=== PATIENT | female | born 1960 | race Caucasian/White ===

== ENCOUNTER 2017-02-04 12:30 | Emergency (ER) | payer MEDICARE, OTHER ==
[~2017-02-04] VITALS: Ht 177.8 cm; Wt 150.0 kg
[~2017-02-04 12:30] MED LIST: ACIDCAP PO; ALBU0.08 NEB; ALLO300T2 PO; ASPI81TA11 PO; ATOR40TA16 PO; CLON.1 PO; DEPO400I IM; DOXE100C4 PO; FIORINAL2 PO; FLUO40CA PO; GLUC4CHW CHEW; INSU1SOL SQ; LYRI150C PO; NITR1SUB3 SL; NORC5TAB PO; PANT40TA3 PO; PROM25TA5 PO; RANI150T PO; SERO300T PO; SYMB160A INH; THYR1TAB21 PO; TOPR100T PO; [UNRECOGNIZED DRUG - OTHER] EACH EYE
[2017-02-04 12:32] VITALS: BP 146/82; PULSE 103; RESP 17; TEMP 97.9; O2SAT 98
--- NOTE | 2017-02-04 12:53 | PD ---
Physical Exam Time Seen by Provider: 12:50 Narrative 56yo F c/o fall last night w/ pain in R hand, L leg and knee pain, lower back pain, and feeling nauseated. Denies vomiting. Hit head w/o LOC. Denies anticoagulants. R sided ear ache also, all of a sudden. Patient stable. Patient seen in triage. Awaiting bed placement. Data Data Last Documented VS Vital Signs Date Time Temp Pulse Resp B/P Pulse Ox O2 Delivery O2 Flow Rate FiO2 02/04/17 12:32 97.9 103 17 146/82 98 MDM Supervised Visit with COLLEEN: Barbara Mixon Feb 04, 2017 12:53
[2017-02-04 14:10] VITALS: RESP 18; O2SAT 98
[2017-02-04] MEDS ORDERED: SODIUM CHLORIDE 0.9% FLUSH 10 ML FLUSH IVF PRN (14:15)
--- NOTE | 2017-02-04 14:41 | PD ---
HPI Chief Complaint: Fall Time Seen by Provider: 13:50 Travel History International Travel<30 days: No Contact w/Intl Traveler<30days: No Traveled to known affect area: No History of Present Illness HPI Patient is a 56-year-old female presenting to the emergency room for evaluation her a fall. Patient fell approximately 5 PM yesterday evening, she reports that she had her electric wheelchair too far away from the bathroom because she was trying to increase her steps when she lost her balance, falling backwards and hitting her head on the doorway she also states that she had her right hand when she fell. She fell on her butt on linoleum floor. Patient denies any loss of consciousness, she was helped up by friends. Patient states she woke up this morning and her blood glucose was 58 so she proceeded to eat to pain about her jelly sandwiches to get her sugar up. She denies any shortness of breath, chest pain, headache, abdominal pain. PFSH Past Medical History Hx Anticoagulant Therapy: Yes (ASA) Arthritis: Yes Asthma: No Autoimmune Disease: No Blood Disorders: No Anxiety: Yes (PTSD, BORDERLINE PERSONALITY DISORDER; DEPRESSION & ANXIETY) Depression: Yes Heart Rhythm Problems: No Cancer: No Cardiac Catheterization: Yes ( X 4 PER PT, NO STENTS) High Cholesterol: No Chemotherapy: No Chest Pain: Yes Congestive Heart Failure: Yes COPD: Yes Cerebrovascular Accident: Yes Diabetes: Yes Patient Takes Glucophage: Yes Diminished Hearing: No Gastrointestinal Disorders: Yes GERD: Yes Genitourinary: Yes Hiatal Hernia: Yes Hypertension: Yes Immune Disorder: No Implanted Vascular Access Dvce: Yes Kidney Stones: No Neurologic: Yes (peripheral neuropathy) Psychiatric: Yes Reproductive: No Immunizations Current: Yes Migraines: Yes Radiation Therapy: No Renal Failure: Yes (DECREASED RENAL FUNCTION) Seizures: No Sickle Cell Disease: No Sleep Apnea: Yes Thyroid Disease: Yes Triglycerides - High: Yes Ulcer: No Influenza Vaccination: Yes ?: Not Menopausal: Yes Past Surgical History Abdominal Surgery: No AICD: No Arteriovenous Shunt: No Cardiac Surgery: No Coronary Artery Bypass Graft: No Ear Surgery: No Endocrine Surgery: No Eye Surgery: No Genitourinary Surgery: Yes (1999 sphincterotomy/hemerrhoidectomy) Gynecologic Surgery: No Joint Replacement: No Neurologic Surgery: No Pacemaker: No Thoracic Surgery: No Tonsillectomy: Yes Other Surgery: Yes (Spinal Decompression w Caio Nov 24;ANAL FISSURE/SPHINCTER/ HEMORRHOID REPAIR-) Family History Family Myocardial Infarction: Yes (FATHER [place] X 7, BYPASS AND STENTS, MOM PASSED FROM [place]) Social History Alcohol Use: Yes (rare) Tobacco Use: Yes (1/2 PPD) Substance Use: No Allergies-Medications (Allergen,Severity, Reaction): Coded Allergies: Baclofen (Verified Allergy, Severe, rash, 02/04/17) Niacin (Verified Allergy, Severe, Edema, 02/04/17) Synthroid (Verified Allergy, Severe, Edema, 02/04/17) *MDRO Multi-Drug Resistant Organism (Verified Adverse Reaction, Unknown, ) 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 ESBL+E.Coli (urine-01/14/11) Reported Meds & Prescriptions Reported Meds & Active Scripts Active Fiorinal (Butalbital/Aspirin/Caffeine) 50-325-40 Mg Cap 1 Cap PO TID PRN Do not exceed 6 capsules/day. Catapres (Clonidine) 0.1 Mg Tab 0.1 Mg PO TID Reported Humulin R U-500 (Concentrate) Kwikpen Inj (Insulin Regular (Human) Concentrate Inj) 1,500 Units/3 Ml Pen 3 Units SQ AC DINNER Humulin R U-500 (Concentrate) Kwikpen Inj (Insulin Regular (Human) Concentrate Inj) 1,500 Units/3 Ml Pen 4 Units SQ AC LUNCH Humulin R U-500 (Concentrate) Kwikpen Inj (Insulin Regular (Human) Concentrate Inj) 1,500 Units/3 Ml Pen 6 Units SQ AC BREAKFAST Atorvastatin (Atorvastatin Calcium) Unknown Strength Tab 20 PO HS Nature-Throid (Thyroid) 65 Mg Tab 65 Mg PO DAILY Seroquel (Quetiapine Fumarate) 300 Mg Tab 300 Mg PO TID Ranitidine (Ranitidine HCl) 150 Mg Tab 150 Mg PO BID Phenergan (Promethazine HCl) 25 Mg Tab 25 Mg PO BID PRN Lyrica (Pregabalin) 150 Mg Cap 150 Mg PO BID Pantoprazole (Pantoprazole Sodium) 40 Mg Tab 40 Mg PO BID Nitroglycerin SL (Nitroglycerin) 0.4 Mg Subl 0.4 Mg SL DIRECTED PRN ONE TABLET UNDER THE TONGUE NEEDED FOR CHEST PAIN, MAY REPEAT EVERY FIVE MINUTES FOR A TOTAL OF 3 DOSES OR CALL 911 IF NO RELIEF Toprol XL (Metoprolol Succinate) 100 Mg Tab 100 Mg PO AC LUNCH Glucose (Dextrose) 4 Gm Chew 16 Gm CHEW DIRECTED Fluoxetine (Fluoxetine HCl) 40 Mg Cap 80 Mg PO DAILY Doxepin (Doxepin HCl) 100 Mg Cap 100 Mg PO HS Aspirin EC (Aspirin) 81 Mg Tabdr 81 Mg PO HS Sm Artificial Tears Opth Drops (Artificial Tear Solution Opth Drops) 1 Drops 1 Drop EACH EYE QID PRN Allopurinol 300 Mg Tab 300 Mg PO DAILY Symbicort Inh (Budesonide/Formoterol Fumarate) 160-4.5 Mcg/Act Aero 2 Puff INH Q12HR Albuterol Neb (Albuterol Sulfate) 2.5 Mg/3 Ml Neb 2.5 Mg NEB Q6HR NEB PRN Acidophilus (Lactobacillus Acidophilus) 1 Cap Cap 1 Cap PO BID Review of Systems Except as stated in HPI: all other systems reviewed are Neg Eyes: No: Blurred Vision HENT: No: Headaches, Neck Pain Cardiovascular: No: Chest Pain or Discomfort Respiratory: No: Shortness of Breath Gastrointestinal: Positive: Nausea, No: Vomiting, Abdominal Pain Genitourinary: Positive: Decreased Urinary Output Musculoskeletal: Positive: Myalgias, Edema Neurologic: Positive: Slurred Speech, Paresthesia, No: Weakness, Dizziness Physical Exam Narrative GENERAL: Morbidly obese, disheveled female. Resting comfortably in no acute distress. Friend at bedside. SKIN: Focused skin assessment warm/dry. Chronic changes to bilateral lower extremities HEAD: Atraumatic. Normocephalic. EYES: Pupils equal and round. No scleral icterus. No injection or drainage. ENT: No nasal bleeding or discharge. Mucous membranes pink and moist. NECK: Trachea midline. No JVD. CARDIOVASCULAR: Regular rate and rhythm. No murmur appreciated. RESPIRATORY: No accessory muscle use. Diminished GASTROINTESTINAL: Abdomen obese, firm, non-tender, nondistended. Hepatic and splenic margins not palpable. MUSCULOSKELETAL: No obvious deformities. No clubbing. No cyanosis. + edema BLE NEUROLOGICAL: Drowsy and alert, oriented 3. No obvious cranial nerve deficits. Motor grossly within normal limits. Slurred speech. PSYCHIATRIC: Appropriate mood and affect; insight and judgment normal. Data Data Last Documented VS Vital Signs Date Time Temp Pulse Resp B/P Pulse Ox O2 Delivery O2 Flow Rate FiO2 02/04/17 15:40 98 18 148/86 98 Room Air 02/04/17 12:32 97.9 Orders Complete Blood Count With Diff (02/04/17 14:09) Comprehensive Metabolic Panel (02/04/17 14:09) Ct Brain W/O Iv Contrast(Rout) (02/04/17 14:09) Blood Glucose (02/04/17 14:09) Ecg Monitoring (02/04/17 14:09) Iv Access Insert/Monitor (02/04/17 14:09) Oximetry (02/04/17 14:09) Sodium Chloride 0.9% Flush (Ns Flush) (02/04/17 14:15) Cath For Specimen (02/04/17 14:09) Lactic Acid (02/04/17 14:09) Labs Laboratory Tests Test 02/04/17 02/04/17 14:20 14:45 White Blood Count 8.6 TH/MM3 Red Blood Count 4.03 MIL/MM3 Hemoglobin 12.2 GM/DL Hematocrit 35.1 % Mean Corpuscular Volume 87.1 FL Mean Corpuscular Hemoglobin 30.2 PG Mean Corpuscular Hemoglobin 34.6 % Concent Red Cell Distribution Width 15.5 % Platelet Count 200 TH/MM3 Mean Platelet Volume 8.8 FL Neutrophils (%) (Auto) 71.3 % Lymphocytes (%) (Auto) 17.3 % Monocytes (%) (Auto) 6.7 % Eosinophils (%) (Auto) 4.2 % Basophils (%) (Auto) 0.5 % Neutrophils # (Auto) 6.1 TH/MM3 Lymphocytes # (Auto) 1.5 TH/MM3 Monocytes # (Auto) 0.6 TH/MM3 Eosinophils # (Auto) 0.4 TH/MM3 Basophils # (Auto) 0.0 TH/MM3 CBC Comment DIFF FINAL Differential Comment Sodium Level 142 MEQ/L Potassium Level 4.2 MEQ/L Chloride Level 108 MEQ/L Carbon Dioxide Level 29.0 MEQ/L Anion Gap 5 MEQ/L Blood Urea Nitrogen 18 MG/DL Creatinine 1.67 MG/DL Estimat Glomerular Filtration 32 ML/MIN Rate Random Glucose 209 MG/DL Calcium Level 8.8 MG/DL Total Bilirubin 0.2 MG/DL Aspartate Amino Transf 25 U/L (AST/SGOT) Alanine Aminotransferase 29 U/L (ALT/SGPT) Alkaline Phosphatase 91 U/L Total Protein 6.7 GM/DL Albumin 3.1 GM/DL Lactic Acid Level 1.6 mmol/L MDM Medical Decision Making Medical Screen Exam Complete: Yes Emergency Medical Condition: Yes Interpretation(s) Vital Signs Date Time Temp Pulse Resp B/P Pulse Ox O2 Delivery O2 Flow Rate FiO2 02/04/17 13:15 16 99 Room Air 02/04/17 12:32 97.9 103 17 146/82 98 Differential Diagnosis Hyperglycemia versus CVA versus uncontrolled diabetes versus Narrative Course Patient is 56-year-old morbidly obese female presenting to the emergency department for evaluation after a mechanical fall last night. Patient appeared to be slurring her speech on initial exam, she states that that happens to her when her sugar gets high. Labs ordered and pending, vital signs are stable. Patient is neurologically intact upon reassessment. CT of the brain shows no acute abnormality CBC is unremarkable. Chemistry is unremarkable She is encouraged to follow up with her primary doctor, monitor blood sugar, avoid overeating. She is encouraged take [id number] acetaminophen or ibuprofen as needed and as directed for pain. She is currently return to emergency department for any new or worsening symptoms. Patient is stable for discharge. Diagnosis Primary Impression: Fall Qualified Code: W19.XXXA - Fall, initial encounter Additional Impressions: Contusion Qualified Code: S00.03XA - Contusion of scalp, initial encounter Muscle ache Referrals: Primary Care Physician 3 days Patient Instructions: Contusion in Adults (ED), Fall Prevention for Older Adults (ED), General Instructions Additional Instructions: Follow-up with her primary doctor [id number] acetaminophen or ibuprofen as needed and as directed for pain Maintain adequate fluid intake Return to emergency department for any new or worsening symptoms Med/Other Pt SpecificInfo: No Change to Meds Disposition: 01 DISCHARGE HOME Condition: Stable Lucille Durant Feb 04, 2017 14:41
[2017-02-04 15:02] LABS: AUTOMATED NEUTROPHIL # 6.1 TH/MM3 (1.8-7.7); BASOPHIL % 0.5 % (0.0-2.0); EOSINOPHIL # 0.4 TH/MM3 (0-0.4); EOSINOPHIL % 4.2 % (0.0-4.0); HEMATOCRIT 35.1 % (35.0-46.0); HEMO FLAGS DIFF FINAL; LYMPH % 17.3 % (9.0-44.0); LYMPHOCYTE # 1.5 TH/MM3 (1.0-4.8); MEAN CELL VOLUME 87.1 FL (80.0-100.0); MEAN CORPUSCULAR HEMOGLOBIN 30.2 PG (27.0-34.0); MEAN CORPUSCULAR HGB CONC 34.6 % (32.0-36.0); MONO % 6.7 % (0.0-8.0); NEUT % 71.3 % (16.0-70.0); PLATELET COUNT 200 TH/MM3 (150-450); RED BLOOD COUNT 4.03 MIL/MM3 (4.00-5.30); RED CELL DISTRIBUTION WIDTH 15.5 % (11.6-17.2); WHITE BLOOD COUNT 8.6 TH/MM3 (4.0-11.0)
[2017-02-04 15:30] LABS: ALKALINE PHOSPHATASE 91 U/L (45-117); TOTAL BILIRUBIN ADULT 0.2 MG/DL (0.2-1.0)
[2017-02-04 15:38] LABS: ALT (GPT) 29 U/L (10-53); ANION GAP 5 MEQ/L (5-15); AST (GOT) 25 U/L (15-37); BLOOD UREA NITROGEN 18 MG/DL (7-18); CHLORIDE 108 MEQ/L (98-107); GLOMERULAR FILTRATION RATE 32 ML/MIN (>89); POTASSIUM 4.2 MEQ/L (3.5-5.1); SODIUM (NA) 142 MEQ/L (136-145)
[2017-02-04 15:40] VITALS: BP 148/86; PULSE 98; RESP 18; O2SAT 98
--- NOTE | 2017-02-04 16:21 | RADRPT ---
EXAM DATE/TIME: 02/04/2017 14:40 [facility] COMPARISON: CT BRAIN W/O CONTRAST, April 08, 2015, 17:03. INDICATIONS : Patient fell, hit back of head RADIATION DOSE: 55.97 CTDIvol (mGy) MEDICAL HISTORY : Cardiovascular disease. Hypertension. Congestive heart failure. SURGICAL HISTORY : None. ENCOUNTER: Initial ACUITY: 1 day PAIN SCALE: 5/10 LOCATION: occipital TECHNIQUE: Multiple contiguous axial images were obtained of the head. Using automated exposure control and adj ustment of the mA and/or kV according to patient size, radiation dose was kept as low as reasonably a chievable to obtain optimal diagnostic quality images. FINDINGS: CEREBRUM: The ventricles are normal for age. No evidence of midline shift, mass lesion, hemorrhage or acute in farction. No extra-axial fluid collections are seen. POSTERIOR FOSSA: The cerebellum and brainstem are intact. The 4th ventricle is midline. The cerebellopontine angle i s unremarkable. EXTRACRANIAL: The visualized portion of the orbits is intact. SKULL: The calvaria is intact. No evidence of skull fracture. CONCLUSION: Negative trauma study. Arya Santos MD on February 04, 2017 at 16:18 Board Certified Radiologist. This report was verified electronically.
[2017-02-04 16:47] VITALS: BP 148/76; TEMP 97.8
--- NOTE | 2017-02-04 16:50 | PD ---
Data Data Last Documented VS Vital Signs Date Time Temp Pulse Resp B/P Pulse Ox O2 Delivery O2 Flow Rate FiO2 02/04/17 15:40 98 18 148/86 98 Room Air 02/04/17 12:32 97.9 Orders Complete Blood Count With Diff (02/04/17 14:09) Comprehensive Metabolic Panel (02/04/17 14:09) Ct Brain W/O Iv Contrast(Rout) (02/04/17 14:09) Blood Glucose (02/04/17 14:09) Ecg Monitoring (02/04/17 14:09) Iv Access Insert/Monitor (02/04/17 14:09) Oximetry (02/04/17 14:09) Sodium Chloride 0.9% Flush (Ns Flush) (02/04/17 14:15) Cath For Specimen (02/04/17 14:09) Lactic Acid (02/04/17 14:09) Labs Laboratory Tests Test 02/04/17 02/04/17 14:20 14:45 White Blood Count 8.6 TH/MM3 Red Blood Count 4.03 MIL/MM3 Hemoglobin 12.2 GM/DL Hematocrit 35.1 % Mean Corpuscular Volume 87.1 FL Mean Corpuscular Hemoglobin 30.2 PG Mean Corpuscular Hemoglobin 34.6 % Concent Red Cell Distribution Width 15.5 % Platelet Count 200 TH/MM3 Mean Platelet Volume 8.8 FL Neutrophils (%) (Auto) 71.3 % Lymphocytes (%) (Auto) 17.3 % Monocytes (%) (Auto) 6.7 % Eosinophils (%) (Auto) 4.2 % Basophils (%) (Auto) 0.5 % Neutrophils # (Auto) 6.1 TH/MM3 Lymphocytes # (Auto) 1.5 TH/MM3 Monocytes # (Auto) 0.6 TH/MM3 Eosinophils # (Auto) 0.4 TH/MM3 Basophils # (Auto) 0.0 TH/MM3 CBC Comment DIFF FINAL Differential Comment Sodium Level 142 MEQ/L Potassium Level 4.2 MEQ/L Chloride Level 108 MEQ/L Carbon Dioxide Level 29.0 MEQ/L Anion Gap 5 MEQ/L Blood Urea Nitrogen 18 MG/DL Creatinine 1.67 MG/DL Estimat Glomerular Filtration 32 ML/MIN Rate Random Glucose 209 MG/DL Calcium Level 8.8 MG/DL Total Bilirubin 0.2 MG/DL Aspartate Amino Transf 25 U/L (AST/SGOT) Alanine Aminotransferase 29 U/L (ALT/SGPT) Alkaline Phosphatase 91 U/L Total Protein 6.7 GM/DL Albumin 3.1 GM/DL Lactic Acid Level 1.6 mmol/L MDM Supervised Visit with COLLEEN: Yes Narrative Course The history, exam, and medical decision-making in the associated mid-level provider note were completed with my assistance. I reviewed and agree with the findings presented. I attest that I had a [id number] encounter with the patient on the same day, and personally performed and documented my assessment and findings in the medical record. *My assessment and Findings: 56-year-old woman, obese, presents after a fall. She initially was a little bit sluggish, with some slurred speech. She is on many many medications. She does on large doses of Seroquel. She states she gets incredibly sleepy every morning around 10 AM. Initial evaluation otherwise looks okay. No other evidence of acute stroke. I recommend that she follow-up for titration all sedating medications. She otherwise looks generally well. Recommend outpatient follow-up. Diagnosis Primary Impression: Fall Qualified Code: W19.XXXA - Fall, initial encounter Additional Impressions: Muscle ache Contusion Qualified Code: S00.03XA - Contusion of scalp, initial encounter Referrals: Primary Care Physician 3 days Patient Instructions: General Instructions, Fall Prevention for Older Adults ( ED), Contusion in Adults (ED) Departure Forms: Tests/Procedures Additional Instruction: Follow-up with her primary doctor [id number] acetaminophen or ibuprofen as needed and as directed for pain Maintain adequate fluid intake Return to emergency department for any new or worsening symptoms Disposition: 01 DISCHARGE HOME Condition: Stable Reese Carreon MD Feb 04, 2017 16:49
== END 2017-02-04 16:47 | disposition home or self-care (01) ==
LOC: NEPD 12:30
DX: S00.03XA Contusion of scalp, initial encounter (principal); W19.XXXA Unspecified fall, initial encounter; Y92.019 Unspecified place in single-family (private) house as the place of occurrence of the external cause
CPT/HCPCS: 70450; 80053; 83605; 85025

== ENCOUNTER 2017-03-18 14:11 | Inpatient (IN) | payer MEDICARE ==
[2017-03-18] VITALS (14 sets, daily range): BP systolic 99–138; BP diastolic 55–73; PULSE 72–88; RESP 18–24; TEMP 100.1–101.6; O2SAT 92–100
[~2017-03-18] VITALS: Ht 170.2 cm; Wt 152.0 kg
[~2017-03-18 14:11] MED LIST changes: -DEPO400I IM; -NORC5TAB PO
--- NOTE | 2017-03-18 14:23 | PD ---
HPI Chief Complaint: COUGH,SOB AND WEAKNESS Time Seen by Provider: 14:19 Travel History International Travel<30 days: No Contact w/Intl Traveler<30days: No History of Present Illness [place] reason when [place] noted that patient had fever and pulse ox 70's , pt states sob and cough PFSH Past Medical History Hx Anticoagulant Therapy: Yes (ASA) Arthritis: Yes Asthma: No Autoimmune Disease: No Blood Disorders: No Anxiety: Yes (PTSD, BORDERLINE PERSONALITY DISORDER; DEPRESSION & ANXIETY) Depression: Yes Heart Rhythm Problems: No Cancer: No Cardiac Catheterization: Yes ( X 4 PER PT, NO STENTS) High Cholesterol: No Chemotherapy: No Chest Pain: Yes Congestive Heart Failure: Yes COPD: Yes Cerebrovascular Accident: Yes Diabetes: Yes Diminished Hearing: No Gastrointestinal Disorders: Yes GERD: Yes Genitourinary: Yes Hiatal Hernia: Yes Hypertension: Yes Immune Disorder: No Implanted Vascular Access Dvce: Yes Kidney Stones: No Neurologic: Yes (peripheral neuropathy) Psychiatric: Yes Reproductive: No Immunizations Current: Yes Migraines: Yes Radiation Therapy: No Renal Failure: Yes (DECREASED RENAL FUNCTION) Seizures: No Sickle Cell Disease: No Sleep Apnea: Yes Thyroid Disease: Yes Triglycerides - High: Yes Ulcer: No Menopausal: Yes Past Surgical History Abdominal Surgery: No AICD: No Arteriovenous Shunt: No Cardiac Surgery: No Coronary Artery Bypass Graft: No Ear Surgery: No Endocrine Surgery: No Eye Surgery: No Genitourinary Surgery: Yes (1998 sphincterotomy/hemerrhoidectomy) Gynecologic Surgery: No Joint Replacement: No Neurologic Surgery: No Pacemaker: No Thoracic Surgery: No Tonsillectomy: Yes Other Surgery: Yes (Spinal Decompression w Nov 24;ANAL FISSURE/SPHINCTER/ HEMORRHOID REPAIR-) Social History Alcohol Use: Yes (rare) Tobacco Use: Yes (1/2 PPD) Substance Use: No Allergies-Medications (Allergen,Severity, Reaction): Coded Allergies: Baclofen (Verified Allergy, Severe, rash, 02/04/17) Niacin (Verified Allergy, Severe, Edema, 02/04/17) Synthroid (Verified Allergy, Severe, Edema, 02/04/17) *MDRO Multi-Drug Resistant Organism (Verified Adverse Reaction, Unknown, ) 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 ESBL+E.Coli (urine-01/14/11) Reported Meds & Prescriptions Reported Meds & Active Scripts Active Catapres (Clonidine) 0.1 Mg Tab 0.1 Mg PO TID Reported Tucks Medicated Topical (Witch Nyasia Topical) 50 % Pad 1 Pad TOPICAL DIRECTED PRN Aqua Care (Urea) 10 % Cre 1 Applic TOPICAL BID Nasacort Allergy 24Hr Nasal [place] (Triamcinolone Acetonide Nasal [place]) 55 Mcg/ Act Spr 2 [place] EACH NARE DAILY Tobramycin Opth Drops 0.3 % Soln 1 Drop EACH EYE QID Spiriva Respimat Inh (Tiotropium Inh) 2.5 Mcg/Act Aero 2 Puff INH DAILY 2.5 mcg = 1 inhalation Seroquel (Quetiapine Fumarate) 300 Mg Tab 150 Mg PO BID Phenergan (Promethazine HCl) 25 Mg Tablet 25 Mg PO BID PRN Prochlorperazine Supp (Prochlorperazine) 25 Mg Supp 25 Mg RECTAL Q6H PRN Miralax Powder (Polyethylene Glycol 3350 Powder) 17 Gm Powd 17 Gm PO BID Mix and dissolve one measuring cap-ful (17 grams) in water or juice. Lotrimin AF Deodorant Powder (Miconazole Nitrate Powder) 2 % Aerp 1 Applic TOPICAL BID PRN Robaxin (Methocarbamol) 500 Mg Tab 1,000 Mg PO TID PRN Arthritis Hot 10-15 % (Menthol-Methyl Salicylate (Francoise) 1 Cre Cre 1 Applic TOPICAL QID PRN Losartan (Losartan Potassium) 25 Mg Tab 25 Mg PO DAILY Lidocaine Patch 12 HR (Lidocaine) 5 % Patch 1 Patch TOPICAL DAILY Remove patch after 12 hours Acidophilus Capsule (L. Acidophilus/Pectin, [place]) 1 Each Capsule 1 Cap PO BID Tanzeum 4-Pack Inj (Albiglutide) 50 Mg Pfpen 50 Mg SQ SATURDAY Diphenhydramine Liq (Diphenhydramine HCl) 12.5 Mg/5 Ml Elix 25 Mg PO QID PRN Hibiclens Topical (Chlorhexidine Gluconate) 4% Liq 1 Applic TOPICAL WEEKLY Theratears Unit-Dose Opth Gel (Carboxymethylcellulose Sodium Opth Gel) 1% Gel 1 Drop EACH EYE HS Brimonidine Opth Drops (Brimonidine Tartrate) 0.2% Soln 1 Drop EACH EYE TID Fioricet (Oxbgznnyxu-Advvaldooyjbl-Itcoplau) 50-300-40 Mg Cap 1-2 Cap PO TID PRN Atorvastatin (Atorvastatin Calcium) 20 Mg Tab 20 Mg PO HS Humulin R U-500 (Concentrate) Kwikpen Inj (Insulin Regular (Human) Concentrate Inj) 1,500 Units/3 Ml Pen 75 Units SQ AC DINNER Humulin R U-500 (Concentrate) Kwikpen Inj (Insulin Regular (Human) Concentrate Inj) 1,500 Units/3 Ml Pen 75 Units SQ AC LUNCH Humulin R U-500 (Concentrate) Kwikpen Inj (Insulin Regular (Human) Concentrate Inj) 1,500 Units/3 Ml Pen 300 Units SQ AC BREAKFAST Nature-Throid (Thyroid) 65 Mg Tab 65 Mg PO DAILY Seroquel (Quetiapine Fumarate) 300 Mg Tab 600 Mg PO HS Ranitidine (Ranitidine HCl) 150 Mg Tab 150 Mg PO BID Lyrica (Pregabalin) 150 Mg Cap 150 Mg PO BID Pantoprazole (Pantoprazole Sodium) 40 Mg Tab 40 Mg PO BID Nitroglycerin SL (Nitroglycerin) 0.4 Mg Subl 0.4 Mg SL DIRECTED PRN ONE TABLET UNDER THE TONGUE NEEDED FOR CHEST PAIN, MAY REPEAT EVERY FIVE MINUTES FOR A TOTAL OF 3 DOSES OR CALL 911 IF NO RELIEF Toprol XL (Metoprolol Succinate) 100 Mg Tab 100 Mg PO AC LUNCH Glucose (Dextrose) 4 Gm Chew 16 Gm CHEW DIRECTED Fluoxetine (Fluoxetine HCl) 40 Mg Cap 80 Mg PO DAILY Doxepin (Doxepin HCl) 100 Mg Cap 100 Mg PO HS Aspirin EC (Aspirin) 81 Mg Tabdr 81 Mg PO HS Sm Artificial Tears Opth Drops (Artificial Tear Solution Opth Drops) 1 Drops 1 Drop EACH EYE QID PRN Allopurinol 300 Mg Tab 300 Mg PO DAILY Review of Systems Except as stated in HPI: all other systems reviewed are Neg General / Constitutional: Positive: Fever Respiratory: Positive: Cough, Shortness of Breath Physical Exam Exam Limitations: Clinical Condition Narrative GENERAL: SKIN: Warm and dry. HEAD: Atraumatic. Normocephalic. EYES: Pupils equal and round. No scleral icterus. No injection or drainage. ENT: No nasal bleeding or discharge. Mucous membranes pink and moist. NECK: Trachea midline. No JVD. CARDIOVASCULAR: Regular rate and rhythm. ble edema 2+ with erythema as well RESPIRATORY: tachypneic, wheezing, some retractions noted GASTROINTESTINAL: Abdomen soft, non-tender, nondistended. Hepatic and splenic margins not palpable. morbidly obese MUSCULOSKELETAL: Extremities without clubbing, cyanosis, or edema. No obvious deformities. NEUROLOGICAL: Awake and alert. No obvious cranial nerve deficits. Motor grossly within normal limits. Five out of 5 muscle strength in the arms and legs. Normal speech. PSYCHIATRIC: Appropriate mood and affect; insight and judgment normal. Data Data Last Documented VS Vital Signs Date Time Temp Pulse Resp B/P Pulse Ox O2 Delivery O2 Flow Rate FiO2 03/18/17 15:30 101.6 86 22 105/73 100 BiPAP 03/18/17 14:50 60 03/18/17 14:30 15 Orders Complete Blood Count With Diff (03/18/17 14:26) Comprehensive Metabolic Panel (03/18/17 14:) B-Type Natriuretic Peptide (03/18/17 14:) Act Partial Throm Time (Ptt) (03/18/17 14:) Prothrombin Time / Inr (Pt) (03/18/17 14:26) Ckmb (Isoenzyme) Profile (03/18/17 14:) Troponin I (03/18/17 14:26) Arterial Blood Gas (Abg) (03/18/17 14:26) Urinalysis - C+S If Indicated (03/18/17 14:) Influenzae A/B Antigen (03/18/17 14:) Blood Culture (03/18/17 14:26) Iv Access Insert/Monitor (03/18/17 14:26) Electrocardiogram (03/18/17 14:26) Ecg Monitoring (03/18/17 14:) Oximetry (03/18/17:) Oxygen Administration (03/18/17 14:26) Chest, Single Ap (03/18/17 14:26) Sodium Chloride 0.9% Flush (Ns Flush) (03/18/17 14:30) Methylprednisolone So Succ Inj (Solumedr (03/18/17 14:30) Albuterol Neb (Albuterol Neb) (03/18/17 14:30) Resp Bipap / Cpap Non Invas Vt (03/18/17 14:26) Lactic Acid Sepsis Protocol (03/18/17 14:36) CKMB (03/18/17 14:25) CKMB% (03/18/17 14:25) Aztreonam Inj (Azactam Inj) (03/18/17 15:45) Sodium Chloride 0.9% Flush (Ns Flush) (03/18/17 16:00) Azithromycin Inj (Zithromax Inj) (03/18/17 16:00) Albuterol Neb (Albuterol Neb) (03/18/17 16:00) Admit Order (Ed Use Only) (03/18/17 16:13) Labs Laboratory Tests Test 03/18/17 03/18/17 14:25 14:45 White Blood Count 16.2 TH/MM3 Red Blood Count 4.31 MIL/MM3 Hemoglobin 12.1 GM/DL Hematocrit 37.7 % Mean Corpuscular Volume 87.6 FL Mean Corpuscular Hemoglobin 28.2 PG Mean Corpuscular Hemoglobin 32.2 % Concent Red Cell Distribution Width 14.8 % Platelet Count 264 TH/MM3 Mean Platelet Volume 8.4 FL Neutrophils (%) (Auto) 88.9 % Lymphocytes (%) (Auto) 5.3 % Monocytes (%) (Auto) 4.6 % Eosinophils (%) (Auto) 0.7 % Basophils (%) (Auto) 0.5 % Neutrophils # (Auto) 14.4 TH/MM3 Lymphocytes # (Auto) 0.9 TH/MM3 Monocytes # (Auto) 0.7 TH/MM3 Eosinophils # (Auto) 0.1 TH/MM3 Basophils # (Auto) 0.1 TH/MM3 CBC Comment DIFF FINAL Differential Comment Prothrombin Time 10.5 SEC Prothromb Time International 1.0 RATIO Ratio Activated Partial 25.0 SEC Thromboplast Time Sodium Level 141 MEQ/L Potassium Level 3.8 MEQ/L Chloride Level 103 MEQ/L Carbon Dioxide Level 32.9 MEQ/L Anion Gap 5 MEQ/L Blood Urea Nitrogen 20 MG/DL Creatinine 2.07 MG/DL Estimat Glomerular Filtration 25 ML/MIN Rate Random Glucose 63 MG/DL Calcium Level 8.5 MG/DL Total Bilirubin 0.3 MG/DL Aspartate Amino Transf 16 U/L (AST/SGOT) Alanine Aminotransferase 23 U/L (ALT/SGPT) Alkaline Phosphatase 79 U/L Total Creatine Kinase 153 U/L Creatine Kinase MB 2.1 NG/ML Troponin I 0.02 NG/ML B-Type Natriuretic Peptide 52 PG/ML Total Protein 7.3 GM/DL Albumin 3.2 GM/DL Lactic Acid Level 1.6 mmol/L MDM Medical Decision Making Medical Screen Exam Complete: Yes Emergency Medical Condition: Yes Medical Record Reviewed: Yes Differential Diagnosis chf, copd, pna, uti, flu, eval for sob as well as possible infectious source Narrative Course arrived hypoxemic from [facility], currently awaiting fax dnr which apparently was not sent to us but her bedside friend believes she has in place. rll pna noted on cxr, will give abx iv and continue her bipap care Critical Care Narrative CRITICAL CARE NOTE: With evaluation of the patient, labs, EKG, receipt of radiologic studies, administration of medications, reevaluation the patient and discussion of the patient with the admitting physicians, the total critical care time was [60] minutes. Time to perform other separately billable procedures was not included in the critical care time. Procedures Procedure Narrative The patient was put in optimal position for the procedure. Rapid sequence intubation was initiated by me using [20] milligrams of etomidate IV and [100] milligrams of [SUCCINYLCHOLINE] IV. The patient was intubated with a [8-0] cuffed endotracheal tube, 24 AT THE LIP LINE. Tube placement was confirmed by visualization of the tube and balloon passing through the cords, capnometry and subsequent chest x-ray. Breath sounds were equal and well aerated bilaterally postintubation. No breath sounds over stomach. Patient tolerated procedure well. Physician Communication Physician Communication SPOKE WITH DR DICKERSON WHO FOUND THAT PATIENT RESCINDED HER DNR AND WOULD LIKE TO BE INTUBATED, SHE FEELS VERY TIRED, CASE D/W DR BULLOCK (INTENSIVIIST) Diagnosis Primary Impression: Pneumonia Qualified Code: J18.1 - Pneumonia of right lower lobe due to infectious organism Additional Impressions: COPD exacerbation Acute hypoxemic respiratory failure Admitting Information Admitting Physician Requests: Admit Linden Avila MD Mar 18, 2017 14:23
[2017-03-18] MEDS ORDERED: methylPREDNISolone SOD SUCC 125 MG/2 ML VIAL IVP ONE (14:30)
[2017-03-18] MEDS: RESP: ALBUTEROL 2.5 MG/3 ML NEB (SCH) INH ×4 (14:30→16:20)
[2017-03-18] MEDS ORDERED: SODIUM CHLORIDE 0.9% FLUSH 10 ML FLUSH IVF PRN ×3 (14:30→18:15)
[2017-03-18 14:59] LABS: AUTOMATED NEUTROPHIL # 14.4 TH/MM3 (1.8-7.7); BASOPHIL # 0.1 TH/MM3 (0-0.2); BASOPHIL % 0.5 % (0.0-2.0); EOSINOPHIL # 0.1 TH/MM3 (0-0.4); EOSINOPHIL % 0.7 % (0.0-4.0); HEMATOCRIT 37.7 % (35.0-46.0); HEMO FLAGS DIFF FINAL; LYMPH % 5.3 % (9.0-44.0); LYMPHOCYTE # 0.9 TH/MM3 (1.0-4.8); MEAN CELL VOLUME 87.6 FL (80.0-100.0); MEAN CORPUSCULAR HEMOGLOBIN 28.2 PG (27.0-34.0); MEAN CORPUSCULAR HGB CONC 32.2 % (32.0-36.0); MONO % 4.6 % (0.0-8.0); NEUT % 88.9 % (16.0-70.0); PLATELET COUNT 264 TH/MM3 (150-450); RED BLOOD COUNT 4.31 MIL/MM3 (4.00-5.30); RED CELL DISTRIBUTION WIDTH 14.8 % (11.6-17.2); WHITE BLOOD COUNT 16.2 TH/MM3 (4.0-11.0)
[2017-03-18 15:13] LABS: PROTHROMBIN TIME - PATIENT 10.5 SEC (9.8-11.6)
--- NOTE | 2017-03-18 15:14 | RADRPT ---
EXAM DATE/TIME: 03/18/2017 14:38 [facility] COMPARISON: CHEST SINGLE AP, September 24, 2016, 12:19. INDICATIONS : Shortness of breath. MEDICAL HISTORY : Chronic obstructive pulmonary disease. Emphysema. Congestive heart failure. CVA. Diabetes. SURGICAL HISTORY : Cardiac cath. ENCOUNTER: Initial ACUITY: 2 days PAIN SCORE: 0/10 LOCATION: Bilateral chest FINDINGS: 2 frontal views of the chest show a right lower lobe intra-alveolar infiltrate. Left lung is clear. N o effusions. Heart is mildly enlarged. Bony structures are grossly unremarkable. CONCLUSION: Right lower lobe infiltrate. Anselmo Louise Jr., MD on March 18, 2017 at 15:11 Board Certified Radiologist. This report was verified electronically.
[2017-03-18 15:18] LABS: ALT (GPT) 23 U/L (10-53); ANION GAP 5 MEQ/L (5-15); AST (GOT) 16 U/L (15-37); BICARBONATE 32.9 MEQ/L (21.0-32.0); BLOOD UREA NITROGEN 20 MG/DL (7-18); CHLORIDE 103 MEQ/L (98-107); GLOMERULAR FILTRATION RATE 25 ML/MIN (>89); POTASSIUM 3.8 MEQ/L (3.5-5.1); SODIUM (NA) 141 MEQ/L (136-145)
[2017-03-18 15:20] LABS: ALKALINE PHOSPHATASE 79 U/L (45-117); CREATINE KINASE 153 U/L (26-192); TOTAL BILIRUBIN ADULT 0.3 MG/DL (0.2-1.0)
[2017-03-18 15:33] LABS: CKMB 2.1 NG/ML (0.5-3.6)
[2017-03-18] MEDS ORDERED: AZITHROMYCIN 250 MG TAB PO ONE (15:45)
[2017-03-18] MEDS ORDERED: AZTREONAM INJ 2,000 MG in SODIUM CHLORIDE 0.9% INJ 100 ML IV ONE (15:45)
[2017-03-18] MEDS ORDERED: AZITHROMYCIN INJ 500 MG in SODIUM CHLOR 0.9% 250 ML INJ 250 ML IV ONE (16:00)
[2017-03-18] MEDS ORDERED: SODIUM CHLORIDE 0.9% FLUSH 10 ML FLUSH IV FLUSH PRN (16:45)
[2017-03-18] MEDS ORDERED: NALOXONE HCL 0.4 MG/ML AMP IV PRN (16:45)
[2017-03-18] MEDS ORDERED: ONDANSETRON HCL 4 MG/2 ML VIAL IVP PRN (16:45)
[2017-03-18] MEDS ORDERED: RESP: ALBUTEROL 2.5 MG/IPRATROPIUM 0.5 MG NEB (PRN) NEB (16:45)
[2017-03-18] MEDS ORDERED: ACETAMINOPHEN/HYDROcodone 325 MG/5 MG TAB PO PRN (16:45)
[2017-03-18] MEDS ORDERED: ACETAMINOPHEN 325 MG TAB PO PRN ×2 (16:45)
[2017-03-18] MEDS ORDERED: MAGNESIUM HYDROXIDE SUSP 30 ML CUP PO PRN ×2 (16:45→19:30)
[2017-03-18] MEDS ORDERED: DEXTROSE 50% IN WATER 50 ML VIAL(D50) IV PRN (17:15)
[2017-03-18] MEDS ORDERED: GLUCAGON 1 MG/ML VIAL OTHER PRN (17:15)
[2017-03-18] MEDS ORDERED: D5-1/2 NS + KCL 20 MEQ INJ 1,000 ML IV SCH (17:17)
--- NOTE | 2017-03-18 17:22 | HHI.HP ---
HPI Service [facility] Primary Care Physician Non-Staff Admission Diagnosis HYPOXEMIC RESP FAILURE ON BIPAP, RLL PNEUMONIA Diagnoses: Chief Complaint: fever, hypoxia Travel History International Travel<30 Days: No Contact w/Intl Traveler <30 Da: No Traveled to Known Affected Are: No History of Present Illness Written by Nitza Rosa, acting as scribe for Dr. Suazo on 03/18/17 at 18:00. 56-year-old female with history of PTSD, borderline personality disorder, depression, anxiety, COPD, CHF, Diabetes, neuropathy, GERD, HTN, HLD, migraines , hypothyroidism, presents to the ED after being sent by the [facility] for fever and hypoxia with O2 sat in the 70s. The patient was transported via EV[facility], placed on NRB, O2 sat improved however patient's breathing very labored with tachypnea therefore put on Bipap in the ER. The patient is now seen in the ER after several minutes of being on Bipap, she reports feeling very fatigued and short of breath. She informs medical team she now wants to revoke her DNR and agrees to intubation if recommended (family member also at bedside agrees to this). Discussed with ER MD who will now intubate and admit to training professional service. The patient does report 2 week history of shortness of breath and dry nonproductive cough. She has also noticed occasional wheezing. Denies any chest pain. She reports subjective fevers over the past day and had a fever at the [facility] office today. Further history is limited as the patient is very fatigued, tachypneic, and difficult to understand on bipap. The rest of the patient's medical history is obtained from the EMR. Review of Systems ROS Limitations: Clinical Condition Except as stated in HPI: all other systems reviewed are Neg Past Family Social History Past Medical History PTSD borderline personality disorder depression anxiety COPD CHF Diabetes neuropathy GERD HTN HLD migraines hypothyroidism Past Surgical History Sphincterectomy/Hemorrhoidectomy in 1998 Cardiac Catheterizations with normal coronary arteries Cervical and lumbar spine surgeries Tonsillectomy Bilateral carpal tunnel release Reported Medications Humulin R U-500 (Concentrate) Kwikpen Inj (Insulin Regular (Human) Concentrate Inj) 1,500 Units/3 Ml Pen 3 Units SQ AC DINNER Humulin R U-500 (Concentrate) Kwikpen Inj (Insulin Regular (Human) Concentrate Inj) 1,500 Units/3 Ml Pen 4 Units SQ AC LUNCH Humulin R U-500 (Concentrate) Kwikpen Inj (Insulin Regular (Human) Concentrate Inj) 1,500 Units/3 Ml Pen 6 Units SQ AC BREAKFAST Atorvastatin (Atorvastatin Calcium) Unknown Strength Tab 20 PO HS Nature-Throid (Thyroid) 65 Mg Tab 65 Mg PO DAILY Seroquel (Quetiapine Fumarate) 300 Mg Tab 300 Mg PO TID Ranitidine (Ranitidine HCl) 150 Mg Tab 150 Mg PO BID Phenergan (Promethazine HCl) 25 Mg Tab 25 Mg PO BID PRN Lyrica (Pregabalin) 150 Mg Cap 150 Mg PO BID Pantoprazole (Pantoprazole Sodium) 40 Mg Tab 40 Mg PO BID Nitroglycerin SL (Nitroglycerin) 0.4 Mg Subl 0.4 Mg SL DIRECTED PRN ONE TABLET UNDER THE TONGUE NEEDED FOR CHEST PAIN, MAY REPEAT EVERY FIVE MINUTES FOR A TOTAL OF 3 DOSES OR CALL 911 IF NO RELIEF Toprol XL (Metoprolol Succinate) 100 Mg Tab 100 Mg PO AC LUNCH Glucose (Dextrose) 4 Gm Chew 16 Gm CHEW DIRECTED Fluoxetine (Fluoxetine HCl) 40 Mg Cap 80 Mg PO DAILY Doxepin (Doxepin HCl) 100 Mg Cap 100 Mg PO HS Aspirin EC (Aspirin) 81 Mg Tabdr 81 Mg PO HS Sm Artificial Tears Opth Drops (Artificial Tear Solution Opth Drops) 1 Drops 1 Drop EACH EYE QID PRN Allopurinol 300 Mg Tab 300 Mg PO DAILY Symbicort Inh (Budesonide/Formoterol Fumarate) 160-4.5 Mcg/Act Aero 2 Puff INH Q12HR Albuterol Neb (Albuterol Sulfate) 2.5 Mg/3 Ml Neb 2.5 Mg NEB Q6HR NEB PRN Acidophilus (Lactobacillus Acidophilus) 1 Cap Cap 1 Cap PO BID Allergies: Coded Allergies: Baclofen (Verified Allergy, Severe, rash, 02/04/17) Niacin (Verified Allergy, Severe, Edema, 02/04/17) Synthroid (Verified Allergy, Severe, Edema, 02/04/17) *MDRO Multi-Drug Resistant Organism (Verified Adverse Reaction, Unknown, ) 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 ESBL+E.Coli (urine-01/14/11) Active Ordered Medications Current Medications Medications (Trade) Dose Ordered Sig/Inez Route Start Time Stop Time Status Last Admin (NS Flush) 2 ml UNSCH PRN IVF 03/18/17 14:30 (NS Flush) 2 ml UNSCH PRN IVF 03/18/17 16:00 (NS Flush) 2 ml UNSCH PRN IV FLUSH 03/18/17 16:45 UNV (NS Flush) 2 ml BID IV FLUSH 03/18/17 21:00 UNV (Tylenol) 650 mg Q4H PRN PO 03/18/17 16:45 UNV (Zofran Inj) 4 mg Q6H PRN IVP 03/18/17 16:45 UNV (Tylenol) 650 mg Q6H PRN PO 03/18/17 16:45 UNV ([place]if[place] 5-325 Mg) 1 tab Q4H PRN PO 03/18/17 16:45 UNV (Narcan Inj) 0.4 mg UNSCH PRN IV 03/18/17 16:45 UNV (Milk Of Magnesia Liq) 30 ml Q12H PRN PO 03/18/17 16:45 UNV Family History Father and Mother both with history of CAD/NH Social History Smokes tobacco 1/2 PPD Occasional alcohol use Denies any illicit drug use Physical Exam Vital Signs Vital Signs Date Time Temp Pulse Resp B/P Pulse Ox O2 Delivery O2 Flow Rate FiO2 03/18/17 15:30 101.6 86 22 105/73 100 BiPAP 03/18/17 14:50 99 60 03/18/17 14:30 101.0 88 24 107/61 98 03/18/17 14:30 80 24 96 Non-Rebreather 15 03/18/17 14:30 101.6 85 24 107/61 96 Non-Rebreather 15 03/18/17 14:30 96 Non-Rebreather 10 Physical Exam GENERAL: Well-nourished, well-developed morbidly obese patient in NAD. Fatigued. Difficult to understand on bipap. SKIN: Warm and dry. No rash. HEAD: Normocephalic. Atraumatic. EYES: Pupils equal and round. No scleral icterus. No injection or drainage. ENT: No nasal bleeding or discharge. Mucous membranes pink and moist. NECK: Supple. Trachea midline. CARDIOVASCULAR: Regular rate and rhythm. S1, S2 noted. No murmur appreciated. RESPIRATORY: Labored breathing, tachypneic, diminished breath sounds at bilateral bases. GASTROINTESTINAL: Abdomen soft, non-tender, nondistended. Normoactive bowel sounds x4. MUSCULOSKELETAL: No obvious deformities. Bilateral lower extremity edema. NEUROLOGICAL: Awake and alert. No obvious cranial nerve deficits. Motor grossly within normal limits. Normal speech. PSYCHIATRIC: Appropriate mood and affect; insight and judgment normal. Laboratory Laboratory Tests Test 03/18/17 03/18/17 14:25 14:45 White Blood Count 16.2 Red Blood Count 4.31 Hemoglobin 12.1 Hematocrit 37.7 Mean Corpuscular Volume 87.6 Mean Corpuscular Hemoglobin 28.2 Mean Corpuscular Hemoglobin 32.2 Concent Red Cell Distribution Width 14.8 Platelet Count 264 Mean Platelet Volume 8.4 Neutrophils (%) (Auto) 88.9 Lymphocytes (%) (Auto) 5.3 Monocytes (%) (Auto) 4.6 Eosinophils (%) (Auto) 0.7 Basophils (%) (Auto) 0.5 Neutrophils # (Auto) 14.4 Lymphocytes # (Auto) 0.9 Monocytes # (Auto) 0.7 Eosinophils # (Auto) 0.1 Basophils # (Auto) 0.1 CBC Comment DIFF FINAL Differential Comment Prothrombin Time 10.5 Prothromb Time International 1.0 Ratio Activated Partial 25.0 Thromboplast Time Sodium Level 141 Potassium Level 3.8 Chloride Level 103 Carbon Dioxide Level 32.9 Anion Gap 5 Blood Urea Nitrogen 20 Creatinine 2.07 Estimat Glomerular Filtration 25 Rate Random Glucose 63 Calcium Level 8.5 Total Bilirubin 0.3 Aspartate Amino Transf 16 (AST/SGOT) Alanine Aminotransferase 23 (ALT/SGPT) Alkaline Phosphatase 79 Total Creatine Kinase 153 Creatine Kinase MB 2.1 Troponin I 0.02 B-Type Natriuretic Peptide 52 Total Protein 7.3 Albumin 3.2 Lactic Acid Level 1.6 Date/Time Procedure Status Source Growth 03/18/17 14:45 Aerobic Blood Culture Received Blood Peripheral Pending 03/18/17 14:45 Anaerobic Blood Culture Received Blood Peripheral Pending Result Diagram: 03/18/17 1425 03/18/17 142 Imaging Last Impressions Chest X-Ray 03/18/17 1426 Signed Impressions: Service Date/Time: Saturday, March 18, 2017 14:38 - CONCLUSION: Right lower lobe infiltrate. Anselmo Louise Jr., MD Assessment and Plan Assessment and Plan 56-year-old female with history of PTSD, borderline personality disorder, depression, anxiety, COPD, CHF, Diabetes, neuropathy, GERD, HTN, HLD, migraines , hypothyroidism, [facility] with O2 sat in the 70s. Sepsis with Community Acquired Pneumonia: RR 24, Tmax 101.6, +leukocytosis with WBC 16K. CXR images reviewed, shows RLL infiltrate. On bipap in ER. S/p IV Azithro and Azactam in the ER and IV Solumedrol 125mg x1. Lactic acid 1.6. -Check influenza antigen -Check urinary legionella/pneumococcal antigens -Continue with IV Antibiotics -Monitor blood cultures -Supportive treatment with Duonebs -Continue bipap, however patient now revoked DNR, wants to be FULL CODE, ER MD plans to intubate and admit to intensivists Acute Respiratory Failure: O2 sat [facility] 70s [facility]. Presented with labored breathing and tachypnea on Nonrebreather via EVAC, now on Bipap in ER. Secondary to pneumonia as above. -On bipap, patient fatigued, agrees to intubation -Supportive treatment with duonebs prn Diabetes Mellitus with Hypoglycemia: BG 63 upon arrival. HgbA1c 8.4 in . -Hold patient's diabetic medications. -Monitor Accucheks -hypoglycemia protocol -Give IVF with D5-1/2 NS +KCl x1bag Acute on Chronic Kidney Disease: Cr 2.07, previously 1.6 in January2017. -avoid nephrotoxins -give gentle IVF -repeat BMP in am All other medical conditions stable, continue home meds once med rec updated, discussed with pharmacy scheduler. DVT Prophylaxis: teds/SCDs This note was transcribed by melia Rosa. I, Dr. Fazal Suazo personally performed the history, physical exam, and medical decision making; and confirmed the accuracy of the information in the transcribed note. Authenticated by Dr. Fazal Suazo on 03/18/17 at 18:36. Code Status FULL CODE Discussed Condition With Patient, family member at bedside, ER MD Physician Certification 2 Midnight Certification Type: Admission for Inpatient Services Order for Inpatient Services The services are ordered in accordance with Medicare regulations or non- Medicare payer requirements, as applicable. In the case of services not specified as inpatient-only, they are appropriately provided as inpatient services in accordance with the 2-midnight benchmark. Estimated LOS (days): 3 days is the estimated time the patient will need to remain in the hospital, assuming treatment plan goals are met and no additional complications. Post-Hospital Plan: Home Nitza Rosa PA-C Mar 18, 2017 17:22 Fazal Suazo MD Mar 18, 2017 18:36
[2017-03-18] MEDS ORDERED: BUTA1CAP PO (17:33)
[2017-03-18] MEDS ORDERED: ATOR20TA15 PO (17:33)
[2017-03-18] MEDS ORDERED: BRIM0.2S4 EACH EYE (17:37)
[2017-03-18] MEDS ORDERED: THER1GEL EACH EYE (17:40)
[2017-03-18] MEDS ORDERED: HIBI4LIQ TOPICAL (17:40)
[2017-03-18] MEDS ORDERED: DIPH12.5S PO (17:49)
[2017-03-18] MEDS ORDERED: ALBI1INJ2 SQ (18:02)
[2017-03-18] MEDS ORDERED: L. A1CAP PO (18:02)
[2017-03-18] MEDS ORDERED: ARTHCRE TOPICAL (18:09)
[2017-03-18] MEDS ORDERED: ROBA500T PO (18:09)
[2017-03-18] MEDS ORDERED: LOSA25TA PO (18:09)
[2017-03-18] MEDS ORDERED: LOTR2AER2 TOPICAL (18:09)
[2017-03-18] MEDS ORDERED: LIDO1PAD52 TOPICAL (18:09)
[2017-03-18] MEDS ORDERED: PROPOFOL 1000 MG/100 ML INJ 100 ML ONE (18:13)
[2017-03-18] MEDS ORDERED: ETOMIDATE 20 MG/10 ML VIAL ONE (18:14)
[2017-03-18] MEDS ORDERED: SUCCINYLCHOLINE CHLORIDE 200 MG/10 ML VIAL IVP ONE (18:15)
[2017-03-18] MEDS ORDERED: MIRA3350 PO (18:15)
[2017-03-18] MEDS ORDERED: PROM25TA10 PO (18:15)
[2017-03-18] MEDS ORDERED: PROC25SU22 RECTAL (18:15)
[2017-03-18] MEDS ORDERED: ETOMIDATE 20 MG/10 ML VIAL IVP ONE (18:15)
[2017-03-18] MEDS ORDERED: RESP: ALBUTEROL 2.5 MG/3 ML NEB (SCH) INH (18:15)
[2017-03-18] MEDS ORDERED: ROCURONIUM INJ 50 MG/5 ML VIAL ONE (18:15)
[2017-03-18] MEDS ORDERED: SUCCINYLCHOLINE CHLORIDE 200 MG/10 ML VIAL ONE (18:15)
[2017-03-18] MEDS ORDERED: SERO300T PO (18:15)
[2017-03-18] MEDS ORDERED: [UNRECOGNIZED DRUG - CODE] (18:21)
[2017-03-18] MEDS ORDERED: AK-T0.3S EACH EYE (18:21)
[2017-03-18] MEDS ORDERED: TRIA1SPR5 EACH NARE (18:21)
[2017-03-18] MEDS ORDERED: TIOT12.9 INH (18:21)
[2017-03-18] MEDS ORDERED: AQUA10CR TOPICAL (18:21)
[2017-03-18] MEDS ORDERED: TUCKPAD5 TOPICAL (18:22)
[2017-03-18] MEDS ORDERED: PROPOFOL 1000 MG/100 ML INJ 100 ML IV SCH ×2 (18:45→19:30)
[2017-03-18] MEDS ORDERED: MIDAZOLAM HCL 5 MG/ML VIAL (1 ML) IVP ONE (19:00)
[2017-03-18] MEDS ORDERED: MIDAZOLAM 100 MG/ML INJ 100 ML IV SCH (19:00)
[2017-03-18] MEDS ORDERED: PROMETHAZINE HCL 25 MG TAB PO PRN (19:30)
[2017-03-18] MEDS ORDERED: ARTIFICIAL TEAR OPTH EACH EYE PRN (19:30)
[2017-03-18] MEDS ORDERED: MENTHOL METHYL SALICYLATE TOPICAL PRN (19:30)
[2017-03-18] MEDS ORDERED: RESP: ALBUTEROL 2.5 MG/IPRATROPIUM 0.5 MG NEB (PRN) INH (19:30)
[2017-03-18] MEDS ORDERED: LACTULOSE SYRUP 20 GM/30 ML CUP PO PRN (19:30)
[2017-03-18] MEDS ORDERED: diphenhydrAMINE HCL ELIXIR 12.5 MG/5 ML CUP PO PRN (19:30)
[2017-03-18] MEDS ORDERED: MORPHINE SULFATE 4 MG/ML INJ IV PRN (19:30)
[2017-03-18] MEDS ORDERED: PROCHLORPERAZINE 25 MG SUPP RECTAL PRN (19:30)
[2017-03-18] MEDS ORDERED: MISCELLANEOUS NURSING INFORMATION XX SCH (19:30)
[2017-03-18] MEDS ORDERED: MICONAZOLE NITRATE TOPICAL PRN (19:30)
[2017-03-18] MEDS ORDERED: CHLORHEXIDINE GLUCONATE 2 % 1 PACK (2 CLOTHS) TOP PRN (19:30)
[2017-03-18] MEDS ORDERED: SENNOSIDES 8.6 MG TAB PO PRN (19:30)
[2017-03-18] MEDS ORDERED: BISACODYL 10 MG SUPP RECTAL PRN (19:30)
[2017-03-18] MEDS ORDERED: METOCLOPRAMIDE HCL 10 MG/2 ML VIAL IV PRN (19:30)
[2017-03-18] MEDS ORDERED: ONDANSETRON HCL 4 MG/2 ML VIAL IV PRN (19:30)
[2017-03-18] MEDS ORDERED: MIDAZOLAM HCL 2 MG/2 ML VIAL IV PRN (19:30)
[2017-03-18] MEDS ORDERED: Vancomycin Consult Pharmacy 1 EA OTHER SCH (19:45)
[2017-03-18] MEDS ORDERED: PIPERACIL-TAZO 4.5 GM PREMIX 100 ML IV SCH (19:45)
[2017-03-18] MEDS ORDERED: SODIUM CHLOR 0.9% 1000 ML INJ 1,000 ML IV SCH (20:00)
[2017-03-18] MEDS ORDERED: ARTIFICIAL TEARS OPTH SOLN 15 ML BTL EACH EYE PRN ×2 (20:01→20:15)
[2017-03-18] MEDS ORDERED: [UNRECOGNIZED DRUG - OTHER] TOPICAL PRN (20:30)
[2017-03-18] MEDS ORDERED: MICONAZOLE TOPICAL PRN (20:45)
[2017-03-18] MEDS ORDERED: PANTOPRAZOLE SOD 40 MG DELAYED RELEASE TAB PO SCH (21:00)
[2017-03-18] MEDS ORDERED: PECTIN CITRUS PO SCH (21:00)
[2017-03-18] MEDS: SODIUM CHLORIDE 0.9% FLUSH 10 ML FLUSH SCH (21:00)
[2017-03-18] MEDS ORDERED: SODIUM CHLORIDE 0.9% FLUSH 10 ML FLUSH IV FLUSH SCH (21:00)
[2017-03-18] MEDS ORDERED: NON-FORMULARY DRUG (Ranitidine 150 MG) PO SCH (21:00)
[2017-03-18] MEDS ORDERED: VANCOMYCIN INJ 2,000 MG in SODIUM CHLORID 0.9% 500 ML INJ 500 ML IV SCH (21:00)
[2017-03-18] MEDS ORDERED: ACIDOPHILUS PO SCH (21:00)
[2017-03-18] MEDS ORDERED: [UNRECOGNIZED DRUG - OTHER] EACH EYE SCH (21:00)
[2017-03-18] MEDS: HEPARIN SODIUM - SQ 10,000 UNITS/ML VIAL SQ SCH (21:28)
[2017-03-18] MEDS: PIPERACIL-TAZO 3.375 GM PREMIX 50 ML IV SCH (21:29)
[2017-03-18] MEDS: LACTOBACILLUS ACIDOPHILUS TAB PO SCH (21:29)
[2017-03-18] MEDS: DOCUSATE SODIUM 50 MG/SENNA 8.6 MG TAB PO SCH (21:29)
[2017-03-18] MEDS: ATORVASTATIN 20 MG TAB PO SCH (21:29)
[2017-03-18] MEDS: ASPIRIN EC 81 MG TABEC PO SCH (21:29)
[2017-03-18] MEDS: ACETAMINOPHEN 325 MG TAB PO PRN (21:29)
[2017-03-18] MEDS: RESP: ALBUTEROL 2.5 MG/IPRATROPIUM 0.5 MG NEB (SCH) INH (21:49)
[2017-03-18] MEDS: QUEtiapine FUMARATE 300 MG TAB PO SCH (21:52)
[2017-03-18] MEDS: DOXEPIN HCL 50 MG CAP PO SCH (21:52)
[2017-03-18] MEDS: CARBOXYMETHYLCELL SOD 0.5% OPTH SOLN 15 ML BTL EACH EYE SCH (21:52)
[2017-03-18] MEDS: TOBRAMYCIN SULF 0.3% OPHT SOLN 5 ML BTL EACH EYE SCH (21:52)
--- NOTE | 2017-03-18 22:35 | PD.CONS ---
HPI Service Critical Care Medicine Consult Requested By Primary Care Physician Non-Staff History of Present Illness 56-year-old morbidly obese female with history of posttraumatic stress disorder , borderline personality disorder, depression, anxiety, chronic obstructive pulmonary disease, congestive heart failure, Diabetes, neuropathy, gastroesophageal reflux disease, hypertension, dyslipidemia, migraines, hypothyroidism, [facility] with O2 sat in the 70s. The patient was transported via EVAC, placed on NRB, O2 sat improved however patient's breathing very labored with tachypnea therefore put on Bipap in the ER. In the ER after several minutes of being on Bipap, she still complaining feeling very fatigued and short of breath. She informs medical team she now wants to revoke her DNR and agrees to intubation if recommended (family member also at bedside agrees to this). Her oxygenation remained borderline, her breathing still remains labored and she was intubated by ER attending. 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 ESBL+E.Coli (urine-01/14/11) Past Medical History Posttraumatic stress disorder Borderline personality disorder Depressions Anxiety Chronic obstructive pulmonary disease Congestive heart failure Diabetes mellitus Neuropathy Gastroesophageal reflux disease Hypertension Dyslipidemia Migraines Hypothyroidism Past Surgical History Sphincterectomy/Hemorrhoidectomy in 1998 Cardiac Catheterizations with normal coronary arteries Cervical and lumbar spine surgeries Tonsillectomy Bilateral carpal tunnel release Reported Medications Reported Meds & Active Scripts Active Catapres (Clonidine) 0.1 Mg Tab 0.1 Mg PO TID Reported Tucks Medicated Topical (Witch Nyasia Topical) 50 % Pad 1 Pad TOPICAL DIRECTED PRN Aqua Care (Urea) 10 % Cre 1 Applic TOPICAL BID Nasacort Allergy 24Hr Nasal [place] (Triamcinolone Acetonide Nasal [place]) 55 Mcg/ Act Spr 2 [place] EACH NARE DAILY Tobramycin Opth Drops 0.3 % Soln 1 Drop EACH EYE QID Spiriva Respimat Inh (Tiotropium Inh) 2.5 Mcg/Act Aero 2 Puff INH DAILY 2.5 mcg = 1 inhalation Seroquel (Quetiapine Fumarate) 300 Mg Tab 150 Mg PO BID Phenergan (Promethazine HCl) 25 Mg Tablet 25 Mg PO BID PRN Prochlorperazine Supp (Prochlorperazine) 25 Mg Supp 25 Mg RECTAL Q6H PRN Miralax Powder (Polyethylene Glycol 3350 Powder) 17 Gm Powd 17 Gm PO BID Mix and dissolve one measuring cap-ful (17 grams) in water or juice. Lotrimin AF Deodorant Powder (Miconazole Nitrate Powder) 2 % Aerp 1 Applic TOPICAL BID PRN Robaxin (Methocarbamol) 500 Mg Tab 1,000 Mg PO TID PRN Arthritis Hot 10-15 % (Menthol-Methyl Salicylate (Francoise) 1 Cre Cre 1 Applic TOPICAL QID PRN Losartan (Losartan Potassium) 25 Mg Tab 25 Mg PO DAILY Lidocaine Patch 12 HR (Lidocaine) 5 % Patch 1 Patch TOPICAL DAILY Remove patch after 12 hours Acidophilus Capsule (L. Acidophilus/Pectin, [place]) 1 Each Capsule 1 Cap PO BID Tanzeum 4-Pack Inj (Albiglutide) 50 Mg Pfpen 50 Mg SQ SATURDAY Diphenhydramine Liq (Diphenhydramine HCl) 12.5 Mg/5 Ml Elix 25 Mg PO QID PRN Hibiclens Topical (Chlorhexidine Gluconate) 4% Liq 1 Applic TOPICAL WEEKLY Theratears Unit-Dose Opth Gel (Carboxymethylcellulose Sodium Opth Gel) 1% Gel 1 Drop EACH EYE HS Brimonidine Opth Drops (Brimonidine Tartrate) 0.2% Soln 1 Drop EACH EYE TID Fioricet (Fnwhewbahn-Bdqpoxrxzsqsl-Jnwmmver) 50-300-40 Mg Cap 1-2 Cap PO TID PRN Atorvastatin (Atorvastatin Calcium) 20 Mg Tab 20 Mg PO HS Humulin R U-500 (Concentrate) Kwikpen Inj (Insulin Regular (Human) Concentrate Inj) 1,500 Units/3 Ml Pen 75 Units SQ AC DINNER Humulin R U-500 (Concentrate) Kwikpen Inj (Insulin Regular (Human) Concentrate Inj) 1,500 Units/3 Ml Pen 75 Units SQ AC LUNCH Humulin R U-500 (Concentrate) Kwikpen Inj (Insulin Regular (Human) Concentrate Inj) 1,500 Units/3 Ml Pen 300 Units SQ AC BREAKFAST Nature-Throid (Thyroid) 65 Mg Tab 65 Mg PO DAILY Seroquel (Quetiapine Fumarate) 300 Mg Tab 600 Mg PO HS Ranitidine (Ranitidine HCl) 150 Mg Tab 150 Mg PO BID Lyrica (Pregabalin) 150 Mg Cap 150 Mg PO BID Pantoprazole (Pantoprazole Sodium) 40 Mg Tab 40 Mg PO BID Nitroglycerin SL (Nitroglycerin) 0.4 Mg Subl 0.4 Mg SL DIRECTED PRN ONE TABLET UNDER THE TONGUE NEEDED FOR CHEST PAIN, MAY REPEAT EVERY FIVE MINUTES FOR A TOTAL OF 3 DOSES OR CALL 911 IF NO RELIEF Toprol XL (Metoprolol Succinate) 100 Mg Tab 100 Mg PO AC LUNCH Glucose (Dextrose) 4 Gm Chew 16 Gm CHEW DIRECTED Fluoxetine (Fluoxetine HCl) 40 Mg Cap 80 Mg PO DAILY Doxepin (Doxepin HCl) 100 Mg Cap 100 Mg PO HS Aspirin EC (Aspirin) 81 Mg Tabdr 81 Mg PO HS Sm Artificial Tears Opth Drops (Artificial Tear Solution Opth Drops) 1 Drops 1 Drop EACH EYE QID PRN Allopurinol 300 Mg Tab 300 Mg PO DAILY Active Ordered Medications Current Medications Medications (Trade) Dose Ordered Sig/Inez Route PRN Reason Start Time Stop Time Status Last Admin Dose Admin Naloxone HCl (Narcan Inj) 0.4 mg UNSCH PRN IV SEE LABEL COMMENTS 03/18/17 16:45 Dextrose (D50w (Vial) Inj) 50 ml UNSCH PRN IV HYPOGLYCEMIA-SEE COMMENTS 03/18/17 17:15 Glucagon 1 mg 1 mg UNSCH PRN OTHER HYPOGLYCEMIA-SEE COMMENTS 03/18/17 17:15 Midazolam HCl (Versed Inj) 100 ml @ 0 mls/hr CONTINUOUS IV 03/18/17 19:00 Aspirin (Ecotrin Ec) 81 mg HS PO 03/18/17 21:00 03/18/17 21:29 Atorvastatin Calcium (Lipitor) 20 mg HS PO 03/18/17 21:00 03/18/17 21:29 Brimonidine Tartrate (Alphagan 0.2% Opth Soln) 1 drop TID EACH EYE 03/19/17 09:00 Clonidine (Catapres) 0.1 mg TID PO 03/19/17 09:00 Diphenhydramine HCl (Benadryl Liq) 25 mg QID PRN PO ALLERGIES 03/18/17 19:30 Doxepin HCl (SINEquan) 100 mg HS PO 03/18/17 21:00 03/18/17 21:52 Fluoxetine HCl (PROzac) 80 mg DAILY PO 03/19/17 09:00 Pantoprazole Sodium (Protonix) 40 mg BID PO 03/18/17 21:00 03/18/17 21:29 Pregabalin (Lyrica) 150 mg DAILY PO 03/19/17 09:00 Prochlorperazine (Compazine Supp) 25 mg Q6H PRN RECTAL NAUSEA 03/18/17 19:30 Promethazine HCl (Phenergan) 25 mg BID PRN PO NAUSEA 03/18/17 19:30 Quetiapine Fumarate (SEROquel) 150 mg BID@09,15 PO 03/19/17 09:00 Quetiapine Fumarate (SEROquel) 600 mg HS PO 03/18/17 21:00 03/18/17 21:52 Tobramycin Sulfate (Tobrex 0.3% Opth Soln) 1 drop QID EACH EYE 03/18/17 21:00 03/18/17 21:52 Triamcinolone Acetonide 2 spray 2 spray DAILY EACH NARE 03/19/17 09:00 Sodium Chloride (NS 1000 ml Inj) 1,000 ml @ 84 mls/hr [id number] IV 03/18/17 20:00 03/18/17 21:30 Sodium Chloride (NS Flush) 2 ml UNSCH PRN .XX FLUSH AFTER USING IV ACCESS 03/18/17 19:30 Sodium Chloride (NS Flush) 2 ml BID .XX 03/18/17 21:00 Acetaminophen (Tylenol) 650 mg Q6H PRN PO PAIN 1-10 AND/OR FEVER >101F 03/18/17 19:30 03/18/17 21:29 Morphine Sulfate (Morphine Inj) 2 mg Q2H PRN IV PAIN SCALE 6 TO 10 03/18/17 19:30 Midazolam HCl (Versed Inj) 2 mg Q1H PRN IV SEDATION 03/18/17 19:30 Artificial Tears (Tears Naturale Opth Soln) 1 drop TID EACH EYE 03/19/17 09:00 Ondansetron HCl (Zofran Inj) 4 mg Q6H PRN IV NAUSEA OR VOMITING 03/18/17 19:30 Metoclopramide HCl (Reglan Inj) 5 mg Q6H PRN IV NAUSEA OR VOMITING 03/18/17 19:30 Heparin Sodium (Porcine) (Heparin Inj) 5,000 units Q8H SQ 03/18/17 22:00 03/18/17 21:28 Miscellaneous Information 1 [id number] XX 03/18/17 19:30 Chlorhexidine Gluconate (Chlorhexidine 2% Cloth) 3 pack Taper DAILY@04 TOP 03/19/17 04:00 03/15/18 03:59 Chlorhexidine Gluconate (Chlorhexidine 2% Cloth) 3 pack UNSCH PRN TOP HYGIENIC CARE 03/18/17 19:30 Senna/Docusate Sodium (Mariam-Colace) 1 tab BID PO 03/18/17 21:00 03/18/17 21:29 Magnesium Hydroxide (Milk Of Magndenny Liq) 30 ml Q12H PRN PO MILD - MODERATE CONSTIPATION 03/18/17 19:30 Sennosides (Senokot) 17.2 mg Q12H PRN PO MODERATE - SEVERE CONSTIPATION 03/18/17 19:30 Bisacodyl (Dulcolax Supp) 10 mg DAILY PRN RECTAL SEVERE CONSITIPATION 03/18/17 19:30 Lactulose 30 ml 30 ml DAILY PRN PO SEVERE CONSITIPATION 03/18/17 19:30 Propofol (Diprivan 1000 Mg/100ml Inj) 100 ml @ 0 mls/hr TITRATE IV 03/18/17 19:30 03/18/17 20:56 Methylprednisolone Sodium Succinate 40 mg 40 mg Q6HR IV PUSH 03/19/17 00:00 Azithromycin 500 mg/Sodium Chloride 250 ml @ 250 mls/hr Q24H IV 03/19/17 16:00 Pharmacy Profile Note (Vancomycin Consult Pharmacy) 0 ml @ 0 mls/hr UNSCH OTHER 03/18/17 19:45 Artificial Tears (Tears Naturale Opth Soln) 1 drop QID PRN EACH EYE DRY EYES 03/18/17 20:01 Carboxymethylcellulose Sodium 1 drop 1 drop HS EACH EYE 03/18/17 21:00 03/18/17 21:52 Piperacillin Sod/ Tazobactam Sod (Zosyn 3.375 Gm Premix) 50 ml @ 100 mls/hr Q6H IV 03/18/17 21:00 03/18/17 21:29 Lactobacillus Acidophilus (Lactinex) 1 tab BID PO 03/18/17 21:00 03/18/17 21:29 Patient Own Medication PT OWN MED: ARTHRI... QID PRN TOPICAL MUSCLE PAIN 03/18/17 20:30 Hold Famotidine (Pepcid) 20 mg DAILY PO 03/19/17 09:00 Patient Own Medication PT OWN MED: THYROID... DAILY PO 03/19/17 09:00 Future Hold Patient Own Medication PT OWN MED: MICONAZOLE NITR... BID PRN TOPICAL FUNGAL INFECTION 03/18/17 20:45 Hold Vancomycin HCl/ Sodium Chloride (Vancomycin Inj/ NS 500 ml Inj) 520 ml @ 250 mls/hr Q24H IV 03/18/17 21:00 03/18/17 21:28 Miscellaneous Information SPECIFIC LAB TO BE DRAWN:VANCO TROUGH DATE TO BE DREvette ONCE ONCE .XX 03/21/17 20:45 03/21/17 20:46 Family History Noncontributory Social History Smokes half pack per day No illicit drug or alcohol abuse Physical Exam Vital Signs Vital Signs Date Time Temp Pulse Resp B/P Pulse Ox O2 Delivery O2 Flow Rate FiO2 03/18/17 21:39 96 100 03/18/17 19:52 100.1 88 18 131/63 95 03/18/17 19:45 94 100 03/18/17 19:38 101.0 86 20 138/62 100 Ventilator 03/18/17 19:35 98 03/18/17 19:00 87 20 138/68 97 Ventilator 03/18/17 18:40 92 100 03/18/17 18:15 101.0 80 20 99/62 100 BiPAP 03/18/17 17:00 100.8 72 20 100/68 100 BiPAP 03/18/17 15:30 101.6 86 22 105/73 100 BiPAP 03/18/17 14:50 99 60 03/18/17 14:30 101.0 88 24 107/61 98 03/18/17 14:30 80 24 96 Non-Rebreather 15 03/18/17 14:30 101.6 85 24 107/61 96 Non-Rebreather 15 03/18/17 14:30 96 Non-Rebreather 10 Physical Exam GENERAL: Morbidly obese female on the ventilator support SKIN: Warm and dry. HEAD: Normocephalic. EYES: No scleral icterus. No injection or drainage. NECK: Supple, trachea midline. No JVD or lymphadenopathy. CARDIOVASCULAR: Regular rate and rhythm without murmurs, gallops, or rubs. RESPIRATORY: Breath sounds equal bilaterally. No accessory muscle use. GASTROINTESTINAL: Abdomen soft, non-tender, nondistended. MUSCULOSKELETAL: No cyanosis, or edema. BACK: Nontender without obvious deformity. No CVA tenderness. EXTREMITIES: No clubbing or cyanosis Laboratory Laboratory Tests Test 03/18/17 03/18/17 14:25 14:45 White Blood Count 16.2 Red Blood Count 4.31 Hemoglobin 12.1 Hematocrit 37.7 Mean Corpuscular Volume 87.6 Mean Corpuscular Hemoglobin 28.2 Mean Corpuscular Hemoglobin 32.2 Concent Red Cell Distribution Width 14.8 Platelet Count 264 Mean Platelet Volume 8.4 Neutrophils (%) (Auto) 88.9 Lymphocytes (%) (Auto) 5.3 Monocytes (%) (Auto) 4.6 Eosinophils (%) (Auto) 0.7 Basophils (%) (Auto) 0.5 Neutrophils # (Auto) 14.4 Lymphocytes # (Auto) 0.9 Monocytes # (Auto) 0.7 Eosinophils # (Auto) 0.1 Basophils # (Auto) 0.1 CBC Comment DIFF FINAL Differential Comment Prothrombin Time 10.5 Prothromb Time International 1.0 Ratio Activated Partial 25.0 Thromboplast Time Sodium Level 141 Potassium Level 3.8 Chloride Level 103 Carbon Dioxide Level 32.9 Anion Gap 5 Blood Urea Nitrogen 20 Creatinine 2.07 Estimat Glomerular Filtration 25 Rate Random Glucose 63 Calcium Level 8.5 Total Bilirubin 0.3 Aspartate Amino Transf 16 (AST/SGOT) Alanine Aminotransferase 23 (ALT/SGPT) Alkaline Phosphatase 79 Total Creatine Kinase 153 Creatine Kinase MB 2.1 Troponin I 0.02 B-Type Natriuretic Peptide 52 Total Protein 7.3 Albumin 3.2 Lactic Acid Level 1.6 Date/Time Procedure Status Source Growth 03/18/17 14:45 Aerobic Blood Culture Received Blood Peripheral Pending 03/18/17 14:45 Anaerobic Blood Culture Received Blood Peripheral Pending Result Diagram: 03/18/17 1425 03/18/17 142 Imaging Last 24 hours Impressions Chest X-Ray 03/18/17 142 Signed Impressions: Service Date/Time: Saturday, March 18, 2017 14:38 - CONCLUSION: Right lower lobe infiltrate. Anselmo Louise Jr., MD Assessment and Plan Assessment and Plan Respiratory failure - Underlying COPD - Pneumonia - Sepsis - Mechanical ventilation - DuoNeb scheduled and when necessary - Empiric antibiotics Community-acquired pneumonia - Right lower lobe infiltrate on the chest x-ray - Urinary legionella/pneumococcal antigens - Empiric IV Antibiotics - Follow-up blood cultures COPD - Empiric antibiotics - DuoNeb scheduled and when necessary - Repeat ABGs in a.m. and CXR - IV steroids Diabetes Mellitus with Hypoglycemia - Insulin sliding scale - Hold long acting insulin - Glucerna tube feeds Acute on Chronic Kidney Disease - Cr 2.07, previously 1.6 in January2017 - Aggressive IV fluid hydration - Avoid nephrotoxins - Strict I's and O's - Monitor creatinine and electrolytes level DVT GI prophylaxis - Subcutaneous heparin and omeprazole Critical Care: The total critical care time was 35 minutes. Time to perform other separately billable procedures was not included in the critical care time. Tez Machado MD Mar 18, 2017 22:35
[2017-03-18 22:44] LABS: BLOOD GAS BASE EXCESS -0.7 mmol/L (-2-2); BLOOD GAS CARBOXYHEMOGLOBIN 1.5 % (0-4); BLOOD GAS HCO3 25 mmol/L (22-26); BLOOD GAS O2 HGB SATURATION 92 % (90-100); BLOOD GAS OXYGEN CONTENT 13.5 Vol % (12.0-20.0); BLOOD GAS PCO2 57 mmHg (38-42); BLOOD GAS PO2 96 mmHg (61-120); BLOOD GAS TOTAL HGB 10.3 G/DL (12.0-16.0); TEMP CORR TO 98.6
[2017-03-18 22:46] LABS: CRITICAL VALUE YES
[2017-03-18 22:47] LABS: OXYGEN DEVICE VENTILATOR
[2017-03-18 22:48] LABS: VENT SETTINGS SEE COMMENTS
[2017-03-18 22:49] LABS: DRAW SITE BR; FIO2 100 %; NUMBER OF ARTERIAL PUNCTURES 1; STAT NO; ULNAR PULSE PRESENT
[2017-03-18 23:54] LABS: BACTERIA, URINE MANY /hpf; BLOOD, URINE SMALL (NEG); GLUCOSE,URINE 70 mg/dL (NEG); KETONE, URINE NEG (NEG); MUCUS URINE MANY /lpf (OCC); NITRITE,URINE NEG (NEG); PH, URINE 5.5 (5.0-8.5); TRANSITIONAL EPI CELLS, URINE 3 /hpf; URINE COLOR DARK-YELLOW (YELLW/STRAW); WAXY CAST, URINE 16 /lpf
[2017-03-19] VITALS (43 sets, daily range): BP systolic 82–305; BP diastolic 41–305; PULSE 66–87; RESP 16–20; TEMP 97.9–99.4; O2SAT 88–100
[2017-03-19 00:04] LABS: COMMENT (UR) CULTURE INDICATED; CULTURE IF INDICATED CULTURE INDICATED
[2017-03-19] MEDS: methylPREDNISolone SOD SUCC 40 MG/1 ML VIAL IV PUSH SCH ×3 (00:11→18:51)
[2017-03-19] MEDS ORDERED: GLUCAGON 1 MG/ML VIAL OTHER PRN (01:00)
[2017-03-19] MEDS ORDERED: DEXTROSE 50% IN WATER 50 ML VIAL(D50) IV PUSH PRN ×3 (01:00→16:45)
[2017-03-19] MEDS: SODIUM CHLOR 0.9% 1000 ML INJ 1,000 ML IV SCH ×4 (01:07→03:55)
--- NOTE | 2017-03-19 02:29 | RADRPT ---
EXAM DATE/TIME: 03/19/2017 02:00 [facility] COMPARISON: CHEST SINGLE AP, March 18, 2017, 14:38. INDICATIONS : Central line placement. MEDICAL HISTORY : Chronic obstructive pulmonary disease. Emphysema. Congestive heart failure. CVA. Diabetes. SURGICAL HISTORY : Cardiac cath. ENCOUNTER: Subsequent ACUITY: 3 days PAIN SCORE: Non-responsive. LOCATION: Bilateral chest FINDINGS: A single view of the chest demonstrates the endotracheal, nasogastric tube and right subclavian centr al line are all in good position. Persistent consolidation right lower lobe. The cardiomediastinal c ontours are unremarkable. Osseous structures are intact. CONCLUSION: Tubes and catheters in good position. Stable infiltrate right lower lobe. Reese Pacheco MD on March 19, 2017 at 2:26 Board Certified Radiologist. This report was verified electronically.
[2017-03-19] MEDS ORDERED: NOREPINEPHRINE 4 MG/D5W 250 ML IV SCH (02:30)
--- NOTE | 2017-03-19 03:31 | PD.PROCEDR ---
Procedure Note Procedure Centerline placement A time-out was completed verifying correct patient, procedure, site, positioning , and special equipment if applicable. The patient was placed in a dependent position appropriate for central line placement based on the vein to be cannulated. The patients right shoulder was prepped and draped in sterile fashion. 1% Lidocaine was used to anesthetize the surrounding skin area. A triple lumen 9-Ivorian Cordis catheter was introduced into the the right subclavian vein using the Seldinger technique. The catheter was threaded smoothly over the guide wire and appropriate blood return was obtained. Each lumen of the catheter was evacuated of air and flushed with sterile saline. The catheter was then sutured in place to the skin and a sterile dressing applied. Perfusion to the extremity distal to the point of catheter insertion was checked and found to be adequate. Estimated Blood Loss: 1ml The patient tolerated the procedure well and there were no complications. Tez Machado MD Mar 19, 2017 03:31
--- NOTE | 2017-03-19 03:31 | PD.PROCEDR ---
Procedure Note Procedure Arterial line placement A time-out was completed verifying correct patient, procedure, site, positioning , and special equipment if applicable. Allens test was performed to ensure adequate perfusion. The patients right wrist was prepped and draped in sterile fashion. 1% Lidocaine was used to anesthetize the area. A 18G Arrow arterial line was introduced into the radial artery. The catheter was threaded over the guide wire and the needle was removed with appropriate pulsatile blood return. The catheter was then sutured in place to the skin and a sterile dressing applied. Perfusion to the extremity distal to the point of catheter insertion was checked and found to be adequate. Estimated Blood Loss: 1ml The patient tolerated the procedure well and there were no complications. Tez Machado MD Mar 19, 2017 03:31
[2017-03-19] MEDS: RESP: ALBUTEROL 2.5 MG/IPRATROPIUM 0.5 MG NEB (SCH) INH ×4 (03:39→21:29)
[2017-03-19] MEDS: PIPERACIL-TAZO 3.375 GM PREMIX 50 ML IV SCH ×4 (03:44→21:10)
[2017-03-19] MEDS: CHLORHEXIDINE GLUCONATE 2 % 1 PACK (2 CLOTHS) TOP SCH (04:00)
[2017-03-19 04:21] LABS: AUTOMATED NEUTROPHIL # 19.8 TH/MM3 (1.8-7.7); BASOPHIL # 0.2 TH/MM3 (0-0.2); BASOPHIL % 0.9 % (0.0-2.0); EOSINOPHIL % 0.1 % (0.0-4.0); HEMATOCRIT 29.9 % (35.0-46.0); LYMPH % 1.4 % (9.0-44.0); LYMPHOCYTE # 0.3 TH/MM3 (1.0-4.8); MEAN CELL VOLUME 88.6 FL (80.0-100.0); MEAN CORPUSCULAR HEMOGLOBIN 27.9 PG (27.0-34.0); MEAN CORPUSCULAR HGB CONC 31.5 % (32.0-36.0); MONO % 7.4 % (0.0-8.0); NEUT % 90.2 % (16.0-70.0); PLATELET COUNT 214 TH/MM3 (150-450); RED BLOOD COUNT 3.37 MIL/MM3 (4.00-5.30); RED CELL DISTRIBUTION WIDTH 14.6 % (11.6-17.2)
[2017-03-19 04:22] LABS: HEMO FLAGS AUTO DIFF
[2017-03-19 05:04] LABS: ALKALINE PHOSPHATASE 59 U/L (45-117); ALT (GPT) 17 U/L (10-53); ANION GAP 11 MEQ/L (5-15); AST (GOT) 10 U/L (15-37); BICARBONATE 25.1 MEQ/L (21.0-32.0); BLOOD UREA NITROGEN 26 MG/DL (7-18); CHLORIDE 101 MEQ/L (98-107); GLOMERULAR FILTRATION RATE 19 ML/MIN (>89); MAGNESIUM 2.2 MG/DL (1.5-2.5); POTASSIUM 4.7 MEQ/L (3.5-5.1); SODIUM (NA) 137 MEQ/L (136-145); TOTAL BILIRUBIN ADULT 0.4 MG/DL (0.2-1.0)
[2017-03-19] MEDS: HEPARIN SODIUM - SQ 10,000 UNITS/ML VIAL SQ SCH ×3 (05:36→21:09)
[2017-03-19] MEDS: HIGH DOSE INSULIN NOVOLIN REGULAR SUPPLEMENTAL SCALE SQ SCH ×2 (05:38→08:00)
[2017-03-19 06:08] LABS: BANDS 8 % (0-6); NEUTROPHIL # MANUAL DIFF 21.1 TH/MM3 (1.8-7.7); POLYS (SEG NEUTROPHILS) 88 % (16-70); SCAN/DIFF FINAL DIFF MANUAL; WBC DIFF SAMPLE 100
[2017-03-19 06:09] LABS: PLATELET ESTIMATE SMEAR NORMAL (NORMAL); PLATELET MORPHOLOGY NORMAL (NORMAL)
[2017-03-19] MEDS ORDERED: VANCOMYCIN INJ 1,000 MG in SODIUM CHLOR 0.9% 250 ML INJ 250 ML IV ONE (08:00)
[2017-03-19] MEDS: PANTOPRAZOLE SODIUM 40 MG VIAL IV PUSH SCH (08:00)
--- NOTE | 2017-03-19 08:07 | HHI.CCPN ---
Subjective Remarks/Hospital Course 56-year-old morbidly obese female with history of posttraumatic stress disorder , borderline personality disorder, depression, anxiety, chronic obstructive pulmonary disease, congestive heart failure, Diabetes, neuropathy, gastroesophageal reflux disease, hypertension, dyslipidemia, migraines, hypothyroidism, [facility] with O2 sat in the 70s. The patient was transported via EVAC, placed on NRB, O2 sat improved however patient's breathing very labored with tachypnea therefore put on Bipap in the ER. In the ER after several minutes of being on Bipap, she still complaining feeling very fatigued and short of breath. She informs medical team she now wants to revoke her DNR and agrees to intubation if recommended (family member also at bedside agrees to this). Her oxygenation remained borderline, her breathing still remains labored and she was intubated by ER attending. 03/19 Patient is intubated sedated with versed. Afebrile. Given 4L NS boluses overnight. Objective Vital Signs Date Time Temp Pulse Resp B/P Pulse Ox O2 Delivery O2 Flow Rate FiO2 03/19/17 06:00 79 03/19/17 04:25 95 80 03/19/17 04:00 97.9 16 91/48 85/41 03/18/17 19:38 Ventilator 03/18/17 14:30 15 Intake and Output 03/18/17 03/18/17 03/18/17 07:59 15:59 23:59 Intake Total 455 ml Output Total 100 ml Balance 355 ml Result Diagram: 03/19/17 0350 03/19/17 0350 Other Results Laboratory Tests Test 03/18/17 03/18/17 03/18/17 03/18/17 14:25 14:45 19:45 21:55 Prothrombin Time 10.5 SEC Prothromb Time International 1.0 RATIO Ratio Activated Partial 25.0 SEC Thromboplast Time Sodium Level 141 MEQ/L Potassium Level 3.8 MEQ/L Chloride Level 103 MEQ/L Carbon Dioxide Level 32.9 MEQ/L Anion Gap 5 MEQ/L Blood Urea Nitrogen 20 MG/DL Creatinine 2.07 MG/DL Estimat Glomerular Filtration 25 ML/MIN Rate Random Glucose 63 MG/DL Calcium Level 8.5 MG/DL Total Bilirubin 0.3 MG/DL Aspartate Amino Transf 16 U/L (AST/SGOT) Alanine Aminotransferase 23 U/L (ALT/SGPT) Alkaline Phosphatase 79 U/L Total Creatine Kinase 153 U/L Creatine Kinase MB 2.1 NG/ML Troponin I 0.02 NG/ML LESS THAN 0.02 NG/ML B-Type Natriuretic Peptide 52 PG/ML Total Protein 7.3 GM/DL Albumin 3.2 GM/DL White Blood Count 16.2 TH/MM3 Red Blood Count 4.31 MIL/MM3 Hemoglobin 12.1 GM/DL Hematocrit 37.7 % Mean Corpuscular Volume 87.6 FL Mean Corpuscular Hemoglobin 28.2 PG Mean Corpuscular Hemoglobin 32.2 % Concent Red Cell Distribution Width 14.8 % Platelet Count 264 TH/MM3 Mean Platelet Volume 8.4 FL Neutrophils (%) (Auto) 88.9 % Lymphocytes (%) (Auto) 5.3 % Monocytes (%) (Auto) 4.6 % Eosinophils (%) (Auto) 0.7 % Basophils (%) (Auto) 0.5 % Neutrophils # (Auto) 14.4 TH/MM3 Lymphocytes # (Auto) 0.9 TH/MM3 Monocytes # (Auto) 0.7 TH/MM3 Eosinophils # (Auto) 0.1 TH/MM3 Basophils # (Auto) 0.1 TH/MM3 CBC Comment DIFF FINAL Differential Comment Lactic Acid Level 1.6 mmol/L Nasal Screen MRSA (PCR) MRSA NOT DETECTED Ammonia 22 MCMOL/L Test 03/18/17 03/18/17 03/19/17 22:30 22:37 03:50 Urine Color DARK-YELLOW Urine Turbidity CLOUDY Urine pH 5.5 Urine Specific [place] 1.022 Urine Protein 300 mg/dL Urine Glucose (UA) 70 mg/dL Urine Ketones NEG mg/dL Urine Occult Blood SMALL Urine Nitrite NEG Urine Bilirubin NEG Urine Urobilinogen 2.0 MG/DL Urine Leukocyte Esterase LARGE Urine RBC 67 /hpf Urine WBC /hpf Urine WBC Clumps MANY Urine Transitional Epithelial 3 /hpf Cells Urine Amorphous Sediment RARE Urine Bacteria MANY /hpf Urine Waxy Casts 16 /lpf Urine Mucus MANY /lpf Microscopic Urinalysis Comment CULTURE INDICATED Blood Gas Puncture Site BR Blood Gas Patient Temperature 98.6 Blood Gas HCO3 25 mmol/L Blood Gas Base Excess -0.7 mmol/L Blood Gas Oxygen Saturation 92 % Arterial Blood pH 7.27 Arterial Blood Partial 57 mmHg Pressure CO2 Arterial Blood Partial 96 mmHg Pressure O2 Arterial Blood Oxygen Content 13.5 Vol % Arterial Blood 1.5 % Carboxyhemoglobin Arterial Blood Methemoglobin 2.0 % Blood Gas Hemoglobin 10.3 G/DL Oxygen Delivery Device VENTILATOR Blood Gas Ventilator Setting SEE COMMENTS Blood Gas Inspired Oxygen 100 % White Blood Count 22.0 TH/MM3 Red Blood Count 3.37 MIL/MM3 Hemoglobin 9.4 GM/DL Hematocrit 29.9 % Mean Corpuscular Volume 88.6 FL Mean Corpuscular Hemoglobin 27.9 PG Mean Corpuscular Hemoglobin 31.5 % Concent Red Cell Distribution Width 14.6 % Platelet Count 214 TH/MM3 Mean Platelet Volume 8.6 FL Neutrophils (%) (Auto) 90.2 % Lymphocytes (%) (Auto) 1.4 % Monocytes (%) (Auto) 7.4 % Eosinophils (%) (Auto) 0.1 % Basophils (%) (Auto) 0.9 % Neutrophils # (Auto) 19.8 TH/MM3 Lymphocytes # (Auto) 0.3 TH/MM3 Monocytes # (Auto) 1.6 TH/MM3 Eosinophils # (Auto) 0.0 TH/MM3 Basophils # (Auto) 0.2 TH/MM3 CBC Comment AUTO DIFF Differential Total Cells 100 Counted Neutrophils % (Manual) 88 % Band Neutrophils % 8 % Lymphocytes % 2 % Monocytes % 2 % Neutrophils # (Manual) 21.1 TH/MM3 Differential Comment FINAL DIFF MANUAL Platelet Estimate NORMAL Platelet Morphology Comment NORMAL Red Cell Morphology Comment NORMAL Sodium Level 137 MEQ/L Potassium Level 4.7 MEQ/L Chloride Level 101 MEQ/L Carbon Dioxide Level 25.1 MEQ/L Anion Gap 11 MEQ/L Blood Urea Nitrogen 26 MG/DL Creatinine 2.60 MG/DL Estimat Glomerular Filtration 19 ML/MIN Rate Random Glucose 369 MG/DL Calcium Level 7.8 MG/DL Phosphorus Level 6.1 MG/DL Magnesium Level 2.2 MG/DL Total Bilirubin 0.4 MG/DL Aspartate Amino Transf 10 U/L (AST/SGOT) Alanine Aminotransferase 17 U/L (ALT/SGPT) Alkaline Phosphatase 59 U/L Troponin I 0.03 NG/ML Total Protein 5.7 GM/DL Albumin 2.4 GM/DL Imaging Last Impressions Chest X-Ray 03/19/17 0000 Signed Impressions: Service Date/Time: Sunday, March 19, 2017 02:00 - CONCLUSION: Tubes and catheters in good position. Stable infiltrate right lower lobe. Reese Pacheco MD Objective Remarks GENERAL: Morbidly obese female on the ventilator support SKIN: Warm and dry. HEAD: Normocephalic. EYES: No scleral icterus. No injection or drainage. NECK: Supple, trachea midline. No JVD or lymphadenopathy. CARDIOVASCULAR: Regular rate and rhythm without murmurs, gallops, or rubs. RESPIRATORY: Breath sounds equal bilaterally. No accessory muscle use. GASTROINTESTINAL: Abdomen soft, non-tender, nondistended. MUSCULOSKELETAL: No cyanosis, or edema. BACK: Nontender without obvious deformity. No CVA tenderness. EXTREMITIES: No clubbing or cyanosis A/P Assessment and Plan 1)VDRF 2) COPD 3)Community-acquired pneumonia 4)Diabetes Mellitus 5)Acute on Chronic Kidney Disease 6)Leukocytosis 7)Anemia 8)Morbid obesity Plan Neuro-Will Switch Versed to Fentanyl infusion for sedation given her renal dysfunction. Monitor neuro status and sedation vacation when appropriate On Seroquel, Lyrica, Prozac Pulm: On PRVC/AC RR 16, TV 550, IT:1.0, PEEP:8, FIO2 80%. Decrease FIO2 as viktor. Continue with vent support keep sat >92% Bronchodilators, ICU vent bundle, check ABG Decrease Solumederol 40mg Q12 CV: Monitor HR and BP keep MAP>65mmHg. On ASA and Lipitor. Given 4LNS boluses overnight. Lactic acid 1.6 on 03/18 Check 2D echo to eval Lv function : Monitor renal function, I/O;s, avoid nephrotoxins Cr: 2.6 from 2.0 with UOP:500ml since last night. Will check renal US and consult nephrology service, Patient was given 4L NS boluses overnight , on NS@84ml/hr GI: Change tube feeds to Nepro with goal rate 40ml/hr Continue with Protonix 40mg IV daily, d/c Pepcid ID: Continue with abx (Azithromycin, Zosyn, Vanco). Monitor for signs of infections ( Fever, WBC) Follow up on sputum cx, BC. Strep pneumonia and Legionella urinary Ag pending. Endo: Will place on insulin drip for glycemic control and taper IV steroids. Heme: Monitor CBC GI Prophylaxis- On Protonix 40mg daily DVT prophylaxis- SCD, Heparin SQ Lines: Right subclavian CVP, Right Rad A line placed 03/19 CCT 30 mins Bharathi Hughes MD Mar 19, 2017 08:07
[2017-03-19 08:39] LABS: BLOOD GAS BASE EXCESS -2.4 mmol/L (-2-2); BLOOD GAS CARBOXYHEMOGLOBIN 1.2 % (0-4); BLOOD GAS HCO3 24 mmol/L (22-26); BLOOD GAS METHEMOGLOBIN 2.1 % (0-2); BLOOD GAS O2 HGB SATURATION 89 % (90-100); BLOOD GAS OXYGEN CONTENT 12.5 Vol % (12.0-20.0); BLOOD GAS PCO2 53 mmHg (38-42); BLOOD GAS PO2 74 mmHg (61-120); BLOOD GAS TOTAL HGB 9.9 G/DL (12.0-16.0); CRITICAL VALUE YES; OXYGEN DEVICE VENTILATOR; TEMP CORR TO 98.6
[2017-03-19 08:40] LABS: DRAW SITE ART LINE; FIO2 60 %; STAT YES; VENT SETTINGS PRVC/AC 550
[2017-03-19] MEDS ORDERED: FAMOTIDINE 20 MG TAB PO SCH (09:00)
[2017-03-19] MEDS: PREGABALIN 75 MG CAP PO SCH (09:00)
[2017-03-19] MEDS: BRIMONIDINE TARTRATE 0.2% OPHT SOLN 5 ML BTL EACH EYE SCH ×3 (09:00→18:00)
[2017-03-19] MEDS: QUEtiapine FUMARATE 300 MG TAB PO SCH ×3 (09:00→21:16)
[2017-03-19] MEDS: SODIUM CHLORIDE 0.9% FLUSH 10 ML FLUSH SCH ×2 (09:00→21:00)
[2017-03-19] MEDS: ARTIFICIAL TEARS OPTH SOLN 15 ML BTL EACH EYE SCH ×3 (09:00→18:00)
[2017-03-19] MEDS: TOBRAMYCIN SULF 0.3% OPHT SOLN 5 ML BTL EACH EYE SCH ×4 (09:00→21:09)
[2017-03-19] MEDS: LACTOBACILLUS ACIDOPHILUS TAB PO SCH ×2 (09:00→21:09)
[2017-03-19] MEDS ORDERED: INSULIN DETEMIR 100 UNITS/ML VIAL SQ SCH (09:00)
[2017-03-19] MEDS ORDERED: THYROID 65 MG PO SCH ×2 (09:00)
[2017-03-19] MEDS: cloNIDine HCL 0.1 MG TAB PO SCH (09:00)
[2017-03-19] MEDS: TRIAMCINOLONE ACETONIDE 55 MCG/ACT NASAL SPRAY 16.5 GM BTL EACH NARE SCH (09:00)
[2017-03-19] MEDS: DOCUSATE SODIUM 50 MG/SENNA 8.6 MG TAB PO SCH ×2 (09:00→21:09)
[2017-03-19] MEDS: FLUoxetine HCL 20 MG CAP PO SCH ×2 (09:00→18:50)
[2017-03-19 10:17] LABS: BLOOD GAS BASE EXCESS -1.7 mmol/L (-2-2); BLOOD GAS CARBOXYHEMOGLOBIN 1.2 % (0-4); BLOOD GAS HCO3 24 mmol/L (22-26); BLOOD GAS O2 HGB SATURATION 91 % (90-100); BLOOD GAS OXYGEN CONTENT 18.9 Vol % (12.0-20.0); BLOOD GAS PCO2 47 mmHg (38-42); BLOOD GAS PO2 76 mmHg (61-120); BLOOD GAS TOTAL HGB 14.8 G/DL (12.0-16.0); TEMP CORR TO 98.6
[2017-03-19 10:18] LABS: CRITICAL VALUE NO; OXYGEN DEVICE VENTILATOR
[2017-03-19 10:19] LABS: DRAW SITE ART LINE; FIO2 60 %; STAT NO; VENT SETTINGS 20/550/PEEP8
--- NOTE | 2017-03-19 11:09 | RADRPT ---
EXAM DATE/TIME: 03/19/2017 08:38 [facility] COMPARISON: CT ABDOMEN & PELVIS W CONTRAST, September 07, 2010, 23:32. US KIDNEY/RENAL/BLADDER, January 05, 2011, 1 9:46. CT ABDOMEN & PELVIS W/O CONTRAST, June 12, 2016, 20:06. INDICATIONS : Acute renal failure. MEDICAL HISTORY : Congestive heart failure. Hypercholesterolemia. Hypertension. Thyroid disease. Peripheral neuropathy. CVA. Concussion. Hyperlipidemia. Chest pain. COPD. Emphysema. Sleep apnea. Dyspnea. Hiatal hernia. G ERD. Renal disease.Arthrtis. PTSD. SURGICAL HISTORY : Tonsillectomy. Heart catheterization. Explor laparascopy. Sphincterotomy. Hemerrhoidectomy. Ortho pedic surgery.Spinal decompression. ENCOUNTER: Initial ACUITY: 2 days PAIN SCORE: Nonresponsive. LOCATION: Bilateral Renal. MEASUREMENTS: RIGHT KIDNEY: 10.8 x 4.7 x 5.6 cm LEFT KIDNEY: 11.1 x 4.1 x 6.9 cm FINDINGS: RIGHT KIDNEY: Renal cortex is normal in thickness and echotexture. No hydronephrosis, stone, or mass. LEFT KIDNEY: Renal cortex is normal in thickness and echotexture. No hydronephrosis, stone, or mass. There is a smooth margin complicated cyst with uniform low level internal echoes and good through transmission m easuring 3.0 x 3.3 x 2.6 cm, located in the upper pole. This is similar in size to prior CT and ultr asounds dating back to 2009. BLADDER: Within normal limits given the degree of distension. CONCLUSION: Symmetric renal size. Stable complicated cyst upper pole left kidney. Anselmo Palmer MD on March 19, 2017 at 10:59 Board Certified Radiologist. This report was verified electronically.
--- NOTE | 2017-03-19 11:18 | PD.CONS ---
HPI Service Nephrology Consult Requested By Reason for Consult Acute renal failure Primary Care Physician Non-Staff History of Present Illness This is a 56 y/o morbidly obese female patient who [facility] with hypoxia. PMH of PTSD, borderline personality disorder, depression, anxiety, COPD, CHF, Diabetes, neuropathy, GERD , HTN, HLD, migraines, hypothyroidism. She revoked her DNR in the ER and was intubated. She is admitted with sepsis from CAP, has been hypotensive overnight. This morning her blood pressure is better, the Levophed has been turned off. She received multiple liters of normal saline since arrival. Her creatinine was 2.07 that has increased to 2.6 today. Looking back her baseline creatinine is 1.6, GFR 33. I am unable to confirm if she follows with nephrology outpatient. She is making a good amount of urine. We were consulted for renal management. 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 ESBL+E.Coli (urine-01/14/11) Past Medical History PTSD borderline personality disorder depression anxiety COPD CHF Diabetes neuropathy GERD HTN HLD migraines hypothyroidism Past Surgical History Sphincterectomy/Hemorrhoidectomy in 1998 Cardiac Catheterizations with normal coronary arteries Cervical and lumbar spine surgeries Tonsillectomy Bilateral carpal tunnel release Reported Medications Humulin R U-500 (Concentrate) Kwikpen Inj (Insulin Regular (Human) Concentrate Inj) 1,500 Units/3 Ml Pen 3 Units SQ AC DINNER Humulin R U-500 (Concentrate) Kwikpen Inj (Insulin Regular (Human) Concentrate Inj) 1,500 Units/3 Ml Pen 4 Units SQ AC LUNCH Humulin R U-500 (Concentrate) Kwikpen Inj (Insulin Regular (Human) Concentrate Inj) 1,500 Units/3 Ml Pen 6 Units SQ AC BREAKFAST Atorvastatin (Atorvastatin Calcium) Unknown Strength Tab 20 PO HS Nature-Throid (Thyroid) 65 Mg Tab 65 Mg PO DAILY Seroquel (Quetiapine Fumarate) 300 Mg Tab 300 Mg PO TID Ranitidine (Ranitidine HCl) 150 Mg Tab 150 Mg PO BID Phenergan (Promethazine HCl) 25 Mg Tab 25 Mg PO BID PRN Lyrica (Pregabalin) 150 Mg Cap 150 Mg PO BID Pantoprazole (Pantoprazole Sodium) 40 Mg Tab 40 Mg PO BID Nitroglycerin SL (Nitroglycerin) 0.4 Mg Subl 0.4 Mg SL DIRECTED PRN ONE TABLET UNDER THE TONGUE NEEDED FOR CHEST PAIN, MAY REPEAT EVERY FIVE MINUTES FOR A TOTAL OF 3 DOSES OR CALL 911 IF NO RELIEF Toprol XL (Metoprolol Succinate) 100 Mg Tab 100 Mg PO AC LUNCH Glucose (Dextrose) 4 Gm Chew 16 Gm CHEW DIRECTED Fluoxetine (Fluoxetine HCl) 40 Mg Cap 80 Mg PO DAILY Doxepin (Doxepin HCl) 100 Mg Cap 100 Mg PO HS Aspirin EC (Aspirin) 81 Mg Tabdr 81 Mg PO HS Sm Artificial Tears Opth Drops (Artificial Tear Solution Opth Drops) 1 Drops 1 Drop EACH EYE QID PRN Allopurinol 300 Mg Tab 300 Mg PO DAILY Symbicort Inh (Budesonide/Formoterol Fumarate) 160-4.5 Mcg/Act Aero 2 Puff INH Q12HR Albuterol Neb (Albuterol Sulfate) 2.5 Mg/3 Ml Neb 2.5 Mg NEB Q6HR NEB PRN Acidophilus (Lactobacillus Acidophilus) 1 Cap Cap 1 Cap PO BID Active Ordered Medications Current Medications Medications (Trade) Dose Ordered Sig/Inez Route Start Time Stop Time Status Last Admin (Narcan Inj) 0.4 mg UNSCH PRN IV 03/18/17 16:45 (Ecotrin Ec) 81 mg HS PO 03/18/17 21:00 03/18/17 21:29 (Lipitor) 20 mg HS PO 03/18/17 21:00 03/18/17 21:29 (Alphagan 0.2% Opth Soln) 1 drop TID EACH EYE 03/19/17 09:00 03/19/17 09:00 (Catapres) 0.1 mg TID PO 03/19/17 09:00 (Benadryl Liq) 25 mg QID PRN PO 03/18/17 19:30 (SINEquan) 100 mg HS PO 03/18/17 21:00 03/18/17 21:52 (PROzac) 80 mg DAILY PO 03/19/17 09:00 (Lyrica) 150 mg DAILY PO 03/19/17 09:00 (Compazine Supp) 25 mg Q6H PRN RECTAL 03/18/17 19:30 (Phenergan) 25 mg BID PRN PO 03/18/17 19:30 (SEROquel) 150 mg BID@09,15 PO 03/19/17 09:00 (SEROquel) 600 mg HS PO 03/18/17 21:00 03/18/17 21:52 (Tobrex 0.3% Opth Soln) 1 drop QID EACH EYE 03/18/17 21:00 03/19/17 09:00 Triamcinolone Acetonide 2 spray 2 spray DAILY EACH NARE 03/19/17 09:00 (NS 1000 ml Inj) 1,000 ml @ 84 mls/hr [id number] IV 03/18/17 20:00 03/18/17 21:30 (NS Flush) 2 ml UNSCH PRN .XX 03/18/17 19:30 (NS Flush) 2 ml BID .XX 03/18/17 21:00 (Tylenol) 650 mg Q6H PRN PO 03/18/17 19:30 03/18/17 21:29 (Morphine Inj) 2 mg Q2H PRN IV 03/18/17 19:30 (Tears Naturale Opth Soln) 1 drop TID EACH EYE 03/19/17 09:00 03/19/17 09:00 (Zofran Inj) 4 mg Q6H PRN IV 03/18/17 19:30 (Reglan Inj) 5 mg Q6H PRN IV 03/18/17 19:30 (Heparin Inj) 5,000 units Q8H SQ 03/18/17 22:00 03/19/17 05:36 Miscellaneous Information 1 Q361D XX 03/18/17 19:30 (Chlorhexidine 2% Cloth) 3 pack Taper DAILY@04 TOP 03/19/17 04:00 03/15/18 03:59 03/19/17 04:00 (Chlorhexidine 2% Cloth) 3 pack UNSCH PRN TOP 03/18/17 19:30 (Mariam-Colace) 1 tab BID PO 03/18/17 21:00 03/18/17 21:29 (Milk Of [place]denny Liq) 30 ml Q12H PRN PO 03/18/17 19:30 (Senokot) 17.2 mg Q12H PRN PO 03/18/17 19:30 (Dulcolax Supp) 10 mg DAILY PRN RECTAL 03/18/17 19:30 Lactulose 30 ml 30 ml DAILY PRN PO 03/18/17 19:30 Propofol 100 ml @ 0 mls/hr TITRATE IV 03/18/17 19:30 03/18/17 20:56 Azithromycin 500 mg/Sodium Chloride 250 ml @ 250 mls/hr Q24H IV 03/19/17 16:00 (Vancomycin Consult Pharmacy) 0 ml @ 0 mls/hr UNSCH OTHER 03/18/17 19:45 (Tears Naturale Opth Soln) 1 drop QID PRN EACH EYE 03/18/17 20:01 Carboxymethylcellulose Sodium 1 drop 1 drop HS EACH EYE 03/18/17 21:00 03/18/17 21:52 (Zosyn 3.375 Gm Premix) 50 ml @ 100 mls/hr Q6H IV 03/18/17 21:00 03/19/17 09:00 (Lactinex) 1 tab BID PO 03/18/17 21:00 03/18/17 21:29 Patient Own Medication PT OWN MED: ARTHRI... QID PRN TOPICAL 03/18/17 20:30 Hold Patient Own Medication PT OWN MED: THYROID... DAILY PO 03/19/17 09:00 Hold Patient Own Medication PT OWN MED: MICONAZOLE NITR... BID PRN TOPICAL 03/18/17 20:45 Hold (Vancomycin Inj/ NS 500 ml Inj) 520 ml @ 250 mls/hr Q24H IV 03/18/17 21:00 03/18/17 21:28 Miscellaneous Information SPECIFIC LAB TO BE DRAWN:VANCO TROUGH DATE TO BE DR... ONCE ONCE .XX 03/21/17 20:45 03/21/17 20:46 (D50w (Vial) Inj) 25 ml UNSCH PRN IV PUSH 03/19/17 01:00 (Glucagon Inj) 1 mg UNSCH PRN OTHER 03/19/17 01:00 Insulin Human Regular 1 1 Q4HR SQ 03/19/17 04:00 03/19/17 08:00 (Levophed-Dextrose Drip) 250 ml @ 0 mls/hr TITRATE IV 03/19/17 02:30 03/19/17 03:59 Methylprednisolone Sodium Succinate 40 mg 40 mg Q12H IV PUSH 03/19/17 18:00 (fentaNYL DRIP) 250 ml @ 0 mls/hr TITRATE IV 03/19/17 08:00 (Protonix Inj) 40 mg Q24H IV PUSH 03/19/17 08:00 03/19/17 08:00 (Levemir Inj) 7 units Q12HR SQ 03/19/17 09:00 Family History unable to obtain Social History per admission notes Smokes tobacco 1/2 PPD Occasional alcohol use Denies any illicit drug use (Sheri Oliveira) Physical Exam Vital Signs Vital Signs Date Time Temp Pulse Resp B/P Pulse Ox O2 Delivery O2 Flow Rate FiO2 03/19/17 08:49 100 60 03/19/17 06:00 79 03/19/17 04:25 95 80 03/19/17 04:00 79 03/19/17 04:00 97.9 79 16 91/48 95 85/41 03/19/17 04:00 79 91/48 85/41 03/19/17 04:00 80 03/19/17 02:00 82 03/19/17 01:55 95 90 03/19/17 00:00 80 03/19/17 00:00 90 03/19/17 00:00 98.4 80 18 82/43 94 03/18/17 22:00 78 03/18/17 21:39 96 100 03/18/17 20:00 100 03/18/17 20:00 100.1 86 18 101/55 95 03/18/17 20:00 86 03/18/17 19:52 100.1 88 18 131/63 95 03/18/17 19:45 94 100 03/18/17 19:38 101.0 86 20 138/62 100 Ventilator 03/18/17 19:35 98 03/18/17 19:00 87 20 138/68 97 Ventilator 03/18/17 18:40 92 100 03/18/17 18:15 101.0 80 20 99/62 100 BiPAP 03/18/17 17:00 100.8 72 20 100/68 100 BiPAP 03/18/17 15:30 101.6 86 22 105/73 100 BiPAP 03/18/17 14:50 99 60 03/18/17 14:30 101.0 88 24 107/61 98 03/18/17 14:30 80 24 96 Non-Rebreather 15 03/18/17 14:30 101.6 85 24 107/61 96 Non-Rebreather 15 03/18/17 14:30 96 Non-Rebreather 10 Physical Exam Morbidly obese female, intubated/sedated S1/S2, regular rate, no murmurs lungs: diminished in bases abdomen: morbidly obese, soft, she has pannus with thick skin : porter draining clear shereen urine Ext; trace edema Laboratory Laboratory Tests Test 03/18/17 03/18/17 03/18/17 03/18/17 14:25 14:45 19:45 21:55 Prothrombin Time 10.5 Prothromb Time International 1.0 Ratio Activated Partial 25.0 Thromboplast Time Sodium Level 141 Potassium Level 3.8 Chloride Level 103 Carbon Dioxide Level 32.9 Anion Gap 5 Blood Urea Nitrogen 20 Creatinine 2.07 Estimat Glomerular Filtration 25 Rate Random Glucose 63 Calcium Level 8.5 Total Bilirubin 0.3 Aspartate Amino Transf 16 (AST/SGOT) Alanine Aminotransferase 23 (ALT/SGPT) Alkaline Phosphatase 79 Total Creatine Kinase 153 Creatine Kinase MB 2.1 Troponin I 0.02 LESS THAN 0.02 B-Type Natriuretic Peptide 52 Total Protein 7.3 Albumin 3.2 White Blood Count 16.2 Red Blood Count 4.31 Hemoglobin 12.1 Hematocrit 37.7 Mean Corpuscular Volume 87.6 Mean Corpuscular Hemoglobin 28.2 Mean Corpuscular Hemoglobin 32.2 Concent Red Cell Distribution Width 14.8 Platelet Count 264 Mean Platelet Volume 8.4 Neutrophils (%) (Auto) 88.9 Lymphocytes (%) (Auto) 5.3 Monocytes (%) (Auto) 4.6 Eosinophils (%) (Auto) 0.7 Basophils (%) (Auto) 0.5 Neutrophils # (Auto) 14.4 Lymphocytes # (Auto) 0.9 Monocytes # (Auto) 0.7 Eosinophils # (Auto) 0.1 Basophils # (Auto) 0.1 CBC Comment DIFF FINAL Differential Comment Lactic Acid Level 1.6 Nasal Screen MRSA (PCR) MRSA NOT DETECTED Ammonia 22 Test 03/18/17 03/18/17 03/19/17 03/19/17 22:30 22:37 03:50 08:30 Urine Color DARK-YELLOW Urine Turbidity CLOUDY Urine pH 5.5 Urine Specific [place] 1.022 Urine Protein 300 Urine Glucose (UA) 70 Urine Ketones NEG Urine Occult Blood SMALL Urine Nitrite NEG Urine Bilirubin NEG Urine Urobilinogen 2.0 Urine Leukocyte Esterase LARGE Urine RBC 67 Urine WBC Urine WBC Clumps MANY Urine Transitional Epithelial 3 Cells Urine Amorphous Sediment RARE Urine Bacteria MANY Urine Waxy Casts 16 Urine Mucus MANY Microscopic Urinalysis Comment CULTURE INDICATED Blood Gas Puncture Site BR ART LINE Blood Gas Patient Temperature 98.6 98.6 Blood Gas HCO3 25 24 Blood Gas Base Excess -0.7 -2.4 Blood Gas Oxygen Saturation 92 89 Arterial Blood pH 7.27 7.27 Arterial Blood Partial 57 53 Pressure CO2 Arterial Blood Partial 96 74 Pressure O2 Arterial Blood Oxygen Content 13.5 12.5 Arterial Blood 1.5 1.2 Carboxyhemoglobin Arterial Blood Methemoglobin 2.0 2.1 Blood Gas Hemoglobin 10.3 9.9 Oxygen Delivery Device VENTILATOR VENTILATOR Blood Gas Ventilator Setting SEE COMMENTS PRVC/AC 550 Blood Gas Inspired Oxygen 100 60 White Blood Count 22.0 Red Blood Count 3.37 Hemoglobin 9.4 Hematocrit 29.9 Mean Corpuscular Volume 88.6 Mean Corpuscular Hemoglobin 27.9 Mean Corpuscular Hemoglobin 31.5 Concent Red Cell Distribution Width 14.6 Platelet Count 214 Mean Platelet Volume 8.6 Neutrophils (%) (Auto) 90.2 Lymphocytes (%) (Auto) 1.4 Monocytes (%) (Auto) 7.4 Eosinophils (%) (Auto) 0.1 Basophils (%) (Auto) 0.9 Neutrophils # (Auto) 19.8 Lymphocytes # (Auto) 0.3 Monocytes # (Auto) 1.6 Eosinophils # (Auto) 0.0 Basophils # (Auto) 0.2 CBC Comment AUTO DIFF Differential Total Cells 100 Counted Neutrophils % (Manual) 88 Band Neutrophils % 8 Lymphocytes % 2 Monocytes % 2 Neutrophils # (Manual) 21.1 Differential Comment FINAL DIFF MANUAL Platelet Estimate NORMAL Platelet Morphology Comment NORMAL Red Cell Morphology Comment NORMAL Sodium Level 137 Potassium Level 4.7 Chloride Level 101 Carbon Dioxide Level 25.1 Anion Gap 11 Blood Urea Nitrogen 26 Creatinine 2.60 Estimat Glomerular Filtration 19 Rate Random Glucose 369 Calcium Level 7.8 Phosphorus Level 6.1 Magnesium Level 2.2 Total Bilirubin 0.4 Aspartate Amino Transf 10 (AST/SGOT) Alanine Aminotransferase 17 (ALT/SGPT) Alkaline Phosphatase 59 Troponin I 0.03 Total Protein 5.7 Albumin 2.4 Test 03/19/17 10:00 Blood Gas Puncture Site ART LINE Blood Gas Patient Temperature 98.6 Blood Gas HCO3 24 Blood Gas Base Excess -1.7 Blood Gas Oxygen Saturation 91 Arterial Blood pH 7.32 Arterial Blood Partial 47 Pressure CO2 Arterial Blood Partial 76 Pressure O2 Arterial Blood Oxygen Content 18.9 Arterial Blood 1.2 Carboxyhemoglobin Arterial Blood Methemoglobin 2.0 Blood Gas Hemoglobin 14.8 Oxygen Delivery Device VENTILATOR Blood Gas Ventilator Setting 20/550/PEEP8 Blood Gas Inspired Oxygen 60 Date/Time Procedure Status Source Growth 03/19/17 00:00 Gram Stain - Final Resulted Sputum Endotracheal 03/19/17 00:00 Sputum Culture Resulted Sputum Endotracheal Pending 03/18/17 22:30 Urine Culture Received Urine Clean Catch Pending 03/18/17 22:30 Legionella Antigen Received Urine Catheterized Urine Pending 03/18/17 22:30 Streptococcus pneumoniae Antigen (M Received Urine Catheterized Urine Pending 03/18/17 22:30 Cancelled Urine Catheterized Urine 03/18/17 14:45 Aerobic Blood Culture Received Blood Peripheral Pending 03/18/17 14:45 Anaerobic Blood Culture Received Blood Peripheral Pending (Sheri Oliveira) Result Diagram: 03/19/17 0350 03/19/17 0350 Imaging Last 72 hours Impressions Chest X-Ray 03/19/17 0000 Signed Impressions: Service Date/Time: Sunday, March 19, 2017 02:00 - CONCLUSION: Tubes and catheters in good position. Stable infiltrate right lower lobe. Reese Pacheco MD Chest X-Ray 03/18/17 1426 Signed Impressions: Service Date/Time: Saturday, March 18, 2017 14:38 - CONCLUSION: Right lower lobe infiltrate. Anselmo Louise Jr., MD (Sheri Oliveira) Assessment and Plan Problem List: (1) Acute renal failure superimposed on stage 3 chronic kidney disease Plan: It appears her baseline is CKD 3, she has proteinuria may have underlying diabetic nephropathy her renal function is worse today she is non oliguric renal US ordered SANAM likely from sepsis syndrome with decreased renal perfusion at this time she appears edematous, stop IVF hold antihypertensives until clinically appropriate follow renal function and avoid nephrotoxic medications monitor drug levels when appropriate daily renal panel (2) Sepsis Plan: due to pnuemonia/CAP continue antibiotic therapy pressors if needed monitor clinically (3) DM (diabetes mellitus) Plan: needs better glycemic control continue insulin, goal 140-180 mg/dL (4) Pneumonia Plan: on vancomycin and zosyn (5) HTN (hypertension) Plan: has been hypotensive on pressors monitor BP, restart home antihypertensives when they are required (Sheri Oliveira) Assessment and Plan patient was seen and examined. Agree with above assessment and plan. Flushing the Porter catheter resulted in output of about 350 ml of urine. She is currently non oliguric. Off pressors. Continue TF. Continue supportive care. Monitor urine output and renal function. Likely has stage III CKD as baseline due to diabetic nephropathy. (Jose Olmedo MD) Problem Qualifiers (1) Pneumonia: Qualified Code: J18.1 - Pneumonia of right lower lobe due to infectious organism Sheri Oliveira Mar 19, 2017 11:18 Jose Olmedo MD Mar 19, 2017 15:11
[2017-03-19] MEDS ORDERED: MISC INFORMATION OTHER ONE ×2 (12:30→16:45)
[2017-03-19] MEDS ORDERED: INSULIN REGULAR (IV INFUSION) 100 UNITS in SODIUM CHLORIDE 0.9% INJ 99 ML IV SCH ×2 (13:00→16:45)
[2017-03-19] MEDS ORDERED: NYSTATIN 100,000 U/GM PWD 15 GM BTL TOPICAL PRN (15:00)
[2017-03-19] MEDS ORDERED: SODIUM CHLORID 0.9% 500 ML INJ 500 ML IV ONE (17:45)
[2017-03-19] MEDS: AZITHROMYCIN INJ 500 MG in SODIUM CHLOR 0.9% 250 ML INJ 250 ML IV SCH (18:50)
[2017-03-19] MEDS: CARBOXYMETHYLCELL SOD 0.5% OPTH SOLN 15 ML BTL EACH EYE SCH (18:51)
[2017-03-19] MEDS: ASPIRIN EC 81 MG TABEC PO SCH (21:09)
[2017-03-19] MEDS: DOXEPIN HCL 50 MG CAP PO SCH (21:09)
[2017-03-19] MEDS: ATORVASTATIN 20 MG TAB PO SCH (21:09)
--- NOTE | 2017-03-19 21:45 | EKG ---
Date Performed: 03/18/2017 Time Performed: 15:15:44 PTAGE: 56 years EKG: Sinus rhythm LOW QRS VOLTAGE IN PRECORDIAL LEADS POSSIBLE ANTERIOR MYOCARDIAL INFARCTION Since previous tracing, no significant change noted ABNORMAL ECG PREVIOUS TRACING : 09/24/2016 18.36 DOCTOR: Carmen Rizvi Interpretating Date/Time 03/19/2017 21:43:57
--- NOTE | 2017-03-19 21:46 | EKG ---
Date Performed: 03/18/2017 Time Performed: 21:25:13 PTAGE: 56 years EKG: Sinus rhythm Since previous tracing, no significant change noted NORMAL ECG PREVIOUS TRACING : 03/18/2017 15.15 DOCTOR: Carmen Rizvi Interpretating Date/Time 03/19/2017 21:44:08
--- NOTE | 2017-03-19 21:46 | EKG ---
Date Performed: 03/19/2017 Time Performed: 06:57:44 PTAGE: 56 years EKG: Sinus rhythm LOW QRS VOLTAGE IN PRECORDIAL LEADS Since previous tracing, no significant change noted BORDERLINE E CG PREVIOUS TRACING : 03/18/2017 21.25 DOCTOR: Carmen Rizvi Interpretating Date/Time 03/19/2017 21:44:18
[2017-03-20] VITALS (20 sets, daily range): BP systolic 110–134; BP diastolic 56–73; PULSE 68–78; RESP 20–24; TEMP 98.5–99.2; O2SAT 91–97
[2017-03-20] MEDS: PIPERACIL-TAZO 3.375 GM PREMIX 50 ML IV SCH ×4 (03:15→20:46)
[2017-03-20] MEDS: RESP: ALBUTEROL 2.5 MG/IPRATROPIUM 0.5 MG NEB (SCH) INH ×4 (03:41→20:09)
[2017-03-20] MEDS: CHLORHEXIDINE GLUCONATE 2 % 1 PACK (2 CLOTHS) TOP SCH (04:00)
--- NOTE | 2017-03-20 04:48 | RADRPT ---
EXAM DATE/TIME: 03/20/2017 03:41 [facility] COMPARISON: CHEST SINGLE AP, March 19, 2017, 2:00. INDICATIONS : Shortness of breath. MEDICAL HISTORY : Chronic obstructive pulmonary disease. Emphysema. Congestive heart SURGICAL HISTORY : Cardiac cath. ENCOUNTER: Subsequent ACUITY: 1 week PAIN SCORE: 0/10 LOCATION: Bilateral chest FINDINGS: A single view of the chest demonstrates the endotracheal tube, nasogastric tube, right subclavian elda tral line are all in good position. Small bilateral pleural effusions right greater left. Mild pulmon robbie vascular prominence unchanged. The cardiomediastinal contours are unremarkable. Osseous structu res are intact. CONCLUSION: Small lung volumes with diffuse pulmonary vascular prominence. Tubes and catheters in good position Reese Pacheco MD on March 20, 2017 at 4:45 Board Certified Radiologist. This report was verified electronically.
[2017-03-20] MEDS: HEPARIN SODIUM - SQ 10,000 UNITS/ML VIAL SQ SCH ×3 (05:18→20:47)
[2017-03-20] MEDS: methylPREDNISolone SOD SUCC 40 MG/1 ML VIAL IV PUSH SCH ×2 (05:18→17:38)
[2017-03-20 05:40] LABS: AUTOMATED NEUTROPHIL # 15.2 TH/MM3 (1.8-7.7); EOSINOPHIL % 0.2 % (0.0-4.0); HEMATOCRIT 30.6 % (35.0-46.0); HEMO FLAGS DIFF FINAL; LYMPH % 5.1 % (9.0-44.0); LYMPHOCYTE # 0.9 TH/MM3 (1.0-4.8); MEAN CELL VOLUME 86.7 FL (80.0-100.0); MEAN CORPUSCULAR HEMOGLOBIN 28.4 PG (27.0-34.0); MEAN CORPUSCULAR HGB CONC 32.7 % (32.0-36.0); MONO % 4.8 % (0.0-8.0); NEUT % 89.9 % (16.0-70.0); PLATELET COUNT 209 TH/MM3 (150-450); RED BLOOD COUNT 3.53 MIL/MM3 (4.00-5.30); RED CELL DISTRIBUTION WIDTH 14.5 % (11.6-17.2); WHITE BLOOD COUNT 16.9 TH/MM3 (4.0-11.0)
[2017-03-20] MEDS: fentaNYL DRIP 250 ML IV SCH (06:05)
[2017-03-20 06:07] LABS: BICARBONATE 31.5 MEQ/L (21.0-32.0); POTASSIUM 3.9 MEQ/L (3.5-5.1)
[2017-03-20] MEDS: cloNIDine HCL 0.1 MG TAB PO SCH ×3 (09:00→17:39)
[2017-03-20] MEDS: TRIAMCINOLONE ACETONIDE 55 MCG/ACT NASAL SPRAY 16.5 GM BTL EACH NARE SCH (09:00)
[2017-03-20] MEDS: FLUoxetine HCL 20 MG CAP PO SCH (09:03)
[2017-03-20] MEDS: LACTOBACILLUS ACIDOPHILUS TAB PO SCH ×2 (09:04→20:47)
[2017-03-20] MEDS: TOBRAMYCIN SULF 0.3% OPHT SOLN 5 ML BTL EACH EYE SCH ×4 (09:04→20:46)
[2017-03-20] MEDS: DOCUSATE SODIUM 50 MG/SENNA 8.6 MG TAB PO SCH ×2 (09:04→20:47)
[2017-03-20] MEDS: QUEtiapine FUMARATE 300 MG TAB PO SCH ×3 (09:18→20:47)
[2017-03-20] MEDS: PREGABALIN 75 MG CAP PO SCH (09:18)
[2017-03-20] MEDS ORDERED: VANCOMYCIN INJ 2,250 MG in SODIUM CHLORID 0.9% 500 ML INJ 500 ML IV ONE (11:00)
[2017-03-20] MEDS: SODIUM CHLORIDE 0.9% FLUSH 10 ML FLUSH SCH ×2 (11:03→20:45)
[2017-03-20] MEDS: PANTOPRAZOLE SODIUM 40 MG VIAL IV PUSH SCH (11:03)
[2017-03-20] MEDS: ARTIFICIAL TEARS OPTH SOLN 15 ML BTL EACH EYE SCH ×3 (11:04→17:39)
[2017-03-20] MEDS: BRIMONIDINE TARTRATE 0.2% OPHT SOLN 5 ML BTL EACH EYE SCH ×3 (11:04→17:39)
--- NOTE | 2017-03-20 11:31 | HHI.NPPN ---
Subjective Renal Failure: Acute Interval History Remains intubated, sedated. Demonstrating fluid overload. Renal function is better. (Sheri Oliveira) Review of Systems General General Remarks unable to evaluate due to intubation/sedation (Sheri Oliveira) Objective Data Data 03/19/17 03/20/17 19:00 07:00 Intake Total 1717 ml 1819 ml Output Total 1450 ml 575 ml Balance 267 ml 1244 ml Intake Oral 0 ml IV Total 1247 ml 619 ml Tube Feeding 370 ml 900 ml Other 100 ml 300 ml Output Urine Total 1450 ml 575 ml # Bowel Movements 0 Vital Signs Date Time Temp Pulse Resp B/P Pulse Ox O2 Delivery O2 Flow Rate FiO2 03/20/17 10:00 77 03/20/17 09:00 75 03/20/17 09:00 75 116/62 117/61 03/20/17 08:00 78 03/20/17 08:00 98.9 78 20 121/63 91 124/64 03/20/17 08:00 75 03/20/17 07:53 92 75 03/20/17 06:00 77 03/20/17 05:30 91 75 03/20/17 04:26 92 60 03/20/17 04:00 98.7 76 20 119/65 91 112/56 03/20/17 04:00 76 119/65 112/57 03/20/17 04:00 60 03/20/17 04:00 76 03/20/17 02:00 68 03/20/17 01:32 93 60 03/20/17 00:00 60 03/20/17 00:00 69 03/20/17 00:00 98.6 69 20 116/72 92 110/58 03/20/17 00:00 69 116/72 110/58 03/19/17 22:05 93 60 03/19/17 22:00 76 03/19/17 20:10 95 60 03/19/17 20:00 66 03/19/17 20:00 98.7 66 20 119/68 95 104/51 03/19/17 20:00 60 03/19/17 20:00 66 119/68 104/51 03/19/17 18:00 87 03/19/17 16:21 80 03/19/17 16:16 80 03/19/17 16:10 93 60 03/19/17 16:00 99.4 67 102/51 94 03/19/17 16:00 67 102/51 03/19/17 15:00 67 104/52 03/19/17 15:00 67 104/52 93 03/19/17 14:00 80 03/19/17 14:00 79 03/19/17 14:00 71 107/55 03/19/17 14:00 71 107/55 94 03/19/17 13:30 71 122/60 93 117/53 03/19/17 13:30 71 122/60 117/53 03/19/17 13:00 74 133/67 97 137/60 03/19/17 13:00 74 133/67 137/60 03/19/17 12:30 69 124/61 94 120/55 03/19/17 12:30 69 124/61 120/55 03/19/17 12:06 95 60 03/19/17 12:00 69 129/65 125/57 03/19/17 12:00 82 03/19/17 12:00 69 129/65 94 125/57 03/19/17 11:30 69 131/66 128/58 03/19/17 11:30 69 131/66 128/58 (Sheri Oliveira) -: 03/20/17 0511 03/20/17 0511 Imaging Last Impressions Chest X-Ray 03/20/17 0000 Signed Impressions: Service Date/Time: Monday, March 20, 2017 03:41 - CONCLUSION: Small lung volumes with diffuse pulmonary vascular prominence. Tubes and catheters in good position Reese Pacheco MD Renal Ultrasound 03/19/17 0000 Signed Impressions: Service Date/Time: Sunday, March 19, 2017 08:38 - CONCLUSION: Symmetric renal size. Stable complicated cyst upper pole left kidney. Anselmo Palmer MD Tubes & Lines: Rosa (Sheri Oliveira) Physical Exam General Appearance: Well Developed, Well Nourished, Comfortable (Sheri Oliveira) Throat Throat Exam: Oral Mucosa [place] & Moist (Sheri Oliveira) Pulmonary Resp Exam: Breath Sounds Equal, Crackles, Decreased Bases, Diminished Breath Sounds Resp Remarks vented lung sounds (Sheri Oliveira) Cardiology CV Exam: Regular, Normal Sinus Rhythm, Good Perfusion (Sheri Oliveira) Gastrointestinal/Abdomen GI Exam: Soft, Non-Tender, Bowel Sounds Present (Sheri Oliveira) Musculoskeletal MS Exam: Joints Intact, Normal Tone, Unable to Ambulate (Sheri Oliveira) Integumentary Skin Exam: Warm, Dry (Sheri Oliveira) Extremeties Extremities Exam: Pedal Pulses Palpable, Moderate Edema (Sheri Oliveira) Neurologic Neuro Exam: Unresponsive, Sedated (Sheri Oliveira) VTE Prophylaxis Device: SCDs (Sheri Oliveira) Assessment/Plan Discussed Condition Comment nurse Assessment Summary: SANAM/Acute Renal Failure, Fluid/Volume Overload, Proteinuria , Hypertension, Diabetes Mellitus, CKD Stage III Problem List: (1) Acute renal failure superimposed on stage 3 chronic kidney disease Plan: It appears her baseline is CKD 3, she has proteinuria may have underlying diabetic nephropathy her renal function is stable, slightly better today renal US negative, she is non oliguric SANAM likely from sepsis syndrome with decreased renal perfusion demonstrating fluid overload, begin Bumex and monitor follow renal function and avoid nephrotoxic medications monitor drug levels when appropriate daily renal panel (2) Sepsis Plan: due to pnuemonia/CAP continue antibiotics including Vancomycin and zithromax pressors if needed to maintain adequate MAP monitor clinically (3) Pneumonia Plan: see above vent settings: A/C 20/550/75/8 (4) DM (diabetes mellitus) Plan: she is on insulin infusion continue with glucose goal of 140-180 mg/dL (5) HTN (hypertension) Plan: BP is better today, home medications have been resumed continue with hold parameters (Sheri Oliveira) Plan patient was seen and examined. Agree with above assessment and plan. Renal function is stable. Cautious diuresis from today. (Jose Olmedo MD) Problem Qualifiers (1) Pneumonia: Qualified Code: J18.1 - Pneumonia of right lower lobe due to infectious organism Sheri Oliveira Mar 20, 2017 11:31 Jose Olmedo MD Mar 20, 2017 21:04
[2017-03-20] MEDS: BUMETANIDE INJ 1 MG/4 ML VIAL IV PUSH SCH (12:49)
[2017-03-20] MEDS ORDERED: DEXTROSE 50% IN WATER 50 ML VIAL(D50) IV PUSH PRN (13:45)
[2017-03-20] MEDS: INSULIN REGULAR (IV INFUSION) 100 UNITS in SODIUM CHLORIDE 0.9% INJ 99 ML IV SCH (14:07)
--- NOTE | 2017-03-20 14:51 | EKG ---
Date Performed: 03/20/2017 Time Performed: 08:10:10 PTAGE: 56 years EKG: Sinus rhythm NONSPECIFIC T-WAVE ABNORMALITY ABNORMAL ECG PREVIOUS TRACING : 03/19/2017 20.45 Compared to prior tracing no significant change DOCTOR: Kristian Engel Interpretating Date/Time 03/20/2017 14:51:44
[2017-03-20 15:40] LABS: BLOOD GAS BASE EXCESS 0.9 mmol/L (-2-2); BLOOD GAS CARBOXYHEMOGLOBIN 1.1 % (0-4); BLOOD GAS HCO3 27 mmol/L (22-26); BLOOD GAS O2 HGB SATURATION 94 % (90-100); BLOOD GAS OXYGEN CONTENT 13.1 Vol % (12.0-20.0); BLOOD GAS PCO2 58 mmHg (38-42); BLOOD GAS PO2 116 mmHg (61-120); BLOOD GAS TOTAL HGB 9.8 G/DL (12.0-16.0); TEMP CORR TO 98.6
[2017-03-20 15:41] LABS: CRITICAL VALUE YES
[2017-03-20 15:42] LABS: DRAW SITE ART LINE; STAT NO; ULNAR PULSE PRESENT
[2017-03-20] MEDS: AZITHROMYCIN INJ 500 MG in SODIUM CHLOR 0.9% 250 ML INJ 250 ML IV SCH (16:01)
--- NOTE | 2017-03-20 17:50 | HHI.CCPN ---
Subjective Remarks/Hospital Course 56-year-old morbidly obese female with history of posttraumatic stress disorder , borderline personality disorder, depression, anxiety, chronic obstructive pulmonary disease, congestive heart failure, Diabetes, neuropathy, gastroesophageal reflux disease, hypertension, dyslipidemia, migraines, hypothyroidism, [facility] with O2 sat in the 70s. The patient was transported via EVAC, placed on NRB, O2 sat improved however patient's breathing very labored with tachypnea therefore put on Bipap in the ER. In the ER after several minutes of being on Bipap, she still complaining feeling very fatigued and short of breath. She informs medical team she now wants to revoke her DNR and agrees to intubation if recommended (family member also at bedside agrees to this). Her oxygenation remained borderline, her breathing still remains labored and she was intubated by ER attending. 03/19 Patient is intubated sedated with versed. Afebrile. Given 4L NS boluses overnight. 03/20: remains intubated, sedated, significantly hypoxic. in acute kidney injury and severe volume overload. received bumex x 1 this morning. Also remains hyperglycemic. critically ill, not improving. high fio2 requirements. Objective Vital Signs Date Time Temp Pulse Resp B/P Pulse Ox O2 Delivery O2 Flow Rate FiO2 03/20/17 16:00 77 122/65 115/56 03/20/17 16:00 72 03/20/17 16:00 99.2 24 97 03/18/17 19:38 Ventilator 03/18/17 14:30 15 Intake and Output 03/19/17 03/19/17 03/19/17 07:59 15:59 23:59 Intake Total 4688 ml 877 ml 1978 ml Output Total 400 ml 1000 ml 725 ml Balance 4288 ml -123 ml 1253 ml Result Diagram: 03/20/17 0511 03/20/17 0511 Other Results Microbiology Date/Time Procedure Status Source Growth 03/18/17 22:30 Urine Culture - Final Complete Urine Clean Catch NO GROWTH IN 48 HOURS. Laboratory Tests Test 03/20/17 15:29 Blood Gas Puncture Site ART LINE Blood Gas Patient Temperature 98.6 Blood Gas HCO3 27 mmol/L (22-26) Blood Gas Base Excess 0.9 mmol/L (-2-2) Blood Gas Oxygen Saturation 94 % (90-100) Arterial Blood pH 7.29 (7.380-7.420) Arterial Blood Partial 58 mmHg (38-42) Pressure CO2 Arterial Blood Partial 116 mmHg Pressure O2 (61-120) Arterial Blood Oxygen Content 13.1 Vol % (12.0-20.0) Arterial Blood 1.1 % (0-4) Carboxyhemoglobin Arterial Blood Methemoglobin 2.0 % (0-2) Blood Gas Hemoglobin 9.8 G/DL (12.0-16.0) Oxygen Delivery Device Imaging Last Impressions Chest X-Ray 03/19/17 0000 Signed Impressions: Service Date/Time: Sunday, March 19, 2017 02:00 - CONCLUSION: Tubes and catheters in good position. Stable infiltrate right lower lobe. Reese Pacheco MD Objective Remarks GENERAL: Morbidly obese female on the ventilator support SKIN: Warm and dry. HEAD: Normocephalic. EYES: No scleral icterus. No injection or drainage. NECK: trachea midline. JVD unable to be assessed due to large neck. endotracheally intubated. CARDIOVASCULAR: Regular rate and rhythm . sinus by tele. RESPIRATORY: Breath sounds equal bilaterally. No accessory muscle use. GASTROINTESTINAL: morbidly obese, soft, non-tender, nondistended. MUSCULOSKELETAL: No cyanosis, or edema. EXTREMITIES: No clubbing or cyanosis Neuro: RASS -2. follows commands. sedated. A/P Assessment and Plan Assessment: 56yF with COPD, CHF unknown type, DM and morbid obesity who presents with worsening acute hypoxic and hypercarbic respiratory failure, community acquired pneumonia, pulmonary edema with intravascular volume overload , acute kidney injury on chronic kidney disease. She remains very critically ill. I am not sure long-term we will be able to separate her from mechanical ventilation. for now, we will increase her PEEP support and help with her worsening hypoxia and high fio2 requirements. She appears to be in persistent pulmonary edema and volume overload, and despite her acute kidney injury, to be able to oxygenate her at all, we must increase our forced diuresis. She is very critically ill at this time, off pathway, and may likely not survive this hospital stay. Plan by systems: Neurologic: History of Psychiatric Illness Agitation associated with mechanical ventilation - prop/fent for goal RASS -2 and vent synchrony - continue home Seroquel, Lyrica, Prozac Respiratory: Acute hypoxic and Hypercarbic Respiratory Failure COPD exacerbation Community Acquired Pneumonia Pulmonary Edema -- On PRVC/AC RR 16, TV 550, IT:1.0, PEEP:8, FIO2 80%. Increase PEEP to 14, decrease TV to 380. Increase rate to 22. recheck ABG. -- permissive hypercapnea and low tidal volume ventilation targeting 6cc/kg IBW. -- wean fio2 for goal spo2 > 88%. -- nebs -- vent bundle -- solumedrol 40mg q12h. Cardiovascular: History of Congestive Heart Failure, unknown type (prior echo from 2010 with normal EF) Hyperlipidemia Coronary Artery Disease -- continue home statin, ASA -- f/u 2d echo -- forced diuresis as below. Renal: Acute kidney injury on chronic kidney disease, unknown stage Acute intravascular volume overload -- Strict I/Os -- bumex 2mg iv x 1 this morning, will repeat this dose tonight. -- diamox 500mg iv x 1 -- place urometer on porter for closer monitoring of i/o's. may need bumex drip. FEN/GI: Morbid obesity Acute intravascular volume overload -- TF nepro at goal. -- ICU electrolyte protocol. -- diuresis as above. -- daily bmp Heme/ID: Community-acquired pneumonia -- continue Vancomycin, azithromycin, Zosyn -- f/u cultures. -- daily cbc. Endocrine: Severe hyperglycemia Current algorithm 3 insulin drip not adequate. We'll increase insulin drip algorithm 4. Has used 207 units insulin in the last 24 hours. We will convert 30% (60 units ) to long-acting Levemir 30 SQ BID. Prophylaxis: GI Prophylaxis- On Protonix 40mg daily DVT prophylaxis- SCD, Heparin SQ Lines: TLC art line Porter Dispo: Remain in the ICU. She remains critically ill with worsening oxygen requirements, volume overload, multiorgan system dysfunction. This patient remains critically ill with one or more organ systems which are or may become a threat to life. I have spent in excess of 55 minutes discontinuously in the care and management of this patient. This time is exclusive of procedures, and includes, but is not limited to, evaluation of the patient, review of the medical record, discussions with family, consultants, nursing staff, or respiratory therapy, and documentation in the medical record. Demetri Meadows MD Mar 20, 2017 17:50
--- NOTE | 2017-03-20 18:18 | EKG ---
Date Performed: 03/19/2017 Time Performed: 20:45:28 PTAGE: 56 years EKG: Sinus rhythm NONSPECIFIC T-WAVE ABNORMALITY BORDERLINE ECG PREVIOUS TRACING : 03/19/2017 13.18 Compared to prior tracing no significant change DOCTOR: Kristian Engel Interpretating Date/Time 03/20/2017 18:16:20
[2017-03-20] MEDS ORDERED: BUMETANIDE INJ 1 MG/4 ML VIAL IV PUSH ONE (19:00)
--- NOTE | 2017-03-20 19:54 | EKG ---
Date Performed: 03/19/2017 Time Performed: 13:18:19 PTAGE: 56 years EKG: Sinus rhythm LOW QRS VOLTAGE IN PRECORDIAL LEADS PATTERN CONSISTENT WITH PULMONARY DISEASE ABNORMAL ECG PREVIOUS TRACING : 03/19/2017 06.57 Compared to prior tracing no significant change DOCTOR: Kristian Engel Interpretating Date/Time 03/20/2017 19:52:45
[2017-03-20] MEDS: ASPIRIN EC 81 MG TABEC PO SCH (20:46)
[2017-03-20] MEDS: CARBOXYMETHYLCELL SOD 0.5% OPTH SOLN 15 ML BTL EACH EYE SCH (20:46)
[2017-03-20] MEDS: ATORVASTATIN 20 MG TAB PO SCH (20:47)
[2017-03-20] MEDS: INSULIN DETEMIR 100 UNITS/ML VIAL SQ SCH (20:47)
[2017-03-20] MEDS: DOXEPIN HCL 50 MG CAP PO SCH (20:47)
[2017-03-21] VITALS (22 sets, daily range): BP systolic 119–164; BP diastolic 61–85; PULSE 69–79; RESP 22–23; TEMP 98.1–99.1; O2SAT 93–99
[2017-03-21] MEDS: INSULIN REGULAR (IV INFUSION) 100 UNITS in SODIUM CHLORIDE 0.9% INJ 99 ML IV SCH ×2 (00:40→16:11)
[2017-03-21] MEDS: CHLORHEXIDINE GLUCONATE 2 % 1 PACK (2 CLOTHS) TOP SCH (04:00)
[2017-03-21] MEDS: PIPERACIL-TAZO 3.375 GM PREMIX 50 ML IV SCH ×3 (04:02→14:45)
[2017-03-21] MEDS: RESP: ALBUTEROL 2.5 MG/IPRATROPIUM 0.5 MG NEB (SCH) INH ×4 (04:13→20:25)
[2017-03-21 04:55] LABS: BICARBONATE 32.3 MEQ/L (21.0-32.0); POTASSIUM 4.3 MEQ/L (3.5-5.1)
[2017-03-21] MEDS: methylPREDNISolone SOD SUCC 40 MG/1 ML VIAL IV PUSH SCH ×2 (06:22→18:24)
[2017-03-21] MEDS: HEPARIN SODIUM - SQ 10,000 UNITS/ML VIAL SQ SCH ×3 (06:22→22:13)
[2017-03-21] MEDS: fentaNYL DRIP 250 ML IV SCH (07:23)
[2017-03-21] MEDS: BRIMONIDINE TARTRATE 0.2% OPHT SOLN 5 ML BTL EACH EYE SCH ×3 (07:24→18:20)
[2017-03-21] MEDS: SODIUM CHLORIDE 0.9% FLUSH 10 ML FLUSH SCH ×2 (07:24→20:37)
[2017-03-21] MEDS: QUEtiapine FUMARATE 300 MG TAB PO SCH ×3 (09:00→20:41)
[2017-03-21] MEDS: TRIAMCINOLONE ACETONIDE 55 MCG/ACT NASAL SPRAY 16.5 GM BTL EACH NARE SCH (09:00)
[2017-03-21] MEDS: BUMETANIDE INJ 1 MG/4 ML VIAL IV PUSH SCH ×3 (09:00→22:12)
[2017-03-21] MEDS: cloNIDine HCL 0.1 MG TAB PO SCH ×3 (09:00→18:24)
[2017-03-21] MEDS: PREGABALIN 75 MG CAP PO SCH (09:00)
[2017-03-21] MEDS: DOCUSATE SODIUM 50 MG/SENNA 8.6 MG TAB PO SCH ×2 (09:01→20:38)
[2017-03-21] MEDS: TOBRAMYCIN SULF 0.3% OPHT SOLN 5 ML BTL EACH EYE SCH ×4 (09:01→20:38)
[2017-03-21] MEDS: FLUoxetine HCL 20 MG CAP PO SCH (09:01)
[2017-03-21] MEDS: LACTOBACILLUS ACIDOPHILUS TAB PO SCH ×2 (09:01→20:38)
[2017-03-21] MEDS: ARTIFICIAL TEARS OPTH SOLN 15 ML BTL EACH EYE SCH ×3 (09:01→16:13)
[2017-03-21] MEDS: PANTOPRAZOLE SODIUM 40 MG VIAL IV PUSH SCH (09:01)
[2017-03-21] MEDS: INSULIN DETEMIR 100 UNITS/ML VIAL SQ SCH ×2 (09:02→20:40)
--- NOTE | 2017-03-21 12:04 | HHI.NPPN ---
Subjective Complaints: Obesity General Problems: Edema Renal Failure: Acute Interval History Remains intubated, sedated. Renal function is better. On insulin gtt. She is edematous. (Sheri Oliveira) Review of Systems General General Remarks unable to evaluate due to intubation/sedation (Sheri Oliveira) Objective Data Data 03/20/17 03/21/17 19:00 07:00 Intake Total 1351 ml 1590 ml Output Total 825.0 ml 3175 ml Balance 526.0 ml -1585 ml IV Total 809 ml 870 ml Tube Feeding 302 ml 540 ml Other 240 ml 180 ml Output Urine Total 825 ml 3175 ml Tube Feeding Residual Discard 0 ml # Bowel Movements 0 Vital Signs Date Time Temp Pulse Resp B/P Pulse Ox O2 Delivery O2 Flow Rate FiO2 03/21/17 10:00 71 03/21/17 09:16 94 50 03/21/17 08:00 72 03/21/17 08:00 70 03/21/17 06:00 73 03/21/17 04:15 95 70 03/21/17 04:00 99.1 73 22 148/67 96 145/76 03/21/17 04:00 75 03/21/17 04:00 73 03/21/17 04:00 73 148/67 145/76 03/21/17 02:00 71 03/21/17 00:43 96 70 03/21/17 00:00 98.9 69 23 123/61 99 128/63 03/21/17 00:00 69 03/21/17 00:00 75 03/21/17 00:00 69 123/61 128/63 03/20/17 22:00 76 03/20/17 20:14 95 75 03/20/17 20:00 71 134/73 134/68 03/20/17 20:00 71 03/20/17 20:00 75 03/20/17 20:00 98.5 71 23 134/73 97 134/68 03/20/17 18:00 72 03/20/17 16:00 77 122/65 115/56 03/20/17 16:00 75 03/20/17 16:00 99.2 77 24 122/65 97 115/56 03/20/17 16:00 77 03/20/17 15:26 97 75 03/20/17 14:00 74 03/20/17 13:42 75 03/20/17 12:51 93 75 (Sheri Oliveira) -: 03/20/17 0511 03/21/17 0406 Imaging Last 72 hours Impressions Chest X-Ray 03/20/17 0000 Signed Impressions: Service Date/Time: Monday, March 20, 2017 03:41 - CONCLUSION: Small lung volumes with diffuse pulmonary vascular prominence. Tubes and catheters in good position Reese Pacheco MD Renal Ultrasound 03/19/17 0000 Signed Impressions: Service Date/Time: Sunday, March 19, 2017 08:38 - CONCLUSION: Symmetric renal size. Stable complicated cyst upper pole left kidney. Anselmo Palmer MD Chest X-Ray 03/19/17 0000 Signed Impressions: Service Date/Time: Sunday, March 19, 2017 02:00 - CONCLUSION: Tubes and catheters in good position. Stable infiltrate right lower lobe. Reese Pacheco MD Chest X-Ray 03/18/17 1426 Signed Impressions: Service Date/Time: Saturday, March 18, 2017 14:38 - CONCLUSION: Right lower lobe infiltrate. Anselmo Louise Jr., MD Tubes & Lines: Rosa Drip Comment insulin, fentanyl (Sheri Oliveira) Physical Exam General Appearance: Well Developed, Well Nourished, Comfortable Appearance Remarks intubated, not opening eyes (Sheri Oliveira) Throat Throat Exam: Oral Mucosa [place] & Moist (Sheri Oliveira) Pulmonary Resp Exam: Breath Sounds Equal, Crackles, Decreased Bases, Diminished Breath Sounds Resp Remarks vented lung sounds (Sheri Oliveira) Cardiology CV Exam: Regular, Normal Sinus Rhythm, Good Perfusion (Sheri Oliveira) Gastrointestinal/Abdomen GI Exam: Soft, Non-Tender, Bowel Sounds Present (Sheri Oliveira) Musculoskeletal MS Exam: Joints Intact, Normal Tone, Unable to Ambulate (Sheri Oliveira) Integumentary Skin Exam: Warm, Dry (Sheri Oliveira) Extremeties Extremities Exam: Pedal Pulses Palpable, Moderate Edema (Sheri Oliveira) Neurologic Neuro Exam: Unresponsive, Sedated (Sheri Oliveira) VTE Prophylaxis Device: SCDs (Sheri Oliveira) Assessment/Plan Assessment Summary: SANAM/Acute Renal Failure, Fluid/Volume Overload, Proteinuria , Hypertension, Diabetes Mellitus, CKD Stage III Problem List: (1) Acute renal failure superimposed on stage 3 chronic kidney disease Plan: It appears her baseline is CKD 3, she has proteinuria may have underlying diabetic nephropathy her renal function hs improved she is non oliguric SANAM likely from sepsis syndrome with decreased renal perfusion demonstrating fluid overload, given another dose of Bumex and monitor follow renal function and avoid nephrotoxic medications monitor drug levels when appropriate daily renal panel (2) Sepsis Plan: due to pnuemonia/CAP continue antibiotics including Vancomycin and zithromax sputum with + MRSA and Ecoli pressors if needed to maintain adequate MAP monitor clinically (3) Pneumonia Plan: see above she is on vent with permissive hypercapnia ween when able (4) DM (diabetes mellitus) Plan: she is on insulin infusion continue with glucose goal of 140-180 mg/dL (5) HTN (hypertension) Plan: BP stable, continue current medications continue with hold parameters (Sheri Oliveira) Plan patient was seen and examined. Agree with above assessment and plan. (Jose Olmedo MD) Problem Qualifiers (1) Pneumonia: Qualified Code: J18.1 - Pneumonia of right lower lobe due to infectious organism Sheri Oliveira Mar 21, 2017 12:04 Jose Olmedo MD Mar 22, 2017 16:51
[2017-03-21] MEDS ORDERED: BUMETANIDE INJ 1 MG/4 ML VIAL IV PUSH ONE (12:15)
--- NOTE | 2017-03-21 14:04 | EKG ---
Date Performed: 03/20/2017 Time Performed: 14:25:23 PTAGE: 56 years EKG: Sinus rhythm LOW QRS VOLTAGE IN PRECORDIAL LEADS NONSPECIFIC T-WAVE ABNORMALITY ABNORMAL ECG Compared to prior tr acing no significant change PREVIOUS TRACING : 03/20/2017 08.10 DOCTOR: Pierre Garrett Interpretating Date/Time 03/21/2017 13:57:51
--- NOTE | 2017-03-21 14:04 | EKG ---
Date Performed: 03/20/2017 Time Performed: 20:06:27 PTAGE: 56 years EKG: Sinus rhythm LOW QRS VOLTAGE IN PRECORDIAL LEADS NONSPECIFIC T-WAVE ABNORMALITY BORDERLINE ECG Compared to prior tracing no significant change PREVIOUS TRACING : 03/20/2017 14.25 DOCTOR: Pierre Garrett Interpretating Date/Time 03/21/2017 13:57:59
[2017-03-21] MEDS: AZITHROMYCIN INJ 500 MG in SODIUM CHLOR 0.9% 250 ML INJ 250 ML IV SCH (15:31)
--- NOTE | 2017-03-21 17:05 | ECHRPT ---
Indication: EVAL LV FUNCTION CONCLUSIONS Technically difficult study. The left ventricle is not well visualized. The left ventricular systolic function is grossly normal on limited imaging. The left ventricular systolic function is normal with an estimated ejection fraction in the range of 55-60%. The left atrial size is mildly dilated. There is mild tricuspid valve regurgitation. Doppler parameters are consistent with impaired left ventricular relaxtion ( grade 1 diastolic dysfunction). BP: 91 / 48 HR: 59 Rhythm: Sinus MEASUREMENTS (Male / Female) Normal Values Technical Quality: Technically difficult study 2D ECHO LV Diastolic Diameter PLAX 4.5 cm 4.2 - 5.9 / 3.9 - 5.3 cm LV Systolic Diameter PLAX 3.5 cm IVS Diastolic Thickness 1.2 cm 0.6 - 1.0 / 0.6 - 0.9 cm LVPW Diastolic Thickness 1.2 cm 0.6 - 1.0 / 0.6 - 0.9 cm LV Relative Wall Thickness 0.5 LVOT Diameter 2.1 cm M-MODE Aortic Root Diameter MM 2.8 cm LA Systolic Diameter MM 4.2 cm LA Ao Ratio MM 1.5 AV Cusp Separation MM 2.2 cm DOPPLER AV Peak Velocity 157.0 cm/s AV Peak Gradient 9.9 mmHg LVOT Peak Velocity 108.0 cm/s LVOT Peak Gradient 4.7 mmHg AV Area Cont Eq pk 2.4 cm Mitral E Point Velocity 106.0 cm/s Mitral A Point Velocity 118.0 cm/s Mitral E to A Ratio 0.9 TR Peak Velocity 239.0 cm/s TR Peak Gradient 22.8 mmHg FINDINGS Left Ventricle The left ventricle is not well visualized. The left ventricular systolic function is grossly normal on limited imaging. The left ventricular systolic function is normal with an estimated ejection fraction in the range of 55-60%. Doppler parameters are consistent with impaired left ventricular relaxtion (grade 1 diastolic dysfunction). Right Ventricle Normal right ventricular size and systolic function. Left Atrium The left atrial size is mildly dilated. Right Atrium The right atrial size is normal. Atrial Septum Normal atrial septal thickness without atrial level shunting by limited color doppler interrogation. Aorta The aortic root and proximal ascending aorta are normal in size on limited imaging. Mitral Valve Structurally normal mitral valve. No mitral valve stenosis or regurgitation. Aortic Valve Trileaflet aortic valve. No aortic valve stenosis or regurgitation. Tricuspid Valve There is mild tricuspid valve regurgitation. Pulmonary Valve The pulmonary valve is not well visualized. Vessels The inferior vena cava is normal in size. Pericardium No pericardial effusion. Reese Bustos MD, FACC (Electronically Signed) Final Date:21 March 2017 17:05 MTDD
--- NOTE | 2017-03-21 19:34 | HHI.CCPN ---
Subjective Remarks/Hospital Course 56-year-old morbidly obese female with history of posttraumatic stress disorder , borderline personality disorder, depression, anxiety, chronic obstructive pulmonary disease, congestive heart failure, Diabetes, neuropathy, gastroesophageal reflux disease, hypertension, dyslipidemia, migraines, hypothyroidism, [facility] with O2 sat in the 70s. The patient was transported via EVAC, placed on NRB, O2 sat improved however patient's breathing very labored with tachypnea therefore put on Bipap in the ER. In the ER after several minutes of being on Bipap, she still complaining feeling very fatigued and short of breath. She informs medical team she now wants to revoke her DNR and agrees to intubation if recommended (family member also at bedside agrees to this). Her oxygenation remained borderline, her breathing still remains labored and she was intubated by ER attending. 03/19 Patient is intubated sedated with versed. Afebrile. Given 4L NS boluses overnight. 03/20: remains intubated, sedated, significantly hypoxic. in acute kidney injury and severe volume overload. received bumex x 1 this morning. Also remains hyperglycemic. critically ill, not improving. high fio2 requirements. 03/21: oxygenation slightly improved, but continues with significant volume overload. SANAM stable. hyperglycemia slightly better, but remains on very high doses of insulin drip along with high dose long-acting insulin. vent requirements still very high and unable to even start SBT given hypoxia. Objective Vital Signs Date Time Temp Pulse Resp B/P Pulse Ox O2 Delivery O2 Flow Rate FiO2 03/21/17 18:00 74 03/21/17 16:50 94 50 03/21/17 16:00 98.1 22 120/63 119/66 03/21/17 15:58 Nasal Cannula 4 Intake and Output 03/20/17 03/20/17 03/21/17 08:00 16:00 00:00 Intake Total 681 ml 1351 ml 1016 ml Output Total 300.0 ml 825.0 ml 2225 ml Balance 381.0 ml 526.0 ml -1209 ml Result Diagram: 03/20/17 0511 03/21/17 0406 Other Results Microbiology Date/Time Procedure Status Source Growth 03/18/17 22:30 Urine Culture - Final Complete Urine Clean Catch NO GROWTH IN 48 HOURS. 03/19/17 00:00 Gram Stain - Final Complete Sputum Endotracheal 03/19/17 00:00 Sputum Culture - Final Complete Staphylococcus Aureus Escherichia Coli Imaging Last Impressions Chest X-Ray 03/19/17 0000 Signed Impressions: Service Date/Time: Sunday, March 19, 2017 02:00 - CONCLUSION: Tubes and catheters in good position. Stable infiltrate right lower lobe. Reese Pacheco MD Objective Remarks GENERAL: Morbidly obese female on the ventilator support SKIN: Warm and dry. HEAD: Normocephalic. EYES: No scleral icterus. No injection or drainage. NECK: trachea midline. JVD unable to be assessed due to large neck. endotracheally intubated. CARDIOVASCULAR: Regular rate and rhythm . sinus by tele. RESPIRATORY: Breath sounds equal bilaterally. No accessory muscle use. GASTROINTESTINAL: morbidly obese, soft, non-tender, nondistended. MUSCULOSKELETAL: No cyanosis, or edema. EXTREMITIES: No clubbing or cyanosis Neuro: RASS -2. follows commands. sedated. A/P Assessment and Plan Assessment: 56yF with COPD, CHF unknown type, DM and morbid obesity who presents with worsening acute hypoxic and hypercarbic respiratory failure, community acquired pneumonia, pulmonary edema with intravascular volume overload , acute kidney injury on chronic kidney disease. She remains very critically ill. I am not sure long-term we will be able to separate her from mechanical ventilation. She is still in persistent pulmonary edema and volume overload, and despite her acute kidney injury, to be able to oxygenate her at all, we must increase our forced diuresis. She is very critically ill at this time, off pathway, and may likely not survive this hospital stay. Plan by systems: Neurologic: History of Psychiatric Illness Agitation associated with mechanical ventilation - prop/fent for goal RASS -2 and vent synchrony - continue home Seroquel, Lyrica, Prozac Respiratory: Acute hypoxic and Hypercarbic Respiratory Failure COPD exacerbation Community Acquired Pneumonia Pulmonary Edema -- On PRVC/AC RR 22, TV 400, IT:1.0, PEEP:12, FIO2 80%. -- permissive hypercapnea and low tidal volume ventilation targeting 6cc/kg IBW. -- wean fio2 for goal spo2 > 88%. -- nebs -- vent bundle -- solumedrol 40mg q12h. Cardiovascular: History of Congestive Heart Failure, unknown type (prior echo from 2010 with normal EF) Hyperlipidemia Coronary Artery Disease -- continue home statin, ASA -- ef 55-60%, stage 1 ddfxn. -- forced diuresis as below. Renal: Acute kidney injury on chronic kidney disease, unknown stage Acute intravascular volume overload -- Strict I/Os -- bumex 2mg iv q8hr -- diamox 500mg iv q8h x 3 doses. -- continue porter. FEN/GI: Morbid obesity Acute intravascular volume overload -- TF nepro at goal. -- ICU electrolyte protocol. -- diuresis as above. -- daily bmp Heme/ID: Community-acquired pneumonia -- sputum cultures growing Staph Epi and E.Coli, both sensitive to Rocephin. -- start ceftriaxone 2gm iv q24h x 5 days (total 7 day course of abx). -- daily cbc. Endocrine: Severe hyperglycemia insulin drip algorithm 4. Has used 200 units insulin in the last 24 hours. We will increase Levemir to 60 units SQ BID (from 30 bid yesterday). continue insulin drip. Prophylaxis: GI Prophylaxis- On Protonix 40mg daily DVT prophylaxis- SCD, Heparin SQ Lines: TLC art line Porter Dispo: Remain in the ICU. She remains critically ill with worsening oxygen requirements, volume overload, multiorgan system dysfunction. This patient remains critically ill with one or more organ systems which are or may become a threat to life. I have spent in excess of 38 minutes discontinuously in the care and management of this patient. This time is exclusive of procedures, and includes, but is not limited to, evaluation of the patient, review of the medical record, discussions with family, consultants, nursing staff, or respiratory therapy, and documentation in the medical record. Demetri Meadows MD Mar 21, 2017 19:34
[2017-03-21] MEDS: CARBOXYMETHYLCELL SOD 0.5% OPTH SOLN 15 ML BTL EACH EYE SCH (20:37)
[2017-03-21] MEDS: cefTRIAXone INJ 2,000 MG in SODIUM CHLORIDE 0.9% INJ 100 ML IV SCH (20:37)
[2017-03-21] MEDS: DOXEPIN HCL 50 MG CAP PO SCH (20:38)
[2017-03-21] MEDS: ASPIRIN EC 81 MG TABEC PO SCH (20:38)
[2017-03-21] MEDS: ATORVASTATIN 20 MG TAB PO SCH (20:38)
[2017-03-21] MEDS ORDERED: PHARMACY ORDERED LAB ONE (20:45)
[2017-03-22] VITALS (18 sets, daily range): BP systolic 140–163; BP diastolic 72–85; PULSE 63–80; RESP 22; TEMP 98.2–99.3; O2SAT 94–96
[2017-03-22] MEDS: RESP: ALBUTEROL 2.5 MG/IPRATROPIUM 0.5 MG NEB (SCH) INH ×4 (03:48→20:11)
[2017-03-22] MEDS: INSULIN REGULAR (IV INFUSION) 100 UNITS in SODIUM CHLORIDE 0.9% INJ 99 ML IV SCH ×2 (03:57→18:13)
[2017-03-22] MEDS: methylPREDNISolone SOD SUCC 40 MG/1 ML VIAL IV PUSH SCH (05:03)
[2017-03-22] MEDS: HEPARIN SODIUM - SQ 10,000 UNITS/ML VIAL SQ SCH ×3 (05:03→22:07)
[2017-03-22] MEDS: fentaNYL DRIP 250 ML IV SCH (05:03)
[2017-03-22] MEDS: BUMETANIDE INJ 1 MG/4 ML VIAL IV PUSH SCH ×3 (05:03→22:06)
[2017-03-22] MEDS: CHLORHEXIDINE GLUCONATE 2 % 1 PACK (2 CLOTHS) TOP SCH (05:04)
[2017-03-22 05:35] LABS: HEMATOCRIT 31.4 % (35.0-46.0); MEAN CELL VOLUME 89.1 FL (80.0-100.0); MEAN CORPUSCULAR HEMOGLOBIN 27.8 PG (27.0-34.0); MEAN CORPUSCULAR HGB CONC 31.2 % (32.0-36.0); PLATELET COUNT 220 TH/MM3 (150-450); RED BLOOD COUNT 3.52 MIL/MM3 (4.00-5.30); RED CELL DISTRIBUTION WIDTH 14.2 % (11.6-17.2); REVIEW FLAG FINAL; WHITE BLOOD COUNT 11.8 TH/MM3 (4.0-11.0)
[2017-03-22 05:53] LABS: BICARBONATE 35.9 MEQ/L (21.0-32.0); POTASSIUM 3.8 MEQ/L (3.5-5.1)
[2017-03-22] MEDS: SODIUM CHLORIDE 0.9% FLUSH 10 ML FLUSH SCH ×2 (08:25→20:46)
[2017-03-22] MEDS: QUEtiapine FUMARATE 300 MG TAB PO SCH ×3 (08:25→20:41)
[2017-03-22] MEDS: LACTOBACILLUS ACIDOPHILUS TAB PO SCH ×2 (08:26→20:41)
[2017-03-22] MEDS: cloNIDine HCL 0.1 MG TAB PO SCH ×3 (08:26→18:13)
[2017-03-22] MEDS: DOCUSATE SODIUM 50 MG/SENNA 8.6 MG TAB PO SCH ×2 (08:26→20:40)
[2017-03-22] MEDS: PANTOPRAZOLE SODIUM 40 MG VIAL IV PUSH SCH (08:26)
[2017-03-22] MEDS: FLUoxetine HCL 20 MG CAP PO SCH (08:26)
[2017-03-22] MEDS: INSULIN DETEMIR 100 UNITS/ML VIAL SQ SCH ×2 (08:27→20:45)
[2017-03-22] MEDS: PREGABALIN 75 MG CAP PO SCH (08:27)
[2017-03-22] MEDS: BRIMONIDINE TARTRATE 0.2% OPHT SOLN 5 ML BTL EACH EYE SCH ×3 (08:30→18:14)
[2017-03-22] MEDS: TOBRAMYCIN SULF 0.3% OPHT SOLN 5 ML BTL EACH EYE SCH ×4 (08:30→20:46)
[2017-03-22] MEDS: TRIAMCINOLONE ACETONIDE 55 MCG/ACT NASAL SPRAY 16.5 GM BTL EACH NARE SCH (08:30)
[2017-03-22] MEDS: ARTIFICIAL TEARS OPTH SOLN 15 ML BTL EACH EYE SCH ×3 (08:30→18:00)
--- NOTE | 2017-03-22 09:36 | HHI.NPPN ---
Subjective Complaints: Obesity General Problems: Edema Renal Failure: Acute Interval History Remains intubated, sedated. On 50% Fi02. Renal function is stable. Diuresing well. (Sheri Oliveira) Review of Systems General General Remarks unable to evaluate due to intubation/sedation (Sheri Oliveira) Objective Data Data 03/21/17 03/22/17 18:59 06:59 Intake Total 806 ml 1330 ml Output Total 3000.0 ml 2750 ml Balance -2194.0 ml -1420 ml IV Total 261 ml 765 ml Tube Feeding 305 ml 565 ml Other 240 ml Output Urine Total 3000 ml 2750 ml Tube Feeding Residual Discard 0 ml Vital Signs Date Time Temp Pulse Resp B/P Pulse Ox O2 Delivery O2 Flow Rate FiO2 03/22/17 08:06 95 50 03/22/17 08:00 98.2 75 22 163/80 94 161/78 03/22/17 08:00 50 03/22/17 08:00 75 03/22/17 06:00 78 03/22/17 04:00 99.2 79 22 140/72 94 153/77 03/22/17 04:00 79 140/72 153/77 03/22/17 04:00 79 03/22/17 04:00 50 03/22/17 03:49 94 50 03/22/17 02:00 79 03/22/17 00:00 50 03/22/17 00:00 99.3 80 22 143/85 95 162/81 03/22/17 00:00 80 03/22/17 00:00 80 143/85 162/81 03/21/17 23:54 95 50 03/21/17 22:00 76 03/21/17 22:00 78 03/21/17 20:30 95 50 03/21/17 20:00 50 03/21/17 20:00 98.4 74 22 159/85 96 164/82 03/21/17 20:00 74 159/85 164/82 03/21/17 20:00 74 03/21/17 18:00 74 03/21/17 17:00 79 03/21/17 16:50 94 50 03/21/17 16:00 98.1 76 22 120/63 95 119/66 03/21/17 16:00 50 03/21/17 16:00 76 120/63 119/66 03/21/17 16:00 76 03/21/17 15:58 95 Nasal Cannula 4 03/21/17 14:40 95 50 03/21/17 14:00 71 03/21/17 12:00 50 03/21/17 12:00 71 03/21/17 12:00 72 128/69 138/65 03/21/17 12:00 98.2 71 22 136/73 93 145/69 03/21/17 10:54 95 50 03/21/17 10:00 71 (Sheri Oliveira) -: 03/22/17 0450 03/22/17 0450 Imaging Last 72 hours Impressions Chest X-Ray 03/20/17 0000 Signed Impressions: Service Date/Time: Monday, March 20, 2017 03:41 - CONCLUSION: Small lung volumes with diffuse pulmonary vascular prominence. Tubes and catheters in good position Reese Pacheco MD Tubes & Lines: Rosa Drip Comment insulin, fentanyl (Sheri Oliveira) Physical Exam General Appearance: Well Developed, Well Nourished, Comfortable Appearance Remarks intubated, not opening eyes (Sheri Oliveira) Throat Throat Exam: Oral Mucosa [place] & Moist (Sheri Oliveira) Pulmonary Resp Exam: Breath Sounds Equal, Crackles, Decreased Bases, Diminished Breath Sounds Resp Remarks vented lung sounds (Sheri Oliveira) Cardiology CV Exam: Regular, Normal Sinus Rhythm, Good Perfusion (Sheri Oliveira) Gastrointestinal/Abdomen GI Exam: Soft, Non-Tender, Bowel Sounds Present (Sheri Oliveira) Musculoskeletal MS Exam: Joints Intact, Normal Tone, Unable to Ambulate (Sheri Oliveira) Integumentary Skin Exam: Warm, Dry (Sheri Oliveira) Extremeties Extremities Exam: Pedal Pulses Palpable, Moderate Edema (Sheri Oliveira) Neurologic Neuro Exam: Unresponsive, Sedated (Sheri Oliveira) VTE Prophylaxis Device: SCDs (Sheri Oliveira) Assessment/Plan Assessment Summary: SANAM/Acute Renal Failure, Fluid/Volume Overload, Proteinuria , Hypertension, Diabetes Mellitus, CKD Stage III Problem List: (1) Acute renal failure superimposed on stage 3 chronic kidney disease Plan: It appears her baseline is CKD 3, she has proteinuria may have underlying diabetic nephropathy her renal function is stable, SANAM likely from sepsis syndrome with decreased renal perfusion diuresing well, continue Bumex, it was increased to Q8h also on diamox Q8h monitor fluid status, attempt negative balance follow renal function and avoid nephrotoxic medications monitor drug levels when appropriate daily renal panel (2) Sepsis Plan: due to pnuemonia/CAP continue antibiotics including Vancomycin and zithromax sputum with + MRSA and Ecoli pressors if needed to maintain adequate MAP monitor clinically (3) Pneumonia Plan: see above she is on vent with permissive hypercapnia Fi)2 50%, PEEP 14 ween when able (4) DM (diabetes mellitus) Plan: she is on insulin infusion continue with glucose goal of 140-180 mg/dL (5) HTN (hypertension) Plan: BP stable, continue current medications continue with hold parameters (Sheri Oliveira) Plan patient was seen and examined. Renal function has improved. She is now on Ceftriaxone for E.coli in the tracheal aspirate. On Bumex and Diamox. (Jose Olmedo MD) Problem Qualifiers (1) Pneumonia: Qualified Code: J18.1 - Pneumonia of right lower lobe due to infectious organism Sheri Oliveira Mar 22, 2017 09:36 Jose Olmedo MD Mar 22, 2017 17:06
--- NOTE | 2017-03-22 11:51 | HHI.CCPN ---
Subjective Remarks/Hospital Course 56-year-old morbidly obese female with history of posttraumatic stress disorder , borderline personality disorder, depression, anxiety, chronic obstructive pulmonary disease, congestive heart failure, Diabetes, neuropathy, gastroesophageal reflux disease, hypertension, dyslipidemia, migraines, hypothyroidism, [facility] with O2 sat in the 70s. The patient was transported via EVAC, placed on NRB, O2 sat improved however patient's breathing very labored with tachypnea therefore put on Bipap in the ER. In the ER after several minutes of being on Bipap, she still complaining feeling very fatigued and short of breath. She informs medical team she now wants to revoke her DNR and agrees to intubation if recommended (family member also at bedside agrees to this). Her oxygenation remained borderline, her breathing still remains labored and she was intubated by ER attending. 03/19 Patient is intubated sedated with versed. Afebrile. Given 4L NS boluses overnight. 03/20: remains intubated, sedated, significantly hypoxic. in acute kidney injury and severe volume overload. received bumex x 1 this morning. Also remains hyperglycemic. critically ill, not improving. high fio2 requirements. 03/21: oxygenation slightly improved, but continues with significant volume overload. SANAM stable. hyperglycemia slightly better, but remains on very high doses of insulin drip along with high dose long-acting insulin. vent requirements still very high and unable to even start SBT given hypoxia. 03/22: oxygenation continues to improve, but patient remains significantly volume overloaded in persistent pulmonary edema. fio2 is decreased, but peep remains high. also, despite increases in long-acting insulin, insulin drip remains at 7 units/hr. Objective Vital Signs Date Time Temp Pulse Resp B/P Pulse Ox O2 Delivery O2 Flow Rate FiO2 03/22/17 10:57 40 03/22/17 10:00 68 03/22/17 08:06 95 03/22/17 08:00 98.2 22 163/80 161/78 03/21/17 15:58 Nasal Cannula 4 Intake and Output 03/21/17 03/21/17 03/22/17 08:00 16:00 00:00 Intake Total 574 ml 806 ml 908 ml Output Total 950.0 ml 2000.0 ml 2000 ml Balance -376.0 ml -1194.0 ml -1092 ml Result Diagram: 03/22/17 0450 03/22/17 0450 Imaging Last Impressions Chest X-Ray 03/19/17 0000 Signed Impressions: Service Date/Time: Sunday, March 19, 2017 02:00 - CONCLUSION: Tubes and catheters in good position. Stable infiltrate right lower lobe. Reese Pacheco MD Objective Remarks GENERAL: Morbidly obese female on the ventilator support SKIN: Warm and dry. HEAD: Normocephalic. EYES: No scleral icterus. No injection or drainage. NECK: trachea midline. JVD unable to be assessed due to large neck. endotracheally intubated. CARDIOVASCULAR: Regular rate and rhythm . sinus by tele. RESPIRATORY: Breath sounds equal bilaterally. No accessory muscle use. GASTROINTESTINAL: morbidly obese, soft, non-tender, nondistended. MUSCULOSKELETAL: No cyanosis, 2+ peripheral edema. EXTREMITIES: No clubbing or cyanosis Neuro: RASS -2. follows commands. sedated. A/P Assessment and Plan Assessment: 56yF with COPD, CHF unknown type, DM and morbid obesity who presents with worsening acute hypoxic and hypercarbic respiratory failure, community acquired pneumonia, pulmonary edema with intravascular volume overload , acute kidney injury on chronic kidney disease. She remains very critically ill. I am not sure long-term we will be able to separate her from mechanical ventilation. She is still in persistent pulmonary edema and volume overload despite aggressive diuresis. Continue forced diuresis in an attempt to restore adequate oxygenation. she still cannot participate in SBT due to her high peep requirements. She is very critically ill at this time, off pathway, and may likely not survive this hospital stay. Plan by systems: Neurologic: History of Psychiatric Illness Agitation associated with mechanical ventilation - prop/fent for goal RASS -2 and vent synchrony - continue home Seroquel, Lyrica, Prozac Respiratory: Acute hypoxic and Hypercarbic Respiratory Failure COPD exacerbation Community Acquired Pneumonia Pulmonary Edema -- On PRVC/AC RR 22, TV 400, IT:1.0, PEEP:12, FIO2 50%. -- permissive hypercapnea and low tidal volume ventilation targeting 6cc/kg IBW. -- wean fio2 for goal spo2 > 88%. -- nebs -- vent bundle -- solumedrol 40mg q12h- will be forced to taper this due to her refractory hyperglycemia. Cardiovascular: History of Congestive Heart Failure, unknown type (prior echo from 2010 with normal EF) Hyperlipidemia Coronary Artery Disease -- continue home statin, ASA -- ef 55-60%, stage 1 ddfxn. -- forced diuresis as below. Renal: Acute kidney injury on chronic kidney disease, unknown stage Acute intravascular volume overload -- Strict I/Os -- bumex 2mg iv q8hr -- diamox 500mg iv q8h x 3 doses. -- continue porter. FEN/GI: Morbid obesity Acute intravascular volume overload -- TF nepro at goal. -- ICU electrolyte protocol. -- diuresis as above. -- daily bmp Heme/ID: Community-acquired pneumonia -- sputum cultures growing Staph Epi and E.Coli, both sensitive to Rocephin. -- ceftriaxone 2gm iv q24h x 5 days (total 7 day course of abx). -- daily cbc. Endocrine: Severe hyperglycemia insulin drip algorithm 4. Continue Levemir to 60 units SQ BID. continue insulin drip. --start prednisone taper. Prophylaxis: GI Prophylaxis- On Protonix 40mg daily DVT prophylaxis- SCD, Heparin SQ Lines: TLC art line Porter Dispo: Remain in the ICU. She remains critically ill with high vent support, volume overload, multiorgan system dysfunction. This patient remains critically ill with one or more organ systems which are or may become a threat to life. I have spent in excess of 31 minutes discontinuously in the care and management of this patient. This time is exclusive of procedures, and includes, but is not limited to, evaluation of the patient, review of the medical record, discussions with family, consultants, nursing staff, or respiratory therapy, and documentation in the medical record. Demetri Meadows MD Mar 22, 2017 11:51
[2017-03-22] MEDS ORDERED: PILL SPLITTER OTHER PRN (12:45)
[2017-03-22 16:56] LABS: BICARBONATE 35.3 MEQ/L (21.0-32.0); MAGNESIUM 2.6 MG/DL (1.5-2.5); POTASSIUM 3.8 MEQ/L (3.5-5.1)
[2017-03-22] MEDS: cefTRIAXone INJ 2,000 MG in SODIUM CHLORIDE 0.9% INJ 100 ML IV SCH (20:40)
[2017-03-22] MEDS: ATORVASTATIN 20 MG TAB PO SCH (20:41)
[2017-03-22] MEDS: ASPIRIN EC 81 MG TABEC PO SCH (20:41)
[2017-03-22] MEDS: DOXEPIN HCL 50 MG CAP PO SCH (20:41)
[2017-03-22] MEDS: CARBOXYMETHYLCELL SOD 0.5% OPTH SOLN 15 ML BTL EACH EYE SCH (20:46)
[2017-03-23] VITALS (26 sets, daily range): BP systolic 104–173; BP diastolic 54–81; PULSE 60–74; RESP 22; TEMP 98.3–99.8; O2SAT 91–100
[2017-03-23] MEDS: RESP: ALBUTEROL 2.5 MG/IPRATROPIUM 0.5 MG NEB (SCH) INH ×4 (03:41→21:04)
[2017-03-23 05:48] LABS: HEMATOCRIT 33.4 % (35.0-46.0); MEAN CELL VOLUME 89.6 FL (80.0-100.0); MEAN CORPUSCULAR HEMOGLOBIN 27.9 PG (27.0-34.0); MEAN CORPUSCULAR HGB CONC 31.1 % (32.0-36.0); PLATELET COUNT 242 TH/MM3 (150-450); RED BLOOD COUNT 3.73 MIL/MM3 (4.00-5.30); RED CELL DISTRIBUTION WIDTH 14.4 % (11.6-17.2); REVIEW FLAG FINAL; WHITE BLOOD COUNT 10.1 TH/MM3 (4.0-11.0)
[2017-03-23] MEDS: fentaNYL DRIP 250 ML IV SCH (06:09)
[2017-03-23] MEDS: HEPARIN SODIUM - SQ 10,000 UNITS/ML VIAL SQ SCH ×3 (06:10→22:00)
[2017-03-23] MEDS: BUMETANIDE INJ 1 MG/4 ML VIAL IV PUSH SCH ×3 (06:10→22:00)
[2017-03-23] MEDS: CHLORHEXIDINE GLUCONATE 2 % 1 PACK (2 CLOTHS) TOP SCH (06:10)
[2017-03-23 06:14] LABS: BICARBONATE 36.7 MEQ/L (21.0-32.0); POTASSIUM 3.6 MEQ/L (3.5-5.1)
[2017-03-23] MEDS: INSULIN REGULAR (IV INFUSION) 100 UNITS in SODIUM CHLORIDE 0.9% INJ 99 ML IV SCH ×2 (07:27→20:43)
[2017-03-23] MEDS: PANTOPRAZOLE SODIUM 40 MG VIAL IV PUSH SCH (08:10)
[2017-03-23] MEDS: SODIUM CHLORIDE 0.9% FLUSH 10 ML FLUSH SCH ×2 (08:11→20:44)
[2017-03-23] MEDS: SODIUM CHLORIDE 0.9% FLUSH 10 ML FLUSH PRN (08:11)
[2017-03-23] MEDS: BRIMONIDINE TARTRATE 0.2% OPHT SOLN 5 ML BTL EACH EYE SCH ×3 (08:11→18:07)
[2017-03-23] MEDS: INSULIN DETEMIR 100 UNITS/ML VIAL SQ SCH ×2 (08:12→20:41)
[2017-03-23] MEDS: TOBRAMYCIN SULF 0.3% OPHT SOLN 5 ML BTL EACH EYE SCH ×4 (08:13→20:37)
[2017-03-23] MEDS: ARTIFICIAL TEARS OPTH SOLN 15 ML BTL EACH EYE SCH ×3 (08:13→18:00)
[2017-03-23] MEDS: LACTOBACILLUS ACIDOPHILUS TAB PO SCH ×2 (08:14→20:38)
[2017-03-23] MEDS: cloNIDine HCL 0.1 MG TAB PO SCH ×3 (08:14→18:06)
[2017-03-23] MEDS: predniSONE 10 MG TAB PO SCH (08:14)
[2017-03-23] MEDS: FLUoxetine HCL 20 MG CAP PO SCH (08:15)
[2017-03-23] MEDS: DOCUSATE SODIUM 50 MG/SENNA 8.6 MG TAB PO SCH ×2 (08:15→20:40)
[2017-03-23] MEDS: PREGABALIN 75 MG CAP PO SCH (08:15)
[2017-03-23] MEDS: QUEtiapine FUMARATE 300 MG TAB PO SCH ×3 (08:26→20:40)
[2017-03-23] MEDS: TRIAMCINOLONE ACETONIDE 55 MCG/ACT NASAL SPRAY 16.5 GM BTL EACH NARE SCH (09:00)
--- NOTE | 2017-03-23 10:52 | HHI.CCPN ---
Subjective Remarks/Hospital Course 56-year-old morbidly obese female with history of posttraumatic stress disorder , borderline personality disorder, depression, anxiety, chronic obstructive pulmonary disease, congestive heart failure, Diabetes, neuropathy, gastroesophageal reflux disease, hypertension, dyslipidemia, migraines, hypothyroidism, presents [facility] with O2 sat in the 70s. The patient was transported via [facility], placed on NRB, O2 sat improved however patient's breathing very labored with tachypnea therefore put on Bipap in the ER. In the ER after several minutes of being on Bipap, she still complaining feeling very fatigued and short of breath. She informs medical team she now wants to revoke her DNR and agrees to intubation if recommended (family member also at bedside agrees to this). Her oxygenation remained borderline, her breathing still remains labored and she was intubated by ER attending. 03/19 Patient is intubated sedated with versed. Afebrile. Given 4L NS boluses overnight. 03/20: remains intubated, sedated, significantly hypoxic. in acute kidney injury and severe volume overload. received bumex x 1 this morning. Also remains hyperglycemic. critically ill, not improving. high fio2 requirements. 03/21: oxygenation slightly improved, but continues with significant volume overload. SANAM stable. hyperglycemia slightly better, but remains on very high doses of insulin drip along with high dose long-acting insulin. vent requirements still very high and unable to even start SBT given hypoxia. 03/22: oxygenation continues to improve, but patient remains significantly volume overloaded in persistent pulmonary edema. fio2 is decreased, but peep remains high. also, despite increases in long-acting insulin, insulin drip remains at 7 units/hr. 03/23: slow improvements in oxygenation. net negative 3.2L/24h. still required 100 units iv insulin by infusion despite high long-acting insulin. Objective Vital Signs Date Time Temp Pulse Resp B/P Pulse Ox O2 Delivery O2 Flow Rate FiO2 03/23/17 08:44 93 40 03/23/17 06:00 69 03/23/17 04:00 156/81 156/67 03/23/17 04:00 98.3 22 03/21/17 15:58 Nasal Cannula 4 Intake and Output 03/22/17 03/22/17 03/23/17 08:00 16:00 00:00 Intake Total 422 ml 894 ml 578 ml Output Total 1750.0 ml 1700.0 ml 1800 ml Balance -1328.0 ml -806.0 ml -1222 ml Result Diagram: 03/23/17 0425 03/23/17 0425 Imaging Last Impressions Chest X-Ray 03/19/17 0000 Signed Impressions: Service Date/Time: Sunday, March 19, 2017 02:00 - CONCLUSION: Tubes and catheters in good position. Stable infiltrate right lower lobe. Reese Pacheco MD Objective Remarks GENERAL: Morbidly obese female on the ventilator support SKIN: Warm and dry. HEAD: Normocephalic. EYES: No scleral icterus. No injection or drainage. NECK: trachea midline. JVD unable to be assessed due to large neck. endotracheally intubated. CARDIOVASCULAR: Regular rate and rhythm . sinus by tele. RESPIRATORY: Breath sounds equal bilaterally. No accessory muscle use. GASTROINTESTINAL: morbidly obese, soft, non-tender, nondistended. MUSCULOSKELETAL: No cyanosis, 2+ peripheral edema. EXTREMITIES: No clubbing or cyanosis Neuro: RASS -2. follows commands. sedated. A/P Assessment and Plan Assessment: 56yF with COPD, CHF unknown type, DM and morbid obesity who presents with worsening acute hypoxic and hypercarbic respiratory failure, community acquired pneumonia, pulmonary edema with intravascular volume overload , acute kidney injury on chronic kidney disease. She remains very critically ill. I am not sure long-term we will be able to separate her from mechanical ventilation. She is still in persistent pulmonary edema and volume overload despite aggressive diuresis. Continue forced diuresis in an attempt to restore adequate oxygenation. she still cannot participate in SBT due to her high peep requirements. She is very critically ill at this time, off pathway, and may likely not survive this hospital stay. Plan by systems: Neurologic: History of Psychiatric Illness Agitation associated with mechanical ventilation - prop/fent for goal RASS -2 and vent synchrony - continue home QamaroShiela selby Prozac Respiratory: Acute hypoxic and Hypercarbic Respiratory Failure COPD exacerbation Community Acquired Pneumonia Pulmonary Edema -- On PRVC/AC RR 22, TV 400, IT:1.0, PEEP:10, FIO2 40%. -- permissive hypercapnea and low tidal volume ventilation targeting 6cc/kg IBW. -- wean fio2 for goal spo2 > 88%. -- nebs -- vent bundle -- prednisone taper. Cardiovascular: History of Congestive Heart Failure, unknown type (prior echo from 2011 with normal EF) Hyperlipidemia Coronary Artery Disease -- continue home statin, ASA -- ef 55-60%, stage 1 ddfxn. -- forced diuresis as below. Renal: Acute kidney injury on chronic kidney disease, unknown stage Acute intravascular volume overload -- Strict I/Os -- bumex 2mg iv q8hr -- diamox 500mg iv q8h x 3 doses. -- continue porter. FEN/GI: Morbid obesity Acute intravascular volume overload -- TF nepro at goal. -- ICU electrolyte protocol. -- diuresis as above. -- daily bmp Heme/ID: Community-acquired pneumonia -- sputum cultures growing Staph Epi and E.Coli, both sensitive to Rocephin. -- ceftriaxone 2gm iv q24h x 5 days (total 7 day course of abx). -- daily cbc. Endocrine: Severe hyperglycemia insulin drip algorithm 4. Increase Levemir to 80 units SQ BID. continue insulin drip. --prednisone taper. Prophylaxis: GI Prophylaxis- On Protonix 40mg daily DVT prophylaxis- SCD, Heparin SQ Lines: TLC art line [place] Dispo: Remain in the ICU. She remains critically ill with high vent support, volume overload, multiorgan system dysfunction. This patient remains critically ill with one or more organ systems which are or may become a threat to life. I have spent in excess of 30 minutes discontinuously in the care and management of this patient. This time is exclusive of procedures, and includes, but is not limited to, evaluation of the patient, review of the medical record, discussions with family, consultants, nursing staff, or respiratory therapy, and documentation in the medical record. Demetri Meadows MD Mar 23, 2017 10:52
[2017-03-23] MEDS ORDERED: POTASSIUM CHLOR 40 MEQ PREMIX 100 ML IV ONE (11:00)
--- NOTE | 2017-03-23 12:10 | HHI.NPPN ---
Subjective Complaints: Obesity General Problems: Edema Renal Failure: Acute History of Present Illness 56 y/o morbidly obese female patient who [facility] and [facility]ness of breath with hypoxia. PMH of PTSD, borderline personality disorder, depression, anxiety, COPD, CHF, Diabetes, neuropathy, GERD, HTN, HLD, migraines, hypothyroidism. She revoked her DNR in the ER and was intubated. Additional Remarks Patient remain intubated and on sedation. Review of Systems General General Remarks unable to evaluate due to intubation/sedation Objective Data Data 03/22/17 03/23/17 19:00 07:00 Intake Total 894 ml 1038 ml Output Total 3150.0 ml 2050 ml Balance -2256.0 ml -1012 ml IV Total 216 ml 448 ml Tube Feeding 378 ml 590 ml Other 300 ml Output Urine Total 3150 ml 2050 ml Tube Feeding Residual Discard 0 ml Vital Signs Date Time Temp Pulse Resp B/P Pulse Ox O2 Delivery O2 Flow Rate FiO2 03/23/17 11:22 94 40 03/23/17 11:00 62 119/64 93 119/62 03/23/17 10:00 64 119/61 93 112/59 03/23/17 10:00 40 03/23/17 10:00 64 03/23/17 09:00 63 119/60 94 109/57 03/23/17 08:44 93 40 03/23/17 08:00 71 133/65 122/63 03/23/17 08:00 68 03/23/17 08:00 40 03/23/17 08:00 99.8 71 133/65 93 122/63 03/23/17 07:00 68 130/68 94 03/23/17 06:00 69 03/23/17 04:02 94 40 03/23/17 04:00 40 03/23/17 04:00 74 156/81 156/67 03/23/17 04:00 74 03/23/17 04:00 98.3 74 22 156/81 91 156/67 03/23/17 02:00 72 03/23/17 01:05 100 40 03/23/17 00:00 98.7 70 22 152/75 99 173/80 03/23/17 00:00 70 152/75 173/80 03/23/17 00:00 40 03/23/17 00:00 70 03/22/17 22:00 69 03/22/17 21:21 96 40 03/22/17 20:00 63 03/22/17 20:00 63 145/80 151/74 03/22/17 20:00 98.3 63 22 145/80 96 151/74 03/22/17 20:00 40 03/22/17 18:27 96 40 03/22/17 18:00 67 03/22/17 16:00 66 03/22/17 16:00 66 145/76 155/76 03/22/17 16:00 98.4 66 145/76 96 155/76 03/22/17 16:00 40 03/22/17 14:14 95 50 03/22/17 14:00 71 -: 03/23/17 0425 03/23/17 0425 Tubes & Lines: Rosa Drip Comment insulin, fentanyl Physical Exam General Appearance: No Acute Distress, Comfortable Throat Throat Exam: Oral Mucosa [place] & Moist Pulmonary Resp Exam: Breath Sounds Equal, Crackles, Decreased Bases, Diminished Breath Sounds Cardiology CV Exam: Regular, Normal Sinus Rhythm, Good Perfusion Gastrointestinal/Abdomen GI Exam: Soft, Non-Tender, Bowel Sounds Present Musculoskeletal MS Exam: Joints Intact, Normal Tone, Unable to Ambulate Integumentary Skin Exam: Warm, Dry Extremeties Extremities Exam: Moderate Edema Neurologic Neuro Exam: Unresponsive, Sedated VTE Prophylaxis Device: SCDs Assessment/Plan Assessment Summary: SANAM/Acute Renal Failure, Fluid/Volume Overload, Proteinuria , Hypertension, Diabetes Mellitus, CKD Stage III Problem List: (1) Acute renal failure superimposed on stage 3 chronic kidney disease Plan: It appears her baseline is CKD 3, she has proteinuria may have underlying diabetic nephropathy her renal function is stable, SANAM likely from sepsis syndrome with decreased renal perfusion diuresing well, continue Bumex, it was increased to Q8h also on diamox Q8h monitor fluid status, attempt negative balance follow renal function and avoid nephrotoxic medications monitor drug levels when appropriate Urine out put is good and Creatinine almost same. Has chronic kidney disease and SANAM. (2) Sepsis Plan: due to pnuemonia/CAP continue antibiotics including Vancomycin and zithromax sputum with + MRSA and Ecoli pressors if needed to maintain adequate MAP monitor clinically (3) Pneumonia Plan: see above she is on vent with permissive hypercapnia Fi)2 50%, PEEP 14 ween when able (4) DM (diabetes mellitus) Plan: she is on insulin infusion continue with glucose goal of 140-180 mg/dL (5) HTN (hypertension) Plan: BP stable, continue current medications continue with hold parameters Problem Qualifiers (1) Pneumonia: Qualified Code: J18.1 - Pneumonia of right lower lobe due to infectious organism (2) HTN (hypertension): Qualified Code: I10 - Essential hypertension Gerhard Montes MD Mar 23, 2017 12:10
[2017-03-23 15:27] LABS: BICARBONATE 39.2 MEQ/L (21.0-32.0); MAGNESIUM 2.8 MG/DL (1.5-2.5)
[2017-03-23] MEDS: cefTRIAXone INJ 2,000 MG in SODIUM CHLORIDE 0.9% INJ 100 ML IV SCH (20:33)
[2017-03-23] MEDS: CARBOXYMETHYLCELL SOD 0.5% OPTH SOLN 15 ML BTL EACH EYE SCH (20:37)
[2017-03-23] MEDS: ASPIRIN EC 81 MG TABEC PO SCH (20:38)
[2017-03-23] MEDS: ATORVASTATIN 20 MG TAB PO SCH (20:40)
[2017-03-23] MEDS: DOXEPIN HCL 50 MG CAP PO SCH (20:41)
[2017-03-24] VITALS (26 sets, daily range): BP systolic 101–147; BP diastolic 46–80; PULSE 58–76; RESP 22–29; TEMP 98.5–100; O2SAT 89–98
[2017-03-24] MEDS: SODIUM CHLORIDE 0.9% FLUSH 10 ML FLUSH PRN ×2 (03:18→08:15)
[2017-03-24] MEDS: RESP: ALBUTEROL 2.5 MG/IPRATROPIUM 0.5 MG NEB (SCH) INH ×4 (03:24→21:02)
[2017-03-24] MEDS: CHLORHEXIDINE GLUCONATE 2 % 1 PACK (2 CLOTHS) TOP SCH (04:00)
[2017-03-24] MEDS: BUMETANIDE INJ 1 MG/4 ML VIAL IV PUSH SCH ×3 (05:33→22:12)
[2017-03-24] MEDS: HEPARIN SODIUM - SQ 10,000 UNITS/ML VIAL SQ SCH ×3 (05:33→22:12)
[2017-03-24 05:48] LABS: BICARBONATE 38.1 MEQ/L (21.0-32.0); POTASSIUM 3.2 MEQ/L (3.5-5.1)
[2017-03-24 05:54] LABS: HEMATOCRIT 34.3 % (35.0-46.0); MEAN CELL VOLUME 88.4 FL (80.0-100.0); MEAN CORPUSCULAR HEMOGLOBIN 27.8 PG (27.0-34.0); MEAN CORPUSCULAR HGB CONC 31.5 % (32.0-36.0); PLATELET COUNT 244 TH/MM3 (150-450); RED BLOOD COUNT 3.88 MIL/MM3 (4.00-5.30); RED CELL DISTRIBUTION WIDTH 14.8 % (11.6-17.2); REVIEW FLAG FINAL; WHITE BLOOD COUNT 10.3 TH/MM3 (4.0-11.0)
[2017-03-24] MEDS: POTASSIUM CHLOR 40 MEQ PREMIX 100 ML IV SCH ×2 (08:14→12:02)
[2017-03-24] MEDS: PANTOPRAZOLE SODIUM 40 MG VIAL IV PUSH SCH (08:14)
[2017-03-24] MEDS: SODIUM CHLORIDE 0.9% FLUSH 10 ML FLUSH SCH ×2 (08:15→22:08)
[2017-03-24] MEDS: BRIMONIDINE TARTRATE 0.2% OPHT SOLN 5 ML BTL EACH EYE SCH ×3 (08:16→18:21)
[2017-03-24] MEDS: ARTIFICIAL TEARS OPTH SOLN 15 ML BTL EACH EYE SCH ×3 (08:16→18:21)
[2017-03-24] MEDS: TOBRAMYCIN SULF 0.3% OPHT SOLN 5 ML BTL EACH EYE SCH ×4 (08:16→22:09)
[2017-03-24] MEDS: DOCUSATE SODIUM 50 MG/SENNA 8.6 MG TAB PO SCH ×2 (08:16→22:11)
[2017-03-24] MEDS: predniSONE 10 MG TAB PO SCH (08:16)
[2017-03-24] MEDS: PREGABALIN 75 MG CAP PO SCH (08:16)
[2017-03-24] MEDS: cloNIDine HCL 0.1 MG TAB PO SCH ×3 (08:16→18:21)
[2017-03-24] MEDS: LACTOBACILLUS ACIDOPHILUS TAB PO SCH ×2 (08:16→22:11)
[2017-03-24] MEDS: FLUoxetine HCL 20 MG CAP PO SCH (08:17)
[2017-03-24] MEDS: INSULIN DETEMIR 100 UNITS/ML VIAL SQ SCH ×2 (08:17→21:00)
[2017-03-24] MEDS: QUEtiapine FUMARATE 300 MG TAB PO SCH ×3 (08:17→22:11)
[2017-03-24] MEDS: TRIAMCINOLONE ACETONIDE 55 MCG/ACT NASAL SPRAY 16.5 GM BTL EACH NARE SCH (09:00)
--- NOTE | 2017-03-24 10:42 | HHI.CCPN ---
Subjective Remarks/Hospital Course 56-year-old morbidly obese female with history of posttraumatic stress disorder , borderline personality disorder, depression, anxiety, chronic obstructive pulmonary disease, congestive heart failure, Diabetes, neuropathy, gastroesophageal reflux disease, hypertension, dyslipidemia, migraines, hypothyroidism, [facility] with O2 sat in the 70s. The patient was transported via EVAC, placed on NRB, O2 sat improved however patient's breathing very labored with tachypnea therefore put on Bipap in the ER. In the ER after several minutes of being on Bipap, she still complaining feeling very fatigued and short of breath. She informs medical team she now wants to revoke her DNR and agrees to intubation if recommended (family member also at bedside agrees to this). Her oxygenation remained borderline, her breathing still remains labored and she was intubated by ER attending. 03/19 Patient is intubated sedated with versed. Afebrile. Given 4L NS boluses overnight. 03/20: remains intubated, sedated, significantly hypoxic. in acute kidney injury and severe volume overload. received bumex x 1 this morning. Also remains hyperglycemic. critically ill, not improving. high fio2 requirements. 03/21: oxygenation slightly improved, but continues with significant volume overload. SANAM stable. hyperglycemia slightly better, but remains on very high doses of insulin drip along with high dose long-acting insulin. vent requirements still very high and unable to even start SBT given hypoxia. 03/22: oxygenation continues to improve, but patient remains significantly volume overloaded in persistent pulmonary edema. fio2 is decreased, but peep remains high. also, despite increases in long-acting insulin, insulin drip remains at 7 units/hr. 03/23: slow improvements in oxygenation. net negative 3.2L/24h. still required 100 units iv insulin by infusion despite high long-acting insulin. 03/24: net -1L/24h. insulin drip slightly improved, though still used 150 units/ 24h. failed SBT after 10 minutes. Objective Vital Signs Date Time Temp Pulse Resp B/P Pulse Ox O2 Delivery O2 Flow Rate FiO2 03/24/17 10:00 69 03/24/17 09:00 109/59 95 101/46 03/24/17 08:20 40 03/24/17 08:00 98.5 6/11/17 04:00 22 03/21/17 15:58 Nasal Cannula 4 Intake and Output 03/23/17 03/23/17 03/24/17 08:00 16:00 00:00 Intake Total 460 ml 623 ml 479 ml Output Total 1700 ml 325.0 ml 1400.0 ml Balance -1240 ml 298.0 ml -921.0 ml Result Diagram: 03/24/17 0500 03/24/17 0500 Imaging Last Impressions Chest X-Ray 03/19/17 0000 Signed Impressions: Service Date/Time: Sunday, March 19, 2017 02:00 - CONCLUSION: Tubes and catheters in good position. Stable infiltrate right lower lobe. Reese Pacheco MD Objective Remarks GENERAL: Morbidly obese female on the ventilator support SKIN: Warm and dry. HEAD: Normocephalic. EYES: No scleral icterus. No injection or drainage. NECK: trachea midline. JVD unable to be assessed due to large neck. endotracheally intubated. CARDIOVASCULAR: Regular rate and rhythm . sinus by tele. RESPIRATORY: Breath sounds equal bilaterally. No accessory muscle use. GASTROINTESTINAL: morbidly obese, soft, non-tender, nondistended. MUSCULOSKELETAL: No cyanosis, 2+ peripheral edema. EXTREMITIES: No clubbing or cyanosis Neuro: RASS -2. follows commands. sedated. A/P Assessment and Plan Assessment: 56yF with COPD, CHF unknown type, DM and morbid obesity who presents with worsening acute hypoxic and hypercarbic respiratory failure, community acquired pneumonia, pulmonary edema with intravascular volume overload , acute kidney injury on chronic kidney disease. She remains very critically ill. I am not sure long-term we will be able to separate her from mechanical ventilation. She is still in persistent pulmonary edema and volume overload despite aggressive diuresis. Continue forced diuresis in an attempt to restore adequate oxygenation. could consider SBT today. She is very critically ill at this time, off pathway, and may likely not survive this hospital stay. Plan by systems: Neurologic: History of Psychiatric Illness Agitation associated with mechanical ventilation - prop/fent for goal RASS -2 and vent synchrony - continue home Seroquel, Lyrica, Prozac Respiratory: Acute hypoxic and Hypercarbic Respiratory Failure COPD exacerbation Community Acquired Pneumonia Pulmonary Edema -- On PRVC/AC RR 22, TV 400, IT:1.0, PEEP:10, FIO2 40%. -- permissive hypercapnea and low tidal volume ventilation targeting 6cc/kg IBW. -- wean fio2 for goal spo2 > 88%. -- nebs -- vent bundle -- prednisone taper. Cardiovascular: History of Congestive Heart Failure, unknown type (prior echo from 2010 with normal EF) Hyperlipidemia Coronary Artery Disease -- continue home statin, ASA -- ef 55-60%, stage 1 ddfxn. -- forced diuresis as below. -- patient still has a stoke volume variation of 3%. Cr slightly increased, but persistent evidence of volume overload. will continue to diurese today. Renal: Acute kidney injury on chronic kidney disease, unknown stage Acute intravascular volume overload -- Strict I/Os -- bumex 2mg iv q8hr -- diamox 500mg iv q8h x 3 doses. -- metolazone 5mg po x 1. -- continue porter. FEN/GI: Morbid obesity Acute intravascular volume overload -- TF nepro at goal. -- ICU electrolyte protocol. -- diuresis as above. -- daily bmp Heme/ID: Community-acquired pneumonia -- sputum cultures growing Staph Epi and E.Coli, both sensitive to Rocephin. -- ceftriaxone 2gm iv q24h x 5 days (total 7 day course of abx). -- daily cbc. Endocrine: Severe hyperglycemia d/c insulin drip, start high dose q4h insulin SSI. Increase Levemir to 100 units SQ BID. --prednisone taper. Prophylaxis: GI Prophylaxis- On Protonix 40mg daily DVT prophylaxis- SCD, Heparin SQ Lines: TLC art line Porter Dispo: Remain in the ICU. She remains critically ill with high vent support, volume overload, multiorgan system dysfunction. This patient remains critically ill with one or more organ systems which are or may become a threat to life. I have spent in excess of 33 minutes discontinuously in the care and management of this patient. This time is exclusive of procedures, and includes, but is not limited to, evaluation of the patient, review of the medical record, discussions with family, consultants, nursing staff, or respiratory therapy, and documentation in the medical record. Demetri Meadows MD Mar 24, 2017 10:42
[2017-03-24] MEDS ORDERED: DEXTROSE 50% IN WATER 50 ML VIAL(D50) IV PUSH PRN (10:45)
[2017-03-24] MEDS ORDERED: METOLAZONE 5 MG TAB PO ONE (10:45)
[2017-03-24] MEDS: INSULIN NovoLIN REGULAR SUPPLEMENTAL SCALE SQ SCH ×3 (12:00→20:00)
--- NOTE | 2017-03-24 12:03 | HHI.NPPN ---
Subjective Complaints: Obesity General Problems: Edema Renal Failure: Acute History of Present Illness 56 y/o morbidly obese female patient who [facility] and [facility] of breath with hypoxia. PMH of PTSD, borderline personality disorder, depression, anxiety, COPD, CHF, Diabetes, neuropathy, GERD, HTN, HLD, migraines, hypothyroidism. She revoked her DNR in the ER and was intubated. Additional Remarks Patient remain intubated and open eyes spontaneously. Review of Systems General General Remarks unable to evaluate due to intubation/sedation Objective Data Data 03/23/17 03/24/17 19:00 07:00 Intake Total 623 ml 752 ml Output Total 325.0 ml 2100.0 ml Balance 298.0 ml -1348.0 ml IV Total 251 ml 282 ml Tube Feeding 272 ml 470 ml Other 100 ml Output Urine Total 325 ml 2100 ml Stool Total 0 ml Tube Feeding Residual Discard 0 ml 0 ml # Bowel Movements 0 1 Vital Signs Date Time Temp Pulse Resp B/P Pulse Ox O2 Delivery O2 Flow Rate FiO2 03/24/17 10:00 69 03/24/17 09:00 74 109/59 95 101/46 03/24/17 08:20 40 03/24/17 08:10 40 03/24/17 08:05 95 40 03/24/17 08:00 98.5 73 125/67 95 120/54 03/24/17 08:00 61 141/76 127/58 03/24/17 08:00 40 03/24/17 08:00 72 03/24/17 08:00 73 125/67 120/54 03/24/17 07:00 74 127/66 94 122/54 03/24/17 06:00 73 03/24/17 04:00 61 141/76 127/58 03/24/17 04:00 98.6 66 22 141/76 92 127/58 03/24/17 04:00 40 03/24/17 04:00 66 03/24/17 03:59 94 40 03/24/17 02:00 58 03/24/17 01:54 96 40 03/24/17 00:00 61 117/62 116/55 03/24/17 00:00 98.9 61 22 117/62 93 116/55 03/24/17 00:00 60 03/24/17 00:00 40 03/23/17 22:21 93 40 03/23/17 22:00 65 03/23/17 20:00 98.7 60 22 113/60 94 117/55 03/23/17 20:00 60 113/60 117/55 03/23/17 20:00 64 03/23/17 20:00 40 03/23/17 19:37 94 40 03/23/17 19:00 63 118/63 94 124/58 03/23/17 18:00 64 03/23/17 18:00 64 115/60 93 122/59 03/23/17 17:00 63 115/57 93 119/55 03/23/17 16:23 94 40 03/23/17 16:00 40 03/23/17 16:00 99.0 63 122/68 93 114/58 03/23/17 16:00 63 122/68 114/58 03/23/17 16:00 63 03/23/17 15:00 69 151/77 93 133/66 03/23/17 14:00 63 116/62 93 104/54 03/23/17 14:00 63 03/23/17 13:00 69 133/67 93 119/60 -: 03/24/17 0500 03/24/17 0500 Tubes & Lines: Rosa Drip Comment insulin, fentanyl Physical Exam General Appearance: No Acute Distress, Comfortable Throat Throat Exam: Oral Mucosa [place] & Moist Pulmonary Resp Exam: Breath Sounds Equal, Crackles, Decreased Bases, Diminished Breath Sounds Cardiology CV Exam: Regular, Normal Sinus Rhythm, Good Perfusion Gastrointestinal/Abdomen GI Exam: Soft, Non-Tender, Bowel Sounds Present Musculoskeletal MS Exam: Joints Intact, Normal Tone, Unable to Ambulate Integumentary Skin Exam: Warm, Dry Extremeties Extremities Exam: Moderate Edema Neurologic Neuro Exam: Unresponsive, Sedated VTE Prophylaxis Device: SCDs Assessment/Plan Assessment Summary: SANAM/Acute Renal Failure, Fluid/Volume Overload, Proteinuria , Hypertension, Diabetes Mellitus, CKD Stage III Problem List: (1) Acute renal failure superimposed on stage 3 chronic kidney disease Plan: It appears her baseline is CKD 3, she has proteinuria may have underlying diabetic nephropathy her renal function is stable, SANAM likely from sepsis syndrome with decreased renal perfusion diuresing well, continue Bumex, it was increased to Q8h also on Diamox Q8h monitor fluid status, attempt negative balance follow renal function and avoid nephrotoxic medications monitor drug levels when appropriate Urine out put is good and Creatinine almost same. Has chronic kidney disease and SANAM. Creatinine is almost same. K is low, on replacement. Got one dose of Metolazone. (2) Sepsis Plan: due to pnuemonia/CAP continue antibiotics including Vancomycin and zithromax sputum with + MRSA and Ecoli pressors if needed to maintain adequate MAP monitor clinically (3) Pneumonia Plan: see above she is on vent with permissive hypercapnia Fi)2 50%, PEEP 14 ween when able (4) DM (diabetes mellitus) Plan: she is on insulin infusion continue with glucose goal of 140-180 mg/dL (5) HTN (hypertension) Plan: BP stable, continue current medications continue with hold parameters Problem Qualifiers (1) Pneumonia: Qualified Code: J18.1 - Pneumonia of right lower lobe due to infectious organism (2) HTN (hypertension): Qualified Code: I10 - Essential hypertension Gerhard Montes MD Mar 24, 2017 12:02
[2017-03-24] MEDS: fentaNYL DRIP 250 ML IV SCH (13:52)
[2017-03-24] MEDS: cefTRIAXone INJ 2,000 MG in SODIUM CHLORIDE 0.9% INJ 100 ML IV SCH (22:08)
[2017-03-24] MEDS: CARBOXYMETHYLCELL SOD 0.5% OPTH SOLN 15 ML BTL EACH EYE SCH (22:09)
[2017-03-24] MEDS: ASPIRIN EC 81 MG TABEC PO SCH (22:10)
[2017-03-24] MEDS: ATORVASTATIN 20 MG TAB PO SCH (22:11)
[2017-03-24] MEDS: DOXEPIN HCL 50 MG CAP PO SCH (22:11)
[2017-03-25] VITALS (28 sets, daily range): BP systolic 97–160; BP diastolic 49–86; PULSE 59–84; RESP 13–22; TEMP 98.6–100.4; O2SAT 92–100
[2017-03-25] MEDS: RESP: ALBUTEROL 2.5 MG/IPRATROPIUM 0.5 MG NEB (SCH) INH ×4 (03:37→21:21)
[2017-03-25] MEDS: INSULIN NovoLIN REGULAR SUPPLEMENTAL SCALE SQ SCH ×6 (04:00→20:00)
[2017-03-25 04:24] LABS: HEMATOCRIT 31.7 % (35.0-46.0); MEAN CELL VOLUME 87.4 FL (80.0-100.0); MEAN CORPUSCULAR HEMOGLOBIN 28.3 PG (27.0-34.0); MEAN CORPUSCULAR HGB CONC 32.4 % (32.0-36.0); PLATELET COUNT 258 TH/MM3 (150-450); RED BLOOD COUNT 3.63 MIL/MM3 (4.00-5.30); RED CELL DISTRIBUTION WIDTH 14.4 % (11.6-17.2); REVIEW FLAG FINAL; WHITE BLOOD COUNT 9.5 TH/MM3 (4.0-11.0)
[2017-03-25 05:01] LABS: BICARBONATE 40.7 MEQ/L (21.0-32.0); POTASSIUM 3.5 MEQ/L (3.5-5.1)
[2017-03-25] MEDS: CHLORHEXIDINE GLUCONATE 2 % 1 PACK (2 CLOTHS) TOP SCH (05:18)
[2017-03-25] MEDS: BUMETANIDE INJ 1 MG/4 ML VIAL IV PUSH SCH (05:19)
[2017-03-25] MEDS: HEPARIN SODIUM - SQ 10,000 UNITS/ML VIAL SQ SCH ×3 (05:19→22:01)
[2017-03-25] MEDS: cloNIDine HCL 0.1 MG TAB PO SCH ×3 (08:39→17:20)
[2017-03-25] MEDS: predniSONE 10 MG TAB PO SCH (08:39)
[2017-03-25] MEDS: FLUoxetine HCL 20 MG CAP PO SCH (08:39)
[2017-03-25] MEDS: PANTOPRAZOLE SODIUM 40 MG VIAL IV PUSH SCH (08:39)
[2017-03-25] MEDS: LACTOBACILLUS ACIDOPHILUS TAB PO SCH ×2 (08:40→22:01)
[2017-03-25] MEDS: PREGABALIN 75 MG CAP PO SCH (08:40)
[2017-03-25] MEDS: DOCUSATE SODIUM 50 MG/SENNA 8.6 MG TAB PO SCH ×2 (08:40→22:01)
[2017-03-25] MEDS: TRIAMCINOLONE ACETONIDE 55 MCG/ACT NASAL SPRAY 16.5 GM BTL EACH NARE SCH (08:41)
[2017-03-25] MEDS: SODIUM CHLORIDE 0.9% FLUSH 10 ML FLUSH SCH ×2 (08:41→22:00)
[2017-03-25] MEDS: TOBRAMYCIN SULF 0.3% OPHT SOLN 5 ML BTL EACH EYE SCH ×4 (08:42→22:00)
[2017-03-25] MEDS: ARTIFICIAL TEARS OPTH SOLN 15 ML BTL EACH EYE SCH ×3 (08:43→17:20)
[2017-03-25] MEDS: BRIMONIDINE TARTRATE 0.2% OPHT SOLN 5 ML BTL EACH EYE SCH ×3 (08:43→17:20)
[2017-03-25] MEDS: QUEtiapine FUMARATE 300 MG TAB PO SCH ×3 (08:45→22:01)
[2017-03-25] MEDS: INSULIN DETEMIR 100 UNITS/ML VIAL SQ SCH ×2 (08:46→21:00)
--- NOTE | 2017-03-25 09:56 | HHI.NPPN ---
Subjective Complaints: Obesity General Problems: Edema Renal Failure: Acute Interval History Remains intubated, sedated. Creatinine is worse today. Excellent urine output. She has negative fluid balance. On 40% Fi02. (Sheri Oliveira) Review of Systems General General Remarks unable to evaluate due to intubation/sedation (Sheri Oliveira) Objective Data Data 03/24/17 03/25/17 19:00 07:00 Intake Total 724 ml 870 ml Output Total 1675.0 ml 2475 ml Balance -951.0 ml -1605 ml Intake Oral 0 ml IV Total 265 ml 332 ml Tube Feeding 359 ml 538 ml Other 100 ml Output Urine Total 1675 ml 2475 ml Tube Feeding Residual Discard 0 ml # Bowel Movements 1 0 Vital Signs Date Time Temp Pulse Resp B/P Pulse Ox O2 Delivery O2 Flow Rate FiO2 03/25/17 08:30 94 40 03/25/17 06:00 64 03/25/17 04:28 95 40 03/25/17 04:00 40 03/25/17 04:00 64 97/53 100/49 03/25/17 04:00 98.6 64 97/53 96 100/49 03/25/17 04:00 64 03/25/17 02:00 61 03/25/17 01:24 99 40 03/25/17 00:00 98.7 62 111/60 99 119/56 03/25/17 00:00 62 03/25/17 00:00 40 03/25/17 00:00 63 111/61 118/55 03/24/17 22:14 98 40 03/24/17 22:00 65 03/24/17 20:00 40 03/24/17 20:00 63 03/24/17 20:00 100.0 63 29 111/61 98 118/55 03/24/17 20:00 63 111/61 118/55 03/24/17 19:54 98 40 03/24/17 19:00 66 110/61 97 115/53 03/24/17 18:34 40 03/24/17 18:00 69 03/24/17 18:00 69 109/56 98 114/53 03/24/17 17:00 74 110/59 98 112/51 03/24/17 16:00 75 133/67 139/62 03/24/17 16:00 40 03/24/17 16:00 99.9 75 133/67 96 139/62 03/24/17 16:00 75 03/24/17 15:25 95 40 03/24/17 15:00 72 127/68 96 131/62 03/24/17 14:00 76 147/80 94 138/64 03/24/17 14:00 76 03/24/17 13:00 72 131/74 94 120/59 03/24/17 12:47 92 40 03/24/17 12:00 99.7 73 139/79 94 123/62 03/24/17 12:00 73 139/79 123/62 03/24/17 12:00 40 03/24/17 12:00 72 03/24/17 11:00 73 113/74 89 114/54 03/24/17 10:00 69 03/24/17 10:00 69 108/62 94 104/52 (Sheri Oliveira) -: 03/25/17 0405 03/25/17 0405 Imaging Last Impressions Chest X-Ray 03/20/17 0000 Signed Impressions: Service Date/Time: Monday, March 20, 2017 03:41 - CONCLUSION: Small lung volumes with diffuse pulmonary vascular prominence. Tubes and catheters in good position Reese Pacheco MD Renal Ultrasound 03/19/17 0000 Signed Impressions: Service Date/Time: Sunday, March 19, 2017 08:38 - CONCLUSION: Symmetric renal size. Stable complicated cyst upper pole left kidney. Anselmo Palmer MD Tubes & Lines: Rosa Drip Comment insulin, fentanyl (Sheri Oliveira) Physical Exam General Appearance: No Acute Distress, Comfortable, Sleeping, Obese Appearance Remarks intubated, opens eyes to stimuli (Sheri Oliveira) Throat Throat Exam: Oral Mucosa [place] & Moist (Sheri Oliveira) Pulmonary Resp Exam: Breath Sounds Equal, Crackles, Decreased Bases, Diminished Breath Sounds Resp Remarks vented lung sounds difficult to auscultate due to body habitus (Sheri Oliveira) Cardiology CV Exam: Regular, Normal Sinus Rhythm, Good Perfusion (Sheri Oliveira) Gastrointestinal/Abdomen GI Exam: Soft, Non-Tender, Bowel Sounds Present (Sheri Oliveira) Musculoskeletal MS Exam: Joints Intact, Normal Tone, Unable to Ambulate (Sheri Oliveira) Integumentary Skin Exam: Warm, Dry, Intact (Sheri Oliveira) Extremeties Extremities Exam: Pedal Pulses Palpable, Trace Edema (Sheri Oliveira) Neurologic Neuro Exam: Unresponsive, Sedated (Sheri Oliveira) VTE Prophylaxis Device: SCDs (Sheri Oliveira) Assessment/Plan Assessment Summary: SANAM/Acute Renal Failure, Fluid/Volume Overload, Proteinuria , Hypertension, Diabetes Mellitus, CKD Stage III Problem List: (1) Acute renal failure superimposed on stage 3 chronic kidney disease Plan: It appears her baseline is CKD 3, she has proteinuria may have underlying diabetic nephropathy SANAM likely from sepsis syndrome with decreased renal perfusion She has diuresed well, negative fluid balance since 03/21 renal function is worse Diamox and metolazone were stopped stop Bumex today follow renal function and avoid nephrotoxic medications avoid IVF monitor drug levels when appropriate follow urine output (2) Sepsis Plan: due to pneumonia/CAP continue antibiotics including Rocephin; Zithromax was stopped sputum with + MRSA and Ecoli not requiring pressors to maintain adequate MAP monitor clinically (3) Pneumonia Plan: see above she is on vent with permissive hypercapnia Fi02 now 40%, 50%, PEEP reduced to 8 ween when able (4) DM (diabetes mellitus) Plan: she is off insulin infusion, on intermittent dosage continue with glucose goal of 140-180 mg/dL (5) HTN (hypertension) Plan: BP stable, continue current medications continue with hold parameters (Sheri Oliveira) Plan patient was seen and examined. Agree with above assessment and plan. Creatinine is slightly higher today. Monitor off of diuretics. (Jose Olmedo MD) Problem Qualifiers (1) Pneumonia: Qualified Code: J18.1 - Pneumonia of right lower lobe due to infectious organism (2) HTN (hypertension): Qualified Code: I10 - Essential hypertension Sheri Oliveira Mar 25, 2017 09:56 Jose Olmedo MD Mar 26, 2017 14:44
[2017-03-25] MEDS: fentaNYL DRIP 250 ML IV SCH (12:13)
--- NOTE | 2017-03-25 15:22 | HHI.CCPN ---
Subjective Remarks/Hospital Course 56-year-old morbidly obese female with history of posttraumatic stress disorder , borderline personality disorder, depression, anxiety, chronic obstructive pulmonary disease, congestive heart failure, Diabetes, neuropathy, gastroesophageal reflux disease, hypertension, dyslipidemia, migraines, hypothyroidism, [facility] with O2 sat in the 70s. The patient was transported via EVAC, placed on NRB, O2 sat improved however patient's breathing very labored with tachypnea therefore put on Bipap in the ER. In the ER after several minutes of being on Bipap, she still complaining feeling very fatigued and short of breath. She informs medical team she now wants to revoke her DNR and agrees to intubation if recommended (family member also at bedside agrees to this). Her oxygenation remained borderline, her breathing still remains labored and she was intubated by ER attending. 03/19 Patient is intubated sedated with versed. Afebrile. Given 4L NS boluses overnight. 03/20: remains intubated, sedated, significantly hypoxic. in acute kidney injury and severe volume overload. received bumex x 1 this morning. Also remains hyperglycemic. critically ill, not improving. high fio2 requirements. 03/21: oxygenation slightly improved, but continues with significant volume overload. SANAM stable. hyperglycemia slightly better, but remains on very high doses of insulin drip along with high dose long-acting insulin. vent requirements still very high and unable to even start SBT given hypoxia. 03/22: oxygenation continues to improve, but patient remains significantly volume overloaded in persistent pulmonary edema. fio2 is decreased, but peep remains high. also, despite increases in long-acting insulin, insulin drip remains at 7 units/hr. 03/23: slow improvements in oxygenation. net negative 3.2L/24h. still required 100 units iv insulin by infusion despite high long-acting insulin. 03/24: net -1L/24h. insulin drip slightly improved, though still used 150 units/ 24h. failed SBT after 10 minutes. 03/25 : Creatinine worsening. Diuretics discontinued. CPAP trials initiated this morning. The patient remains hyperglycemic will requirements for when necessary medications, steroid taper continue. Objective Vital Signs Date Time Temp Pulse Resp B/P Pulse Ox O2 Delivery O2 Flow Rate FiO2 03/25/17 14:00 67 03/25/17 12:54 100 40 03/25/17 12:00 116/63 125/56 03/25/17 12:00 99.8 13 03/21/17 15:58 Nasal Cannula 4 Intake and Output 03/24/17 03/24/17 03/25/17 08:00 16:00 00:00 Intake Total 273 ml 724 ml 427 ml Output Total 700.0 ml 1675.0 ml 1500 ml Balance -427.0 ml -951.0 ml -1073 ml Result Diagram: 03/25/17 0405 03/25/17 0405 Imaging Last Impressions Chest X-Ray 03/20/17 0000 Signed Impressions: Service Date/Time: Monday, March 20, 2017 03:41 - CONCLUSION: Small lung volumes with diffuse pulmonary vascular prominence. Tubes and catheters in good position Reese Pacheco MD Renal Ultrasound 03/19/17 0000 Signed Impressions: Service Date/Time: Sunday, March 19, 2017 08:38 - CONCLUSION: Symmetric renal size. Stable complicated cyst upper pole left kidney. Anselmo Palmer MD Last Impressions Chest X-Ray 03/19/17 0000 Signed Impressions: Service Date/Time: Sunday, March 19, 2017 02:00 - CONCLUSION: Tubes and catheters in good position. Stable infiltrate right lower lobe. Reese Pacheco MD Objective Remarks GENERAL: Morbidly obese female on the ventilator support SKIN: Warm and dry. HEAD: Normocephalic. EYES: No scleral icterus. No injection or drainage. NECK: trachea midline. JVD unable to be assessed due to large neck. endotracheally intubated. CARDIOVASCULAR: Regular rate and rhythm . RESPIRATORY: Breath sounds equal bilaterally. No accessory muscle use. GASTROINTESTINAL: morbidly obese, soft, non-tender, nondistended. MUSCULOSKELETAL: No cyanosis, 2+ peripheral edema. EXTREMITIES: No clubbing or cyanosis Neuro: RASS -2. GCS 11 T follows commands. Urinary Catheter: Yes Porter insert reason: Measure Accurate Output Vascular Central Line Catheter: Yes Side: Right Location: Subclavian (medication administration, CVP monitoring) A/P Assessment and Plan Assessment: 56yF with COPD, CHF unknown type, DM and morbid obesity who presents with worsening acute hypoxic and hypercarbic respiratory failure, community acquired pneumonia, pulmonary edema with intravascular volume overload , acute kidney injury on chronic kidney disease. She remains very critically ill. I am not sure long-term we will be able to separate her from mechanical ventilation. Plan by systems: Neurologic: History of Psychiatric Illness Agitation associated with mechanical ventilation - fent for goal RASS -2 and vent synchrony. Propofol discontinued. - continue home Seroquel, Lyrica, Prozac - Transition to by mouth narcotics, Respiratory: Acute hypoxic and Hypercarbic Respiratory Failure COPD exacerbation Community Acquired Pneumonia Pulmonary Edema -- On PRVC/AC RR 22, TV 400, IT:1.0, PEEP:10, FIO2 40%. -- Currently CPAP 10/5 FiO2 40% -- permissive hypercapnea and low tidal volume ventilation targeting 6cc/kg IBW. -- wean fio2 for goal spo2 > 88%. -- Duonebs every 6 hours -- vent bundle -- Continue prednisone taper. --Obtain chest x-ray --ETT day 7, consider consultation for tracheostomy placement Cardiovascular: History of Congestive Heart Failure, unknown type (prior echo from 2010 with normal EF) Hyperlipidemia Coronary Artery Disease -- continue home statin, ASA -- EF 55-60%, stage 1 diastolic dysfunction -- forced diuresis as below. -- patient still has a stoke volume variation of 3%. Cr slightly increased. Renal: Acute kidney injury on chronic kidney disease, unknown stage Acute intravascular volume overload -- Strict I/Os -- bumex 2mg iv q8hr discontinued 03/25 -- 03/23 diamox 500mg iv q8h x 3 doses. -- Rec'd metolazone 5mg po x 1. -- continue porter --Nephrology following FEN/GI: Morbid obesity Acute intravascular volume overload -- TF nepro at goal. -- ICU electrolyte protocol. -- Monitor bmp --Consider consult for PEG tube placement Heme/ID: Community-acquired pneumonia -- sputum cultures growing Staph Epi and E.Coli, both sensitive to Rocephin. -- ceftriaxone 2gm iv q24h x 5 days (total 7 day course of abx). -- Monitor cbc. Endocrine: Severe hyperglycemia d/c insulin drip, start high dose q 4h insulin SSI. Increase Levemir to 100 units SQ BID. --prednisone taper. Prophylaxis: GI Prophylaxis- On Protonix 40mg daily DVT prophylaxis- SCD, Heparin SQ Lines: TLC art line Porter Dispo: Remain in the ICU. Discussed with EPIC PROFESSIONAL at bedside. She remains critically ill with high vent support, volume overload, multiorgan system dysfunction. This patient remains critically ill with one or more organ systems which are or may become a threat to life. I have spent in excess of 35 minutes discontinuously in the care and management of this patient. This time is exclusive of procedures, and includes, but is not limited to, evaluation of the patient, review of the medical record, discussions with family, consultants, nursing staff, or respiratory therapy, and documentation in the medical record. Physician Nancy Charles MD Mar 25, 2017 15:22
[2017-03-25] MEDS ORDERED: oxyCODONE HCL ORAL CONC 20 MG/ML SYRINGE PO PRN (15:30)
--- NOTE | 2017-03-25 16:17 | RADRPT ---
EXAM DATE/TIME: 03/25/2017 15:23 [facility] COMPARISON: CHEST SINGLE AP, March 20, 2017, 3:41. INDICATIONS : Respiratory distress. MEDICAL HISTORY : Congestive heart failure. Chronic obstructive pulmonary disease. Emphysema. CVA. Diabetes. SURGICAL HISTORY : Cardiac cath. ENCOUNTER: Subsequent ACUITY: 1 week PAIN SCORE: Non-responsive. LOCATION: Bilateral chest FINDINGS: Central line, ET tube, nasogastric tube are in good position. Heart is enlarged. Pulmonary vascularity is normalizing. Minimal consolidative changes are present in the left base. CONCLUSION: 1. ET tube, nasogastric tube in good position. 2. Interval improvement with less interstitial edema. 3. Consolidative changes persist in the left base. Chuy Gaffney MD FACR on March 25, 2017 at 16:11 Board Certified Radiologist. This report was verified electronically.
[2017-03-25] MEDS: cefTRIAXone INJ 2,000 MG in SODIUM CHLORIDE 0.9% INJ 100 ML IV SCH (21:59)
[2017-03-25] MEDS: CARBOXYMETHYLCELL SOD 0.5% OPTH SOLN 15 ML BTL EACH EYE SCH (22:00)
[2017-03-25] MEDS: ASPIRIN EC 81 MG TABEC PO SCH (22:01)
[2017-03-25] MEDS: ATORVASTATIN 20 MG TAB PO SCH (22:01)
[2017-03-26] VITALS (20 sets, daily range): BP systolic 88–118; BP diastolic 54–77; PULSE 56–70; RESP 22–23; TEMP 99.6–100.8; O2SAT 91–95
[2017-03-26] MEDS: DOXEPIN HCL 50 MG CAP PO SCH ×2 (01:36→21:28)
[2017-03-26] MEDS: RESP: ALBUTEROL 2.5 MG/IPRATROPIUM 0.5 MG NEB (SCH) INH ×4 (03:30→20:07)
[2017-03-26] MEDS: CHLORHEXIDINE GLUCONATE 2 % 1 PACK (2 CLOTHS) TOP SCH (04:00)
[2017-03-26] MEDS: INSULIN NovoLIN REGULAR SUPPLEMENTAL SCALE SQ SCH ×6 (04:00→21:29)
[2017-03-26] MEDS: HEPARIN SODIUM - SQ 10,000 UNITS/ML VIAL SQ SCH ×3 (04:24→22:35)
--- NOTE | 2017-03-26 04:45 | RADRPT ---
EXAM DATE/TIME: 03/26/2017 04:04 [place] COMPARISON: CHEST SINGLE AP, March 25, 2017, 15:23. INDICATIONS : Short of breath. MEDICAL HISTORY : Congestive heart failure. Chronic obstructive pulmonary disease. SURGICAL HISTORY : Cardiac cath. ENCOUNTER: Subsequent ACUITY: 3 weeks PAIN SCORE: 0/10 LOCATION: Bilateral chest FINDINGS: Lines and tubes are present not significantly changed. Left basilar opacity is present may be due to a combination of consolidation and or pleural effusion. There is also perivascular pulmonary edema. CONCLUSION: Left basilar opacity is present may be due to a combination of consolidation and or pleural effusion and perivascular pulmonary edema. Marianela Cedillo MD on March 26, 2017 at 4:43 Board Certified Radiologist. This report was verified electronically.
[2017-03-26] MEDS: fentaNYL DRIP 250 ML IV SCH (05:21)
[2017-03-26] MEDS: ACETAMINOPHEN 325 MG TAB PO PRN (05:21)
[2017-03-26 06:19] LABS: HEMATOCRIT 32.4 % (35.0-46.0); MEAN CELL VOLUME 86.7 FL (80.0-100.0); MEAN CORPUSCULAR HGB CONC 32.3 % (32.0-36.0); PLATELET COUNT 285 TH/MM3 (150-450); RED BLOOD COUNT 3.73 MIL/MM3 (4.00-5.30); RED CELL DISTRIBUTION WIDTH 14.2 % (11.6-17.2); REVIEW FLAG FINAL; WHITE BLOOD COUNT 9.5 TH/MM3 (4.0-11.0)
[2017-03-26 06:42] LABS: BICARBONATE 36.1 MEQ/L (21.0-32.0); MAGNESIUM 3.1 MG/DL (1.5-2.5); POTASSIUM 3.3 MEQ/L (3.5-5.1)
[2017-03-26] MEDS: TRIAMCINOLONE ACETONIDE 55 MCG/ACT NASAL SPRAY 16.5 GM BTL EACH NARE SCH (07:50)
[2017-03-26] MEDS: QUEtiapine FUMARATE 300 MG TAB PO SCH ×3 (07:59→22:35)
[2017-03-26] MEDS: FLUoxetine HCL 20 MG CAP PO SCH (07:59)
[2017-03-26] MEDS: BRIMONIDINE TARTRATE 0.2% OPHT SOLN 5 ML BTL EACH EYE SCH ×3 (08:00→17:45)
[2017-03-26] MEDS: DOCUSATE SODIUM 50 MG/SENNA 8.6 MG TAB PO SCH ×2 (08:00→21:28)
[2017-03-26] MEDS: ARTIFICIAL TEARS OPTH SOLN 15 ML BTL EACH EYE SCH ×3 (08:00→17:45)
[2017-03-26] MEDS: PANTOPRAZOLE SODIUM 40 MG VIAL IV PUSH SCH (08:00)
[2017-03-26] MEDS: predniSONE 10 MG TAB PO SCH (08:00)
[2017-03-26] MEDS: LACTOBACILLUS ACIDOPHILUS TAB PO SCH ×2 (08:00→22:35)
[2017-03-26] MEDS: TOBRAMYCIN SULF 0.3% OPHT SOLN 5 ML BTL EACH EYE SCH ×4 (08:00→21:32)
[2017-03-26] MEDS: cloNIDine HCL 0.1 MG TAB PO SCH ×3 (08:00→17:38)
[2017-03-26] MEDS: PREGABALIN 75 MG CAP PO SCH (08:00)
[2017-03-26] MEDS: INSULIN DETEMIR 100 UNITS/ML VIAL SQ SCH ×2 (08:01→21:26)
[2017-03-26] MEDS: SODIUM CHLORIDE 0.9% FLUSH 10 ML FLUSH SCH ×2 (08:01→21:34)
[2017-03-26] MEDS ORDERED: BUMETANIDE INJ 1 MG/4 ML VIAL IV PUSH SCH (09:00)
--- NOTE | 2017-03-26 09:36 | HHI.NPPN ---
Subjective Complaints: Obesity General Problems: Edema Renal Failure: Acute Interval History Remains intubated, sedated. Creatinine is worse. Good urine output. (Sheri Oliveira) Review of Systems General General Remarks unable to evaluate due to intubation/sedation (Sheri Oliveira) Objective Data Data 03/25/17 03/26/17 19:00 07:00 Intake Total 634 ml 996 ml Output Total 1625 ml 1425 ml Balance -991 ml -429 ml Intake Oral 0 ml IV Total 132 ml 376 ml Tube Feeding 322 ml 620 ml Tube Irrigant 180 ml Output Urine Total 1625 ml 1425 ml # Bowel Movements 0 0 Vital Signs Date Time Temp Pulse Resp B/P Pulse Ox O2 Delivery O2 Flow Rate FiO2 03/26/17 09:13 22 03/26/17 08:30 93 55 03/26/17 06:00 66 03/26/17 04:48 91 55 03/26/17 04:00 100.8 70 106/58 91 118/56 03/26/17 04:00 70 03/26/17 04:00 50 03/26/17 04:00 70 106/58 118/56 03/26/17 02:00 62 03/26/17 01:25 93 50 03/26/17 00:00 62 03/26/17 00:00 50 03/26/17 00:00 62 103/59 112/55 03/26/17 00:00 99.9 62 103/59 93 112/55 03/25/17 22:57 99 50 03/25/17 22:00 61 03/25/17 20:04 95 50 03/25/17 20:04 95 Ventilator 50 03/25/17 20:00 99.5 59 115/69 94 116/58 03/25/17 20:00 59 03/25/17 20:00 50 03/25/17 20:00 59 115/69 116/58 03/25/17 18:00 64 123/71 92 123/61 03/25/17 18:00 64 03/25/17 17:59 93 50 03/25/17 17:48 40 03/25/17 17:25 93 40 03/25/17 17:00 72 135/80 92 138/66 03/25/17 16:06 99 40 03/25/17 16:00 84 137/86 96 160/74 03/25/17 16:00 100.4 84 17 137/86 96 160/74 03/25/17 16:00 84 03/25/17 16:00 40 03/25/17 16:00 84 137/86 160/74 03/25/17 15:00 69 148/84 96 140/66 03/25/17 14:00 67 03/25/17 14:00 67 120/69 99 136/61 03/25/17 13:00 66 113/65 100 125/57 03/25/17 12:54 100 40 03/25/17 12:00 40 03/25/17 12:00 63 116/63 125/56 03/25/17 12:00 63 116/63 100 125/56 03/25/17 12:00 99.8 63 13 116/63 100 125/56 03/25/17 12:00 63 03/25/17 11:04 40 03/25/17 11:04 99 40 03/25/17 11:00 63 98/54 97 104/49 03/25/17 10:00 63 03/25/17 10:00 63 104/58 95 114/57 03/25/17 09:52 95 40 (Sheri Oliveira) -: 03/26/17 0555 03/26/17 0555 Imaging Last 72 hours Impressions Chest X-Ray 03/26/17 0600 Signed Impressions: Service Date/Time: Sunday, March 26, 2017 04:04 - CONCLUSION: Left basilar opacity is present may be due to a combination of consolidation and or pleural effusion and perivascular pulmonary edema. Marianela Cedillo MD Chest X-Ray 03/25/17 0000 Signed Impressions: Service Date/Time: Saturday, March 25, 2017 15:23 - CONCLUSION: 1. ET tube, nasogastric tube in good position. 2. Interval improvement with less interstitial edema. 3. Consolidative changes persist in the left base. Chuy Gaffney MD FACR Tubes & Lines: Rosa Drip Comment insulin, fentanyl (Sheri Oliveira) Physical Exam General Appearance: No Acute Distress, Comfortable, Sleeping, Obese Appearance Remarks intubated, opens eyes to stimuli (Sheri Oliveira) Throat Throat Exam: Oral Mucosa [place] & Moist (Sheri Oliveira) Pulmonary Resp Exam: Breath Sounds Equal, Crackles, Decreased Bases, Diminished Breath Sounds Resp Remarks vented lung sounds difficult to auscultate due to body habitus (Sheri Oliveira) Cardiology CV Exam: Regular, Normal Sinus Rhythm, Good Perfusion (Sheri Oliveira) Gastrointestinal/Abdomen GI Exam: Soft, Non-Tender, Bowel Sounds Present (Sheri Oliveira) Musculoskeletal MS Exam: Joints Intact, Normal Tone, Unable to Ambulate (Sheri Oliveira) Integumentary Skin Exam: Warm, Dry, Intact (Sheri Oliveira) Extremeties Extremities Exam: Pedal Pulses Palpable, Trace Edema (Sheri Oliveira) Neurologic Neuro Exam: Unresponsive, Sedated (Sheri Oliveira) VTE Prophylaxis Device: SCDs (Sheri Oliveira) Assessment/Plan Assessment Summary: SANAM/Acute Renal Failure, Fluid/Volume Overload, Proteinuria , Hypertension, Diabetes Mellitus, CKD Stage III Problem List: (1) Acute renal failure superimposed on stage 3 chronic kidney disease Plan: It appears her baseline is CKD 3, she has proteinuria may have underlying diabetic nephropathy SANAM likely from sepsis syndrome with decreased renal perfusion renal function is worse she is non oliguric diuretics including Diamox, bumex, and metolazone were stopped replace potassium start Calcium acetate for hyperphosphatemia follow renal function and avoid nephrotoxic medications if urine output drops she may require dialysis avoid IVF monitor drug levels when appropriate follow urine output (2) Sepsis Plan: due to pneumonia/CAP continue antibiotics including Rocephin; Zithromax was stopped sputum with + MRSA and Ecoli not requiring pressors to maintain adequate MAP monitor clinically (3) Pneumonia Plan: see above she is on vent with permissive hypercapnia Fi02up to 55%, 50%, PEEP reduced to 8 CPAP trials, ween when able she will need a tracheostomy soon (4) DM (diabetes mellitus) Plan: she is off insulin infusion, on intermittent dosage continue with glucose goal of 140-180 mg/dL (5) HTN (hypertension) Plan: BP stable, continue current medications continue with hold parameters (Sheri Oliveira) Plan patient was seen and examined. Off diuretics, Patient's renal function is worse. Monitor. No immediate need for dialysis. (Jose Olmedo MD) Problem Qualifiers (1) Pneumonia: Qualified Code: J18.1 - Pneumonia of right lower lobe due to infectious organism (2) HTN (hypertension): Qualified Code: I10 - Essential hypertension Sheri Oliveira Mar 26, 2017 09:36 Jose Olmedo MD Mar 26, 2017 15:01
[2017-03-26] MEDS ORDERED: POTASSIUM CHLORIDE 20 MEQ PWD PACKET PO ONE (10:00)
[2017-03-26] MEDS: CALCIUM ACETATE 667 MG CAP PO SCH ×2 (13:34→17:38)
--- NOTE | 2017-03-26 18:10 | HHI.CCPN ---
Subjective Remarks/Hospital Course 56-year-old morbidly obese female with history of posttraumatic stress disorder , borderline personality disorder, depression, anxiety, chronic obstructive pulmonary disease, congestive heart failure, Diabetes, neuropathy, gastroesophageal reflux disease, hypertension, dyslipidemia, migraines, hypothyroidism, presents [facility] hypoxia with O2 sat in the 70s. The patient was transported via [facility], placed on NRB, O2 sat improved however patient's breathing very labored with tachypnea therefore put on Bipap in the ER. In the ER after several minutes of being on Bipap, she still complaining feeling very fatigued and short of breath. She informs medical team she now wants to revoke her DNR and agrees to intubation if recommended (family member also at bedside agrees to this). Her oxygenation remained borderline, her breathing still remains labored and she was intubated by ER attending. 03/19 Patient is intubated sedated with versed. Afebrile. Given 4L NS boluses overnight. 03/20: remains intubated, sedated, significantly hypoxic. in acute kidney injury and severe volume overload. received bumex x 1 this morning. Also remains hyperglycemic. critically ill, not improving. high fio2 requirements. 03/21: oxygenation slightly improved, but continues with significant volume overload. SANAM stable. hyperglycemia slightly better, but remains on very high doses of insulin drip along with high dose long-acting insulin. vent requirements still very high and unable to even start SBT given hypoxia. 03/22: oxygenation continues to improve, but patient remains significantly volume overloaded in persistent pulmonary edema. fio2 is decreased, but peep remains high. also, despite increases in long-acting insulin, insulin drip remains at 7 units/hr. 03/23: slow improvements in oxygenation. net negative 3.2L/24h. still required 100 units iv insulin by infusion despite high long-acting insulin. 03/24: net -1L/24h. insulin drip slightly improved, though still used 150 units/ 24h. failed SBT after 10 minutes. 03/25 : Creatinine worsening. Diuretics discontinued. CPAP trials initiated this morning. The patient remains hyperglycemic will requirements for when necessary medications, steroid taper continue. 03/26: Renal functioning worsening. Patient was noted to have a low-grade fever. Repeat cultures obtained. Patient tolerated CPAP trials approximately 6 hours yesterday. Objective Vital Signs Date Time Temp Pulse Resp B/P Pulse Ox O2 Delivery O2 Flow Rate FiO2 03/26/17 16:00 55 03/26/17 16:00 58 116/70 116/64 03/26/17 16:00 100.1 22 95 03/25/17 20:04 Ventilator Intake and Output 03/25/17 03/25/17 03/26/17 08:00 16:00 00:00 Intake Total 443 ml 634 ml 471 ml Output Total 975 ml 1625 ml 900 ml Balance -532 ml -991 ml -429 ml Result Diagram: 03/26/17 0555 03/26/17 0555 Imaging Last Impressions Chest X-Ray 03/26/17 0600 Signed Impressions: Service Date/Time: Sunday, March 26, 2017 04:04 - CONCLUSION: Left basilar opacity is present may be due to a combination of consolidation and or pleural effusion and perivascular pulmonary edema. Marianela Cedillo MD Renal Ultrasound 03/19/17 0000 Signed Impressions: Service Date/Time: Sunday, March 19, 2017 08:38 - CONCLUSION: Symmetric renal size. Stable complicated cyst upper pole left kidney. Anselmo Palmer MD Last Impressions Chest X-Ray 03/20/17 0000 Signed Impressions: Service Date/Time: Monday, March 20, 2017 03:41 - CONCLUSION: Small lung volumes with diffuse pulmonary vascular prominence. Tubes and catheters in good position Reese Pacheco MD Renal Ultrasound 03/19/17 0000 Signed Impressions: Service Date/Time: Sunday, March 19, 2017 08:38 - CONCLUSION: Symmetric renal size. Stable complicated cyst upper pole left kidney. Anselmo Palmer MD Last Impressions Chest X-Ray 03/19/17 0000 Signed Impressions: Service Date/Time: Sunday, March 19, 2017 02:00 - CONCLUSION: Tubes and catheters in good position. Stable infiltrate right lower lobe. Reese Pacheco MD Objective Remarks GENERAL: Morbidly obese female on the ventilator support, sedated SKIN: Warm and dry. HEAD: Normocephalic. EYES: No scleral icterus. No injection or drainage. NECK: trachea midline. JVD unable to be assessed due to large neck. endotracheally intubated. CARDIOVASCULAR: Regular rate and rhythm . RESPIRATORY: Breath sounds equal bilaterally. Diminished in bases. GASTROINTESTINAL: morbidly obese, soft, non-tender, nondistended. MUSCULOSKELETAL: No cyanosis, 2+ peripheral edema. EXTREMITIES: No clubbing or cyanosis Neuro: RASS -2. GCS 11 T follows commands. Urinary Catheter: Yes Assessment to: Continue Porter insert reason: Measure Accurate Output Vascular Central Line Catheter: Yes Side: Right Location: Subclavian (medication administration, CVP monitoring) A/P Assessment and Plan Assessment: 56yF with COPD, CHF unknown type, DM and morbid obesity who presents with worsening acute hypoxic and hypercarbic respiratory failure, community acquired pneumonia, pulmonary edema with intravascular volume overload , acute kidney injury on chronic kidney disease. She remains very critically ill. I am not sure long-term we will be able to separate her from mechanical ventilation. Plan by systems: Neurologic: History of Psychiatric Illness Agitation associated with mechanical ventilation - fent for goal RASS -2 and vent synchrony. Propofol discontinued. - continue home Seroquel, Lyrica, Prozac - Transition to by mouth narcotics, Respiratory: Acute hypoxic and Hypercarbic Respiratory Failure COPD exacerbation Community Acquired Pneumonia Pulmonary Edema -- On PRVC/AC RR 22, TV 400, IT:1.0, PEEP:10, FIO2 40%. -- Currently CPAP 10/5 FiO2 40% -- permissive hypercapnea and low tidal volume ventilation targeting 6cc/kg IBW. -- wean fio2 for goal spo2 > 88%. -- Duonebs every 6 hours -- vent bundle -- Continue prednisone taper. --Obtain chest x-ray --ETT day 8 -- consultation for tracheostomy placement Cardiovascular: History of Congestive Heart Failure, unknown type (prior echo from 2010 with normal EF) Hyperlipidemia Coronary Artery Disease -- continue home statin, ASA -- EF 55-60%, stage 1 diastolic dysfunction -- forced diuresis as below. -- patient still has a stoke volume variation of 3%. Cr slightly increased. Renal: Acute kidney injury on chronic kidney disease, unknown stage Acute intravascular volume overload -- Strict I/Os -- bumex 2mg iv q8hr discontinued 03/25 -- 03/23 diamox 500mg iv q8h x 3 doses. -- Rec'd metolazone 5mg po x 1. -- continue porter --Nephrology following FEN/GI: Morbid obesity Acute intravascular volume overload -- TF nepro at goal. -- ICU electrolyte protocol. -- Monitor bmp --Consult for PEG tube placement Heme/ID: Community-acquired pneumonia -- sputum cultures growing Staph Epi and E.Coli, both sensitive to Rocephin. -- ceftriaxone 2gm iv q24h x 5 days (total 7 day course of abx). -- Monitor cbc. --Repeat blood urine and sputum cultures today Endocrine: Severe hyperglycemia d/c insulin drip, start high dose q 4h insulin SSI. Increase Levemir to 100 units SQ BID. --prednisone taper. Prophylaxis: GI Prophylaxis- On Protonix 40mg daily DVT prophylaxis- SCD, Heparin SQ Lines: TLC art line Porter Dispo: Discussed with VERIFICATION ENGINEER at bedside. She remains critically ill with high vent support, volume overload, multiorgan system dysfunction. Plan discussed with family on moving forward regarding tracheostomy and PEG placement. Will consult palliative care team to formalize goals of care with patient and family. This patient remains critically ill with one or more organ systems which are or may become a threat to life. I have spent in excess of 30 minutes discontinuously in the care and management of this patient. This time is exclusive of procedures, and includes, but is not limited to, evaluation of the patient, review of the medical record, discussions with family, consultants, nursing staff, or respiratory therapy, and documentation in the medical record. Physician Nancy Charles MD Mar 26, 2017 18:10
[2017-03-26] MEDS: ASPIRIN EC 81 MG TABEC PO SCH (21:00)
[2017-03-26] MEDS: ATORVASTATIN 20 MG TAB PO SCH (21:28)
[2017-03-26] MEDS: CARBOXYMETHYLCELL SOD 0.5% OPTH SOLN 15 ML BTL EACH EYE SCH (21:33)
[2017-03-27] VITALS (20 sets, daily range): BP systolic 104–145; BP diastolic 57–72; PULSE 58–69; RESP 17–22; TEMP 98.7–100.8; O2SAT 93–100
[2017-03-27] MEDS: INSULIN NovoLIN REGULAR SUPPLEMENTAL SCALE SQ SCH ×6 (00:15→20:00)
[2017-03-27] MEDS: RESP: ALBUTEROL 2.5 MG/IPRATROPIUM 0.5 MG NEB (SCH) INH ×4 (03:37→21:18)
[2017-03-27] MEDS: CHLORHEXIDINE GLUCONATE 2 % 1 PACK (2 CLOTHS) TOP SCH (04:00)
[2017-03-27 04:14] LABS: HEMATOCRIT 32.9 % (35.0-46.0); MEAN CELL VOLUME 87.3 FL (80.0-100.0); MEAN CORPUSCULAR HEMOGLOBIN 27.8 PG (27.0-34.0); MEAN CORPUSCULAR HGB CONC 31.9 % (32.0-36.0); PLATELET COUNT 281 TH/MM3 (150-450); RED BLOOD COUNT 3.77 MIL/MM3 (4.00-5.30); RED CELL DISTRIBUTION WIDTH 14.1 % (11.6-17.2); REVIEW FLAG FINAL; WHITE BLOOD COUNT 11.1 TH/MM3 (4.0-11.0)
[2017-03-27 04:35] LABS: BICARBONATE 37.9 MEQ/L (21.0-32.0); MAGNESIUM 3.3 MG/DL (1.5-2.5); POTASSIUM 3.5 MEQ/L (3.5-5.1)
[2017-03-27] MEDS: HEPARIN SODIUM - SQ 10,000 UNITS/ML VIAL SQ SCH ×3 (05:07→20:16)
[2017-03-27] MEDS: predniSONE 10 MG TAB PO SCH (08:36)
[2017-03-27] MEDS: PREGABALIN 75 MG CAP PO SCH (08:37)
[2017-03-27] MEDS: LACTOBACILLUS ACIDOPHILUS TAB PO SCH ×2 (08:37→21:36)
[2017-03-27] MEDS: FLUoxetine HCL 20 MG CAP PO SCH (08:37)
[2017-03-27] MEDS: cloNIDine HCL 0.1 MG TAB PO SCH ×3 (08:38→20:18)
[2017-03-27] MEDS: CALCIUM ACETATE 667 MG CAP PO SCH ×3 (08:38→20:18)
[2017-03-27] MEDS: DOCUSATE SODIUM 50 MG/SENNA 8.6 MG TAB PO SCH ×2 (08:38→20:17)
[2017-03-27] MEDS: QUEtiapine FUMARATE 300 MG TAB PO SCH ×3 (08:38→20:27)
[2017-03-27] MEDS: TOBRAMYCIN SULF 0.3% OPHT SOLN 5 ML BTL EACH EYE SCH ×4 (08:39→20:19)
[2017-03-27] MEDS: PANTOPRAZOLE SODIUM 40 MG VIAL IV PUSH SCH (08:40)
[2017-03-27] MEDS: SODIUM CHLORIDE 0.9% FLUSH 10 ML FLUSH SCH ×2 (08:41→20:17)
[2017-03-27] MEDS: BRIMONIDINE TARTRATE 0.2% OPHT SOLN 5 ML BTL EACH EYE SCH ×3 (08:43→18:00)
[2017-03-27] MEDS: fentaNYL DRIP 250 ML IV SCH ×2 (08:54)
[2017-03-27] MEDS: ARTIFICIAL TEARS OPTH SOLN 15 ML BTL EACH EYE SCH ×3 (09:00→18:00)
[2017-03-27] MEDS: TRIAMCINOLONE ACETONIDE 55 MCG/ACT NASAL SPRAY 16.5 GM BTL EACH NARE SCH (09:00)
--- NOTE | 2017-03-27 09:16 | HHI.NPPN ---
Subjective Complaints: Obesity General Problems: Edema Renal Failure: Acute Interval History Remains intubated, sedated. Renal function is stable. (Sheri Oliveira) Review of Systems General General Remarks unable to evaluate due to intubation/sedation (Sheri Oliveira) Objective Data Data 03/26/17 03/27/17 18:59 06:59 Intake Total 612 ml 838 ml Output Total 700 ml 1400 ml Balance -88 ml -562 ml IV Total 160 ml 288 ml Tube Feeding 272 ml 550 ml Tube Irrigant 180 ml Output Urine Total 700 ml 1400 ml # Bowel Movements 0 0 Vital Signs Date Time Temp Pulse Resp B/P Pulse Ox O2 Delivery O2 Flow Rate FiO2 03/27/17 08:22 100 45 03/27/17 06:00 67 03/27/17 04:08 97 55 03/27/17 04:00 100.8 65 22 114/68 93 115/57 03/27/17 04:00 65 114/68 115/68 03/27/17 04:00 65 03/27/17 04:00 55 03/27/17 02:00 62 03/27/17 01:06 93 55 03/27/17 00:00 62 03/27/17 00:00 55 03/27/17 00:00 62 119/70 122/61 03/27/17 00:00 100.0 62 22 119/70 95 122/61 03/26/17 22:06 92 55 03/26/17 22:00 66 03/26/17 20:07 95 55 03/26/17 20:00 55 03/26/17 20:00 99.6 56 22 115/70 94 116/60 03/26/17 20:00 56 03/26/17 20:00 56 115/70 115/58 03/26/17 18:00 58 03/26/17 16:00 55 03/26/17 16:00 58 116/70 116/64 03/26/17 16:00 100.1 58 22 116/70 95 116/64 03/26/17 16:00 58 03/26/17 15:55 95 55 03/26/17 14:00 59 03/26/17 12:56 94 55 03/26/17 12:00 99.7 61 23 114/67 94 88/77 03/26/17 12:00 55 03/26/17 12:00 61 03/26/17 12:00 61 114/67 88/77 03/26/17 10:00 63 03/26/17 09:54 92 55 03/26/17 09:13 22 (Sheri Oliveira) -: 03/27/17 0350 03/27/17 0350 Microbiology 03/26/17 Gram Stain - Final, Resulted 03/26/17 Sputum Culture, Resulted Pending 03/26/17 Urine Culture, Received Pending 03/26/17 Aerobic Blood Culture, Received Pending 03/26/17 Anaerobic Blood Culture, Received Pending 03/26/17 Aerobic Blood Culture, Received Pending 03/26/17 Anaerobic Blood Culture, Received Pending Imaging Last 72 hours Impressions Chest X-Ray 03/26/17 0600 Signed Impressions: Service Date/Time: Sunday, March 26, 2017 04:04 - CONCLUSION: Left basilar opacity is present may be due to a combination of consolidation and or pleural effusion and perivascular pulmonary edema. Marianela Cedillo MD Chest X-Ray 03/25/17 0000 Signed Impressions: Service Date/Time: Saturday, March 25, 2017 15:23 - CONCLUSION: 1. ET tube, nasogastric tube in good position. 2. Interval improvement with less interstitial edema. 3. Consolidative changes persist in the left base. Chuy Gaffney MD FACR Tubes & Lines: Rosa Tubes & Lines Comment A line right radial, TLC right IJ, Drip Comment fentanyl (Sheri Oliveira) Physical Exam General Appearance: No Acute Distress, Comfortable, Sleeping, Obese Appearance Remarks intubated, opens eyes to stimuli (Sheri Oliveira) Throat Throat Exam: Oral Mucosa [place] & Moist (Sheri Oliveira) Pulmonary Resp Exam: Breath Sounds Equal, Crackles, Decreased Bases, Diminished Breath Sounds Resp Remarks vented lung sounds difficult to auscultate due to body habitus (Sheri Oliveira) Cardiology CV Exam: Regular, Normal Sinus Rhythm, Good Perfusion (Sheri Oliveira) Gastrointestinal/Abdomen GI Exam: Soft, Non-Tender, Bowel Sounds Present (Sheri Oliveira) Musculoskeletal MS Exam: Joints Intact, Normal Tone, Unable to Ambulate (Sheri Oliveira) Integumentary Skin Exam: Warm, Dry, Intact (Sheri Oliveira) Extremeties Extremities Exam: Pedal Pulses Palpable, Trace Edema (Sheri Oliveira) Neurologic Neuro Exam: Unresponsive, Sedated (Sheri Oliveira) VTE Prophylaxis Device: SCDs (Sheri Oliveira) Assessment/Plan Assessment Summary: SANAM/Acute Renal Failure, Fluid/Volume Overload, Proteinuria , Hypertension, Diabetes Mellitus, CKD Stage III Problem List: (1) Acute renal failure superimposed on stage 3 chronic kidney disease Plan: It appears her baseline is CKD 3, she has proteinuria may have underlying diabetic nephropathy nonoliguric renal failure; SANAM likely from sepsis syndrome with decreased renal perfusion renal function is stable off diuretics potassium has been replaced continue Calcium acetate for hyperphosphatemia follow renal function and avoid nephrotoxic medications she does not require dialysis at this time avoid IVF monitor drug levels when appropriate follow urine output (2) Sepsis Plan: now with low grade fevers due to pneumonia/CAP she is on Tobra nebs as sputum with + MRSA and Ecoli not requiring pressors to maintain adequate MAP monitor clinically (3) Pneumonia Plan: see above she is on vent with permissive hypercapnia Fi02 now at 45%, 50%, PEEP of 8 CPAP trials, ween when able she will need a tracheostomy/PEG soon (4) DM (diabetes mellitus) Plan: she is off insulin infusion, on intermittent dosage continue with glucose goal of 140-180 mg/dL (5) HTN (hypertension) Plan: BP stable, continue current medications continue with hold parameters (Sheri Oliveira) Problem List: (1) Acute renal failure superimposed on stage 3 chronic kidney disease Plan: It appears her baseline is CKD 3, she has proteinuria may have underlying diabetic nephropathy nonoliguric renal failure; SANAM likely from sepsis syndrome with decreased renal perfusion renal function is stable off diuretics potassium has been replaced continue Calcium acetate for hyperphosphatemia follow renal function and avoid nephrotoxic medications she does not require dialysis at this time avoid IVF monitor drug levels when appropriate follow urine output (2) Sepsis Plan: now with low grade fevers due to pneumonia/CAP she is on Tobra nebs as sputum with + MRSA and Ecoli not requiring pressors to maintain adequate MAP monitor clinically (3) Pneumonia Plan: see above she is on vent with permissive hypercapnia Fi02 now at 45%, 50%, PEEP of 8 CPAP trials, ween when able she will need a tracheostomy/PEG soon (4) DM (diabetes mellitus) Plan: she is off insulin infusion, on intermittent dosage continue with glucose goal of 140-180 mg/dL (5) HTN (hypertension) Plan: BP stable, continue current medications continue with hold parameters Plan patient was seen and examined. Renal function is stable. Off diuretics. Continue to monitor. (Jose Olmedo MD) Problem Qualifiers (1) Pneumonia: Qualified Code: J18.1 - Pneumonia of right lower lobe due to infectious organism (2) HTN (hypertension): Qualified Code: I10 - Essential hypertension Sheri OliveiraP Mar 27, 2017 09:16 Jose Olmedo MD Mar 27, 2017 10:06
[2017-03-27] MEDS: INSULIN DETEMIR 100 UNITS/ML VIAL SQ SCH ×2 (10:05→21:37)
--- NOTE | 2017-03-27 11:14 | PD.CONS ---
Consult Service Palliative Care Consult Requested By Dr. Linares. Primary Care Physician Non-Staff Reason for Consultation a. To assist with evaluation and management of symptoms including: Shortness of breath, pain and debility. b. To assist medical decision maker(s) with: better understanding of current medical conditions; weighing benefits/burdens of medical treatment options; making medical treatment decisions. . HPI History of Present Illness Mrs. Harding is a 56 y/o female with a medical history significant for PTSD, COPD, CHF and diabetes who presented to the ED on 03/18/17. Patient was seen from the [place] [facility] after a routine exam were she was found with fever and pulse oximeter in the 70s. Patient endorsing shortness of breath and cough. Upon arrival, patient was placed on BiPAP secondary to hypoxemia. She reported having a DNR, however after further discussion with medical team, patient rescinded her DNR and agreed to intubation and mechanical ventilation. Chest x-ray revealing right lower lobe infiltrate. Laboratory workup showing WBC 16.2, Hgb 12.1, platelet count 264. Sodium 141, potassium 3.8, carbon dioxide 32.9, BUN/ creatinine 20/2.07. Troponin 0.02. BNP 52. Albumin 3.2. UA negative for nitrate, large leukocytes. Patient was subsequently orally intubated, placed on mechanical ventilation and transferred to ICU for further management of acute hypoxemic respiratory failure, COPD exacerbation and sepsis with community -acquired pneumonia. Echocardiogram obtained on 03/19/17. Revealing EF of 55-60%. Left ventricular systolic functional grossly normal, grade 1 diastolic dysfunction. Mild tricuspid valve regurgitation. Nephrology, Dr. Olmedo consulted on 03/19/17 secondary to acute on chronic renal failure. On arrival her creatinine was 2.07 , increased to 2.6 on to date of consultation. Patient with likely stage III CKD as baseline secondary to diabetic nephropathy. Supportive care recommended. Renal ultrasound 03/19/17 revealing symmetric renal size, stable complicated cyst to upper pole on left kidney. Clinical course complicated by hyperglycemia requiring insulin drip, hypoxia, high FiO2 requirements. Patient appears to be in persistent pulmonary edema and volume overload. Sputum culture 03/19/17 positive for Staphylococcus Aureus and Escherichia coli. Chest x -ray 03/20/17 revealing pulmonary edema. Patient currently on CPAP trials, was able to tolerate 6 hours yesterday. Most recent chest x-ray 03/26/17 revealing left basilar opacities likely secondary to consolidation and/or pleural effusion and pulmonary edema. Concerns regarding patient's long-term ability to deliver a from ventilator support. Renal function continued to worsen, BUN/creatinine today 82/295. Palliative care was consulted for further clarifications of goals of care given worsening clinical status, discussion regarding tracheostomy, PEG tube placement and possible renal replacement therapy. Reviewed prior acute hospitalizations and ED visits. Recent ED visit on secondary to fall. Head CT negative for acute process. Acute hospitalization 09/27/16 to 10/03/16 secondary to fracture left ribs secondary to mechanical fall and elevated troponin. ED visit 06/12/17 secondary to abdominal pain. Abdomen/pelvis CT revealing moderate constipation. No acute findings found. Patient remains in ICU, orally intubated on mechanical ventilation. Max temperature today 100.8, stable hemodynamically. FiO2 45%. Laboratory workup today revealing WBC 11.1, Hgb 10.5, platelet count 281. Sodium 139, potassium 3.5, BUN/creatinine 82/2.95. Random glucose 244. Patient opening eyes to voice , intermittently following some few simple commands such as "squeeze my hand". anxious, restless when asked about breathing tube. Friend Lauryn Lombardo at bedside. She tells me that they have been best friends for over 9 years. 2 separate telephone conversations with patient's brother Onofre who resides in [place], [place]. Telephone conversation with sister Eugenio Gorman who resides in [place]. Friend Lauryn, brother Adhikari and sister Eugenio updated on patient's clinical condition, current treatment plan and prognosis. Share concerns regarding patient's long-term ability to liberate from ventilator support given her multiple comorbidities and worsening clinical status to include worsening renal function and ongoing acute respiratory failure. Reviewed tracheostomy, PEG tube placement and likelihood for renal replacement therapy given patient's worsening clinical condition. Reviewed likely illness trajectory if patient survives this hospitalization and requires long-term placement. Reviewed patient's advance directives with family, patient declining life-sustaining treatments in the setting of a permanent condition that makes her completely dependent on others for her daily needs, confined to a bed and in need of a breathing machine for the rest of her life or a condition that will cause her to soon. Friend Lauryn, brother Onofre and sister Eugenio verbalized that in fact patient would not agree with life- sustaining treatments to include tracheostomy, PEG tube placement for hemodialysis. Family wishing to discuss further but they are likely to transition patient to comfort-directed care within the next few days. Family planning to visit patient within the next few days. Palliative care will continue to follow-up. Case has been discussed with bedside RN and Dr. Linares. . Function/Cognitive Trajectory Past medical history obtained from patient's friend Lauryn. Patient has been disabled for over 10 years secondary to back injury and PTSD. Wheelchair bound. Residing at [facility]. Depending with all ADLs. No cognitive decline reported. . Review of Systems ROS Limitations: Clinical Condition, Intubated, Altered Mental Status Endocrine: DENIES: Heat/cold intolerance Ears, nose, mouth, throat: DENIES: Hearing loss Respiratory: COMPLAINS OF: Cough Cardiovascular: COMPLAINS OF: Lower Extremity Edema, DENIES: Chest pain Gastrointestinal: DENIES: Abdominal pain, Nausea, Vomiting Genitourinary: DENIES: Urinary frequency Musculoskeletal: COMPLAINS OF: Back pain Integumentary: COMPLAINS OF: Abnormal pigmentation Hematologic/Lymphatics: COMPLAINS OF: Bruising Immunologic/Allergic: DENIES: Eczema Neurologic: COMPLAINS OF: Abnormal gait, Poor Balance, DENIES: Seizures Psychiatric: COMPLAINS OF: Anxiety, Depression Other ROS: Limited ROS secondary to clinical condition. ROS obtained from patient's friend Lauryn, brother, medical records and clinical observation. . 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 ESBL+E.Coli (urine-01/14/11) Past Medical History Morbidly obese Acute on Chronic Kidney Disease PTSD borderline personality disorder depression anxiety COPD CHF Diabetes mellitus type II neuropathy GERD HTN HLD migraines hypothyroidism . Past Surgical History Sphincterectomy/Hemorrhoidectomy in 1998 Cardiac Catheterizations with normal coronary arteries Cervical and lumbar spine surgeries Tonsillectomy Bilateral carpal tunnel release . Reported Medications Humulin R U-500 (Concentrate) Kwikpen Inj (Insulin Regular (Human) Concentrate Inj) 1,500 Units/3 Ml Pen 3 Units SQ AC DINNER Humulin R U-500 (Concentrate) Kwikpen Inj (Insulin Regular (Human) Concentrate Inj) 1,500 Units/3 Ml Pen 4 Units SQ AC LUNCH Humulin R U-500 (Concentrate) Kwikpen Inj (Insulin Regular (Human) Concentrate Inj) 1,500 Units/3 Ml Pen 6 Units SQ AC BREAKFAST Atorvastatin (Atorvastatin Calcium) Unknown Strength Tab 20 PO HS Nature-Throid (Thyroid) 65 Mg Tab 65 Mg PO DAILY Seroquel (Quetiapine Fumarate) 300 Mg Tab 300 Mg PO TID Ranitidine (Ranitidine HCl) 150 Mg Tab 150 Mg PO BID Phenergan (Promethazine HCl) 25 Mg Tab 25 Mg PO BID PRN Lyrica (Pregabalin) 150 Mg Cap 150 Mg PO BID Pantoprazole (Pantoprazole Sodium) 40 Mg Tab 40 Mg PO BID Nitroglycerin SL (Nitroglycerin) 0.4 Mg Subl 0.4 Mg SL DIRECTED PRN Toprol XL (Metoprolol Succinate) 100 Mg Tab 100 Mg PO AC LUNCH Glucose (Dextrose) 4 Gm Chew 16 Gm CHEW DIRECTED Fluoxetine (Fluoxetine HCl) 40 Mg Cap 80 Mg PO DAILY Doxepin (Doxepin HCl) 100 Mg Cap 100 Mg PO HS Aspirin EC (Aspirin) 81 Mg Tabdr 81 Mg PO HS Sm Artificial Tears Opth Drops (Artificial Tear Solution Opth Drops) 1 Drops 1 Drop EACH EYE QID PRN Allopurinol 300 Mg Tab 300 Mg PO DAILY Symbicort Inh (Budesonide/Formoterol Fumarate) 160-4.5 Mcg/Act Aero 2 Puff INH Q12HR Albuterol Neb (Albuterol Sulfate) 2.5 Mg/3 Ml Neb 2.5 Mg NEB Q6HR NEB PRN Acidophilus (Lactobacillus Acidophilus) 1 Cap Cap 1 Cap PO BID Current Medications Medications (Trade) Dose Ordered Sig/Inez Route Start Time Stop Time Status Last Admin (Narcan Inj) 0.4 mg UNSCH PRN IV 03/18/17 16:45 (Ecotrin Ec) 81 mg HS PO 03/18/17 21:00 03/25/17 22:01 (Lipitor) 20 mg HS PO 03/18/17 21:00 03/26/17 21:28 (Alphagan 0.2% Opth Soln) 1 drop TID EACH EYE 03/19/17 09:00 03/27/17 08:43 (Catapres) 0.1 mg TID PO 03/19/17 09:00 03/27/17 08:38 (Benadryl Liq) 25 mg QID PRN PO 03/18/17 19:30 (SINEquan) 100 mg HS PO 03/18/17 21:00 03/26/17 21:28 (PROzac) 80 mg DAILY PO 03/19/17 09:00 03/27/17 08:37 (Lyrica) 150 mg DAILY PO 03/19/17 09:00 03/27/17 08:37 (SEROquel) 150 mg BID@09,15 PO 03/19/17 09:00 03/27/17 08:38 (SEROquel) 600 mg HS PO 03/18/17 21:00 03/26/17 22:35 (Tobrex 0.3% Opth Soln) 1 drop QID EACH EYE 03/18/17 21:00 03/27/17 08:39 (Nasacort Nasal Keeling) 2 spray DAILY EACH NARE 03/19/17 09:00 (NS Flush) 2 ml UNSCH PRN .XX 03/18/17 19:30 03/24/17 08:15 (NS Flush) 2 ml BID .XX 03/18/17 21:00 03/27/17 08:41 (Tylenol) 650 mg Q6H PRN PO 03/18/17 19:30 03/26/17 05:21 (Morphine Inj) 2 mg Q2H PRN IV 03/18/17 19:30 (Tears Naturale Opth Soln) 1 drop TID EACH EYE 03/19/17 09:00 03/26/17 17:45 (Zofran Inj) 4 mg Q6H PRN IV 03/18/17 19:30 (Reglan Inj) 5 mg Q6H PRN IV 03/18/17 19:30 03/25/17 06:08 (Heparin Inj) 5,000 units Q8H SQ 03/18/17 22:00 03/27/17 05:07 Miscellaneous Information 1 Q361D XX 03/18/17 19:30 (Chlorhexidine 2% Cloth) Taper DAILY@04 TOP 03/19/17 04:00 03/15/18 03:59 03/26/17 04:00 (Chlorhexidine 2% Cloth) 3 pack UNSCH PRN TOP 03/18/17 19:30 (Mariam-Colace) 1 tab BID PO 03/18/17 21:00 03/27/17 08:38 (Milk Of Magnesia Liq) 30 ml Q12H PRN PO 03/18/17 19:30 03/22/17 08:25 (Senokot) 17.2 mg Q12H PRN PO 03/18/17 19:30 (Dulcolax Supp) 10 mg DAILY PRN RECTAL 03/18/17 19:30 03/23/17 12:46 (Lactulose Liq) 30 ml DAILY PRN PO 03/18/17 19:30 03/23/17 16:26 (Refresh Tears 0.5% Opth Soln) 1 drop HS EACH EYE 03/18/17 21:00 03/26/17 21:33 (Lactinex) 1 tab BID PO 03/18/17 21:00 03/27/17 08:37 Patient Own Medication PT OWN MED: ARTHRI... QID PRN TOPICAL 03/18/17 20:30 Hold Patient Own Medication PT OWN MED: THYROID... DAILY PO 03/19/17 09:00 Hold Patient Own Medication PT OWN MED: MICONAZOLE NITR... BID PRN TOPICAL 03/18/17 20:45 Hold (fentaNYL DRIP) 250 ml @ 0 mls/hr TITRATE IV 03/19/17 08:00 03/27/17 08:54 (Protonix Inj) 40 mg Q24H IV PUSH 03/19/17 08:00 03/27/17 08:40 (Mycostatin Powder) 1 applic Q12HR PRN TOPICAL 03/19/17 15:00 (Deltasone) 10 mg Taper DAILY PO 03/23/17 09:00 03/30/17 08:59 03/27/17 08:36 (Pill Splitter) 1 ea UNSCH PRN OTHER 03/22/17 12:45 (Levemir Inj) 100 units Q12H SQ 03/24/17 21:00 03/27/17 10:05 (D50w (Vial) Inj) 25 ml UNSCH PRN IV PUSH 03/24/17 10:45 (NovoLIN R SUPPLEMENTAL SCALE) 1 Q4HR SQ 03/24/17 12:00 03/27/17 08:00 (Roxicodone Intensol Liq) 5 mg Q6H PRN PO 03/25/17 15:30 (Phoslo) 667 mg TID PO 03/26/17 13:00 03/27/17 08:38 Family History Father and Mother both with history of CAD/NM. . Substance Use Tobacco: History of half a pack per day. Alcohol: Socially. Prescription med abuse: Denies. Illicits: Denies. . Psychosocial History Patient is originally from [place]. Has never been , no children. Has 3 siblings, brother Onofre, sister Eugenio and brother Betty. Served in the [employer] for 2 years. Has been disabled for over 10 years secondary to back injury and PTSD. . Spiritual/Cultural Factors No holiness affiliation. . Living Will: Completed, but not made available Health Care Surrogate: Never completed Durable Power of Bi Developer: Completed, but not made available Date completed: 02/18/12. Health Care Surrogate(s): No designation of healthcare surrogate. Patient is single, no children. Both of her parents are . As per [place] law, healthcare proxy decision making falls to the majority of patient's 3 siblings. Documented care wishes: [facility] reporting completion of advance directives completed on 02/18/12. Pending original copy with patient's signature. In her living will, patient declining life-sustaining treatments in the setting of a permanent condition that makes her completely dependent on others for her daily needs, confined to a bed and in need of a breathing machine for the rest of her life or a condition that will cause her to soon. Family/friends goals: Continue current management for now while family is discussing goals of care. Ethical and Legal Issues Pending copy of advance directives signed by patient by [facility]. Physical Exam Vital Signs Date Time Temp Pulse Resp B/P Pulse Ox O2 Delivery O2 Flow Rate FiO2 03/27/17 08:22 100 45 03/27/17 06:00 67 03/27/17 04:08 97 55 03/27/17 04:00 100.8 65 22 114/68 93 115/57 03/27/17 04:00 65 114/68 115/68 03/27/17 04:00 65 03/27/17 04:00 55 03/27/17 02:00 62 03/27/17 01:06 93 55 03/27/17 00:00 62 03/27/17 00:00 55 03/27/17 00:00 62 119/70 122/61 03/27/17 00:00 100.0 62 22 119/70 95 122/61 03/26/17 22:06 92 55 03/26/17 22:00 66 03/26/17 20:07 95 55 03/26/17 20:00 55 03/26/17 20:00 99.6 56 22 115/70 94 116/60 03/26/17 20:00 56 03/26/17 20:00 56 115/70 115/58 03/26/17 18:00 58 03/26/17 16:00 55 03/26/17 16:00 58 116/70 116/64 03/26/17 16:00 100.1 58 22 116/70 95 116/64 03/26/17 16:00 58 03/26/17 15:55 95 55 03/26/17 14:00 59 03/26/17 12:56 94 55 03/26/17 12:00 99.7 61 23 114/67 94 88/77 03/26/17 12:00 55 03/26/17 12:00 61 03/26/17 12:00 61 114/67 88/77 03/26/17 03/27/17 19:00 07:00 Intake Total 612 ml 838 ml Output Total 700 ml 1400 ml Balance -88 ml -562 ml IV Total 160 ml 288 ml Tube Feeding 272 ml 550 ml Tube Irrigant 180 ml Output Urine Total 700 ml 1400 ml # Bowel Movements 0 0 Exam CONSTITUTIONAL/GENERAL: This is an morbidly obese female laying in bed in no acute distress. Orally intubated on mechanical ventilation. TUBES/LINES/DRAINS: ETT, OG, central line, arterial line, PIV's, Rosa catheter , SCDs, bilateral soft restraints. SKIN: No jaundice, rashes, or lesions. Ecchymoses on upper extremities. No wounds seen anteriorly. Skin temperature appropriate. Not diaphoretic. HEAD: Atraumatic. Normocephalic. EYES: Pupils equal and round and reactive. Extraocular motions intact. No scleral icterus. No injection or drainage. ENT: Hearing appears normal. Nose without bleeding or purulent drainage. Moist oral mucosa. NECK: Trachea midline. Supple. CARDIOVASCULAR: Regular rate and rhythm without murmurs. Peripheral pulses symmetric. RESPIRATORY/CHEST: Symmetric, unlabored respirations. Clear, diminished to auscultation. Intubated on mechanical ventilation. GASTROINTESTINAL: Abdomen obese, large, non-tender. Unable to appreciate hepato -splenomegaly or masses secondary to body habitus. Bowel sounds present. GENITOURINARY: Without palpable bladder distension. Rosa catheter in place. MUSCULOSKELETAL: Extremities without clubbing, cyanosis. Edema to bilateral lower extremities. NEUROLOGICAL: Awake, intermittently following simple commands such as "squeeze my hand". PSYCHIATRIC: Anxiety/restlessness. . Diagnostic Tests Laboratory Laboratory Tests Test 03/24/17 03/25/17 03/26/17 03/27/17 18:20 04:05 05:55 03:50 Potassium Level 3.9 MEQ/L 3.5 MEQ/L 3.3 MEQ/L 3.5 MEQ/L (3.5-5.1) (3.5-5.1) (3.5-5.1) (3.5-5.1) White Blood Count 9.5 TH/MM3 9.5 TH/MM3 11.1 TH/MM3 (4.0-11.0) (4.0-11.0) (4.0-11.0) Red Blood Count 3.63 MIL/MM3 3.73 MIL/MM3 3.77 MIL/MM3 (4.00-5.30) (4.00-5.30) (4.00-5.30) Hemoglobin 10.3 GM/DL 10.4 GM/DL 10.5 GM/DL (11.6-15.3) (11.6-15.3) (11.6-15.3) Hematocrit 31.7 % 32.4 % 32.9 % (35.0-46.0) (35.0-46.0) (35.0-46.0) Mean Corpuscular Volume 87.4 FL 86.7 FL 87.3 FL (80.0-100.0) (80.0-100.0) (80.0-100.0) Mean Corpuscular Hemoglobin 28.3 PG 28.0 PG 27.8 PG (27.0-34.0) (27.0-34.0) (27.0-34.0) Mean Corpuscular Hemoglobin 32.4 % 32.3 % 31.9 % Concent (32.0-36.0) (32.0-36.0) (32.0-36.0) Red Cell Distribution Width 14.4 % 14.2 % 14.1 % (11.6-17.2) (11.6-17.2) (11.6-17.2) Platelet Count 258 TH/MM3 285 TH/MM3 281 TH/MM3 (150-450) (150-450) (150-450) Mean Platelet Volume 9.4 FL 9.6 FL 9.7 FL (7.0-11.0) (7.0-11.0) (7.0-11.0) Sodium Level 142 MEQ/L 138 MEQ/L 139 MEQ/L (136-145) (136-145) (136-145) Chloride Level 95 MEQ/L 90 MEQ/L 91 MEQ/L (98-107) (98-107) (98-107) Carbon Dioxide Level 40.7 MEQ/L 36.1 MEQ/L 37.9 MEQ/L (21.0-32.0) (21.0-32.0) (21.0-32.0) Anion Gap 6 MEQ/L (5-15) 12 MEQ/L (5-15) 10 MEQ/L (5-15) Blood Urea Nitrogen 66 MG/DL (7-18) 75 MG/DL (7-18) 82 MG/DL (7-18) Creatinine 2.76 MG/DL 2.99 MG/DL 2.95 MG/DL (0.50-1.00) (0.50-1.00) (0.50-1.00) Estimat Glomerular Filtration 18 ML/MIN (>89) 16 ML/MIN (>89) 16 ML/MIN (>89) Rate Random Glucose 262 MG/DL 239 MG/DL 244 MG/DL (74-106) (74-106) (74-106) Calcium Level 9.6 MG/DL 9.3 MG/DL 9.6 MG/DL (8.5-10.1) (8.5-10.1) (8.5-10.1) Phosphorus Level 5.7 MG/DL 5.8 MG/DL (2.5-4.9) (2.5-4.9) Magnesium Level 3.1 MG/DL 3.3 MG/DL (1.5-2.5) (1.5-2.5) Result Diagram: 03/27/17 0350 03/27/17 0350 Microbiology Microbiology Date/Time Procedure Status Source Growth 03/26/17 10:28 Gram Stain - Final Resulted Sputum Endotracheal 03/26/17 10:28 Sputum Culture Resulted Sputum Endotracheal Pending 03/26/17 10:30 Urine Culture Received Urine Catheterized Urine Pending 03/26/17 12:34 Aerobic Blood Culture Received Blood Peripheral Pending 03/26/17 12:34 Anaerobic Blood Culture Received Blood Peripheral Pending 03/26/17 12:34 Aerobic Blood Culture Received Blood Peripheral Pending 03/26/17 12:34 Anaerobic Blood Culture Received Blood Peripheral Pending Imaging Last Impressions Chest X-Ray 03/26/17 0600 Signed Impressions: Service Date/Time: Sunday, March 26, 2017 04:04 - CONCLUSION: Left basilar opacity is present may be due to a combination of consolidation and or pleural effusion and perivascular pulmonary edema. Marianela Cedillo MD Renal Ultrasound 03/19/17 0000 Signed Impressions: Service Date/Time: Sunday, March 19, 2017 08:38 - CONCLUSION: Symmetric renal size. Stable complicated cyst upper pole left kidney. Anselmo Palmer MD Procedures * 03/19/17 -central line placement * 03/18/17 -intubation and mechanical ventilation . Patient/Family Conference Present at Family Conference: Bedside conversation with friend Lauryn, telephone conversation with brother Onofre and telephone conversation with sister Eugenio. Family Conference Time (mins): 63 Family Conference Location: Bedside, Telephone Issues Discussed: * Palliative care role, purpose, approach * Additional medical, psychosocial, and spiritual history * Patients general health, functional status, and cognitive changes in the months leading up to the current hospitalization * Family's understanding of the current medical problems -COPD exacerbation, acute respiratory failure, worsening renal failure. * Family's understanding of prognosis -poor overall prognosis for an improved quality of life. Likely requiring trach, PEG, hemodialysis and long-term placement. * Patients goals of care as best understood from advance directives and/or conversations and/or values -reviewed advance directives * Current medical treatment options and benefits/burdens of those options -trach , PEG, hemodialysis. * Likely scenarios comparing ongoing aggressive care with a transition to comfort measures only -withdrawal life support * Questions answered to the best of my ability * Palliative care contact information provided . Assessment and Plan Disease Oriented Problem List: (1) Acute hypoxemic respiratory failure (2) Sepsis (3) Acute renal failure superimposed on stage 3 chronic kidney disease (4) DM (diabetes mellitus) (5) COPD exacerbation Symptom Scale: (1) Pain 0-10 Scale: Unable to quantify Comment: Secondary to endotracheal intubation, mechanical ventilation, acute illness, bedbound state. (2) Shortness of breath 0-10 Scale: Unable to quantify Comment: Secondary to pneumonia, COPD exacerbation, acute respiratory failure. (3) Debility 0-10 Scale: Unable to quantify Comment: Progressive decline, patient disabled for the past 10 years. Wheelchair bound. Pertinent Non-Medical Issues Psychosocial: Never . No children. Both parents are , she has 3 siblings. Spiritual: No holiness affiliations. Legal: Living will reported as completed by [place], pending copy. Ethical issues impacting care: Living will reported as completed by [place], pending copy. . Important Contacts Brother Onofre Harding [place], [place] Sister Eugenio Gorman [facility] Brother Betty Harding [place], [place] Friend Lauryn Lombardo . Prognosis Mrs. Harding is a 56 y/o female with a medical history significant for PTSD, COPD, CHF and diabetes who presented to the ED on 03/18/17. Patient diagnosed with sepsis secondary to pneumonia, COPD exacerbation and acute respiratory failure. Patient originally DNR/DNI, it was rescinded by patient in favor of intubation and mechanical ventilation during worsening respiratory status. Patient clinical condition continued to worsen with acute respiratory failure, unable to wean off ventilator support -likely requiring tracheostomy and PEG tube placement and worsening renal function likely requiring renal replacement therapy. Patient's overall prognosis is poor given her multitude her chronic issues, poor functional status at baseline, acute illness and ongoing complications. Patient at high risk for further complications, continue decline and . . Code Status: Full Code Plan * CODE STATUS: Full code at this time while family continue discussing goals of care. Patient originally no code/DNR-DNI but he was rescinded by patient on admission in favor of intubation and mechanical ventilation. * HEALTHCARE DECISION-MAKING: Patient unable to participate in decision-making secondary to clinical status. [facility] directives are [facility] completed by [facility], patient declined assigning a healthcare surrogate. Patient is single, no children. Both parents are . As per [place] law, healthcare proxy decision making falls to the majority of patient's 3 siblings; Onofre, Eugenio and Betty. * GOALS OF CARE: Family currently discussing goals of care; do NOT proceed with tracheostomy, PEG tube or renal replacement therapy at this time. Family likely to transition patient to comfort-directed care/withdrawal life support given her multitude of chronic illnesses, acute events, poor functional status at baseline, ongoing complications and known wishes as expressed in her living will. Friend Lauryn, brother Onofre and sister Eugenio updated on patient's clinical condition, current treatment plan and prognosis. Shared concerns regarding patient's long-term ability to liberate from ventilator support given her multiple comorbidities and worsening clinical status to include worsening renal function and ongoing acute respiratory failure. Reviewed tracheostomy, PEG tube placement and likelihood for renal replacement therapy given patient's worsening clinical condition. Reviewed likely illness trajectory. Reviewed patient's advance directives with family, patient declining life-sustaining treatments in the setting of a permanent condition that would make her completely dependent on others for her daily needs, confined to a bed and in need of a breathing machine for the rest of her life or a condition that will cause her to soon. Friend Lauryn, brother Onofre and sister Eugenio verbalized that in fact patient would not agree to life-sustaining treatments to include tracheostomy, PEG tube placement for hemodialysis. Family wishing to discuss further but they are likely to transition patient to comfort- directed care within the next few days. Family planning to visit patient within the next few days. Palliative care will continue to follow-up. * SYMPTOMS: = Pain, multifactorial. Likely secondary to endotracheal intubation , mechanical ventilation, acute illness, bedbound state. Currently on fentanyl drip. = Shortness of breath, secondary to pneumonia, COPD exacerbation, respiratory failure. Remains intubated on mechanical ventilation. = Debility, poor functional status at baseline. Patient disabled, wheelchair bound. * Case has been discussed with bedside RN Lucy and Dr. Linares. * Palliative care contact information has been provided to patient's siblings. * Ongoing emotional support and active listening provided. * Palliative care will continue to follow-up for further clarifications of goals of care as patient's clinical course continues to evolve. . Time Spent Total Floor Time (mins): 95 (Total time to include review and summarization of available medical records to include prior hospitalizations, physical exam, 3 separate goals of care conversation with izzy Lauryn, brother Onofre and sister Kt, case discussion with bedside RN and Dr. Linares.) >50% Counseling/Coord of Care: Yes Thank you for the opportunity to participate in the care of Ms. Harding. Attestation To help prompt me to consider important information that might be impacting today's encounter and assessment, information from prior notes written by myself or my colleagues may have been "brought forward" into today's note. My signature on this note, however, is an attestation that I personally performed the exam, history, and/or decision-making noted today, and, unless otherwise indicated, the interactions with patient, family, and staff as well as the review of records all occurred today. I also attest that the listed assessment and stated plan reflect my best clinical judgment today based on the combination of historical information, prior notes, and today's exam/ interactions. When time spent is documented, it refers only to time spent today by the signer, or if indicated, combined time spent today by collaborating physician/nurse practitioner. Ne Jarrett Mar 27, 2017 11:14
[2017-03-27] MEDS: ACETAMINOPHEN 325 MG TAB PO PRN (14:44)
--- NOTE | 2017-03-27 15:04 | HHI.CCPN ---
Subjective Remarks/Hospital Course 56-year-old morbidly obese female with history of posttraumatic stress disorder , borderline personality disorder, depression, anxiety, chronic obstructive pulmonary disease, congestive heart failure, Diabetes, neuropathy, gastroesophageal reflux disease, hypertension, dyslipidemia, migraines, hypothyroidism, [facility] with O2 sat in the 70s. The patient was transported via [facility], placed on NRB, O2 sat improved however patient's breathing very labored with tachypnea therefore put on Bipap in the ER. In the ER after several minutes of being on Bipap, she still complaining feeling very fatigued and short of breath. She informs medical team she now wants to revoke her DNR and agrees to intubation if recommended (family member also at bedside agrees to this). Her oxygenation remained borderline, her breathing still remains labored and she was intubated by ER attending. 03/19 Patient is intubated sedated with versed. Afebrile. Given 4L NS boluses overnight. 03/20: remains intubated, sedated, significantly hypoxic. in acute kidney injury and severe volume overload. received bumex x 1 this morning. Also remains hyperglycemic. critically ill, not improving. high fio2 requirements. 03/21: oxygenation slightly improved, but continues with significant volume overload. SANAM stable. hyperglycemia slightly better, but remains on very high doses of insulin drip along with high dose long-acting insulin. vent requirements still very high and unable to even start SBT given hypoxia. 03/22: oxygenation continues to improve, but patient remains significantly volume overloaded in persistent pulmonary edema. fio2 is decreased, but peep remains high. also, despite increases in long-acting insulin, insulin drip remains at 7 units/hr. 03/23: slow improvements in oxygenation. net negative 3.2L/24h. still required 100 units iv insulin by infusion despite high long-acting insulin. 03/24: net -1L/24h. insulin drip slightly improved, though still used 150 units/ 24h. failed SBT after 10 minutes. 03/25 : Creatinine worsening. Diuretics discontinued. CPAP trials initiated this morning. The patient remains hyperglycemic will requirements for when necessary medications, steroid taper continue. 03/26: Renal functioning worsening. Patient was noted to have a low-grade fever. Repeat cultures obtained. Patient tolerated CPAP trials approximately 6 hours yesterday. 03/27 Tmax 101.3. The WBC count elevated. Cultures revealed gram-positive cocci. Antibiotics initiated, Zosyn and Linezolid. Central line discontinued. Discussion with palliative medicine will continue to consider PEG tube placement and tracheostomy. The family discussed waiting for those interventions at this time. Living will obtained family is considering comfort care measures at this time. Objective Vital Signs Date Time Temp Pulse Resp B/P Pulse Ox O2 Delivery O2 Flow Rate FiO2 03/27/17 11:30 94 45 03/27/17 06:00 67 03/27/17 04:00 100.8 22 114/68 115/57 03/25/17 20:04 Ventilator Intake and Output 03/26/17 03/26/17 03/27/17 08:00 16:00 00:00 Intake Total 525 ml 612 ml 381 ml Output Total 525 ml 700 ml 750 ml Balance 0 ml -88 ml -369 ml Result Diagram: 03/27/17 0350 03/27/17 0350 Imaging Last Impressions Chest X-Ray 03/26/17 0600 Signed Impressions: Service Date/Time: Sunday, March 26, 2017 04:04 - CONCLUSION: Left basilar opacity is present may be due to a combination of consolidation and or pleural effusion and perivascular pulmonary edema. Marianela Cedillo MD Renal Ultrasound 03/19/17 0000 Signed Impressions: Service Date/Time: Sunday, March 19, 2017 08:38 - CONCLUSION: Symmetric renal size. Stable complicated cyst upper pole left kidney. Anselmo Palmer MD Last Impressions Chest X-Ray 03/20/17 0000 Signed Impressions: Service Date/Time: Monday, March 20, 2017 03:41 - CONCLUSION: Small lung volumes with diffuse pulmonary vascular prominence. Tubes and catheters in good position Reese Pacheco MD Renal Ultrasound 03/19/17 0000 Signed Impressions: Service Date/Time: Sunday, March 19, 2017 08:38 - CONCLUSION: Symmetric renal size. Stable complicated cyst upper pole left kidney. Anselmo Palmer MD Last Impressions Chest X-Ray 03/19/17 0000 Signed Impressions: Service Date/Time: Sunday, March 19, 2017 02:00 - CONCLUSION: Tubes and catheters in good position. Stable infiltrate right lower lobe. Reese Pacheco MD Objective Remarks GENERAL: Morbidly obese female on the ventilator support, sedated SKIN: Warm and dry. HEAD: Normocephalic. EYES: No scleral icterus. No injection or drainage. NECK: trachea midline. JVD unable to be assessed due to large neck. endotracheally intubated. CARDIOVASCULAR: Regular rate and rhythm . RESPIRATORY: Breath sounds equal bilaterally. Diminished in bases. GASTROINTESTINAL: morbidly obese, soft, non-tender, nondistended. MUSCULOSKELETAL: No cyanosis, 2+ peripheral edema. EXTREMITIES: No clubbing or cyanosis Neuro: RASS -2. GCS 11 T follows commands. Urinary Catheter: Yes Porter insert reason: Measure Accurate Output Vascular Central Line Catheter: Yes Assessment to: Remove Side: Right Location: Subclavian (medication administration, CVP monitoring) A/P Assessment and Plan Assessment: 56yF with COPD, CHF unknown type, DM and morbid obesity who presents with worsening acute hypoxic and hypercarbic respiratory failure, community acquired pneumonia, pulmonary edema with intravascular volume overload , acute kidney injury on chronic kidney disease. She remains very critically ill. I am not sure long-term we will be able to separate her from mechanical ventilation. Plan by systems: Neurologic: History of Psychiatric Illness Agitation associated with mechanical ventilation - fent for goal RASS -2 and vent synchrony. Propofol discontinued. - continue home Seroquel, Lyrica, Prozac - Transition to by mouth narcotics, Respiratory: Acute hypoxic and Hypercarbic Respiratory Failure COPD exacerbation Community Acquired Pneumonia Pulmonary Edema -- On PRVC/AC RR 22, TV 400, IT:1.0, PEEP:10, FIO2 40%. -- Currently CPAP 10/5 FiO2 40% -- permissive hypercapnea and low tidal volume ventilation targeting 6cc/kg IBW. -- wean fio2 for goal spo2 > 88%. -- Duonebs every 6 hours -- vent bundle -- Prednisone discontinued --Obtain chest x-ray --ETT day 9 -- consultation for tracheostomy placement , will hold family's considering comfort care measures will make decision in a few days Cardiovascular: History of Congestive Heart Failure, unknown type (prior echo from 2010 with normal EF) Hyperlipidemia Coronary Artery Disease -- continue home statin, ASA -- EF 55-60%, stage 1 diastolic dysfunction -- forced diuresis as below. Discontinued Renal: Acute kidney injury on chronic kidney disease, unknown stage Acute intravascular volume overload -- Strict I/Os -- bumex 2mg iv q8hr discontinued 03/25 -- 03/23 diamox 500mg iv q8h x 3 doses. -- Rec'd metolazone 5mg po x 1. -- continue porter --Nephrology following FEN/GI: Morbid obesity Acute intravascular volume overload -- TF nepro at goal. -- ICU electrolyte protocol. -- Monitor bmp --Consult for PEG tube placement will hold until family decision regarding comfort care measures Heme/ID: Community-acquired pneumonia -- 03/19 sputum cultures growing Staph Epi and E.Coli, both sensitive to Rocephin. -- ceftriaxone 2gm iv q24h x 5 days (total 7 day course of ab). --03/27 Zosyn and Linezolid initiated -- Monitor cbc. --03/26Repeat blood [id number] cocci --Follow-up urine and sputum cultures -NGTD Endocrine: Severe hyperglycemia 03/24 d/c insulin drip, start high dose q 4h insulin SSI. Continue Levemir to 100 units SQ BID. --prednisone discontinued Prophylaxis: GI Prophylaxis- On Protonix 40mg daily DVT prophylaxis- SCD, Heparin SQ Lines: right subclavian line discontinued, peripheral IVs 2 per vascular access team art line Shelley Dispo: Discussed with DIRECTOR ADVANCED at bedside. She remains critically ill with high vent support, volume overload, multiorgan system dysfunction. Plan discussed with family on moving forward regarding tracheostomy and PEG placement, per palliative care team family discussion regarding possible comfort care measures in the near future. This patient remains critically ill with one or more organ systems which are or may become a threat to life. I have spent in excess of 37 minutes discontinuously in the care and management of this patient. This time is exclusive of procedures, and includes, but is not limited to, evaluation of the patient, review of the medical record, discussions with family, consultants, nursing staff, or respiratory therapy, and documentation in the medical record. Physician Nancy Charles MD Mar 27, 2017 15:04
[2017-03-27] MEDS: LINEZOLID 600 MG PREMIX 300 ML IV SCH (16:45)
[2017-03-27] MEDS: PIPERACIL-TAZO 3.375 GM PREMIX 50 ML IV SCH ×2 (16:45→21:36)
[2017-03-27] MEDS: ATORVASTATIN 20 MG TAB PO SCH (20:16)
[2017-03-27] MEDS: ASPIRIN EC 81 MG TABEC PO SCH (20:18)
[2017-03-27] MEDS: CARBOXYMETHYLCELL SOD 0.5% OPTH SOLN 15 ML BTL EACH EYE SCH (20:19)
[2017-03-27] MEDS: DOXEPIN HCL 50 MG CAP PO SCH (20:27)
[2017-03-28] VITALS (20 sets, daily range): BP systolic 110–128; BP diastolic 56–89; PULSE 58–84; RESP 15–22; TEMP 99.3–100.9; O2SAT 24–96
[2017-03-28] MEDS: LINEZOLID 600 MG PREMIX 300 ML IV SCH ×2 (03:20→16:12)
[2017-03-28] MEDS: RESP: ALBUTEROL 2.5 MG/IPRATROPIUM 0.5 MG NEB (SCH) INH ×4 (03:26→20:32)
[2017-03-28] MEDS: INSULIN NovoLIN REGULAR SUPPLEMENTAL SCALE SQ SCH ×7 (03:54→23:54)
[2017-03-28] MEDS: PIPERACIL-TAZO 3.375 GM PREMIX 50 ML IV SCH ×4 (03:54→23:54)
[2017-03-28] MEDS: CHLORHEXIDINE GLUCONATE 2 % 1 PACK (2 CLOTHS) TOP SCH (03:54)
[2017-03-28] MEDS: HEPARIN SODIUM - SQ 10,000 UNITS/ML VIAL SQ SCH ×3 (03:54→23:53)
--- NOTE | 2017-03-28 04:55 | RADRPT ---
EXAM DATE/TIME: 03/28/2017 02:58 [facility] COMPARISON: CHEST SINGLE AP, March 26, 2017, 4:04. INDICATIONS : Shortness of breath, possible pulmonary disease. MEDICAL HISTORY : Congestive heart failure. Chronic obstructive pulmonary disease. SURGICAL HISTORY : None. ENCOUNTER: Subsequent ACUITY: 3 weeks PAIN SCORE: 0/10 LOCATION: Bilateral chest FINDINGS: ET tube, and NG tube have not changed. Cardiomegaly and pulmonary edema have not changed. Left basila r opacity is present may be due to a combination of consolidation and or pleural effusion. CONCLUSION: No appreciable change. Marianela Cedillo MD on March 28, 2017 at 4:53 Board Certified Radiologist. This report was verified electronically.
[2017-03-28] MEDS: ACETAMINOPHEN 325 MG TAB PO PRN ×2 (06:18→13:26)
[2017-03-28 06:22] LABS: HEMATOCRIT 34.9 % (35.0-46.0); MEAN CELL VOLUME 86.7 FL (80.0-100.0); MEAN CORPUSCULAR HEMOGLOBIN 27.6 PG (27.0-34.0); MEAN CORPUSCULAR HGB CONC 31.8 % (32.0-36.0); PLATELET COUNT 279 TH/MM3 (150-450); RED BLOOD COUNT 4.02 MIL/MM3 (4.00-5.30); RED CELL DISTRIBUTION WIDTH 14.1 % (11.6-17.2); REVIEW FLAG FINAL
[2017-03-28 06:33] LABS: BICARBONATE 37.9 MEQ/L (21.0-32.0); POTASSIUM 3.5 MEQ/L (3.5-5.1)
[2017-03-28] MEDS: LACTOBACILLUS ACIDOPHILUS TAB PO SCH ×2 (08:33→20:01)
[2017-03-28] MEDS: predniSONE 10 MG TAB PO SCH (08:33)
[2017-03-28] MEDS: PANTOPRAZOLE SODIUM 40 MG VIAL IV PUSH SCH (08:33)
[2017-03-28] MEDS: PREGABALIN 75 MG CAP PO SCH (08:33)
[2017-03-28] MEDS: FLUoxetine HCL 20 MG CAP PO SCH (08:34)
[2017-03-28] MEDS: DOCUSATE SODIUM 50 MG/SENNA 8.6 MG TAB PO SCH ×2 (08:34→20:01)
[2017-03-28] MEDS: CALCIUM ACETATE 667 MG CAP PO SCH ×3 (08:34→17:27)
[2017-03-28] MEDS: cloNIDine HCL 0.1 MG TAB PO SCH ×3 (08:34→17:27)
[2017-03-28] MEDS: TOBRAMYCIN SULF 0.3% OPHT SOLN 5 ML BTL EACH EYE SCH ×4 (08:35→20:11)
[2017-03-28] MEDS: SODIUM CHLORIDE 0.9% FLUSH 10 ML FLUSH SCH ×2 (08:35→20:02)
[2017-03-28] MEDS: ARTIFICIAL TEARS OPTH SOLN 15 ML BTL EACH EYE SCH ×3 (08:35→17:24)
[2017-03-28] MEDS: BRIMONIDINE TARTRATE 0.2% OPHT SOLN 5 ML BTL EACH EYE SCH ×3 (08:35→17:24)
[2017-03-28] MEDS: TRIAMCINOLONE ACETONIDE 55 MCG/ACT NASAL SPRAY 16.5 GM BTL EACH NARE SCH (08:36)
[2017-03-28] MEDS: INSULIN DETEMIR 100 UNITS/ML VIAL SQ SCH ×2 (08:53→20:09)
[2017-03-28] MEDS: QUEtiapine FUMARATE 300 MG TAB PO SCH ×3 (08:58→20:01)
--- NOTE | 2017-03-28 11:46 | HHI.HCPN ---
Reason for visit a. To assist with evaluation and management of symptoms including: Shortness of breath, pain and debility. b. To assist medical decision maker(s) with: better understanding of current medical conditions; weighing benefits/burdens of medical treatment options; making medical treatment decisions. . Subjective/Interval History Mrs. Harding is a 56 y/o female with a medical history significant for PTSD, COPD, CHF and diabetes who presented to the ED on 03/18/17. Upon arrival, patient was placed on BiPAP secondary to hypoxemia. She reported having a DNR, however after further discussion with medical team, patient rescinded her DNR and agreed to intubation and mechanical ventilation. Patient was subsequently orally intubated, placed on mechanical ventilation and transferred to ICU for further management of acute hypoxemic respiratory failure, COPD exacerbation and sepsis with community-acquired pneumonia. Her clinical condition continued to worsen as evidenced by acute on chronic kidney failure, respiratory failure, and sepsis. Patient seen in ICU, orally intubated on mechanical ventilation. Tolerating CPAP yesterday for 12 hours. Currently on CPAP, sedation needed to be restarted secondary to anxiety and restlessness. Patient running low-grade fever, Max temperature today 100.9. Stable hemodynamically. 03/26/17 blood culture positive for gram-positive cocci and staph coagulase-negative. Patient was started on IV antibiotics. Worsening renal function, BUN/creatinine 88/ 3.20. Chest x-ray today showing no changes regarding F basilar opacity likely due to a combination of consolidation and/or pleural effusion and pulmonary edema. Laboratory workup today showing WBC 12.0, Hgb 11.1, platelet count 279. Sodium 140, potassium 3.5, random glucose 267. Case discussed with Dr. Linares. 2 separate telephone conversations with patient' s brother Onofre and sister Eugenio. Medical update provided. Clarified goals of care. Family wishing to continue conservative management short of NO code, No trach, No peg and NO HD. Family hopeful that patient can medically extubate , however, if clinical condition worsen or does not improve, family likely to transition patient to comfort-directed care. Palliative care will continue to follow-up, brother Onofre is expected to visit patient over the weekend. Case has been discussed with bedside RN Everardo and Dr. Linares. . Family/friend interactions See interval note. . Advance Directives Living Will: Completed, but not made available Health Care Surrogate: Never completed Durable Power of Risk Consultant: Completed, but not made available Advance Directive Specifics Date completed: 02/18/12. Health Care Surrogate(s): No designation of healthcare surrogate. Patient is single, no children. Both of her parents are . As per [place] law, healthcare proxy decision making falls to the majority of patient's 3 siblings. Documented care wishes: NH reporting completion of advance directives completed on 02/18/12. Pending original copy with patient's signature. In her living will, patient declining life-sustaining treatments in the setting of a permanent condition that makes her completely dependent on others for her daily needs, confined to a bed and in need of a breathing machine for the rest of her life or a condition that will cause her to soon. Significant change in goals: No code. DNR/DNI. Conservative management short of no code, no tracheostomy, no PEG tube, no hemodialysis. Objective Vital Signs Date Time Temp Pulse Resp B/P Pulse Ox O2 Delivery O2 Flow Rate FiO2 03/28/17 10:00 68 03/28/17 08:41 96 45 03/28/17 08:00 45 03/28/17 08:00 70 124/59 126/59 03/28/17 08:00 67 03/28/17 08:00 100.9 67 22 110/59 95 113/56 03/28/17 07:42 95 45 03/28/17 06:00 67 03/28/17 04:06 96 45 03/28/17 04:00 45 03/28/17 04:00 68 03/28/17 04:00 99.8 68 115/62 93 128/63 03/28/17 04:00 68 115/62 128/63 03/28/17 02:00 68 03/28/17 01:06 24 45 03/28/17 00:00 61 03/28/17 00:00 60 110/63 128/67 03/28/17 00:00 99.4 60 110/63 95 128/67 03/28/17 00:00 45 03/27/17 22:00 58 03/27/17 21:17 95 45 03/27/17 20:00 45 03/27/17 20:00 66 140/60 121/63 03/27/17 20:00 99.2 58 22 104/60 95 121/63 03/27/17 20:00 59 03/27/17 19:11 96 45 03/27/17 18:00 61 03/27/17 16:00 55 03/27/17 16:00 67 105/57 121/63 03/27/17 16:00 100.3 61 20 105/57 96 121/63 03/27/17 16:00 61 03/27/17 15:04 95 45 03/27/17 15:00 100.3 03/27/17 14:00 67 03/27/17 12:00 67 03/27/17 12:00 55 03/27/17 12:00 99.1 67 17 121/66 94 145/72 03/27/17 12:00 67 121/66 145/72 03/27/17 11:30 94 45 Intake & Output 03/28/17 03/28/17 07:00 19:00 Intake Total 2028 ml Output Total 1400 ml Balance 628 ml IV Total 996 ml Tube Feeding 632 ml Other 400 ml Output Urine Total 1400 ml # Bowel Movements 0 Physical Exam CONSTITUTIONAL/GENERAL: This is an morbidly obese female laying in bed in no acute distress. Orally intubated on mechanical ventilation. Sedated. TUBES/LINES/DRAINS: ETT, OG, arterial line, PIV's, Rosa catheter, SCDs, bilateral soft restraints. SKIN: No jaundice, rashes, or lesions. Ecchymoses on upper extremities. No wounds seen anteriorly. Skin temperature appropriate. Not diaphoretic. HEAD: Atraumatic. Normocephalic. EYES: No scleral icterus. No injection or drainage. ENT: Nose without bleeding or purulent drainage. Moist oral mucosa. NECK: Trachea midline. Supple. CARDIOVASCULAR: Regular rate and rhythm without murmurs. Peripheral pulses symmetric. RESPIRATORY/CHEST: Symmetric, unlabored respirations. Clear, diminished to auscultation. Intubated on mechanical ventilation. Currently on CPAP. GASTROINTESTINAL: Abdomen obese, large, non-tender. Unable to appreciate hepato -splenomegaly or masses secondary to body habitus. Bowel sounds present. GENITOURINARY: Without palpable bladder distension. Rosa catheter in place. MUSCULOSKELETAL: Extremities without clubbing, cyanosis. Edema to bilateral lower extremities. NEUROLOGICAL: Sedated. Sleepy. PSYCHIATRIC: Unable to assess, sedated. . Diagnostic Tests Laboratory Laboratory Tests Test 03/26/17 03/27/17 03/28/17 05:55 03:50 05:57 White Blood Count 9.5 TH/MM3 11.1 TH/MM3 12.0 TH/MM3 (4.0-11.0) (4.0-11.0) (4.0-11.0) Red Blood Count 3.73 MIL/MM3 3.77 MIL/MM3 4.02 MIL/MM3 (4.00-5.30) (4.00-5.30) (4.00-5.30) Hemoglobin 10.4 GM/DL 10.5 GM/DL 11.1 GM/DL (11.6-15.3) (11.6-15.3) (11.6-15.3) Hematocrit 32.4 % 32.9 % 34.9 % (35.0-46.0) (35.0-46.0) (35.0-46.0) Mean Corpuscular Volume 86.7 FL 87.3 FL 86.7 FL (80.0-100.0) (80.0-100.0) (80.0-100.0) Mean Corpuscular Hemoglobin 28.0 PG 27.8 PG 27.6 PG (27.0-34.0) (27.0-34.0) (27.0-34.0) Mean Corpuscular Hemoglobin 32.3 % 31.9 % 31.8 % Concent (32.0-36.0) (32.0-36.0) (32.0-36.0) Red Cell Distribution Width 14.2 % 14.1 % 14.1 % (11.6-17.2) (11.6-17.2) (11.6-17.2) Platelet Count 285 TH/MM3 281 TH/MM3 279 TH/MM3 (150-450) (150-450) (150-450) Mean Platelet Volume 9.6 FL 9.7 FL 10.2 FL (7.0-11.0) (7.0-11.0) (7.0-11.0) Sodium Level 138 MEQ/L 139 MEQ/L 140 MEQ/L (136-145) (136-145) (136-145) Potassium Level 3.3 MEQ/L 3.5 MEQ/L 3.5 MEQ/L (3.5-5.1) (3.5-5.1) (3.5-5.1) Chloride Level 90 MEQ/L 91 MEQ/L 93 MEQ/L (98-107) (98-107) (98-107) Carbon Dioxide Level 36.1 MEQ/L 37.9 MEQ/L 37.9 MEQ/L (21.0-32.0) (21.0-32.0) (21.0-32.0) Anion Gap 12 MEQ/L (5-15) 10 MEQ/L (5-15) 9 MEQ/L (5-15) Blood Urea Nitrogen 75 MG/DL (7-18) 82 MG/DL (7-18) 88 MG/DL (7-18) Creatinine 2.99 MG/DL 2.95 MG/DL 3.20 MG/DL (0.50-1.00) (0.50-1.00) (0.50-1.00) Estimat Glomerular Filtration 16 ML/MIN (>89) 16 ML/MIN (>89) 15 ML/MIN (>89) Rate Random Glucose 239 MG/DL 244 MG/DL 267 MG/DL (74-106) (74-106) (74-106) Calcium Level 9.3 MG/DL 9.6 MG/DL 9.4 MG/DL (8.5-10.1) (8.5-10.1) (8.5-10.1) Phosphorus Level 5.7 MG/DL 5.8 MG/DL (2.5-4.9) (2.5-4.9) Magnesium Level 3.1 MG/DL 3.3 MG/DL (1.5-2.5) (1.5-2.5) Result Diagram: 03/28/17 0557 03/28/17 0557 Microbiology Microbiology Date/Time Procedure Status Source Growth 03/26/17 10:28 Gram Stain - Final Complete Sputum Endotracheal 03/26/17 10:28 Sputum Culture - Final Complete Sputum Endotracheal HEAVY GROWTH NORMAL RESPIRATORY SOFIA 03/26/17 10:30 Urine Culture - Final Complete Urine Catheterized Urine NO GROWTH IN 48 HOURS. 03/26/17 12:34 Aerobic Blood Culture - Final Resulted Blood Peripheral Staph Sp Coagulase Negative 03/26/17 12:34 Anaerobic Blood Culture - Preliminary Resulted Blood Peripheral NO GROWTH IN 2 DAYS 03/26/17 12:34 Aerobic Blood Culture - Final Resulted Blood Peripheral Staph Sp Coagulase Negative 03/26/17 12:34 Anaerobic Blood Culture - Preliminary Resulted Blood Peripheral NO GROWTH IN 2 DAYS Imaging Last 48 hours Impressions Chest X-Ray 03/28/17 0600 Signed Impressions: Service Date/Time: March 02:58 - CONCLUSION: No appreciable change. Marianela Cedillo MD Procedures * 03/19/17 -central line placement * 03/18/17 -intubation and mechanical ventilation . Assessment and Plan Disease Oriented Problem List: (1) Acute hypoxemic respiratory failure (2) Sepsis (3) Acute renal failure superimposed on stage 3 chronic kidney disease (4) DM (diabetes mellitus) (5) COPD exacerbation Symptom Scale: (1) Pain 0-10 Scale: Unable to quantify Comment: Secondary to endotracheal intubation, mechanical ventilation, acute illness, bedbound state. (2) Shortness of breath 0-10 Scale: Unable to quantify Comment: Secondary to pneumonia, COPD exacerbation, acute respiratory failure. (3) Debility 0-10 Scale: Unable to quantify Comment: Progressive decline, patient disabled for the past 10 years. Wheelchair bound. Pertinent Non-Medical Issues Psychosocial: Never . No children. Both parents are , she has 3 siblings. Spiritual: No jain affiliations. Legal: Living will reported as completed by NH, pending copy. Ethical issues impacting care: Living will reported as completed by NH, pending copy. . Important Contacts Brother Onofre Harding -[place], [place] Sister Eugenio [facility] Brother Betty Harding [place], [place] Friend Lauryn Lombardo . Prognosis Mrs. Harding is a 56 y/o female with a medical history significant for PTSD, COPD, CHF and diabetes who presented to the ED on 03/18/17. Patient diagnosed with sepsis secondary to pneumonia, COPD exacerbation and acute respiratory failure. Patient originally DNR/DNI, it was rescinded by patient in favor of intubation and mechanical ventilation during worsening respiratory status. Patient clinical condition continued to worsen with acute respiratory failure, unable to wean off ventilator support -likely requiring tracheostomy and PEG tube placement and worsening renal function likely requiring renal replacement therapy. Patient's overall prognosis is poor given her multitude her chronic issues, poor functional status at baseline, acute illness and ongoing complications. Patient at high risk for further complications, continue decline and . . Code Status: No Code Plan * CODE STATUS: No code. DNR/DNI -do not reintubate if extubated. 2 out of 3 sibling (Onofre and Eugenio) electing to change code status to reflect no code. * HEALTHCARE DECISION-MAKING: Patient unable to participate in decision-making secondary to clinical status. Advance directives are reported as completed by NH, patient declined assigning a healthcare surrogate. Patient is single, no children. Both parents are . As per [place] law, healthcare proxy decision making falls to the majority of patient's 3 siblings; Eugenio Adhikari and Betty. * GOALS OF CARE: 03/28/17 - Family electing to continue conservative management short of NO code, NO trach, NO peg and NO hemodialysis with hopes of medical extubation; however, if clinical condition worsen or does not improve within the next few days, family likely to transition patient to comfort-directed care early next week. Family made aware that patient remains at a very high risk for continue decline, further complications and . Brother Onofre is expected to visit patient over the weekend. * SYMPTOMS: = Pain, multifactorial. Likely secondary to endotracheal intubation , mechanical ventilation, acute illness, bedbound state. Currently on fentanyl drip. = Shortness of breath, secondary to pneumonia, COPD exacerbation, respiratory failure. Remains intubated on mechanical ventilation. = Debility, poor functional status at baseline. Patient disabled, wheelchair bound. * Case has been discussed with bedside VELMA Mcgee and Dr. Linares. * Palliative care contact information has been provided to patient's siblings. * Patient's brother Betty was called, message left on voicemail. * Ongoing emotional support and active listening provided. * Palliative care will continue to follow-up for further clarifications of goals of care as patient's clinical course continues to evolve. . Time Spent Total Floor Time (mins): 48 (Total time to include review medical records, physical exam, 2 separate telephone conversations to siblings, case discussion with bedside VELMA Mcgee and case discussion with Dr. Linares.) >50% Counseling/Coord of Care: Yes Attestation To help prompt me to consider important information that might be impacting today's encounter and assessment, information from prior notes written by myself or my colleagues may have been "brought forward" into today's note. My signature on this note, however, is an attestation that I personally performed the exam, history, and/or decision-making noted today, and, unless otherwise indicated, the interactions with patient, family, and staff as well as the review of records all occurred today. I also attest that the listed assessment and stated plan reflect my best clinical judgment today based on the combination of historical information, prior notes, and today's exam/ interactions. When time spent is documented, it refers only to time spent today by the signer, or if indicated, combined time spent today by collaborating physician/nurse practitioner. Ne Jarrett Mar 28, 2017 11:46
[2017-03-28 13:07] LABS: BLOOD GAS BASE EXCESS 10.6 mmol/L (-2-2); BLOOD GAS CARBOXYHEMOGLOBIN 1.4 % (0-4); BLOOD GAS HCO3 36 mmol/L (22-26); BLOOD GAS METHEMOGLOBIN 1.8 % (0-2); BLOOD GAS O2 HGB SATURATION 90 % (90-100); BLOOD GAS OXYGEN CONTENT 14.3 Vol % (12.0-20.0); BLOOD GAS PCO2 61 mmHg (38-42); BLOOD GAS PO2 75 mmHg (61-120); BLOOD GAS TOTAL HGB 11.2 G/DL (12.0-16.0); CRITICAL VALUE YES; OXYGEN DEVICE VENTILATOR; TEMP CORR TO 98.6
[2017-03-28 13:08] LABS: DRAW SITE ART LINE; FIO2 45 %; STAT NO; VENT SETTINGS CPAP+8/PS10
--- NOTE | 2017-03-28 13:19 | HHI.CCPN ---
Subjective Remarks/Hospital Course 56-year-old morbidly obese female with history of posttraumatic stress disorder , borderline personality disorder, depression, anxiety, chronic obstructive pulmonary disease, congestive heart failure, Diabetes, neuropathy, gastroesophageal reflux disease, hypertension, dyslipidemia, migraines, hypothyroidism, [facility] with O2 sat in the 70s. The patient was transported via [facility], placed on NRB, O2 sat improved however patient's breathing very labored with tachypnea therefore put on Bipap in the ER. In the ER after several minutes of being on Bipap, she still complaining feeling very fatigued and short of breath. She informs medical team she now wants to revoke her DNR and agrees to intubation if recommended (family member also at bedside agrees to this). Her oxygenation remained borderline, her breathing still remains labored and she was intubated by ER attending. 03/19 Patient is intubated sedated with versed. Afebrile. Given 4L NS boluses overnight. 03/20: remains intubated, sedated, significantly hypoxic. in acute kidney injury and severe volume overload. received bumex x 1 this morning. Also remains hyperglycemic. critically ill, not improving. high fio2 requirements. 03/21: oxygenation slightly improved, but continues with significant volume overload. SANAM stable. hyperglycemia slightly better, but remains on very high doses of insulin drip along with high dose long-acting insulin. vent requirements still very high and unable to even start SBT given hypoxia. 03/22: oxygenation continues to improve, but patient remains significantly volume overloaded in persistent pulmonary edema. fio2 is decreased, but peep remains high. also, despite increases in long-acting insulin, insulin drip remains at 7 units/hr. 03/23: slow improvements in oxygenation. net negative 3.2L/24h. still required 100 units iv insulin by infusion despite high long-acting insulin. 03/24: net -1L/24h. insulin drip slightly improved, though still used 150 units/ 24h. failed SBT after 10 minutes. 03/25 : Creatinine worsening. Diuretics discontinued. CPAP trials initiated this morning. The patient remains hyperglycemic will requirements for when necessary medications, steroid taper continue. 03/26: Renal functioning worsening. Patient was noted to have a low-grade fever. Repeat cultures obtained. Patient tolerated CPAP trials approximately 6 hours yesterday. 03/27 Tmax 101.3. The WBC count elevated. Cultures revealed gram-positive cocci. Antibiotics initiated, Zosyn and Linezolid. Central line discontinued. Discussion with palliative medicine will continue to consider PEG tube placement and tracheostomy. The family discussed waiting for those interventions at this time. Living will obtained family is considering comfort care measures at this time. 03/28: Patient continues to have low-grade temperatures. Peripheral blood cultures revealed gram positive coagulase negative staph. Zosyn and Linezolid initiated. A line discontinued. Repeat urine and sputum cultures obtained. Discussion with family to return to hospital this weekend regarding possible trial of extubation, without reintubation versus comfort care measures. Family at this time requests no intervention regarding tracheostomy, PEG tube placement , for dialysis at this time. Of note creatinine continues to increase. Prednisone taper completed. Hyperglycemia persists, patient continues on high dose long-acting insulin. Objective Vital Signs Date Time Temp Pulse Resp B/P Pulse Ox O2 Delivery O2 Flow Rate FiO2 03/28/17 12:00 100.2 61 15 125/73 96 123/58 03/28/17 12:00 45 03/25/17 20:04 Ventilator Intake and Output 03/27/17 03/27/17 03/28/17 08:00 16:00 00:00 Intake Total 457 ml 491 ml 1075 ml Output Total 650 ml 850 ml 700 ml Balance -193 ml -359 ml 375 ml Result Diagram: 03/28/17 0557 03/28/17 0557 Other Results Microbiology Date/Time Procedure Status Source Growth 03/26/17 10:28 Gram Stain - Final Complete Sputum Endotracheal 03/26/17 10:28 Sputum Culture - Final Complete Sputum Endotracheal HEAVY GROWTH NORMAL RESPIRATORY SOFIA 03/26/17 10:30 Urine Culture - Final Complete Urine Catheterized Urine NO GROWTH IN 48 HOURS. Imaging Last Impressions Chest X-Ray 03/26/17 0600 Signed Impressions: Service Date/Time: Sunday, March 26, 2017 04:04 - CONCLUSION: Left basilar opacity is present may be due to a combination of consolidation and or pleural effusion and perivascular pulmonary edema. Marianela Cedillo MD Renal Ultrasound 03/19/17 0000 Signed Impressions: Service Date/Time: Sunday, March 19, 2017 08:38 - CONCLUSION: Symmetric renal size. Stable complicated cyst upper pole left kidney. Anselmo Palemr MD Last Impressions Chest X-Ray 03/20/17 0000 Signed Impressions: Service Date/Time: Monday, March 20, 2017 03:41 - CONCLUSION: Small lung volumes with diffuse pulmonary vascular prominence. Tubes and catheters in good position Reese Pacheco MD Renal Ultrasound 03/19/17 0000 Signed Impressions: Service Date/Time: Sunday, March 19, 2017 08:38 - CONCLUSION: Symmetric renal size. Stable complicated cyst upper pole left kidney. Anselmo Palmer MD Last Impressions Chest X-Ray 03/19/17 0000 Signed Impressions: Service Date/Time: Sunday, March 19, 2017 02:00 - CONCLUSION: Tubes and catheters in good position. Stable infiltrate right lower lobe. Reese Pacheco MD Objective Remarks GENERAL: Morbidly obese female on the ventilator support, awake intermittently responding to commands SKIN: Warm and dry. HEAD: Normocephalic. EYES: No scleral icterus. No injection or drainage. NECK: trachea midline. JVD unable to be assessed due to large neck. endotracheally intubated. CARDIOVASCULAR: Regular rate and rhythm . RESPIRATORY: Breath sounds equal bilaterally. Diminished in bases. GASTROINTESTINAL: morbidly obese, soft, non-tender, nondistended. MUSCULOSKELETAL: No cyanosis, 2+ peripheral edema. EXTREMITIES: No clubbing or cyanosis Neuro: RASS -2. GCS 11 T follows commands. Urinary Catheter: Yes Porter insert reason: Measure Accurate Output Vascular Central Line Catheter: No Side: Right Location: Subclavian (medication administration, CVP monitoring) A/P Assessment and Plan Assessment: 56yF with COPD, CHF unknown type, DM and morbid obesity who presents with worsening acute hypoxic and hypercarbic respiratory failure, community acquired pneumonia, pulmonary edema with intravascular volume overload , acute kidney injury on chronic kidney disease. She remains very critically ill. I am not sure long-term we will be able to separate her from mechanical ventilation. Plan by systems: Neurologic: History of Psychiatric Illness Agitation associated with mechanical ventilation - fent for goal RASS -2 and vent synchrony. Propofol discontinued. - continue home Seroquel, Lyrica, Prozac - Transition to by mouth narcotics Respiratory: Acute hypoxic and Hypercarbic Respiratory Failure COPD exacerbation Community Acquired Pneumonia Pulmonary Edema -- On PRVC/AC RR 22, TV 400, IT:1.0, PEEP:10, FIO2 40%. -- Currently CPAP 10/5 FiO2 40% -- permissive hypercapnea and low tidal volume ventilation targeting 6cc/kg IBW. -- wean fio2 for goal spo2 > 88%. -- Duonebs every 6 hours -- vent bundle -- 03/28 Prednisone discontinued --Obtain chest x-ray --ETT day 10 -- consultation for tracheostomy placement , will hold family's considering comfort care measures. Family feels patient would not want a tracheostomy Cardiovascular: History of Congestive Heart Failure, unknown type (prior echo from 2010 with normal EF) Hyperlipidemia Coronary Artery Disease -- continue home statin, ASA -- EF 55-60%, stage 1 diastolic dysfunction -- forced diuresis as below. Discontinued Renal: Acute kidney injury on chronic kidney disease, unknown stage Acute intravascular volume overload -- Strict I/Os -- bumex 2mg iv q8hr discontinued 03/25 -- 03/23 diamox 500mg iv q8h x 3 doses. -- Rec'd metolazone 5mg po x 1. -- continue porter --Nephrology following FEN/GI: Morbid obesity Acute intravascular volume overload -- TF nepro at goal. -- Monitor bmp --Consult for PEG tube placement will hold until as family decision regarding comfort care measures Heme/ID: Community-acquired pneumonia -- 03/19 sputum cultures growing Staph Epi and E.Coli, both sensitive to Rocephin. -- ceftriaxone 2gm iv q24h x 5 days (total 7 day course of ab). --03/27 Zosyn and Linezolid initiated -- Monitor cbc. --03/26 Repeat blood [id number] staph aureus --Follow-up urine and sputum cultures -NGTD --03/28 repeat blood culture 1 from existing arterial line, to rule out possible contamination of peripheral blood culture. Obtain urine and sputum culture Endocrine: Severe hyperglycemia 03/24 d/c insulin drip, start high dose q 4h insulin SSI. Continue Levemir to 100 units SQ BID. --03/28 prednisone discontinued Prophylaxis: GI Prophylaxis- On Protonix 40mg daily DVT prophylaxis- SCD, Heparin SQ Lines: right subclavian line discontinued 03/27, peripheral IVs 2 per vascular access team Shelley Dispo: Discussed with CRA OFFICER at bedside. She remains critically ill with high vent support, volume overload, multiorgan system dysfunction. Plan discussed with family on moving forward regarding tracheostomy and PEG placement, per palliative care team family discussion regarding possible comfort care measures in the near future versus trial of extubation without reintubation. This patient remains critically ill with one or more organ systems which are or may become a threat to life. I have spent in excess of 35 minutes discontinuously in the care and management of this patient. This time is exclusive of procedures, and includes, but is not limited to, evaluation of the patient, review of the medical record, discussions with family, consultants, nursing staff, or respiratory therapy, and documentation in the medical record. Physician Nancy Charles MD Mar 28, 2017 13:19
--- NOTE | 2017-03-28 17:19 | HHI.NPPN ---
Subjective Complaints: Obesity General Problems: Edema Renal Failure: Acute Interval History She is febrile, positive blood cultures. Renal function is worse. She is non oliguric. Family may convert to hospice/comfort measures. (Sheri Oliveira) Review of Systems General General Remarks unable to evaluate due to intubation/sedation (Sheri Oliveira) Objective Data Data 03/27/17 03/28/17 19:00 07:00 Intake Total 491 ml 2028 ml Output Total 850 ml 1400 ml Balance -359 ml 628 ml IV Total 144 ml 996 ml Tube Feeding 287 ml 632 ml Other 60 ml 400 ml Output Urine Total 850 ml 1400 ml # Bowel Movements 1 0 Vital Signs Date Time Temp Pulse Resp B/P Pulse Ox O2 Delivery O2 Flow Rate FiO2 03/28/17 16:37 95 45 03/28/17 16:00 45 03/28/17 16:00 67 03/28/17 16:00 100.3 67 17 117/68 96 Arterial Line 03/28/17 14:00 84 03/28/17 13:14 96 45 03/28/17 12:00 100.2 61 15 125/73 96 123/58 03/28/17 12:00 45 03/28/17 12:00 60 125/73 122/58 03/28/17 12:00 61 03/28/17 10:00 68 03/28/17 08:41 96 45 03/28/17 08:00 45 03/28/17 08:00 70 124/59 126/59 03/28/17 08:00 67 03/28/17 08:00 100.9 67 22 110/59 95 113/56 03/28/17 07:42 95 45 03/28/17 06:00 67 03/28/17 04:06 96 45 03/28/17 04:00 45 03/28/17 04:00 68 03/28/17 04:00 99.8 68 115/62 93 128/63 03/28/17 04:00 68 115/62 128/63 03/28/17 02:00 68 03/28/17 01:06 24 45 03/28/17 00:00 61 03/28/17 00:00 60 110/63 128/67 03/28/17 00:00 99.4 60 110/63 95 128/67 03/28/17 00:00 45 03/27/17 22:00 58 03/27/17 21:17 95 45 03/27/17 20:00 45 03/27/17 20:00 66 140/60 121/63 03/27/17 20:00 99.2 58 22 104/60 95 121/63 03/27/17 20:00 59 03/27/17 19:11 96 45 03/27/17 18:00 61 (Sheri Oliveira) -: 03/28/17 0557 03/28/17 0557 Microbiology 03/28/17 Aerobic Blood Culture, Received Pending 03/28/17 Anaerobic Blood Culture, Received Pending Imaging Last Impressions Chest X-Ray 03/28/17 0600 Signed Impressions: Service Date/Time: March 02:58 - CONCLUSION: No appreciable change. Marianela Cedillo MD Renal Ultrasound 03/19/17 0000 Signed Impressions: Service Date/Time: Sunday, March 19, 2017 08:38 - CONCLUSION: Symmetric renal size. Stable complicated cyst upper pole left kidney. Anselmo Palmer MD Tubes & Lines: Rosa Tubes & Lines Comment A line right radial, TLC right IJ, Drip Comment fentanyl (Sheri Oliveira) Physical Exam General Appearance: No Acute Distress, Comfortable, Sleeping, Obese Appearance Remarks intubated, opens eyes to stimuli (Sheri Oliveira) Throat Throat Exam: Oral Mucosa [place] & Moist (Sheri Oliveira) Pulmonary Resp Exam: Breath Sounds Equal, Crackles, Decreased Bases, Diminished Breath Sounds Resp Remarks vented lung sounds difficult to auscultate due to body habitus (Sheri Oliveira) Cardiology CV Exam: Regular, Normal Sinus Rhythm, Good Perfusion (Sheri Oliveira) Gastrointestinal/Abdomen GI Exam: Soft, Non-Tender, Bowel Sounds Present (Sheri Oliveira) Musculoskeletal MS Exam: Joints Intact, Normal Tone, Unable to Ambulate (Sheri Oliveira) Integumentary Skin Exam: Warm, Dry, Intact (Sheri Oliveira) Extremeties Extremities Exam: Pedal Pulses Palpable, Trace Edema (Sheri Oliveira) Neurologic Neuro Exam: Unresponsive, Sedated (Sheri Oliveira) VTE Prophylaxis Device: SCDs (Sheri Oliveira) Assessment/Plan Assessment Summary: SANAM/Acute Renal Failure, Fluid/Volume Overload, Proteinuria , Hypertension, Diabetes Mellitus, CKD Stage III Problem List: (1) Acute renal failure superimposed on stage 3 chronic kidney disease Plan: It appears her baseline is CKD 3, she has proteinuria may have underlying diabetic nephropathy nonoliguric renal failure; SANAM from sepsis syndrome with decreased renal perfusion renal function is worse, may be due to return of sepsis potassium corrected continue Calcium acetate for hyperphosphatemia the family may decide to extubate and provide comfort measures, they do not wish to begin dialysis (per the patients advanced directives) she is off diuretics, monitor renal function daily continue supportive care avoid IVF monitor drug levels when appropriate follow urine output (2) Sepsis Plan: positive blood cultures from yesterday, now febrile on zosyn and zyvoxx she is on Tobra nebs as sputum with + MRSA and Ecoli not requiring pressors to maintain adequate MAP monitor clinically (3) Pneumonia Plan: see above she is on vent with permissive hypercapnia Fi02 now at 45%, 50%, PEEP of 8 CPAP trials, ween when able family refusing tracheostomy/PEG, may extubate in upcoming days (4) DM (diabetes mellitus) Plan: she is off insulin infusion, on intermittent dosage continue with glucose goal of 140-180 mg/dL (5) HTN (hypertension) Plan: BP stable, continue current medications continue with hold parameters (Sheri Oliveira) Problem List: (1) Acute renal failure superimposed on stage 3 chronic kidney disease Plan: It appears her baseline is CKD 3, she has proteinuria may have underlying diabetic nephropathy nonoliguric renal failure; SANAM from sepsis syndrome with decreased renal perfusion renal function is worse, may be due to return of sepsis potassium corrected continue Calcium acetate for hyperphosphatemia the family may decide to extubate and provide comfort measures, they do not wish to begin dialysis (per the patients advanced directives) she is off diuretics, monitor renal function daily continue supportive care avoid IVF monitor drug levels when appropriate follow urine output (2) Sepsis Plan: positive blood cultures from yesterday, now febrile on zosyn and zyvoxx she is on Tobra nebs as sputum with + MRSA and Ecoli not requiring pressors to maintain adequate MAP monitor clinically (3) Pneumonia Plan: see above she is on vent with permissive hypercapnia Fi02 now at 45%, 50%, PEEP of 8 CPAP trials, ween when able family refusing tracheostomy/PEG, may extubate in upcoming days (4) DM (diabetes mellitus) Plan: she is off insulin infusion, on intermittent dosage continue with glucose goal of 140-180 mg/dL (5) HTN (hypertension) Plan: BP stable, continue current medications continue with hold parameters Plan patient was seen and examined. Her creatinine is worse. Non oliguric. Monitor. Patient did not want dialysis. Prognosis is guarded. Antibiotics noted. ( Jose Olmedo MD) Problem Qualifiers (1) Pneumonia: Qualified Code: J18.1 - Pneumonia of right lower lobe due to infectious organism (2) HTN (hypertension): Qualified Code: I10 - Essential hypertension Sheri OliveiraP Mar 28, 2017 17:19 Jose Olmedo MD Mar 29, 2017 14:31
[2017-03-28] MEDS: DOXEPIN HCL 50 MG CAP PO SCH (20:01)
[2017-03-28] MEDS: ATORVASTATIN 20 MG TAB PO SCH (20:01)
[2017-03-28] MEDS: ASPIRIN EC 81 MG TABEC PO SCH (20:02)
[2017-03-28] MEDS: CARBOXYMETHYLCELL SOD 0.5% OPTH SOLN 15 ML BTL EACH EYE SCH (20:11)
[2017-03-28] MEDS: fentaNYL DRIP 250 ML IV SCH (23:53)
[2017-03-29] VITALS (20 sets, daily range): BP systolic 114–139; BP diastolic 60–74; PULSE 60–96; RESP 20–23; TEMP 99.1–101.9; O2SAT 91–100
[2017-03-29] MEDS: RESP: ALBUTEROL 2.5 MG/IPRATROPIUM 0.5 MG NEB (SCH) INH ×2 (02:24→07:36)
[2017-03-29] MEDS: CHLORHEXIDINE GLUCONATE 2 % 1 PACK (2 CLOTHS) TOP SCH (04:00)
[2017-03-29] MEDS: INSULIN NovoLIN REGULAR SUPPLEMENTAL SCALE SQ SCH ×4 (04:00→15:19)
[2017-03-29] MEDS: PIPERACIL-TAZO 3.375 GM PREMIX 50 ML IV SCH ×2 (04:35→10:57)
[2017-03-29] MEDS: LINEZOLID 600 MG PREMIX 300 ML IV SCH ×2 (04:35→17:47)
[2017-03-29] MEDS: HEPARIN SODIUM - SQ 10,000 UNITS/ML VIAL SQ SCH ×3 (04:36→19:17)
--- NOTE | 2017-03-29 05:42 | RADRPT ---
EXAM DATE/TIME: 03/29/2017 04:12 [facility] COMPARISON: CHEST SINGLE AP, March 28, 2017, 2:58. INDICATIONS : Evaluate for respiratory failure. MEDICAL HISTORY : Congestive heart failure. Chronic obstructive pulmonary disease. SURGICAL HISTORY : None. ENCOUNTER: Subsequent ACUITY: 2 weeks PAIN SCORE: Non-responsive. LOCATION: chest FINDINGS: The cardiac silhouette is enlarged in transverse diameter. There is left lower lobe atelectasis versu s pneumonia. The right lung is free of acute parenchymal opacity. CONCLUSION: 1. Left lower lobe atelectasis versus pneumonia. There has been no significant change when compared t o the prior exam. Mohamud Valverde MD on March 29, 2017 at 5:41 Board Certified Radiologist. This report was verified electronically.
[2017-03-29 06:58] LABS: AUTOMATED NEUTROPHIL # 13.7 TH/MM3 (1.8-7.7); BASOPHIL # 0.1 TH/MM3 (0-0.2); BASOPHIL % 0.7 % (0.0-2.0); EOSINOPHIL # 0.2 TH/MM3 (0-0.4); EOSINOPHIL % 1.2 % (0.0-4.0); HEMATOCRIT 33.1 % (35.0-46.0); HEMO FLAGS DIFF FINAL; LYMPH % 6.8 % (9.0-44.0); LYMPHOCYTE # 1.1 TH/MM3 (1.0-4.8); MEAN CELL VOLUME 86.1 FL (80.0-100.0); MEAN CORPUSCULAR HGB CONC 32.5 % (32.0-36.0); MONO % 5.2 % (0.0-8.0); NEUT % 86.1 % (16.0-70.0); PLATELET COUNT 273 TH/MM3 (150-450); RED BLOOD COUNT 3.85 MIL/MM3 (4.00-5.30); RED CELL DISTRIBUTION WIDTH 14.3 % (11.6-17.2); WHITE BLOOD COUNT 15.9 TH/MM3 (4.0-11.0)
[2017-03-29 07:29] LABS: BICARBONATE 39.5 MEQ/L (21.0-32.0); POTASSIUM 3.2 MEQ/L (3.5-5.1)
[2017-03-29] MEDS: CALCIUM ACETATE 667 MG CAP PO SCH (07:57)
[2017-03-29] MEDS: FLUoxetine HCL 20 MG CAP PO SCH (07:58)
[2017-03-29] MEDS: cloNIDine HCL 0.1 MG TAB PO SCH ×3 (07:58→17:47)
[2017-03-29] MEDS: DOCUSATE SODIUM 50 MG/SENNA 8.6 MG TAB PO SCH ×2 (07:58→19:16)
[2017-03-29] MEDS: PREGABALIN 75 MG CAP PO SCH (07:58)
[2017-03-29] MEDS: SODIUM CHLORIDE 0.9% FLUSH 10 ML FLUSH SCH ×2 (07:59→19:17)
[2017-03-29] MEDS: PANTOPRAZOLE SODIUM 40 MG VIAL IV PUSH SCH (07:59)
[2017-03-29] MEDS: LACTOBACILLUS ACIDOPHILUS TAB PO SCH ×2 (08:03→19:27)
[2017-03-29] MEDS: QUEtiapine FUMARATE 300 MG TAB PO SCH ×3 (08:03→19:16)
[2017-03-29] MEDS: INSULIN DETEMIR 100 UNITS/ML VIAL SQ SCH ×2 (08:06→19:27)
[2017-03-29] MEDS: ARTIFICIAL TEARS OPTH SOLN 15 ML BTL EACH EYE SCH ×3 (08:15→17:47)
[2017-03-29] MEDS: TRIAMCINOLONE ACETONIDE 55 MCG/ACT NASAL SPRAY 16.5 GM BTL EACH NARE SCH (08:15)
[2017-03-29] MEDS: BRIMONIDINE TARTRATE 0.2% OPHT SOLN 5 ML BTL EACH EYE SCH ×3 (08:15→17:47)
[2017-03-29] MEDS: TOBRAMYCIN SULF 0.3% OPHT SOLN 5 ML BTL EACH EYE SCH ×4 (08:15→19:18)
[2017-03-29] MEDS: ACETAMINOPHEN 325 MG TAB PO PRN ×3 (08:20→19:27)
--- NOTE | 2017-03-29 11:52 | HHI.HCPN ---
Reason for visit a. To assist with evaluation and management of symptoms including: Shortness of breath, pain and debility. b. To assist medical decision maker(s) with: better understanding of current medical conditions; weighing benefits/burdens of medical treatment options; making medical treatment decisions. . Subjective/Interval History Mrs. Harding is a 56 y/o female with a medical history significant for PTSD, COPD, CHF and diabetes who presented to the ED on 03/18/17. Upon arrival, patient was placed on BiPAP secondary to hypoxemia. She reported having a DNR, however after further discussion with medical team, patient rescinded her DNR and agreed to intubation and mechanical ventilation. Patient was subsequently orally intubated, placed on mechanical ventilation and transferred to ICU for further management of acute hypoxemic respiratory failure, COPD exacerbation and sepsis with community-acquired pneumonia. Her clinical condition continued to worsen as evidenced by acute on chronic kidney failure, respiratory failure increased oxygen requirement, and sepsis. Patient seen in ICU, orally intubated on mechanical ventilation. Decompensated overnight, requiring FiO2 the 100%. Decreased this morning to 70%, currently at 50% with oxygen saturation in the mid 90s. Has continued spiking fevers, most recent at 8 AM this morning 101.9. Stable hemodynamically. WBC continue trending up, today 15.9 from 12.0 yesterday. Hemoglobin 10.8, platelet count 273. Sodium 143, potassium 3.2. Worsening renal function, BUN/creatinine 86/ 3.36. Chest x-ray today revealing left lower lobe atelectasis versus pneumonia which is not a significant change compared to prior exams. Discussed with bedside VELMA Mcgee and Dr. Linares. Exhibits signed and placed in chart. . Family/friend interactions Discuss case with family. 3 separate telephone conversations with patient's sister Eugenio and brothers Onofre and Betty. Medical update provided. All 3 siblings electing to continue conservative medical management short of NO code, NO trach, NO peg and NO hemodialysis given patient's worsening clinical condition, multiple chronic comorbidities, profound physical deconditioning and known wishes as expressed in her living will. Family understands that patient may not medically extubate secondary to worsening clinical condition. If clinical condition continues to worsen or does not improve, family to transition patient to comfort directed care. . Advance Directives Living Will: Completed, but not made available Health Care Surrogate: Never completed Durable Power of Electric Blanket Packer: Completed, but not made available Advance Directive Specifics Date completed: 02/18/12. Health Care Surrogate(s): No designation of healthcare surrogate. Patient is single, no children. Both of her parents are . As per [place] law, healthcare proxy decision making falls to the majority of patient's 3 siblings. Documented care wishes: [facility] reporting completion of advance directives completed on 02/18/12. Pending original copy with patient's signature. In her living will, patient declining life-sustaining treatments in the setting of a permanent condition that makes her completely dependent on others for her daily needs, confined to a bed and in need of a breathing machine for the rest of her life or a condition that will cause her to soon. Significant change in goals: No code. DNR/DNI. Siblings electing to continue conservative medical management with hopes of medical extubation. If patient's clinical condition continues to worsen or does not improve, family to transition patient to comfort - directed care. . Objective Vital Signs Date Time Temp Pulse Resp B/P Pulse Ox O2 Delivery O2 Flow Rate FiO2 03/29/17 11:27 91 50 03/29/17 10:00 74 03/29/17 08:00 101.9 81 23 122/65 91 03/29/17 08:00 79 03/29/17 08:00 50 03/29/17 07:39 94 50 03/29/17 07:39 93 Ventilator 70 03/29/17 06:00 81 03/29/17 04:55 94 70 03/29/17 04:11 94 40 03/29/17 04:00 93 03/29/17 04:00 55 03/29/17 04:00 99.3 96 117/60 97 03/29/17 02:00 61 03/29/17 01:18 95 40 03/29/17 00:00 45 03/29/17 00:00 60 03/29/17 00:00 99.1 60 119/70 95 03/28/17 22:05 96 40 03/28/17 22:00 58 03/28/17 20:00 45 03/28/17 20:00 60 03/28/17 20:00 99.3 60 110/89 95 03/28/17 19:53 96 40 03/28/17 18:00 59 03/28/17 16:37 95 45 03/28/17 16:00 45 03/28/17 16:00 67 03/28/17 16:00 100.3 67 17 117/68 96 Arterial Line 03/28/17 14:00 84 03/28/17 13:14 96 45 03/28/17 12:00 100.2 61 15 125/73 96 123/58 03/28/17 12:00 45 03/28/17 12:00 60 125/73 122/58 03/28/17 12:00 61 Intake & Output 03/29/17 03/29/17 07:00 19:00 Intake Total 1612 ml Output Total 1300 ml Balance 312 ml IV Total 868 ml Tube Feeding 544 ml Other 200 ml Output Urine Total 1300 ml # Bowel Movements 0 Physical Exam CONSTITUTIONAL/GENERAL: This is an morbidly obese female laying in bed in no acute distress. Orally intubated on mechanical ventilation. Sedated. TUBES/LINES/DRAINS: ETT, OG, PIV's to right arm, Rosa catheter, SCDs, bilateral soft restraints. SKIN: No jaundice, rashes, or lesions. Ecchymoses on upper extremities. No wounds seen anteriorly. Skin temperature appropriate. Not diaphoretic. HEAD: Atraumatic. Normocephalic. EYES: No scleral icterus. No injection or drainage. ENT: Nose without bleeding or purulent drainage. Moist oral mucosa. NECK: Trachea midline. Supple. CARDIOVASCULAR: Regular rate and rhythm without murmurs. Peripheral pulses symmetric. RESPIRATORY/CHEST: Symmetric, unlabored respirations. Clear, diminished to auscultation. Intubated on mechanical ventilation. GASTROINTESTINAL: Abdomen obese, large, non-tender. Unable to appreciate hepato -splenomegaly or masses secondary to body habitus. Bowel sounds present. GENITOURINARY: Without palpable bladder distension. Rosa catheter in place. MUSCULOSKELETAL: Extremities without clubbing, cyanosis. Edema to bilateral lower extremities. NEUROLOGICAL: Sedated. PSYCHIATRIC: Unable to assess, sedated. . Diagnostic Tests Laboratory Laboratory Tests Test 03/27/17 03/28/17 03/28/17 03/29/17 03:50 05:57 12:55 06:14 White Blood Count 11.1 TH/MM3 12.0 TH/MM3 15.9 TH/MM3 (4.0-11.0) (4.0-11.0) (4.0-11.0) Red Blood Count 3.77 MIL/MM3 4.02 MIL/MM3 3.85 MIL/MM3 (4.00-5.30) (4.00-5.30) (4.00-5.30) Hemoglobin 10.5 GM/DL 11.1 GM/DL 10.8 GM/DL (11.6-15.3) (11.6-15.3) (11.6-15.3) Hematocrit 32.9 % 34.9 % 33.1 % (35.0-46.0) (35.0-46.0) (35.0-46.0) Mean Corpuscular Volume 87.3 FL 86.7 FL 86.1 FL (80.0-100.0) (80.0-100.0) (80.0-100.0) Mean Corpuscular Hemoglobin 27.8 PG 27.6 PG 28.0 PG (27.0-34.0) (27.0-34.0) (27.0-34.0) Mean Corpuscular Hemoglobin 31.9 % 31.8 % 32.5 % Concent (32.0-36.0) (32.0-36.0) (32.0-36.0) Red Cell Distribution Width 14.1 % 14.1 % 14.3 % (11.6-17.2) (11.6-17.2) (11.6-17.2) Platelet Count 281 TH/MM3 279 TH/MM3 273 TH/MM3 (150-450) (150-450) (150-450) Mean Platelet Volume 9.7 FL 10.2 FL 10.6 FL (7.0-11.0) (7.0-11.0) (7.0-11.0) Sodium Level 139 MEQ/L 140 MEQ/L 143 MEQ/L (136-145) (136-145) (136-145) Potassium Level 3.5 MEQ/L 3.5 MEQ/L 3.2 MEQ/L (3.5-5.1) (3.5-5.1) (3.5-5.1) Chloride Level 91 MEQ/L 93 MEQ/L 97 MEQ/L (98-107) (98-107) (98-107) Carbon Dioxide Level 37.9 MEQ/L 37.9 MEQ/L 39.5 MEQ/L (21.0-32.0) (21.0-32.0) (21.0-32.0) Anion Gap 10 MEQ/L (5-15) 9 MEQ/L (5-15) 7 MEQ/L (5-15) Blood Urea Nitrogen 82 MG/DL (7-18) 88 MG/DL (7-18) 86 MG/DL (7-18) Creatinine 2.95 MG/DL 3.20 MG/DL 3.36 MG/DL (0.50-1.00) (0.50-1.00) (0.50-1.00) Estimat Glomerular Filtration 16 ML/MIN (>89) 15 ML/MIN (>89) 14 ML/MIN (>89) Rate Random Glucose 244 MG/DL 267 MG/DL 257 MG/DL (74-106) (74-106) (74-106) Calcium Level 9.6 MG/DL 9.4 MG/DL 10.3 MG/DL (8.5-10.1) (8.5-10.1) (8.5-10.1) Phosphorus Level 5.8 MG/DL 3.8 MG/DL (2.5-4.9) (2.5-4.9) Magnesium Level 3.3 MG/DL 3.0 MG/DL (1.5-2.5) (1.5-2.5) Blood Gas Puncture Site ART LINE Blood Gas Patient Temperature 98.6 Blood Gas HCO3 36 mmol/L (22-26) Blood Gas Base Excess 10.6 mmol/L (-2-2) Blood Gas Oxygen Saturation 90 % (90-100) Arterial Blood pH 7.39 (7.380-7.420) Arterial Blood Partial 61 mmHg (38-42) Pressure CO2 Arterial Blood Partial 75 mmHg Pressure O2 (61-120) Arterial Blood Oxygen Content 14.3 Vol % (12.0-20.0) Arterial Blood 1.4 % (0-4) Carboxyhemoglobin Arterial Blood Methemoglobin 1.8 % (0-2) Blood Gas Hemoglobin 11.2 G/DL (12.0-16.0) Oxygen Delivery Device VENTILATOR Blood Gas Ventilator Setting CPAP+8/PS10 Blood Gas Inspired Oxygen 45 % Neutrophils (%) (Auto) 86.1 % (16.0-70.0) Lymphocytes (%) (Auto) 6.8 % (9.0-44.0) Monocytes (%) (Auto) 5.2 % (0.0-8.0) Eosinophils (%) (Auto) 1.2 % (0.0-4.0) Basophils (%) (Auto) 0.7 % (0.0-2.0) Neutrophils # (Auto) 13.7 TH/MM3 (1.8-7.7) Lymphocytes # (Auto) 1.1 TH/MM3 (1.0-4.8) Monocytes # (Auto) 0.8 TH/MM3 (0-0.9) Eosinophils # (Auto) 0.2 TH/MM3 (0-0.4) Basophils # (Auto) 0.1 TH/MM3 (0-0.2) CBC Comment DIFF FINAL Differential Comment Result Diagram: 03/29/1761303/29/1714 Microbiology Microbiology Date/Time Procedure Status Source Growth 03/26/17 12:34 Aerobic Blood Culture - Final Resulted Blood Peripheral Staph Sp Coagulase Negative 03/26/17 12:34 Anaerobic Blood Culture - Preliminary Resulted Gram Positive Cocci 03/26/17 12:34 Aerobic Blood Culture - Final Resulted Blood Peripheral Staph Sp Coagulase Negative 03/26/17 12:34 Anaerobic Blood Culture - Preliminary Resulted Blood Peripheral NO GROWTH IN 3 DAYS 03/28/17 13:15 Aerobic Blood Culture - Preliminary Resulted Blood Arterial Line NO GROWTH IN 1 DAY 03/28/17 13:15 Anaerobic Blood Culture - Preliminary Resulted Blood Arterial Line NO GROWTH IN 1 DAY 03/28/17 14:40 Gram Stain - Final Resulted Sputum Endotracheal 03/28/17 14:40 Sputum Culture - Preliminary Resulted Sputum Endotracheal IMMATURE GROWTH - REINCUBATE 03/28/17 14:40 Urine Culture Received Urine Catheterized Urine Pending Imaging Last 48 hours Impressions Chest X-Ray 03/29/17 0600 Signed Impressions: Service Date/Time: Wednesday, March 29, 2017 04:12 - CONCLUSION: 1. Left lower lobe atelectasis versus pneumonia. There has been no significant change when compared to the prior exam. Mohamud Valverde MD Chest X-Ray 03/28/17 0600 Signed Impressions: Service Date/Time: March 02:58 - CONCLUSION: No appreciable change. Marianela Cedillo MD Procedures * 03/19/17 -central line placement * 03/18/17 -intubation and mechanical ventilation . Assessment and Plan Disease Oriented Problem List: (1) Acute hypoxemic respiratory failure (2) Sepsis (3) Acute renal failure superimposed on stage 3 chronic kidney disease (4) DM (diabetes mellitus) (5) COPD exacerbation Symptom Scale: (1) Pain 0-10 Scale: Unable to quantify Comment: Secondary to endotracheal intubation, mechanical ventilation, acute illness, bedbound state. (2) Shortness of breath 0-10 Scale: Unable to quantify Comment: Secondary to pneumonia, COPD exacerbation, acute respiratory failure. (3) Debility 0-10 Scale: Unable to quantify Comment: Progressive decline, patient disabled for the past 10 years. Wheelchair bound. Pertinent Non-Medical Issues Psychosocial: Never . No children. Both parents are , she has 3 siblings. Spiritual: No episcopalian affiliations. Legal: Living will reported as completed by [facility], pending copy. Ethical issues impacting care: Living will reported as completed by [facility], pending copy. . Important Contacts Brother Onofre Harding [place], [place] Sister Eugenio Gorman [facility] Brother Betty Harding [place], [place] Friend Lauryn Lombardo . Prognosis Mrs. Harding is a 56 y/o female with a medical history significant for PTSD, COPD, CHF and diabetes who presented to the ED on 03/18/17. Patient diagnosed with sepsis secondary to pneumonia, COPD exacerbation and acute respiratory failure. Patient originally DNR/DNI, it was rescinded by patient in favor of intubation and mechanical ventilation during worsening respiratory status. Patient clinical condition continued to worsen with acute respiratory failure, unable to wean off ventilator support -likely requiring tracheostomy and PEG tube placement and worsening renal function likely requiring renal replacement therapy. Patient's overall prognosis is poor given her multitude her chronic issues, poor functional status at baseline, acute illness and ongoing complications. Patient at high risk for further complications, continue decline and . . Code Status: No Code Plan * CODE STATUS: No code. DNR/DNI -do not reintubate if extubated. All 3 siblings electing NO code. * HEALTHCARE DECISION-MAKING: Patient unable to participate in decision-making secondary to clinical status. Advance directives are reported as completed by [facility], patient declined assigning a healthcare surrogate. Patient is single, no children. Both parents are . As per [place] law, healthcare proxy decision making falls to the majority of patient's 3 siblings; Onofre, Eugenio and Betty. * GOALS OF CARE: 03/29/17 - Family electing to continue conservative medical management short of NO code, NO trach, NO peg and NO hemodialysis with hopes of medical extubation; however, if clinical condition continues to worsen or does not improve, family likely to transition patient to comfort-directed care over the weekend or early next week. 03/29/17-Discuss case with family. 3 separate telephone conversations with patient's sister Eugenio and brothers Onofre and Betty. Medical update provided. All 3 siblings electing to continue conservative medical management short of NO code, NO trach, NO peg and NO hemodialysis given patient's worsening clinical condition, multiple chronic comorbidities, profound physical deconditioning and known wishes as expressed in her living will. Family understands that patient may not medically extubate secondary to worsening clinical condition. If clinical condition continues to worsen or does not improve, family to transition patient to comfort directed care. * SYMPTOMS: = Pain, multifactorial. Likely secondary to endotracheal intubation , mechanical ventilation, acute illness, bedbound state. Currently on fentanyl drip. = Shortness of breath, secondary to pneumonia, COPD exacerbation, respiratory failure. Remains intubated on mechanical ventilation. = Debility, poor functional status at baseline. Patient disabled, wheelchair bound. * Case has been discussed with bedside RN Dr. Vijay Mcgee and Dr. Moss. * Exhibits signed and placed in chart. * Palliative care contact information has been provided to patient's siblings. * Ongoing emotional support and active listening provided. * Palliative care will continue to follow-up for further clarifications of goals of care as patient's clinical course continues to evolve. . Time Spent Total Floor Time (mins): 49 (Total time to include review medical records, physical exam, case discussion with bedside RNDr. Kumar and Dr. Moss. 3 separate telephone calls to patient's siblings.) >50% Counseling/Coord of Care: Yes Attestation To help prompt me to consider important information that might be impacting today's encounter and assessment, information from prior notes written by myself or my colleagues may have been "brought forward" into today's note. My signature on this note, however, is an attestation that I personally performed the exam, history, and/or decision-making noted today, and, unless otherwise indicated, the interactions with patient, family, and staff as well as the review of records all occurred today. I also attest that the listed assessment and stated plan reflect my best clinical judgment today based on the combination of historical information, prior notes, and today's exam/ interactions. When time spent is documented, it refers only to time spent today by the signer, or if indicated, combined time spent today by collaborating physician/nurse practitioner. . Ne Jarrett Mar 29, 2017 11:52
--- NOTE | 2017-03-29 12:51 | HHI.NPPN ---
Subjective Complaints: Obesity General Problems: Edema Renal Failure: Acute Interval History Creatinine is worse. She remains intubated, sedated. Febrile. (Sheri Oliveira) Review of Systems General General Remarks unable to evaluate due to intubation/sedation (Sheri Oliveira) Objective Data Data 03/28/17 03/29/17 19:00 07:00 Intake Total 652 ml 1612 ml Output Total 550 ml 1300 ml Balance 102 ml 312 ml IV Total 130 ml 868 ml Tube Feeding 322 ml 544 ml Other 200 ml 200 ml Output Urine Total 550 ml 1300 ml # Bowel Movements 0 0 Vital Signs Date Time Temp Pulse Resp B/P Pulse Ox O2 Delivery O2 Flow Rate FiO2 03/29/17 11:27 91 50 03/29/17 10:00 74 03/29/17 08:00 101.9 81 23 122/65 91 03/29/17 08:00 79 03/29/17 08:00 50 03/29/17 07:39 94 50 03/29/17 07:39 93 Ventilator 70 03/29/17 06:00 81 03/29/17 04:55 94 70 03/29/17 04:11 94 40 03/29/17 04:00 93 03/29/17 04:00 55 03/29/17 04:00 99.3 96 117/60 97 03/29/17 02:00 61 03/29/17 01:18 95 40 03/29/17 00:00 45 03/29/17 00:00 60 03/29/17 00:00 99.1 60 119/70 95 03/28/17 22:05 96 40 03/28/17 22:00 58 03/28/17 20:00 45 03/28/17 20:00 60 03/28/17 20:00 99.3 60 110/89 95 03/28/17 19:53 96 40 03/28/17 18:00 59 03/28/17 16:37 95 45 03/28/17 16:00 45 03/28/17 16:00 67 03/28/17 16:00 100.3 67 17 117/68 96 Arterial Line 03/28/17 14:00 84 03/28/17 13:14 96 45 (Sheri Oliveira) -: 03/29/17 0614 03/29/17 0614 Microbiology 03/28/17 Aerobic Blood Culture - Preliminary, Resulted NO GROWTH IN 1 DAY 03/28/17 Anaerobic Blood Culture - Preliminary, Resulted NO GROWTH IN 1 DAY 03/28/17 Gram Stain - Final, Resulted 03/28/17 Sputum Culture - Preliminary, Resulted IMMATURE GROWTH - REINCUBATE 03/28/17 Urine Culture, Received Pending Imaging Last 72 hours Impressions Chest X-Ray 03/29/17 0600 Signed Impressions: Service Date/Time: Wednesday, March 29, 2017 04:12 - CONCLUSION: 1. Left lower lobe atelectasis versus pneumonia. There has been no significant change when compared to the prior exam. Mohamud Valverde MD Chest X-Ray 03/28/17 0600 Signed Impressions: Service Date/Time: March 02:58 - CONCLUSION: No appreciable change. Marianela Cedillo MD Tubes & Lines: Rosa Tubes & Lines Comment A line right radial, TLC right IJ, Drip Comment fentanyl (Sheri Oliveira) Physical Exam General Appearance: Well Developed, No Acute Distress, Comfortable, Sleeping, Obese Appearance Remarks intubated, opens eyes to stimuli (Sheri Oliveira) Throat Throat Exam: Oral Mucosa [place] & Moist (Sheri Oliveira) Pulmonary Resp Exam: Breath Sounds Equal, Crackles, Decreased Bases, Diminished Breath Sounds Resp Remarks vented lung sounds difficult to auscultate due to body habitus (Sheri Oliveira) Cardiology CV Exam: Regular, Normal Sinus Rhythm, Good Perfusion (Sheri Oliveira) Gastrointestinal/Abdomen GI Exam: Soft, Non-Tender, Bowel Sounds Present (Sheri Oliveira) Musculoskeletal MS Exam: Joints Intact, Normal Tone, Unable to Ambulate (Sheri Oliveira) Integumentary Skin Exam: Warm, Dry, Intact (Sheri Oliveira) Extremeties Extremities Exam: Pedal Pulses Palpable, Trace Edema (Sheri Oliveira) Neurologic Neuro Exam: Unresponsive, Sedated (Sheri Oliveira) VTE Prophylaxis Device: SCDs (Sheri Oliveira) Assessment/Plan Assessment Summary: SANAM/Acute Renal Failure, Fluid/Volume Overload, Proteinuria , Hypertension, Diabetes Mellitus, CKD Stage III Problem List: (1) Acute renal failure superimposed on stage 3 chronic kidney disease Plan: It appears her baseline is CKD 3, she has proteinuria may have underlying diabetic nephropathy nonoliguric renal failure; SANAM from sepsis syndrome with decreased renal perfusion renal function is worse, may be due to return of sepsis replace potassium she is off diuretics and not retaining fluid, good urine output stop Calcium acetate due to hypercalcemia the family likely will decide to extubate and provide comfort measures over the weekend, they do not wish to begin dialysis (per the patients advanced directives) in the meantime, continue supportive care avoid IVF monitor drug levels when appropriate follow urine output with renal panel (2) Sepsis Plan: positive blood cultures, she is febrile with leukocytosis on zosyn and zyvoxx she is on Tobra nebs as sputum with + MRSA and Ecoli not requiring pressors to maintain adequate MAP monitor clinically (3) Pneumonia Plan: see above she is on vent with permissive hypercapnia Fi02 now at 50%, PEEP of 8 family refusing tracheostomy/PEG, may extubate in upcoming days (4) DM (diabetes mellitus) Plan: she is off insulin infusion, on intermittent dosage continue with glucose goal of 140-180 mg/dL (5) HTN (hypertension) Plan: BP stable, continue current medications continue with hold parameters (Sheri Oliveira) Plan patient was seen and examined. Renal function has declined. Family does not want dialysis. Extubation is planned. (Jose Olmedo MD) Problem Qualifiers (1) Pneumonia: Qualified Code: J18.1 - Pneumonia of right lower lobe due to infectious organism (2) HTN (hypertension): Qualified Code: I10 - Essential hypertension Sheri Oliveira Mar 29, 2017 12:51 Jose Olmedo MD Mar 29, 2017 14:44
[2017-03-29] MEDS ORDERED: POTASSIUM CHLORIDE 20 MEQ PWD PACKET NG ONE (13:00)
[2017-03-29] MEDS ORDERED: MISC INFORMATION OTHER ONE (15:30)
[2017-03-29] MEDS ORDERED: Vancomycin Consult Pharmacy 1 EA OTHER SCH ×2 (15:30→15:45)
[2017-03-29] MEDS ORDERED: FLUCONAZOLE 200 MG PREMIX BAG 100 ML IV SCH (15:30)
[2017-03-29] MEDS ORDERED: DEXTROSE 50% IN WATER 50 ML VIAL(D50) IV PUSH PRN (15:30)
[2017-03-29] MEDS ORDERED: LACTULOSE SYRUP 20 GM/30 ML CUP PO PRN (15:45)
--- NOTE | 2017-03-29 15:47 | HHI.CCPN ---
Subjective Remarks/Hospital Course 56-year-old morbidly obese female with history of posttraumatic stress disorder , borderline personality disorder, depression, anxiety, chronic obstructive pulmonary disease, congestive heart failure, Diabetes, neuropathy, gastroesophageal reflux disease, hypertension, dyslipidemia, migraines, hypothyroidism, [facility] with O2 sat in the 70s. The patient was transported via [facility], placed on NRB, O2 sat improved however patient's breathing very labored with tachypnea therefore put on Bipap in the ER. In the ER after several minutes of being on Bipap, she still complaining feeling very fatigued and short of breath. She informs medical team she now wants to revoke her DNR and agrees to intubation if recommended (family member also at bedside agrees to this). Her oxygenation remained borderline, her breathing still remains labored and she was intubated by ER attending. 03/19 Patient is intubated sedated with versed. Afebrile. Given 4L NS boluses overnight. 03/20: remains intubated, sedated, significantly hypoxic. in acute kidney injury and severe volume overload. received bumex x 1 this morning. Also remains hyperglycemic. critically ill, not improving. high fio2 requirements. 03/21: oxygenation slightly improved, but continues with significant volume overload. SANAM stable. hyperglycemia slightly better, but remains on very high doses of insulin drip along with high dose long-acting insulin. vent requirements still very high and unable to even start SBT given hypoxia. 03/22: oxygenation continues to improve, but patient remains significantly volume overloaded in persistent pulmonary edema. fio2 is decreased, but peep remains high. also, despite increases in long-acting insulin, insulin drip remains at 7 units/hr. 03/23: slow improvements in oxygenation. net negative 3.2L/24h. still required 100 units iv insulin by infusion despite high long-acting insulin. 03/24: net -1L/24h. insulin drip slightly improved, though still used 150 units/ 24h. failed SBT after 10 minutes. 03/25 : Creatinine worsening. Diuretics discontinued. CPAP trials initiated this morning. The patient remains hyperglycemic will requirements for when necessary medications, steroid taper continue. 03/26: Renal functioning worsening. Patient was noted to have a low-grade fever. Repeat cultures obtained. Patient tolerated CPAP trials approximately 6 hours yesterday. 03/27 Tmax 101.3. The WBC count elevated. Cultures revealed gram-positive cocci. Antibiotics initiated, Zosyn and Linezolid. Central line discontinued. Discussion with palliative medicine will continue to consider PEG tube placement and tracheostomy. The family discussed waiting for those interventions at this time. Living will obtained family is considering comfort care measures at this time. 03/28: Patient continues to have low-grade temperatures. Peripheral blood cultures revealed gram positive coagulase negative staph. Zosyn and Linezolid initiated. A line discontinued. Repeat urine and sputum cultures obtained. Discussion with family to return to hospital this weekend regarding possible trial of extubation, without reintubation versus comfort care measures. Family at this time requests no intervention regarding tracheostomy, PEG tube placement , for dialysis at this time. Of note creatinine continues to increase. Prednisone taper completed. Hyperglycemia persists, patient continues on high dose long-acting insulin. 03/29: Tmax 101.3. The patient continues to have persistent leukocytosis. Peripheral blood cultures showed coagulase negative, repeat pending. Patient was placed on the nasal lid yesterday however the patient has persistent leukocytosis with elevation of WBCs, and elevation of fever. Antibiotics changed to nasal lid discontinued, vancomycin initiated along with Diflucan for possible yeast coverage. ID has been consulted appreciate recommendations. During the night the patient had increasing O2 requirements, unable to perform CPAP trials today. Objective Vital Signs Date Time Temp Pulse Resp B/P Pulse Ox O2 Delivery O2 Flow Rate FiO2 03/29/17 14:00 73 03/29/17 12:00 100.3 22 120/66 93 03/29/17 12:00 50 03/29/17 07:39 Ventilator Intake and Output 03/28/17 03/28/17 03/29/17 08:00 16:00 00:00 Intake Total 953 ml 652 ml 906 ml Output Total 700 ml 550 ml 650 ml Balance 253 ml 102 ml 256 ml Result Diagram: 03/29/17 0614 03/29/17 0614 Imaging Last Impressions Chest X-Ray 03/26/17 0600 Signed Impressions: Service Date/Time: Sunday, March 26, 2017 04:04 - CONCLUSION: Left basilar opacity is present may be due to a combination of consolidation and or pleural effusion and perivascular pulmonary edema. Marianela Cedillo MD Renal Ultrasound 03/19/17 0000 Signed Impressions: Service Date/Time: Sunday, March 19, 2017 08:38 - CONCLUSION: Symmetric renal size. Stable complicated cyst upper pole left kidney. Anselmo Palmer MD Last Impressions Chest X-Ray 03/20/17 0000 Signed Impressions: Service Date/Time: Monday, March 20, 2017 03:41 - CONCLUSION: Small lung volumes with diffuse pulmonary vascular prominence. Tubes and catheters in good position Reese Pacheco MD Renal Ultrasound 03/19/17 0000 Signed Impressions: Service Date/Time: Sunday, March 19, 2017 08:38 - CONCLUSION: Symmetric renal size. Stable complicated cyst upper pole left kidney. Anselmo Palmer MD Last Impressions Chest X-Ray 03/19/17 0000 Signed Impressions: Service Date/Time: Sunday, March 19, 2017 02:00 - CONCLUSION: Tubes and catheters in good position. Stable infiltrate right lower lobe. Reese Pacheco MD Objective Remarks GENERAL: Morbidly obese female on the ventilator support, awake intermittently responding to commands SKIN: Warm and dry. HEAD: Normocephalic. EYES: No scleral icterus. No injection or drainage. NECK: trachea midline. JVD unable to be assessed due to large neck. endotracheally intubated. CARDIOVASCULAR: Regular rate and rhythm . RESPIRATORY: Breath sounds equal bilaterally. Diminished in bases. GASTROINTESTINAL: morbidly obese, soft, non-tender, nondistended, patient denies pain upon palpation. MUSCULOSKELETAL: No cyanosis, 2+ peripheral edema. EXTREMITIES: No clubbing or cyanosis Neuro: RASS -2. GCS 11 T follows commands. Urinary Catheter: Yes Porter insert reason: Measure Accurate Output Vascular Central Line Catheter: No A/P Assessment and Plan Assessment: 56yF with COPD, CHF unknown type, DM and morbid obesity who presents with worsening acute hypoxic and hypercarbic respiratory failure, community acquired pneumonia, pulmonary edema with intravascular volume overload , acute kidney injury on chronic kidney disease. She remains very critically ill. Patient continues to fail CPAP trials, sensitive discussion with family and palliative care. Family feels patient would not want a tracheostomy or PEG tube placement. Plan by systems: Neurologic: History of Psychiatric Illness Agitation associated with mechanical ventilation - fent for goal RASS -2 and vent synchrony. - continue home Seroquel, Lyrica.On hold- Prozac Respiratory: Acute hypoxic and Hypercarbic Respiratory Failure COPD exacerbation Community Acquired Pneumonia Pulmonary Edema -- On PRVC/AC RR 22, TV 400, IT:1.0, PEEP:10, FIO2 50%. -- Unable to perform CPAP trials -- permissive hypercapnea and low tidal volume ventilation targeting 6cc/kg IBW. -- wean fio2 for goal spo2 > 88%. -- Duonebs every 6 hours -- vent bundle -- 03/28 Prednisone discontinued --Obtain chest x-ray --ETT day 11 -- consultation for tracheostomy placement , will hold family's considering comfort care measures. Family feels patient would not want a tracheostomy Cardiovascular: History of Congestive Heart Failure, unknown type (prior echo from 2010 with normal EF) Hyperlipidemia Coronary Artery Disease -- continue home statin, ASA -- EF 55-60%, stage 1 diastolic dysfunction -- forced diuresis as below. Discontinued Renal: Acute kidney injury on chronic kidney disease, unknown stage Acute intravascular volume overload -- Strict I/Os -- bumex 2mg iv q8hr discontinued 03/25 -- 03/23 diamox 500mg iv q8h x 3 doses. -- Rec'd metolazone 5mg po x 1. -- continue porter. Creatinine 3.3 --Nephrology following-family / patient does not want dialysis initiated FEN/GI: Morbid obesity Acute intravascular volume overload -- TF nepro at goal. -- Monitor bmp --Consult for PEG tube placement will hold until as family decision regarding comfort care measures. Family does not want PEG placement at this time. Heme/ID: Community-acquired pneumonia -- 03/19 sputum cultures growing Staph Epi and E.Coli, both sensitive to Rocephin. -- ceftriaxone 2gm iv q24h x 5 days (total 7 day course of ab). --03/27 Zosyn and Linezolid initiated -- Monitor cbc. --03/26 Repeat blood [id number] staph aureus --Follow-up urine and sputum cultures -NGTD --03/28 repeat blood culture 1 from existing arterial line, to rule out possible contamination of peripheral blood culture. Obtain urine and sputum culture Endocrine: Severe hyperglycemia 03/24 d/c insulin drip, start high dose q 4h insulin SSI. --Insulin infusion restarted and conduction with high-dose Levemir to maintain normoglycemic levels Continue Levemir to 100 units SQ BID. --03/28 prednisone discontinued Prophylaxis: GI Prophylaxis- On Protonix 40mg daily DVT prophylaxis- SCD, Heparin SQ Lines: right subclavian line discontinued 03/27, peripheral IVs 2 per vascular access team Shelley Dispo: Discussed with READING RECOVERY TEACHER at bedside. She remains critically ill with high vent support, volume overload, multiorgan system dysfunction. Plan discussed with family on moving forward regarding tracheostomy and PEG placement, per palliative care team family discussion regarding possible comfort care measures in the near future versus trial of extubation without reintubation. This patient remains critically ill with one or more organ systems which are or may become a threat to life. I have spent in excess of 30 minutes discontinuously in the care and management of this patient. This time is exclusive of procedures, and includes, but is not limited to, evaluation of the patient, review of the medical record, discussions with family, consultants, nursing staff, or respiratory therapy, and documentation in the medical record. Physician Nancy Charles MD Mar 29, 2017 15:46
[2017-03-29] MEDS: FLUCONAZOLE 200 MG PREMIX BAG 100 ML IV SCH (16:11)
--- NOTE | 2017-03-29 16:46 | PD.ID.CON ---
History of Present Illness Service ID Consult Requested By Dr Linares Reason for Consult fever Primary Care Physician Non-Staff Diagnoses: History of Present Illness 56 yo female with morbid obesity chronic obstructive pulmonary disease, congestive heart failure, Diabetes and other multiple medical and pshych issues presents 12 days ago [facility] and hypoxia with O2 sat in the 70s. After Bipap initially she was intubated within 24 hrs and remianes intubated since She is not doing well with weaning and currently is on PEEP of 8 and FiO2 50% She also has acute on chronic kidney failure with progressively worsniong creatinine She is having fever in the last 4 days 101-102 range She has blood clx done with multiplke strains of coag neg staph , cw contamination She was on started on Zosyn and Linezolid 2 days ago, today zyvox was changed to vancomycin after continuing to have fevers She is DNR and family are not planning to initiate dialysis in case of worsening renal fnx Her GFR is now 15 She cont t have fever and persistent leukocytosis, going up to 15.9 today Diflucan added for possible yeast coverage. ID has been consulted for abx recommendations. In the las t 24 hrs patient had increasing O2 requirements, unable to perform CPAP trials today. Sputum is purulent with GPC in pair on the Gstain Review of Systems ROS Limitations: Intubated Past Family Social History Allergies: Coded Allergies: Baclofen (Verified Allergy, Severe, rash, 02/04/17) Niacin (Verified Allergy, Severe, Edema, 02/04/17) Synthroid (Verified Allergy, Severe, Edema, 02/04/17) *MDRO Multi-Drug Resistant Organism (Verified Adverse Reaction, Unknown, ) 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 ESBL+E.Coli (urine-01/14/11) Past Medical History morbid obesity chronic obstructive pulmonary disease, congestive heart failure , Diabetes posttraumatic stress disorder, borderline personality disorder, depression, anxiety,, neuropathy, gastroesophageal reflux disease, hypertension , dyslipidemia, migraines, hypothyroidism Past Surgical History Sphincterectomy/Hemorrhoidectomy in 1998 Cardiac Catheterizations with normal coronary arteries Cervical and lumbar spine surgeries Tonsillectomy Bilateral carpal tunnel release Active Ordered Medications Medications where reviewed in EMR Antibiotics Include: zosyn vanco Family History Non-Contributory. Social History + 1/2 ppd Tobacco. No ETOH. No Illicit Drugs. Physical Exam Vital Signs Vital Signs Date Time Temp Pulse Resp B/P Pulse Ox O2 Delivery O2 Flow Rate FiO2 03/29/17 16:19 100 50 03/29/17 14:00 73 03/29/17 12:00 100.3 66 22 120/66 93 03/29/17 12:00 50 03/29/17 12:00 66 03/29/17 11:27 91 50 03/29/17 10:00 74 03/29/17 08:00 101.9 81 23 122/65 91 03/29/17 08:00 79 03/29/17 08:00 50 03/29/17 07:39 94 50 03/29/17 07:39 93 Ventilator 70 03/29/17 06:00 81 03/29/17 04:55 94 70 03/29/17 04:11 94 40 03/29/17 04:00 93 03/29/17 04:00 55 03/29/17 04:00 99.3 96 117/60 97 03/29/17 02:00 61 03/29/17 01:18 95 40 03/29/17 00:00 45 03/29/17 00:00 60 03/29/17 00:00 99.1 60 119/70 95 03/28/17 22:05 96 40 03/28/17 22:00 58 03/28/17 20:00 45 03/28/17 20:00 60 03/28/17 20:00 99.3 60 110/89 95 03/28/17 19:53 96 40 03/28/17 18:00 59 Physical Exam CONSTITUTIONAL/GENERAL: This is a morbidly patient, in no apparent distress. Intubated , on vent TUBES/LINES/DRAINS: SKIN: No jaundice, rashes, or lesions. . Skin temperature appropriate. Not diaphoretic. HEAD: Atraumatic. Normocephalic. EYES: Pupils equal and round and reactive. Extraocular motions intact. No scleral icterus. No injection or drainage. Fundi not examined. ENT: Hearing grossly normal. Nose without bleeding or purulent drainage. Oral mucosae without visible erythema, exudates, masses, or lesions. NECK: Trachea midline. Supple, nontender. No palpable thyroid enlargement or nodularity. CARDIOVASCULAR: Regular rate and rhythm without murmurs, gallops, or rubs. No JVD. Peripheral pulses symmetric. RESPIRATORY/CHEST: Symmetric, unlabored respirations. Clear to auscultation. Breath sounds equal bilaterally. No wheezes, rales, or rhonchi. GASTROINTESTINAL: Abdomen soft, non-tender, nondistended. No hepato-splenomegaly , or palpable masses. No guarding. Bowel sounds present. GENITOURINARY: Without palpable bladder distension. Rosa catheter in place with clear yellow urine MUSCULOSKELETAL: Extremities without clubbing, cyanosis, + 1+ edema. No mottling or clubbing. LYMPHATICS: No palpable cervical or supraclavicular adenopathy. NEUROLOGICAL: Awake and alert. Motor and sensory grossly within normal limits. Follows commands. Moves all extremities. PSYCHIATRIC: anxious; restrained Laboratory Laboratory Tests Test 03/29/17 06:14 White Blood Count 15.9 Red Blood Count 3.85 Hemoglobin 10.8 Hematocrit 33.1 Mean Corpuscular Volume 86.1 Mean Corpuscular Hemoglobin 28.0 Mean Corpuscular Hemoglobin 32.5 Concent Red Cell Distribution Width 14.3 Platelet Count 273 Mean Platelet Volume 10.6 Neutrophils (%) (Auto) 86.1 Lymphocytes (%) (Auto) 6.8 Monocytes (%) (Auto) 5.2 Eosinophils (%) (Auto) 1.2 Basophils (%) (Auto) 0.7 Neutrophils # (Auto) 13.7 Lymphocytes # (Auto) 1.1 Monocytes # (Auto) 0.8 Eosinophils # (Auto) 0.2 Basophils # (Auto) 0.1 CBC Comment DIFF FINAL Differential Comment Sodium Level 143 Potassium Level 3.2 Chloride Level 97 Carbon Dioxide Level 39.5 Anion Gap 7 Blood Urea Nitrogen 86 Creatinine 3.36 Estimat Glomerular Filtration 14 Rate Random Glucose 257 Calcium Level 10.3 Phosphorus Level 3.8 Magnesium Level 3.0 Date/Time Procedure Status Source Growth 03/28/17 14:40 Urine Culture - Preliminary Resulted Urine Catheterized Urine NO GROWTH IN 24 HOURS. 03/28/17 14:40 Gram Stain - Final Resulted Sputum Endotracheal 03/28/17 14:40 Sputum Culture - Preliminary Resulted Sputum Endotracheal IMMATURE GROWTH - REINCUBATE 03/28/17 13:15 Aerobic Blood Culture - Preliminary Resulted Blood Arterial Line NO GROWTH IN 1 DAY 03/28/17 13:15 Anaerobic Blood Culture - Preliminary Resulted Blood Arterial Line NO GROWTH IN 1 DAY 03/26/17 12:34 Aerobic Blood Culture - Final Resulted Blood Peripheral Staph Sp Coagulase Negative 03/26/17 12:34 Anaerobic Blood Culture - Preliminary Resulted Blood Peripheral NO GROWTH IN 3 DAYS 03/26/17 10:30 Urine Culture - Final Complete Urine Catheterized Urine NO GROWTH IN 48 HOURS. Result Diagram: 03/29/17 0614 03/29/17 0614 Imaging Last Impressions Chest X-Ray 03/29/17 0600 Signed Impressions: Service Date/Time: Wednesday, March 29, 2017 04:12 - CONCLUSION: 1. Left lower lobe atelectasis versus pneumonia. There has been no significant change when compared to the prior exam. Mohamud Valverde MD Renal Ultrasound 03/19/17 0000 Signed Impressions: Service Date/Time: Sunday, March 19, 2017 08:38 - CONCLUSION: Symmetric renal size. Stable complicated cyst upper pole left kidney. Anselmo Palmer MD Assessment and Plan Assessment and Plan Acute VDRF in the settings of preexisting COPD - failure to wean - mixed hypoxic/hypercapnic failure Multi organ failure ARF on CKD - no HD plamnned per family request PNA, vent dependednt Pt is critically ill unstable from resp stanpoint and getting clinically worsed Poor prognosis Fever , leukocuytosis, - most likely source PNA, other possibilities: UTI, blood stream infx - 10 days ago grew E.coli, MSSAA, later with nl resp new Coag neg staph bacteremia, different straines cw contaminants REC's: dc zosyn - start cefepime, renally adjusted cont zyvox - avoid all nephrotoxics including vancomycin in the view of critically low GFR, getting progressively worse and no plan for HD - cont fluconazole, renally adjusted - fu repeat blood, urine and sputum clx Discussed Condition With Ana Cristina Hernandez RN, MD Mar 29, 2017 16:46
[2017-03-29] MEDS: INSULIN REGULAR (IV INFUSION) 100 UNITS in SODIUM CHLORIDE 0.9% INJ 99 ML IV SCH (16:47)
[2017-03-29] MEDS ORDERED: VANCOMYCIN INJ 1,500 MG in SODIUM CHLORID 0.9% 500 ML INJ 500 ML IV ONE (17:00)
[2017-03-29] MEDS ORDERED: PIPERACIL-TAZO 2.25 GM PREMIX 50 ML IV SCH (17:00)
[2017-03-29] MEDS: CEFEPIME INJ 2,000 MG in SODIUM CHLORIDE 0.9% INJ 100 ML IV SCH (17:47)
[2017-03-29] MEDS: ATORVASTATIN 20 MG TAB PO SCH (19:16)
[2017-03-29] MEDS: DOXEPIN HCL 50 MG CAP PO SCH (19:16)
[2017-03-29] MEDS: ASPIRIN EC 81 MG TABEC PO SCH (19:17)
[2017-03-29] MEDS: CARBOXYMETHYLCELL SOD 0.5% OPTH SOLN 15 ML BTL EACH EYE SCH (19:18)
[2017-03-29 20:08] LABS: BLOOD, URINE SMALL (NEG); GLUCOSE,URINE TRACE mg/dL (NEG); HYALINE CAST, URINE 4 /lpf (RARE); KETONE, URINE NEG (NEG); MUCUS URINE FEW /lpf (OCC); NITRITE,URINE NEG (NEG); PH, URINE 5.5 (5.0-8.5); SQUAMOUS EPITHELIAL CELL URINE 2 /hpf (0-5); URINE COLOR YELLOW (YELLW/STRAW)
[2017-03-29 20:10] LABS: COMMENT (UR) CATH-CULT NOT IND; CULTURE IF INDICATED CATH CULTURE NOT IND
[2017-03-30] VITALS (28 sets, daily range): BP systolic 99–124; BP diastolic 55–68; PULSE 61–74; RESP 22; TEMP 99.6–101.5; O2SAT 92–100
[2017-03-30] MEDS: fentaNYL DRIP 250 ML IV SCH ×3 (00:18→20:39)
[2017-03-30] MEDS: ACETAMINOPHEN 325 MG TAB PO PRN ×2 (02:23→20:39)
[2017-03-30] MEDS: CHLORHEXIDINE GLUCONATE 2 % 1 PACK (2 CLOTHS) TOP SCH (02:23)
[2017-03-30 04:40] LABS: HEMATOCRIT 31.6 % (35.0-46.0); MEAN CELL VOLUME 86.5 FL (80.0-100.0); MEAN CORPUSCULAR HEMOGLOBIN 26.9 PG (27.0-34.0); MEAN CORPUSCULAR HGB CONC 31.1 % (32.0-36.0); PLATELET COUNT 260 TH/MM3 (150-450); RED BLOOD COUNT 3.66 MIL/MM3 (4.00-5.30); RED CELL DISTRIBUTION WIDTH 14.1 % (11.6-17.2); REVIEW FLAG FINAL; WHITE BLOOD COUNT 16.8 TH/MM3 (4.0-11.0)
[2017-03-30 04:56] LABS: PROTHROMBIN TIME - PATIENT 10.7 SEC (9.8-11.6)
[2017-03-30] MEDS: HEPARIN SODIUM - SQ 10,000 UNITS/ML VIAL SQ SCH ×3 (04:58→22:18)
[2017-03-30] MEDS: LINEZOLID 600 MG PREMIX 300 ML IV SCH ×2 (04:59→17:15)
[2017-03-30 05:13] LABS: ANION GAP 9 MEQ/L (5-15); BICARBONATE 37.8 MEQ/L (21.0-32.0); BLOOD UREA NITROGEN 91 MG/DL (7-18); CHLORIDE 99 MEQ/L (98-107); GLOMERULAR FILTRATION RATE 14 ML/MIN (>89); POTASSIUM 3.5 MEQ/L (3.5-5.1); SODIUM (NA) 146 MEQ/L (136-145)
[2017-03-30 05:37] LABS: BLOOD GAS BASE EXCESS 9.8 mmol/L (-2-2); BLOOD GAS CARBOXYHEMOGLOBIN 1.3 % (0-4); BLOOD GAS HCO3 35 mmol/L (22-26); BLOOD GAS METHEMOGLOBIN 1.7 % (0-2); BLOOD GAS O2 HGB SATURATION 85 % (90-100); BLOOD GAS OXYGEN CONTENT 14.4 Vol % (12.0-20.0); BLOOD GAS PCO2 62 mmHg (38-42); BLOOD GAS PO2 59 mmHg (61-120); BLOOD GAS TOTAL HGB 12.1 G/DL (12.0-16.0); TEMP CORR TO 98.6
[2017-03-30 05:38] LABS: CRITICAL VALUE YES; OXYGEN DEVICE VENT
[2017-03-30 05:39] LABS: DRAW SITE RT RADIAL; FIO2 50 %; NUMBER OF ARTERIAL PUNCTURES 1; STAT NO; ULNAR PULSE PRESENT; VENT SETTINGS SEE COMMENTS
[2017-03-30] MEDS: PANTOPRAZOLE SODIUM 40 MG VIAL IV PUSH SCH (08:18)
[2017-03-30] MEDS: ARTIFICIAL TEARS OPTH SOLN 15 ML BTL EACH EYE SCH ×3 (08:18→17:14)
[2017-03-30] MEDS: TOBRAMYCIN SULF 0.3% OPHT SOLN 5 ML BTL EACH EYE SCH ×4 (08:18→20:40)
[2017-03-30] MEDS: SODIUM CHLORIDE 0.9% FLUSH 10 ML FLUSH SCH ×2 (08:18→20:40)
[2017-03-30] MEDS: TRIAMCINOLONE ACETONIDE 55 MCG/ACT NASAL SPRAY 16.5 GM BTL EACH NARE SCH (08:18)
[2017-03-30] MEDS: BRIMONIDINE TARTRATE 0.2% OPHT SOLN 5 ML BTL EACH EYE SCH ×3 (08:18→17:15)
[2017-03-30] MEDS: DOCUSATE SODIUM 50 MG/SENNA 8.6 MG TAB PO SCH ×2 (08:19→20:38)
[2017-03-30] MEDS: PREGABALIN 75 MG CAP PO SCH (08:19)
[2017-03-30] MEDS: LACTOBACILLUS ACIDOPHILUS TAB PO SCH ×2 (08:19→20:38)
[2017-03-30] MEDS: INSULIN DETEMIR 100 UNITS/ML VIAL SQ SCH ×2 (08:20→20:43)
[2017-03-30] MEDS: cloNIDine HCL 0.1 MG TAB PO SCH ×3 (08:30→17:15)
[2017-03-30] MEDS: QUEtiapine FUMARATE 300 MG TAB PO SCH ×3 (08:30→20:38)
--- NOTE | 2017-03-30 09:11 | HHI.NPPN ---
Subjective General Problems: Edema Renal Failure: Acute Interval History Renal function continues to get worse. Non oliguric. Seen by ID: now on Zyvox, Cefepime, and Diflucan. Review of Systems General General Remarks unable to evaluate due to intubation/sedation Objective Data Data 03/29/17 03/30/17 19:00 07:00 Intake Total 499 ml 1542 ml Output Total 550 ml 1000 ml Balance -51 ml 542 ml IV Total 170 ml 615 ml Tube Feeding 329 ml 607 ml Other 320 ml Output Urine Total 550 ml 1000 ml # Bowel Movements 0 0 Vital Signs Date Time Temp Pulse Resp B/P Pulse Ox O2 Delivery O2 Flow Rate FiO2 03/30/17 08:00 100.0 66 105/59 94 03/30/17 08:00 70 03/30/17 07:46 94 60 03/30/17 07:00 64 102/60 94 03/30/17 06:00 64 03/30/17 06:00 64 107/62 95 03/30/17 05:40 94 70 03/30/17 05:00 65 109/63 92 03/30/17 04:00 50 03/30/17 04:00 63 03/30/17 04:00 100.3 63 102/59 94 03/30/17 04:00 63 102/59 94 03/30/17 03:41 94 50 03/30/17 02:00 67 03/30/17 01:28 93 50 03/30/17 00:00 66 03/30/17 00:00 100.3 65 111/66 100 03/30/17 00:00 50 03/29/17 22:02 97 50 03/29/17 22:00 67 03/29/17 20:00 101.1 62 114/62 97 03/29/17 20:00 50 03/29/17 20:00 64 03/29/17 19:21 95 50 03/29/17 18:00 63 03/29/17 16:19 100 50 03/29/17 16:00 100.2 67 20 139/74 96 03/29/17 16:00 68 03/29/17 16:00 50 03/29/17 14:00 73 03/29/17 12:00 100.3 66 22 120/66 93 03/29/17 12:00 50 03/29/17 12:00 66 03/29/17 11:27 91 50 03/29/17 10:00 74 -: 03/30/17 0416 03/30/17 0416 Microbiology 03/29/17 Aerobic Blood Culture, Received Pending 03/29/17 Anaerobic Blood Culture, Received Pending 03/29/17 Aerobic Blood Culture, Received Pending 03/29/17 Anaerobic Blood Culture, Received Pending Tubes & Lines: Rosa Tubes & Lines Comment A line right radial, TLC right IJ, Drip Comment fentanyl Physical Exam General Appearance: Well Developed, No Acute Distress, Comfortable, Sleeping, Obese Throat Throat Exam: Oral Mucosa [place] & Moist Pulmonary Resp Exam: Breath Sounds Equal, Crackles, Decreased Bases, Diminished Breath Sounds Cardiology CV Exam: Regular, Normal Sinus Rhythm, Good Perfusion Gastrointestinal/Abdomen GI Exam: Soft, Non-Tender, Bowel Sounds Present Musculoskeletal MS Exam: Joints Intact, Normal Tone, Unable to Ambulate Integumentary Skin Exam: Warm, Dry, Intact Extremeties Extremities Exam: Pedal Pulses Palpable, Trace Edema Neurologic Neuro Exam: Unresponsive, Sedated VTE Prophylaxis Device: SCDs Assessment/Plan Assessment Summary: SANAM/Acute Renal Failure, Fluid/Volume Overload, Proteinuria , Hypertension, Diabetes Mellitus, CKD Stage III Problem List: (1) Acute renal failure superimposed on stage 3 chronic kidney disease Plan: It appears her baseline is CKD 3, she has proteinuria may have underlying diabetic nephropathy nonoliguric renal failure; SANAM from sepsis syndrome with decreased renal perfusion. Allergic interstitial nephritis is a possibility. GFR is worse. continue Calcium acetate for hyperphosphatemia the family may decide to extubate and provide comfort measures, they do not wish to begin dialysis (per the patients advanced directives) she is off diuretics, monitor renal function daily continue supportive care (2) Sepsis Plan: positive blood cultures from yesterday, now febrile Antibiotics noted. ID following. (3) Pneumonia Plan: see above she is on vent with permissive hypercapnia Fi02 now at 45%, 50%, PEEP of 8 CPAP trials, ween when able family refusing tracheostomy/PEG, may extubate in upcoming days (4) DM (diabetes mellitus) Plan: she is off insulin infusion, on intermittent dosage continue with glucose goal of 140-180 mg/dL (5) HTN (hypertension) Plan: BP stable, continue current medications continue with hold parameters Plan Poor prognosis. Terminally ill. Problem Qualifiers (1) Pneumonia: Qualified Code: J18.1 - Pneumonia of right lower lobe due to infectious organism (2) HTN (hypertension): Qualified Code: I10 - Essential hypertension Jose Olmedo MD Mar 30, 2017 09:11 Jose Olmedo MD Mar 30, 2017 09:11
--- NOTE | 2017-03-30 10:53 | HHI.CCPN ---
Subjective Remarks/Hospital Course 56-year-old morbidly obese female with history of posttraumatic stress disorder , borderline personality disorder, depression, anxiety, chronic obstructive pulmonary disease, congestive heart failure, Diabetes, neuropathy, gastroesophageal reflux disease, hypertension, dyslipidemia, migraines, hypothyroidism, [facility] hypoxia with O2 sat in the 70s. The patient was transported via [facility], placed on NRB, O2 sat improved however patient's breathing very labored with tachypnea therefore put on Bipap in the ER. In the ER after several minutes of being on Bipap, she still complaining feeling very fatigued and short of breath. She informs medical team she now wants to revoke her DNR and agrees to intubation if recommended (family member also at bedside agrees to this). Her oxygenation remained borderline, her breathing still remains labored and she was intubated by ER attending. 03/19 Patient is intubated sedated with versed. Afebrile. Given 4L NS boluses overnight. 03/20: remains intubated, sedated, significantly hypoxic. in acute kidney injury and severe volume overload. received bumex x 1 this morning. Also remains hyperglycemic. critically ill, not improving. high fio2 requirements. 03/21: oxygenation slightly improved, but continues with significant volume overload. SANAM stable. hyperglycemia slightly better, but remains on very high doses of insulin drip along with high dose long-acting insulin. vent requirements still very high and unable to even start SBT given hypoxia. 03/22: oxygenation continues to improve, but patient remains significantly volume overloaded in persistent pulmonary edema. fio2 is decreased, but peep remains high. also, despite increases in long-acting insulin, insulin drip remains at 7 units/hr. 03/23: slow improvements in oxygenation. net negative 3.2L/24h. still required 100 units iv insulin by infusion despite high long-acting insulin. 03/24: net -1L/24h. insulin drip slightly improved, though still used 150 units/ 24h. failed SBT after 10 minutes. 03/25 : Creatinine worsening. Diuretics discontinued. CPAP trials initiated this morning. The patient remains hyperglycemic will requirements for when necessary medications, steroid taper continue. 03/26: Renal functioning worsening. Patient was noted to have a low-grade fever. Repeat cultures obtained. Patient tolerated CPAP trials approximately 6 hours yesterday. 03/27 Tmax 101.3. The WBC count elevated. Cultures revealed gram-positive cocci. Antibiotics initiated, Zosyn and Linezolid. Central line discontinued. Discussion with palliative medicine will continue to consider PEG tube placement and tracheostomy. The family discussed waiting for those interventions at this time. Living will obtained family is considering comfort care measures at this time. 03/28: Patient continues to have low-grade temperatures. Peripheral blood cultures revealed gram positive coagulase negative staph. Zosyn and Linezolid initiated. A line discontinued. Repeat urine and sputum cultures obtained. Discussion with family to return to hospital this weekend regarding possible trial of extubation, without reintubation versus comfort care measures. Family at this time requests no intervention regarding tracheostomy, PEG tube placement , for dialysis at this time. Of note creatinine continues to increase. Prednisone taper completed. Hyperglycemia persists, patient continues on high dose long-acting insulin. 03/29: Tmax 101.3. The patient continues to have persistent leukocytosis. Peripheral blood cultures showed coagulase negative, repeat pending. Patient was placed on the nasal lid yesterday however the patient has persistent leukocytosis with elevation of WBCs, and elevation of fever. Antibiotics changed Linezolid discontinued, vancomycin initiated along with Diflucan for possible yeast coverage. ID has been consulted appreciate recommendations. During the night the patient had increasing O2 requirements, unable to perform CPAP trials today. 03/30: The patient is noted to have increasing oxygen requirements. Patient continues to have persistent leukocytosis. Family at bedside, 2 brothers in the patient's best friend. Plans for comfort care measures to be instituted Saturday evening or Saturday. Objective Vital Signs Date Time Temp Pulse Resp B/P Pulse Ox O2 Delivery O2 Flow Rate FiO2 03/30/17 10:00 67 03/30/17 08:00 100.0 105/59 94 03/30/17 08:00 70 03/29/17 16:00 20 03/29/17 07:39 Ventilator Intake and Output 03/29/17 03/29/17 03/30/17 08:00 16:00 00:00 Intake Total 706 ml 499 ml 946 ml Output Total 650 ml 550 ml 550 ml Balance 56 ml -51 ml 396 ml Result Diagram: 03/30/17 0416 03/30/17 0416 Other Results Microbiology Date/Time Procedure Status Source Growth 03/28/17 14:40 Gram Stain - Final Complete Sputum Endotracheal 03/28/17 14:40 Sputum Culture - Final Complete Sputum Endotracheal HEAVY GROWTH NORMAL RESPIRATORY SOFIA 03/28/17 14:40 Urine Culture - Final Complete Urine Catheterized Urine NO GROWTH IN 48 HOURS. Laboratory Tests Test 03/30/17 05:21 Blood Gas Puncture Site RT RADIAL Blood Gas Patient Temperature 98.6 Blood Gas HCO3 35 mmol/L (22-26) Blood Gas Base Excess 9.8 mmol/L (-2-2) Blood Gas Oxygen Saturation 85 % (90-100) Arterial Blood pH 7.38 (7.380-7.420) Arterial Blood Partial 62 mmHg (38-42) Pressure CO2 Arterial Blood Partial 59 mmHg Pressure O2 (61-120) Arterial Blood Oxygen Content 14.4 Vol % (12.0-20.0) Arterial Blood 1.3 % (0-4) Carboxyhemoglobin Arterial Blood Methemoglobin 1.7 % (0-2) Blood Gas Hemoglobin 12.1 G/DL (12.0-16.0) Oxygen Delivery Device VENT Blood Gas Ventilator Setting SEE COMMENTS Blood Gas Inspired Oxygen 50 % Imaging Last Impressions Chest X-Ray 03/26/17 0600 Signed Impressions: Service Date/Time: Sunday, March 26, 2017 04:04 - CONCLUSION: Left basilar opacity is present may be due to a combination of consolidation and or pleural effusion and perivascular pulmonary edema. Marianela Cedillo MD Renal Ultrasound 03/19/17 0000 Signed Impressions: Service Date/Time: Sunday, March 19, 2017 08:38 - CONCLUSION: Symmetric renal size. Stable complicated cyst upper pole left kidney. Anselmo Palmer MD Last Impressions Chest X-Ray 03/20/17 0000 Signed Impressions: Service Date/Time: Monday, March 20, 2017 03:41 - CONCLUSION: Small lung volumes with diffuse pulmonary vascular prominence. Tubes and catheters in good position Reese Pacheco MD Renal Ultrasound 03/19/17 0000 Signed Impressions: Service Date/Time: Sunday, March 19, 2017 08:38 - CONCLUSION: Symmetric renal size. Stable complicated cyst upper pole left kidney. Anselmo Palmer MD Last Impressions Chest X-Ray 03/19/17 0000 Signed Impressions: Service Date/Time: Sunday, March 19, 2017 02:00 - CONCLUSION: Tubes and catheters in good position. Stable infiltrate right lower lobe. Reese Pacheco MD Objective Remarks GENERAL: Morbidly obese female on the ventilator support, awake intermittently responding to commands on fentanyl infusion for ventilator synchrony SKIN: Warm and dry. HEAD: Normocephalic. EYES: No scleral icterus. No injection or drainage. NECK: trachea midline. JVD unable to be assessed due to large neck. endotracheally intubated. CARDIOVASCULAR: Regular rate and rhythm . RESPIRATORY: Breath sounds equal bilaterally. Diminished in bases. GASTROINTESTINAL: morbidly obese, soft, non-tender, nondistended, patient denies pain upon palpation. MUSCULOSKELETAL: No cyanosis, 2+ peripheral edema. EXTREMITIES: No clubbing or cyanosis Neuro: RASS -2. GCS 11 T follows commands. A/P Assessment and Plan Assessment: 56yF with COPD, CHF unknown type, DM and morbid obesity who presents with worsening acute hypoxic and hypercarbic respiratory failure, community acquired pneumonia, pulmonary edema with intravascular volume overload , acute kidney injury on chronic kidney disease. She remains very critically ill. Patient continues to fail CPAP trials, sensitive discussion with family and palliative care. Family feels patient would not want a tracheostomy or PEG tube placement. Plan by systems: Neurologic: History of Psychiatric Illness Agitation associated with mechanical ventilation - fent for goal RASS -2 and vent synchrony. - continue home Seroquel, Lyrica.On hold- Prozac Respiratory: Acute hypoxic and Hypercarbic Respiratory Failure COPD exacerbation Community Acquired Pneumonia Pulmonary Edema -- On PRVC/AC RR 22, TV 400, IT:1.0, PEEP:10, FIO2 50%. -- Unable to perform CPAP trials -- permissive hypercapnea and low tidal volume ventilation targeting 6cc/kg IBW. -- wean fio2 for goal spo2 > 88%. -- Duonebs every 6 hours -- vent bundle -- 03/28 Prednisone discontinued --Obtain chest x-ray --ETT day 12 Cardiovascular: History of Congestive Heart Failure, unknown type (prior echo from 2010 with normal EF) Hyperlipidemia Coronary Artery Disease -- continue home statin, ASA -- EF 55-60%, stage 1 diastolic dysfunction -- forced diuresis as below. Discontinued Renal: Acute kidney injury on chronic kidney disease, unknown stage Acute intravascular volume overload -- Strict I/Os -- bumex 2mg iv q8hr discontinued 03/25 -- 03/23 diamox 500mg iv q8h x 3 doses. -- Rec'd metolazone 5mg po x 1. -- continue porter. Creatinine 3.3 --Nephrology following-family / patient does not want dialysis initiated FEN/GI: Morbid obesity Acute intravascular volume overload -- TF nepro at goal. -- Monitor bmp Heme/ID: Community-acquired pneumonia -- 03/19 sputum cultures growing Staph Epi and E.Coli, both sensitive to Rocephin. -- ceftriaxone 2gm iv q24h x 5 days (total 7 day course of ab). --03/27 Zosyn and Linezolid initiated -- Monitor cbc. --03/26 Repeat blood [id number]-[id number] staph aureus --Follow-up urine and sputum cultures -NGTD --03/28 repeat blood culture 1 from existing arterial line, to rule out possible contamination of peripheral blood culture- NGTD Endocrine: Severe hyperglycemia 03/24 d/c insulin drip, start high dose q 4h insulin SSI. --Insulin infusion restarted in conjuction with high-dose Levemir to maintain normoglycemic levels Continue Levemir to 100 units SQ BID. --03/28 prednisone discontinued Prophylaxis: GI Prophylaxis- On Protonix 40mg daily DVT prophylaxis- SCD, Heparin SQ Lines: right subclavian line discontinued 03/27, peripheral IVs 2 per vascular access team Shelley Dispo: Discussed with OUTSIDE OPERATOR at bedside. She remains critically ill with high vent support, volume overload, multiorgan system dysfunction. The family wants to monitor the patient's living will and requests .Discussion meeting today with 2 brothers in the patient's best friend. Confirmed the patient/family requests no dialysis, no PEG placement no tracheostomy. A plan for comfort care measures to be instituted tomorrow or Saturday, when the patient's other sibling (sister) arrives from [place]. Level 3 Physician Nancy Charles MD Mar 30, 2017 10:52
--- NOTE | 2017-03-30 13:44 | HHI.IDPN ---
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 ESBL+E.Coli (urine-01/14/11) Objective . Vital Signs Date Time Temp Pulse Resp B/P Pulse Ox O2 Delivery O2 Flow Rate FiO2 03/30/17 12:40 95 60 03/30/17 12:00 99.8 62 99/56 96 03/30/17 12:00 60 03/30/17 12:00 61 03/30/17 11:00 62 102/58 95 03/30/17 10:50 96 60 03/30/17 10:00 66 124/64 96 03/30/17 10:00 67 03/30/17 09:00 64 99/55 95 03/30/17 08:00 100.0 66 105/59 94 03/30/17 08:00 74 03/30/17 08:00 66 105/59 94 03/30/17 08:00 70 03/30/17 07:46 94 60 03/30/17 07:00 64 102/60 94 03/30/17 06:00 64 03/30/17 06:00 64 107/62 95 03/30/17 05:40 94 70 03/30/17 05:00 65 109/63 92 03/30/17 04:00 50 03/30/17 04:00 63 03/30/17 04:00 100.3 63 102/59 94 03/30/17 04:00 63 102/59 94 03/30/17 03:41 94 50 03/30/17 02:00 67 03/30/17 01:28 93 50 03/30/17 00:00 66 03/30/17 00:00 100.3 65 111/66 100 03/30/17 00:00 50 03/29/17 22:02 97 50 03/29/17 22:00 67 03/29/17 20:00 101.1 62 114/62 97 03/29/17 20:00 50 03/29/17 20:00 64 03/29/17 19:21 95 50 03/29/17 18:00 63 03/29/17 16:19 100 50 03/29/17 16:00 100.2 67 20 139/74 96 03/29/17 16:00 68 03/29/17 16:00 50 03/29/17 14:00 73 03/29/17 03/29/17 03/30/17 15:00 23:00 07:00 Intake Total 499 ml 946 ml 596 ml Output Total 550 ml 550 ml 450 ml Balance -51 ml 396 ml 146 ml IV Total 170 ml 432 ml 183 ml Tube Feeding 329 ml 314 ml 293 ml Other 200 ml 120 ml Output Urine Total 550 ml 550 ml 450 ml # Bowel Movements 0 0 0 . Laboratory Tests Test 03/29/17 03/30/17 06:14 04:16 White Blood Count 15.9 TH/MM3 16.8 TH/MM3 Red Blood Count 3.85 MIL/MM3 3.66 MIL/MM3 Hemoglobin 10.8 GM/DL 9.8 GM/DL Hematocrit 33.1 % 31.6 % Mean Corpuscular Volume 86.1 FL 86.5 FL Mean Corpuscular Hemoglobin 28.0 PG 26.9 PG Mean Corpuscular Hemoglobin 32.5 % 31.1 % Concent Red Cell Distribution Width 14.3 % 14.1 % Platelet Count 273 TH/MM3 260 TH/MM3 Mean Platelet Volume 10.6 FL 10.0 FL Neutrophils (%) (Auto) 86.1 % Lymphocytes (%) (Auto) 6.8 % Monocytes (%) (Auto) 5.2 % Eosinophils (%) (Auto) 1.2 % Basophils (%) (Auto) 0.7 % Neutrophils # (Auto) 13.7 TH/MM3 Lymphocytes # (Auto) 1.1 TH/MM3 Monocytes # (Auto) 0.8 TH/MM3 Eosinophils # (Auto) 0.2 TH/MM3 Basophils # (Auto) 0.1 TH/MM3 CBC Comment DIFF FINAL Differential Comment Laboratory Tests Test 03/29/17 03/30/17 06:14 04:16 Sodium Level 143 MEQ/L 146 MEQ/L Potassium Level 3.2 MEQ/L 3.5 MEQ/L Chloride Level 97 MEQ/L 99 MEQ/L Carbon Dioxide Level 39.5 MEQ/L 37.8 MEQ/L Anion Gap 7 MEQ/L 9 MEQ/L Blood Urea Nitrogen 86 MG/DL 91 MG/DL Creatinine 3.36 MG/DL 3.42 MG/DL Estimat Glomerular Filtration 14 ML/MIN 14 ML/MIN Rate Random Glucose 257 MG/DL 169 MG/DL Calcium Level 10.3 MG/DL 9.3 MG/DL Phosphorus Level 3.8 MG/DL 4.6 MG/DL Magnesium Level 3.0 MG/DL 3.0 MG/DL Microbiology Date/Time Procedure Status Source Growth 03/28/17 13:15 Aerobic Blood Culture - Preliminary Resulted Blood Arterial Line NO GROWTH IN 2 DAYS 03/28/17 13:15 Anaerobic Blood Culture - Preliminary Resulted Blood Arterial Line NO GROWTH IN 2 DAYS 03/28/17 14:40 Gram Stain - Final Complete Sputum Endotracheal 03/28/17 14:40 Sputum Culture - Final Complete Sputum Endotracheal HEAVY GROWTH NORMAL RESPIRATORY NEW 03/28/17 14:40 Urine Culture - Final Complete Urine Catheterized Urine NO GROWTH IN 48 HOURS. 03/29/17 19:53 Aerobic Blood Culture - Preliminary Resulted Blood Peripheral NO GROWTH IN 1 DAY 03/29/17 19:53 Anaerobic Blood Culture - Preliminary Resulted Blood Peripheral NO GROWTH IN 1 DAY 03/29/17 19:58 Aerobic Blood Culture - Preliminary Resulted Blood Peripheral NO GROWTH IN 1 DAY 03/29/17 19:58 Anaerobic Blood Culture - Preliminary Resulted Blood Peripheral NO GROWTH IN 1 DAY Imaging Last Impressions Chest X-Ray 03/29/17 0600 Signed Impressions: Service Date/Time: Wednesday, March 29, 2017 04:12 - CONCLUSION: 1. Left lower lobe atelectasis versus pneumonia. There has been no significant change when compared to the prior exam. Mohamud Valverde MD Renal Ultrasound 03/19/17 0000 Signed Impressions: Service Date/Time: Sunday, March 19, 2017 08:38 - CONCLUSION: Symmetric renal size. Stable complicated cyst upper pole left kidney. Anselmo Palmer MD Physical Exam CONSTITUTIONAL/GENERAL: This is a morbidly patient, in no apparent distress. Intubated , on vent TUBES/LINES/DRAINS: SKIN: No jaundice, rashes, or lesions. . Skin temperature appropriate. Not diaphoretic. HEAD: Atraumatic. Normocephalic. EYES: Pupils equal and round and reactive. Extraocular motions intact. No scleral icterus. No injection or drainage. Fundi not examined. NECK: Trachea midline. Supple, nontender. No palpable thyroid enlargement or nodularity. CARDIOVASCULAR: Regular rate and rhythm without murmurs, gallops, or rubs. No JVD. Peripheral pulses symmetric. RESPIRATORY/CHEST: Symmetric, unlabored respirations. Clear to auscultation. Breath sounds equal bilaterally. No wheezes, rales, or rhonchi. GASTROINTESTINAL: Abdomen soft, non-tender, nondistended. No hepato-splenomegaly , or palpable masses. No guarding. Bowel sounds present. GENITOURINARY: Without palpable bladder distension. Rosa catheter in place with clear yellow urine MUSCULOSKELETAL: Extremities without clubbing, cyanosis, + 2+ edema. No mottling or clubbing. LYMPHATICS: No palpable cervical or supraclavicular adenopathy. NEUROLOGICAL: Awake and alert. Motor and sensory grossly within normal limits. Follows commands. Moves all extremities. PSYCHIATRIC: anxious; restrained Assessment & Plan Remarks Acute VDRF in the settings of preexisting COPD - failure to wean - progressive hypoxia - mixed hypoxic/hypercapnic failure Multi organ failure ARF on CKD - no HD plamnned per family request - slightly worsening GFR PNA, vent dependednt Pt is critically ill unstable from resp stanpoint and getting clinically worsed Poor prognosis Fever , leukocuytosis, - presists - wbc UP - most likely source PNA, other possibilities: UTI, blood stream infx - 10 days ago grew E.coli, MSSAA, later with nl resp new Coag neg staph bacteremia, different straines cw contaminants REC's: cont cefepime, renally adjusted cont zyvox - avoid all nephrotoxics including vancomycin in the view of critically low GFR, getting progressively worse and no plan for HD - cont fluconazole, renally adjusted - fu repeat blood, urine and sputum clx Discussed Condition With Ana Cristina Hernandez MD Mar 30, 2017 13:44
[2017-03-30] MEDS: INSULIN REGULAR (IV INFUSION) 100 UNITS in SODIUM CHLORIDE 0.9% INJ 99 ML IV SCH (14:48)
[2017-03-30] MEDS: FLUCONAZOLE 200 MG PREMIX BAG 100 ML IV SCH (15:58)
[2017-03-30] MEDS: CEFEPIME INJ 2,000 MG in SODIUM CHLORIDE 0.9% INJ 100 ML IV SCH (17:15)
[2017-03-30] MEDS: DOXEPIN HCL 50 MG CAP PO SCH (20:38)
[2017-03-30] MEDS: ASPIRIN EC 81 MG TABEC PO SCH (20:38)
[2017-03-30] MEDS: ATORVASTATIN 20 MG TAB PO SCH (20:38)
[2017-03-30] MEDS: CARBOXYMETHYLCELL SOD 0.5% OPTH SOLN 15 ML BTL EACH EYE SCH (20:41)
[2017-03-31] VITALS (13 sets, daily range): BP systolic 87–118; BP diastolic 51–67; PULSE 62–94; RESP 22; TEMP 100–101; O2SAT 83–94
[2017-03-31] MEDS: CHLORHEXIDINE GLUCONATE 2 % 1 PACK (2 CLOTHS) TOP SCH (04:00)
[2017-03-31 05:42] LABS: HEMATOCRIT 31.6 % (35.0-46.0); MEAN CELL VOLUME 87.4 FL (80.0-100.0); MEAN CORPUSCULAR HEMOGLOBIN 27.3 PG (27.0-34.0); MEAN CORPUSCULAR HGB CONC 31.3 % (32.0-36.0); PLATELET COUNT 252 TH/MM3 (150-450); RED BLOOD COUNT 3.62 MIL/MM3 (4.00-5.30); RED CELL DISTRIBUTION WIDTH 14.6 % (11.6-17.2); REVIEW FLAG FINAL; WHITE BLOOD COUNT 17.2 TH/MM3 (4.0-11.0)
[2017-03-31] MEDS: LINEZOLID 600 MG PREMIX 300 ML IV SCH (05:57)
[2017-03-31] MEDS: HEPARIN SODIUM - SQ 10,000 UNITS/ML VIAL SQ SCH (05:57)
[2017-03-31] MEDS: fentaNYL DRIP 250 ML IV SCH (06:00)
[2017-03-31 06:22] LABS: BICARBONATE 34.3 MEQ/L (21.0-32.0); MAGNESIUM 3.1 MG/DL (1.5-2.5); POTASSIUM 3.8 MEQ/L (3.5-5.1)
[2017-03-31] MEDS: PANTOPRAZOLE SODIUM 40 MG VIAL IV PUSH SCH (08:00)
--- NOTE | 2017-03-31 08:55 | HHI.CCPN ---
Subjective Remarks/Hospital Course 56-year-old morbidly obese female with history of posttraumatic stress disorder , borderline personality disorder, depression, anxiety, chronic obstructive pulmonary disease, congestive heart failure, Diabetes, neuropathy, gastroesophageal reflux disease, hypertension, dyslipidemia, migraines, hypothyroidism, [facility] with O2 sat in the 70s. The patient was transported via [facility], placed on NRB, O2 sat improved however patient's breathing very labored with tachypnea therefore put on Bipap in the ER. In the ER after several minutes of being on Bipap, she still complaining feeling very fatigued and short of breath. She informs medical team she now wants to revoke her DNR and agrees to intubation if recommended (family member also at bedside agrees to this). Her oxygenation remained borderline, her breathing still remains labored and she was intubated by ER attending. 03/19 Patient is intubated sedated with versed. Afebrile. Given 4L NS boluses overnight. 03/20: remains intubated, sedated, significantly hypoxic. in acute kidney injury and severe volume overload. received bumex x 1 this morning. Also remains hyperglycemic. critically ill, not improving. high fio2 requirements. 03/21: oxygenation slightly improved, but continues with significant volume overload. SANAM stable. hyperglycemia slightly better, but remains on very high doses of insulin drip along with high dose long-acting insulin. vent requirements still very high and unable to even start SBT given hypoxia. 03/22: oxygenation continues to improve, but patient remains significantly volume overloaded in persistent pulmonary edema. fio2 is decreased, but peep remains high. also, despite increases in long-acting insulin, insulin drip remains at 7 units/hr. 03/23: slow improvements in oxygenation. net negative 3.2L/24h. still required 100 units iv insulin by infusion despite high long-acting insulin. 03/24: net -1L/24h. insulin drip slightly improved, though still used 150 units/ 24h. failed SBT after 10 minutes. 03/25 : Creatinine worsening. Diuretics discontinued. CPAP trials initiated this morning. The patient remains hyperglycemic will requirements for when necessary medications, steroid taper continue. 03/26: Renal functioning worsening. Patient was noted to have a low-grade fever. Repeat cultures obtained. Patient tolerated CPAP trials approximately 6 hours yesterday. 03/27 Tmax 101.3. The WBC count elevated. Cultures revealed gram-positive cocci. Antibiotics initiated, Zosyn and Linezolid. Central line discontinued. Discussion with palliative medicine will continue to consider PEG tube placement and tracheostomy. The family discussed waiting for those interventions at this time. Living will obtained family is considering comfort care measures at this time. 03/28: Patient continues to have low-grade temperatures. Peripheral blood cultures revealed gram positive coagulase negative staph. Zosyn and Linezolid initiated. A line discontinued. Repeat urine and sputum cultures obtained. Discussion with family to return to hospital this weekend regarding possible trial of extubation, without reintubation versus comfort care measures. Family at this time requests no intervention regarding tracheostomy, PEG tube placement , for dialysis at this time. Of note creatinine continues to increase. Prednisone taper completed. Hyperglycemia persists, patient continues on high dose long-acting insulin. 03/29: Tmax 101.3. The patient continues to have persistent leukocytosis. Peripheral blood cultures showed coagulase negative, repeat pending. Patient was placed on the nasal lid yesterday however the patient has persistent leukocytosis with elevation of WBCs, and elevation of fever. Antibiotics changed Linezolid discontinued, vancomycin initiated along with Diflucan for possible yeast coverage. ID has been consulted appreciate recommendations. During the night the patient had increasing O2 requirements, unable to perform CPAP trials today. 03/30: The patient is noted to have increasing oxygen requirements. Patient continues to have persistent leukocytosis. Family at bedside, 2 brothers in the patient's best friend. Plans for comfort care measures to be instituted Saturday evening or Saturday. 03/31: Overnight oxygen /mechanical ventilation requirements increased, creatinine worsening, noted continued elevation of WBC count. The patient is unable to be weaned from mechanical ventilation. Family has requested comfort care measures be instituted this a.m. per patient request for no interventions to include hemodialysis, tracheostomy, for PEG placement, and worsening of her condition. Objective Vital Signs Date Time Temp Pulse Resp B/P Pulse Ox O2 Delivery O2 Flow Rate FiO2 03/31/17 07:56 93 60 03/31/17 06:00 66 03/31/17 04:00 101.0 22 115/66 03/29/17 07:39 Ventilator Intake and Output 03/30/17 03/30/17 03/31/17 08:00 16:00 00:00 Intake Total 596 ml 640 ml 1127 ml Output Total 450 ml 445 ml 300 ml Balance 146 ml 195 ml 827 ml Result Diagram: 03/31/17 0522 03/31/17 0522 Other Results Microbiology Date/Time Procedure Status Source Growth 03/28/17 14:40 Gram Stain - Final Complete Sputum Endotracheal 03/28/17 14:40 Sputum Culture - Final Complete Sputum Endotracheal HEAVY GROWTH NORMAL RESPIRATORY SOFIA 03/28/17 14:40 Urine Culture - Final Complete Urine Catheterized Urine NO GROWTH IN 48 HOURS. Imaging Last Impressions Chest X-Ray 03/26/17 0600 Signed Impressions: Service Date/Time: Sunday, March 26, 2017 04:04 - CONCLUSION: Left basilar opacity is present may be due to a combination of consolidation and or pleural effusion and perivascular pulmonary edema. Marianela Cedillo MD Renal Ultrasound 03/19/17 0000 Signed Impressions: Service Date/Time: Sunday, March 19, 2017 08:38 - CONCLUSION: Symmetric renal size. Stable complicated cyst upper pole left kidney. Anselmo Palmer MD Last Impressions Chest X-Ray 03/20/17 0000 Signed Impressions: Service Date/Time: Monday, March 20, 2017 03:41 - CONCLUSION: Small lung volumes with diffuse pulmonary vascular prominence. Tubes and catheters in good position Reese Pacheco MD Renal Ultrasound 03/19/17 0000 Signed Impressions: Service Date/Time: Sunday, March 19, 2017 08:38 - CONCLUSION: Symmetric renal size. Stable complicated cyst upper pole left kidney. Anselmo Palmer MD Last Impressions Chest X-Ray 03/19/17 0000 Signed Impressions: Service Date/Time: Sunday, March 19, 2017 02:00 - CONCLUSION: Tubes and catheters in good position. Stable infiltrate right lower lobe. Reese Pacheco MD Objective Remarks GENERAL: Morbidly obese female on the ventilator support, awake intermittently responding to commands on fentanyl infusion for ventilator synchrony SKIN: Warm and dry. HEAD: Normocephalic. EYES: No scleral icterus. No injection or drainage. NECK: trachea midline. JVD unable to be assessed due to large neck. endotracheally intubated. CARDIOVASCULAR: Regular rate and rhythm . RESPIRATORY: Breath sounds equal bilaterally. Diminished in bases. GASTROINTESTINAL: morbidly obese, soft, non-tender, nondistended, patient denies pain upon palpation. MUSCULOSKELETAL: No cyanosis, 2+ peripheral edema. EXTREMITIES: No clubbing or cyanosis Neuro: RASS -2. GCS 11 T follows commands. A/P Assessment and Plan Plan by systems: Neurologic: History of Psychiatric Illness Agitation associated with mechanical ventilation - fent for goal RASS -2 and vent synchrony. - continue home Seroquel, Lyrica.On hold- Prozac Respiratory: Acute hypoxic and Hypercarbic Respiratory Failure COPD exacerbation Community Acquired Pneumonia Pulmonary Edema -- Unable to perform CPAP trials-multiple daily failures , increasing O2 requirements, ventilator requirements. PEEP increased to 10, FiO2 to 60% -- permissive hypercapnea and low tidal volume ventilation targeting 6cc/kg IBW. -- wean fio2 for goal spo2 > 88%. -- Duonebs every 6 hours -- vent bundle -- 03/28 Prednisone discontinued --ETT day 13 Cardiovascular: History of Congestive Heart Failure, unknown type (prior echo from 2010 with normal EF) Hyperlipidemia Coronary Artery Disease -- continue home statin, ASA -- EF 55-60%, stage 1 diastolic dysfunction Renal: Acute kidney injury on chronic kidney disease, unknown stage Acute intravascular volume overload -- Strict I/Os -- bumex 2mg iv q8hr discontinued 03/25 -- 03/23 diamox 500mg iv q8h x 3 doses. -- Rec'd metolazone 5mg po x 1. -- continue porter. Creatinine 3.3 --Renal failure-no hemodialysis planned per patient and family request. FEN/GI: Morbid obesity Acute intravascular volume overload -- TF nepro at goal. -- Monitor bmp --Continue elevation of creatinine 3.41-> 3.77 Heme/ID: Community-acquired pneumonia -- 03/19 sputum cultures growing Staph Epi and E.Coli, both sensitive to Rocephin. -- ceftriaxone 2gm iv q24h x 5 days (total 7 day course of ab). --03/27 Zosyn and Linezolid initiated -- Monitor cbc. --03/26 Repeat blood xucmftkr-[id number]-plrofzus staph aureus --Follow-up urine and sputum cultures -NGTD --ID following Dr. Higuera --03/28 repeat blood culture 1 from existing arterial line, to rule out possible contamination of peripheral blood culture- NGTD Endocrine: Severe hyperglycemia 03/24 d/c insulin drip, start high dose q 4h insulin SSI. --03/29 Insulin infusion restarted in conjuction with high-dose Levemir to maintain normoglycemic levels Continue Levemir to 100 units SQ BID. --03/28 prednisone discontinued Prophylaxis: GI Prophylaxis- On Protonix 40mg daily DVT prophylaxis- SCD, Heparin SQ Lines: right subclavian line discontinued 03/27, peripheral IVs 2 per vascular access team Shelley Dispo: Discussed with MEDIA COORDINATOR at bedside. She remains critically ill with high vent support, volume overload, multiorgan system dysfunction. Discussion meeting today with 2 brothers in the patient's best friend. Confirmed the patient and family requests no dialysis, no PEG placement no tracheostomy. A plan for comfort care measures to be instituted today. Level 3 Physician Nancy Charles MD Mar 31, 2017 08:55
[2017-03-31] MEDS: cloNIDine HCL 0.1 MG TAB PO SCH (09:00)
[2017-03-31] MEDS ORDERED: LORazepam 2 MG/ML VIAL IV PRN (09:00)
[2017-03-31] MEDS: LACTOBACILLUS ACIDOPHILUS TAB PO SCH (09:00)
[2017-03-31] MEDS: PREGABALIN 75 MG CAP PO SCH (09:00)
[2017-03-31] MEDS: DOCUSATE SODIUM 50 MG/SENNA 8.6 MG TAB PO SCH (09:00)
[2017-03-31] MEDS: TRIAMCINOLONE ACETONIDE 55 MCG/ACT NASAL SPRAY 16.5 GM BTL EACH NARE SCH (09:00)
[2017-03-31] MEDS: QUEtiapine FUMARATE 300 MG TAB PO SCH (09:00)
[2017-03-31] MEDS ORDERED: LORazepam 2 MG/ML VIAL IV ONE ×2 (09:00→15:45)
[2017-03-31] MEDS: SODIUM CHLORIDE 0.9% FLUSH 10 ML FLUSH SCH (09:00)
[2017-03-31] MEDS ORDERED: MORPHINE SULFATE 8 MG/ML INJ IV PUSH ONE ×2 (09:00→15:45)
[2017-03-31] MEDS ORDERED: HYOSCYAMINE 0.5 MG/ML AMP IV ONE (09:00)
[2017-03-31] MEDS: TOBRAMYCIN SULF 0.3% OPHT SOLN 5 ML BTL EACH EYE SCH (09:00)
[2017-03-31] MEDS ORDERED: MORPHINE SULFATE 4 MG/ML INJ IV PRN (09:00)
[2017-03-31] MEDS: BRIMONIDINE TARTRATE 0.2% OPHT SOLN 5 ML BTL EACH EYE SCH (09:00)
[2017-03-31] MEDS: ARTIFICIAL TEARS OPTH SOLN 15 ML BTL EACH EYE SCH (09:00)
[2017-03-31] MEDS: INSULIN DETEMIR 100 UNITS/ML VIAL SQ SCH (09:00)
--- NOTE | 2017-03-31 11:13 | HHI.DS ---
Summary Note Date of : Mar 31, 2017 Time Of : 11:09 Admission Date Mar 18, 2017 at 16:17 Admitting Diagnosis HYPOXEMIC RESP FAILURE ON BIPAP, RLL PNEUMONIA Diagnosis at Time of : (1) Sepsis ICD Code: A41.9 Diagnosis: Principal (2) Pneumonia ICD Code: J18.9 Diagnosis: Principal (3) Acute hypoxemic respiratory failure ICD Code: J96.01 Diagnosis: Principal (4) COPD (chronic obstructive pulmonary disease) ICD Code: J44.9 Diagnosis: Principal (5) DM (diabetes mellitus) ICD Code: E11.9 (6) Acute renal failure superimposed on stage 3 chronic kidney disease ICD Code: N17.9 Diagnosis: Principal Brief History Written by Nitza Rosa, acting as scribe for Dr. Suazo on 03/18/17 at 18:00. 56-year-old female with history of PTSD, borderline personality disorder, depression, anxiety, COPD, CHF, Diabetes, neuropathy, GERD, HTN, HLD, migraines , hypothyroidism, presents to the ED after being sent by the [facility] for fever and hypoxia with O2 sat in the 70s. The patient was transported via [facility], placed on NRB, O2 sat improved however patient's breathing very labored with tachypnea therefore put on Bipap in the ER. The patient is now seen in the ER after several minutes of being on Bipap, she reports feeling very fatigued and short of breath. She informs medical team she now wants to revoke her DNR and agrees to intubation if recommended (family member also at bedside agrees to this). Discussed with ER MD who will now intubate and admit to worksite wellness practitioner service. The patient does report 2 week history of shortness of breath and dry nonproductive cough. She has also noticed occasional wheezing. Denies any chest pain. She reports subjective fevers over the past day and [facility] Further history is limited as the patient is very fatigued, tachypneic, and difficult to understand on bipap. The rest of the patient's medical history is obtained from the EMR. CBC/BMP: 03/31/17 0522 03/31/17 0522 Significant Findings Laboratory Tests Test 03/28/17 03/29/17 03/29/17 03/30/17 12:55 06:14 18:00 04:16 Blood Gas HCO3 36 mmol/L (22-26) Blood Gas Base Excess 10.6 mmol/L (-2-2) Arterial Blood Partial 61 mmHg (38-42) Pressure CO2 Blood Gas Hemoglobin 11.2 G/DL (12.0-16.0) White Blood Count 15.9 TH/MM3 16.8 TH/MM3 (4.0-11.0) (4.0-11.0) Red Blood Count 3.85 MIL/MM3 3.66 MIL/MM3 (4.00-5.30) (4.00-5.30) Hemoglobin 10.8 GM/DL 9.8 GM/DL (11.6-15.3) (11.6-15.3) Hematocrit 33.1 % 31.6 % (35.0-46.0) (35.0-46.0) Neutrophils (%) (Auto) 86.1 % (16.0-70.0) Lymphocytes (%) (Auto) 6.8 % (9.0-44.0) Neutrophils # (Auto) 13.7 TH/MM3 (1.8-7.7) Potassium Level 3.2 MEQ/L (3.5-5.1) Chloride Level 97 MEQ/L (98-107) Carbon Dioxide Level 39.5 MEQ/L 37.8 MEQ/L (21.0-32.0) (21.0-32.0) Blood Urea Nitrogen 86 MG/DL (7-18) 91 MG/DL (7-18) Creatinine 3.36 MG/DL 3.42 MG/DL (0.50-1.00) (0.50-1.00) Estimat Glomerular Filtration 14 ML/MIN (>89) 14 ML/MIN (>89) Rate Random Glucose 257 MG/DL 169 MG/DL (74-106) (74-106) Calcium Level 10.3 MG/DL (8.5-10.1) Magnesium Level 3.0 MG/DL 3.0 MG/DL (1.5-2.5) (1.5-2.5) Urine Turbidity HAZY (CLEAR) Urine Protein 30 mg/dL (NEG-TRACE) Urine Occult Blood SMALL (NEG) Urine RBC 17 /hpf (0-3) Urine Mucus FEW /lpf (OCC) Mean Corpuscular Hemoglobin 26.9 PG (27.0-34.0) Mean Corpuscular Hemoglobin 31.1 % Concent (32.0-36.0) Sodium Level 146 MEQ/L (136-145) Test 03/30/17 03/31/17 05:21 05:22 Blood Gas HCO3 35 mmol/L (22-26) Blood Gas Base Excess 9.8 mmol/L (-2-2) Blood Gas Oxygen Saturation 85 % (90-100) Arterial Blood Partial 62 mmHg (38-42) Pressure CO2 Arterial Blood Partial 59 mmHg Pressure O2 (61-120) White Blood Count 17.2 TH/MM3 (4.0-11.0) Red Blood Count 3.62 MIL/MM3 (4.00-5.30) Hemoglobin 9.9 GM/DL (11.6-15.3) Hematocrit 31.6 % (35.0-46.0) Mean Corpuscular Hemoglobin 31.3 % Concent (32.0-36.0) Carbon Dioxide Level 34.3 MEQ/L (21.0-32.0) Blood Urea Nitrogen 95 MG/DL (7-18) Creatinine 3.71 MG/DL (0.50-1.00) Estimat Glomerular Filtration 13 ML/MIN (>89) Rate Random Glucose 197 MG/DL (74-106) Magnesium Level 3.1 MG/DL (1.5-2.5) Imaging Last Impressions Chest X-Ray 03/26/17 0600 Signed Impressions: Service Date/Time: Sunday, March 26, 2017 04:04 - CONCLUSION: Left basilar opacity is present may be due to a combination of consolidation and or pleural effusion and perivascular pulmonary edema. Marianela Cedillo MD Renal Ultrasound 03/19/17 0000 Signed Impressions: Service Date/Time: Sunday, March 19, 2017 08:38 - CONCLUSION: Symmetric renal size. Stable complicated cyst upper pole left kidney. Anselmo Palmer MD Last Impressions Chest X-Ray 03/20/17 0000 Signed Impressions: Service Date/Time: Monday, March 20, 2017 03:41 - CONCLUSION: Small lung volumes with diffuse pulmonary vascular prominence. Tubes and catheters in good position Reese Pacheco MD Renal Ultrasound 03/19/17 0000 Signed Impressions: Service Date/Time: Sunday, March 19, 2017 08:38 - CONCLUSION: Symmetric renal size. Stable complicated cyst upper pole left kidney. Anselmo Palmer MD Last Impressions Chest X-Ray 03/19/17 0000 Signed Impressions: Service Date/Time: Sunday, March 19, 2017 02:00 - CONCLUSION: Tubes and catheters in good position. Stable infiltrate right lower lobe. Reese Pacheco MD Hospital Course 03/19 Patient is intubated sedated with versed. Afebrile. Given 4L NS boluses overnight. 03/20: remains intubated, sedated, significantly hypoxic. in acute kidney injury and severe volume overload. received bumex x 1 this morning. Also remains hyperglycemic. critically ill, not improving. high fio2 requirements. 03/21: oxygenation slightly improved, but continues with significant volume overload. SANAM stable. hyperglycemia slightly better, but remains on very high doses of insulin drip along with high dose long-acting insulin. vent requirements still very high and unable to even start SBT given hypoxia. 03/22: oxygenation continues to improve, but patient remains significantly volume overloaded in persistent pulmonary edema. fio2 is decreased, but peep remains high. also, despite increases in long-acting insulin, insulin drip remains at 7 units/hr. 03/23: slow improvements in oxygenation. net negative 3.2L/24h. still required 100 units iv insulin by infusion despite high long-acting insulin. 03/24: net -1L/24h. insulin drip slightly improved, though still used 150 units/ 24h. failed SBT after 10 minutes. 03/25 : Creatinine worsening. Diuretics discontinued. CPAP trials initiated this morning. The patient remains hyperglycemic will requirements for when necessary medications, steroid taper continue. 03/26: Renal functioning worsening. Patient was noted to have a low-grade fever. Repeat cultures obtained. Patient tolerated CPAP trials approximately 6 hours yesterday. 03/27 Tmax 101.3. The WBC count elevated. Cultures revealed gram-positive cocci. Antibiotics initiated, Zosyn and Linezolid. Central line discontinued. Discussion with palliative medicine will continue to consider PEG tube placement and tracheostomy. The family discussed waiting for those interventions at this time. Living will obtained family is considering comfort care measures at this time. 03/28: Patient continues to have low-grade temperatures. Peripheral blood cultures revealed gram positive coagulase negative staph. Zosyn and Linezolid initiated. A line discontinued. Repeat urine and sputum cultures obtained. Discussion with family to return to hospital this weekend regarding possible trial of extubation, without reintubation versus comfort care measures. Family at this time requests no intervention regarding tracheostomy, PEG tube placement , for dialysis at this time. Of note creatinine continues to increase. Prednisone taper completed. Hyperglycemia persists, patient continues on high dose long-acting insulin. 03/29: Tmax 101.3. The patient continues to have persistent leukocytosis. Peripheral blood cultures showed coagulase negative, repeat pending. Patient was placed on the nasal lid yesterday however the patient has persistent leukocytosis with elevation of WBCs, and elevation of fever. Antibiotics changed Linezolid discontinued, vancomycin initiated along with Diflucan for possible yeast coverage. ID has been consulted appreciate recommendations. During the night the patient had increasing O2 requirements, unable to perform CPAP trials today. 03/30: The patient is noted to have increasing oxygen requirements. Patient continues to have persistent leukocytosis. Family at bedside, 2 brothers in the patient's best friend. Plans for comfort care measures to be instituted Saturday evening or Saturday morning. 03/31: Overnight oxygen /mechanical ventilation requirements increased, creatinine worsening, noted continued elevation of WBC count. The patient is unable to be weaned from mechanical ventilation. Family has requested comfort care measures be instituted this a.m. per patient request for no interventions to include hemodialysis, tracheostomy, for PEG placement, and worsening of her condition. With family at bedside, comfort care measures instituted. Patient at 1109am. Nancy Linares MD Mar 31, 2017 11:13
== END 2017-03-31 11:09 | disposition expired | DRG 870 ==
LOC: NEPC 14:11 → NEDA 16:17 → HIMN 19:40
PROVIDERS: ADMIT Internal Medicine Critical Care Medicine; ATTEND Internal Medicine Critical Care Medicine
PROC: 5A1955Z Respiratory Ventilation, Greater than 96 Consecutive Hours (ICD-10-PCS; principal; 2017-03-18)
PROC: 0BH17EZ Insertion of Endotracheal Airway into Trachea, Via Natural or Artificial Opening (ICD-10-PCS; 2017-03-18)
PROC: 5A09357 Assistance with Respiratory Ventilation, Less than 24 Consecutive Hours, Continuous Positive Airway Pressure (ICD-10-PCS; 2017-03-18)
PROC: 03HY32Z Insertion of Monitoring Device into Upper Artery, Percutaneous Approach (ICD-10-PCS; 2017-03-19)
PROC: 05H533Z Insertion of Infusion Device into Right Subclavian Vein, Percutaneous Approach (ICD-10-PCS; 2017-03-19)
DX: A41.51 Sepsis due to Escherichia coli [E. coli] (principal); J96.01 Acute respiratory failure with hypoxia; J18.9 Pneumonia, unspecified organism; J96.02 Acute respiratory failure with hypercapnia; I13.0 Hypertensive heart and chronic kidney disease with heart failure and stage 1 through stage 4 chronic kidney disease, or unspecified chronic kidney disease; N17.9 Acute kidney failure, unspecified; E11.22 Type 2 diabetes mellitus with diabetic chronic kidney disease; E11.42 Type 2 diabetes mellitus with diabetic polyneuropathy; I50.9 Heart failure, unspecified; N18.3 Chronic kidney disease, stage 3 (moderate); J44.0 Chronic obstructive pulmonary disease with (acute) lower respiratory infection; J44.1 Chronic obstructive pulmonary disease with (acute) exacerbation; Z68.43 Body mass index [BMI] 50.0-59.9, adult; E11.649 Type 2 diabetes mellitus with hypoglycemia without coma; M19.90 Unspecified osteoarthritis, unspecified site; F43.10 Post-traumatic stress disorder, unspecified; F32.9 Major depressive disorder, single episode, unspecified; F41.9 Anxiety disorder, unspecified; Z51.5 Encounter for palliative care; E11.65 Type 2 diabetes mellitus with hyperglycemia; E66.01 Morbid (severe) obesity due to excess calories; I25.10 Atherosclerotic heart disease of native coronary artery without angina pectoris; F60.3 Borderline personality disorder; Z66 Do not resuscitate; K21.9 Gastro-esophageal reflux disease without esophagitis; E78.5 Hyperlipidemia, unspecified; E03.9 Hypothyroidism, unspecified; F17.210 Nicotine dependence, cigarettes, uncomplicated; Z86.73 Personal history of transient ischemic attack (TIA), and cerebral infarction without residual deficits; Z79.82 Long term (current) use of aspirin; Z79.4 Long term (current) use of insulin; D64.9 Anemia, unspecified; E83.39 Other disorders of phosphorus metabolism; E83.52 Hypercalcemia; G47.30 Sleep apnea, unspecified; R65.20 Severe sepsis without septic shock; Z99.3 Dependence on wheelchair; B95.7 Other staphylococcus as the cause of diseases classified elsewhere
CPT/HCPCS: 31500; 36556; 36600; 71010; 76775; 76937; 80048; 80053; 80069; 80202; 81001; 82140; 82550; 82552; 82805; 82948; 83605; 83735; 83880; 84100; 84132; 84484; 85007; 85025; 85027; 85610; 85730; 86403; 87040; 87070; 87077; 87086; 87147; 87149; 87186; 87205; 87449; 87641; 93005; 93306; 94002; 94003; 94150; 94640; 94664; 96374; 96375; C9113; J0330; J0456; J0692; J0696; J1120; J1450; J1644; J1817; J1980; J2020; J2060; J2250; J2270; J2543; J2765; J2920; J2930; J3010; J3370; J3480; J7030; J7040; J7050; J7512; J7613